=== PATIENT | male | born 1970 | race Two or more races ===

== ENCOUNTER 2020-02-05 09:48 | Emergency (ER) | payer BC, SELFPAY ==
--- NOTE | 2020-02-05 10:03 | ED.NAVMDI ---
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 Mode of arrival: ambulatory Limitations: no limitations History of Present Illness MD elicited complaint: nausea, vomiting and abdominal pain Onset (ago): day(s) (last night) Description of vomiting: food contents Associated nausea: Yes Associated abdominal pain: Yes Location of pain: diffuse Radiation: diffuse Pain consistency: constant Severity: moderate Quality: cramping Exacerbating factors: eating Relieving factors: none Context: possible food poisoning (started right after eating a big mac) Associated symptoms: loss of appetite and nausea/vomiting Related Data Previous Rx's Medication Instructions Recorded ondansetron 4 mg PO Q8H PRN #20 tab 02/05/20 Allergies Allergy/AdvReac Type Severity Reaction Status Date / Time No Known Allergies Allergy Unverified 11/13/19 18:50 [No Known Allergies*] Review of Systems Review of Systems: Constitutional : No Weight loss, No Fever, No Chills ENT/Mouth : No sore throat, No Rhinorrhea Eyes: No Swelling, No Redness Cardiovascular : No Chest Pain, No SOB, NoEdema Respiratory : No Cough, No Sputum, No Wheezing Gastrointestinal : Positive Nausea, Positive Vomiting, no Diarrhea, positive abdominal Pain, No Hematochezia, No Melena Genitourinary : No Dysuria, No Urinary Frequency, No Hematuria, No Urgency Musculoskeletal : No joint pain, No Myalgias, No Joint Swelling Skin : No Skin Lesions, No rash Neuro : No Weakness, No Numbness, No Dizziness, No Headache Psych : No Anxiety/Panic, No Depression Heme/Lymph: No Bruising, No Lymphadenopathy Endocrine : No Polyuria, No Polydipsia All other systems reviewed and are negative. Gastrointestinal: Gastrointestinal: Reports nausea PMFSH Past Medical History Attestation statement: The following information was validated with the patient. Medical History No known health problems Social History Social History (Updated 02/05/20 @ 10:25 by Lou Hirsch DO) Alcohol intake: never Smoking Status: Never smoker Advance Directives: No Advance Directives Information Provided: Yes Physical Exam Vital Signs: Vital Signs: Last Vital Signs Temp 99.2 F 02/05/20 10:17 Pulse 80 02/05/20 10:17 Resp 18 02/05/20 10:17 BP 145/93 H 02/05/20 10:17 Pulse Ox 97 02/05/20 10:17 Body Mass Index 26.6 Appearance: Alert. Oriented X3. No acute distress. Eyes: Pupils equal, round and reactive to light. ENT: Pharynx normal. Neck: Normal inspection. Neck supple. CVS: Normal heart rate and rhythm. Pulses normal. Respiratory: No respiratory distress. Breath sounds normal. Abdomen: Soft and mild diffuse tenderness no rebound or guarding. Skin: Skin warm and dry. Normal skin color. Normal skin turgor. Extremities: No lower extremity edema. No calf ttp Neuro: Oriented X 3. No motor deficit. No sensory deficit. Course Course Course Narrative: previously elevated LFTs no RUQ pain, feels much better wants to go home MDM - Nausea/Vomiting/Diarrhea MDM Narrative Medical decision making narrative: 50 yo male with no PMH c/o diffuse abdominal cramps and vomiting after eating a Big Mac last night at this time will need labs, IVF, supportive medications, no RLQ or RUQ pain suspect food toxicity Lab Data Result diagrams: 02/05/20 10:29 02/05/20 10:29 Labs: Lab Results 02/05/20 02/05/20 02/05/20 Range/Units 10:27 10:29 10:29 WBC 5.0 (4.8-10.8) X10*3/uL RBC 5.61 (4.60-5.80) X10*6/uL Hgb 17.4 (14.0-18.0) g/dl Hct 51.3 (42-52) % MCV 91.4 (80-98) fL MCH 31.0 (27.0-33.0) pg MCHC 33.9 (31.0-36.0) g/dl RDW 12.4 (11.0-16.0) % Plt Count 147 L (160-400) X10*3/uL MPV 9.6 (9.4-12.4) fL Immature Gran % (Auto) 0.2 (0.0-0.4) % Neut % (Auto) 70.4 (45-73) % Lymph % (Auto) 16.4 L (20-40) % [place] % (Auto) 12.8 H (2-11) % Eos % (Auto) 0.0 (0-4) % Baso % (Auto) 0.2 (0-2) % Lymph # (Auto) 0.8 L (1.2-4.9) X10*3/uL [place] # (Auto) 0.6 (0.1-1.2) X10*3/uL Eos # (Auto) 0.0 (0.0-0.4) X10*3/uL Baso # (Auto) 0.0 (0.0-0.2) X10*3/uL Abs Immat Gran (auto) 0.01 (0.00-0.03) X10*3/uL Absolute Neuts (auto) 3.5 (2.0-8.3) X10*3/uL Absolute Nucleated RBC 0.000 (0.0-0.012) X10*3/uL Nucleated RBC % (auto) 0.0 (0.0-0.2) /100WBC Hold Blue Top SEE NOTE Sodium (135-145) mmol/L Potassium (3.3-5.1) mmol/l Chloride (96-108) mmol/L Carbon Dioxide (22-29) mmol/L Anion Gap (12-20) BUN (9-16) mg/dL Creatinine (0.5-1.4) mg/dL Estim Creat Clear Calc Estimated GFR Random Glucose (60-115) mg/dL Calcium (8.4-10.2) mg/dL Magnesium (1.6-2.6) mg/dL Total Bilirubin (0.0-1.0) mg/dL Direct Bilirubin (0.0-0.5) mg/dL AST (5-37) U/L ALT (0-40) U/L Alkaline Phosphatase (39-117) U/L Total Protein (6.5-8.0) g/dL Albumin (3.5-5.0) g/dL Lipase (8-78) U/L Urine Color YELLOW Urine Appearance CLEAR Urine pH 7.0 (5.0-8.0) Ur Specific [place] 1.020 (1.005-1.025) Urine Protein NEG (NEG-TRACE) MG/DL Urine Glucose (UA) NEG (NEG) MG/DL Urine Ketones NEG (NEG) MG/DL Urine Blood NEG (NEG) Urine Nitrite NEG (NEG) Ur Leukocyte Esterase NEG (NEG) 02/05/20 Range/Units 10:29 WBC (4.8-10.8) X10*3/uL RBC (4.60-5.80) X10*6/uL Hgb (14.0-18.0) g/dl Hct (42-52) % MCV (80-98) fL MCH (27.0-33.0) pg MCHC (31.0-36.0) g/dl RDW (11.0-16.0) % Plt Count (160-400) X10*3/uL MPV (9.4-12.4) fL Immature Gran % (Auto) (0.0-0.4) % Neut % (Auto) (45-73) % Lymph % (Auto) (20-40) % [place] % (Auto) (2-11) % Eos % (Auto) (0-4) % Baso % (Auto) (0-2) % Lymph # (Auto) (1.2-4.9) X10*3/uL [place] # (Auto) (0.1-1.2) X10*3/uL Eos # (Auto) (0.0-0.4) X10*3/uL Baso # (Auto) (0.0-0.2) X10*3/uL Abs Immat Gran (auto) (0.00-0.03) X10*3/uL Absolute Neuts (auto) (2.0-8.3) X10*3/uL Absolute Nucleated RBC (0.0-0.012) X10*3/uL Nucleated RBC % (auto) (0.0-0.2) /100WBC Hold Blue Top Sodium 138 (135-145) mmol/L Potassium 4.2 (3.3-5.1) mmol/l Chloride 101 (96-108) mmol/L Carbon Dioxide 27 (22-29) mmol/L Anion Gap 14 (12-20) BUN 9 (9-16) mg/dL Creatinine 1.03 (0.5-1.4) mg/dL Estim Creat Clear Calc 89.3 Estimated GFR > 60 Random Glucose 99 (60-115) mg/dL Calcium 8.7 (8.4-10.2) mg/dL Magnesium 2.1 (1.6-2.6) mg/dL Total Bilirubin 0.4 (0.0-1.0) mg/dL Direct Bilirubin 0.3 (0.0-0.5) mg/dL AST 60 H (5-37) U/L ALT 70 H (0-40) U/L Alkaline Phosphatase 76 (39-117) U/L Total Protein 7.3 (6.5-8.0) g/dL Albumin 4.4 (3.5-5.0) g/dL Lipase 21 (8-78) U/L Urine Color Urine Appearance Urine pH (5.0-8.0) Ur Specific [place] (1.005-1.025) Urine Protein (NEG-TRACE) MG/DL Urine Glucose (UA) (NEG) MG/DL Urine Ketones (NEG) MG/DL Urine Blood (NEG) Urine Nitrite (NEG) Ur Leukocyte Esterase (NEG) Discharge Plan Discharge Clinical Impression: Abdominal pain Qualifiers: Abdominal location: generalized Qualified Code(s): R10.84 - Generalized abdominal pain Vomiting Qualifiers: Vomiting type: unspecified Vomiting Intractability: non-intractable Nausea presence: with nausea Qualified Code(s): R11.2 - Nausea with vomiting, unspecified Patient Disposition: Home, Self-Care Instructions: Acute Nausea and Vomiting (ED), Abdominal Pain (ED) Additional Instructions: return to ED for any worsening symptoms or concerns Prescriptions: New ondansetron 4 mg tablet,disintegrating 4 mg PO Q8H PRN (Reason: nausea and vomiting) Qty: 20 RF: 0 Stand Alone Forms: Work/School Release Print Language: [place]
[2020-02-05 10:17] VITALS: BP 145/93; PULSE 80; RESP 18; TEMP 37.3; O2SAT 97; BMI 26.6
[2020-02-05] MEDS: 0.9 % Sodium Chloride 1,000 ML 999 ML IVCONT (10:35)
[2020-02-05] MEDS: Ketorolac Tromethamine 30 MG/ML VIAL IVPUSH (10:36)
[2020-02-05] MEDS: Famotidine/PF 20 MG/2 ML VIAL IVPUSH (10:36)
[2020-02-05] MEDS: ondansetron HCL 4 MG/2 ML VIAL IVPUSH (10:36)
[2020-02-05 10:42] LABS: MANUAL DIFF FLAG NO
[2020-02-05 10:44] LABS: Basophils Percent Auto 0.2 % (0-2); Hematocrit 51.3 % (42-52); Hemoglobin 17.4 g/dl (14.0-18.0); Imm Gran Abs Auto 0.01 X10*3/uL (0.00-0.03); Imm Gran Pct Auto 0.2 % (0.0-0.4); Lymphocytes Absolute Auto 0.8 X10*3/uL (1.2-4.9); Lymphocytes Percent Auto 16.4 % (20-40); Mean Corpuscular HGB Conc 33.9 g/dl (31.0-36.0); Mean Corpuscular Volume 91.4 fL (80-98); Mean Platelet Volume 9.6 fL (9.4-12.4); Monocytes Absolute Auto 0.6 X10*3/uL (0.1-1.2); Monocytes Percent Auto 12.8 % (2-11); Neutrophils Absolute Auto 3.5 X10*3/uL (2.0-8.3); Neutrophils Percent Auto 70.4 % (45-73); Platelet Count 147 X10*3/uL (160-400); Red Blood Count 5.61 X10*6/uL (4.60-5.80); Red Cell Distribution Width 12.4 % (11.0-16.0)
[2020-02-05 10:45] LABS: Glucose Urine UA NEG (NEG); Leukocyte Esterase Urine NEG (NEG); Nitrite Urine NEG (NEG); Urine Blood NEG (NEG); Urine Ketones NEG (NEG); Urine Protein NEG (NEG-TRACE)
[2020-02-05 10:53] LABS: Appearance Urine CLEAR; Color Urine YELLOW
[2020-02-05 11:16] LABS: Alanine Aminotransferase 70 U/L (0-40); Albumin Level 4.4 g/dL (3.5-5.0); Alkaline Phosphatase 76 U/L (39-117); Anion Gap 14 (12-20); Aspartate Amino Transferase 60 U/L (5-37); Bilirubin Direct 0.3 mg/dL (0.0-0.5); Bilirubin Total 0.4 mg/dL (0.0-1.0); Blood Urea Nitrogen 9 mg/dL (9-16); Calcium 8.7 mg/dL (8.4-10.2); Carbon Dioxide 27 mmol/L (22-29); Chloride 101 mmol/L (96-108); Creatinine Clr Calc Pharmacy 89.3; Estimated Glomerular Filt Rate > 60; Glucose Random 99 mg/dL (60-115); Lipase 21 U/L (8-78); Magnesium 2.1 mg/dL (1.6-2.6); Potassium 4.2 mmol/l (3.3-5.1); Sodium 138 mmol/L (135-145); Total Protein 7.3 g/dL (6.5-8.0)
== END 2020-02-05 13:31 | disposition home or self-care (01) ==
PROVIDERS: Emergency Provider Emergency Medicine
DX: R10.84 Generalized abdominal pain (principal); R11.2 Nausea with vomiting, unspecified
CPT/HCPCS: 36415; 80048; 80076; 81003; 83690; 83735; 85025; 99283; J1885; J2405

== ENCOUNTER 2020-02-05 16:36 | Outpatient (REF) | payer BC, SELFPAY | END 2020-02-05 16:37 | disposition home or self-care (01) | LOC: HO.LAB 16:36 | PROVIDERS: PCP Family Medicine; Visit Provider Internal Medicine | DX: Z20.828 Contact with and (suspected) exposure to other viral communicable diseases (principal) | CPT/HCPCS: C9803; U0003 ==

== ENCOUNTER 2020-02-09 09:39 | Emergency (ER) | payer BC, SELFPAY ==
[2020-02-09 10:52] VITALS: BP 155/91; PULSE 85; RESP 18; TEMP 37.8; O2SAT 99; BMI 27.2
--- NOTE | 2020-02-09 10:57 | XR_ITS ---
EXAMINATION: XR CHEST CLINICAL INFORMATION: Question COVID. Pneumonia. COMPARISON: None TECHNIQUE: Frontal view of the chest was obtained. FINDINGS: Normal cardiac and mediastinal silhouette. The lungs are hyperexpanded. Slight elevation of the right hemidiaphragm. Curvilinear opacity in the medial aspect of the left upper lung, and small patchy opacity in the medial aspect of the right lower lung, could represent atelectasis or developing infiltrate. No dense consolidation otherwise. No effusion, edema or pneumothorax. XR/XR chest 1V IMPRESSION: Curvilinear left upper lobe opacity, small patchy opacity in the medial right lung base, could represent atelectasis or developing infiltrate. Suggest followup chest x-ray for reassessment.
[2020-02-09] MEDS: Ibuprofen 800 MG TABLET PO (11:21)
--- NOTE | 2020-02-09 11:23 | PC.NURSE ---
SEEN BY MLP. MEDICATED PER ORDERS
--- NOTE | 2020-02-09 11:32 | ED_ITS ---
HPI - URI/Sore Throat General Chief Complaint: Upper Respiratory Symptoms Stated Complaint: COVID+ Time Seen by Provider: 02/09/20 10:56 Source: patient Mode of arrival: ambulatory Limitations: no limitations History of Present Illness HPI Narrative: Patient presents to ED for COVID like symptoms. Patient states body aches, headache, night sweats, chills, fatigue, and coughing. Patient denies any chest pain or shortness of breath. Patient states his tested positive for COVID-19 virus also. Patient denies any abdominal pain or diarrhea. States nausea. Patient states he was tested positive for covid-19 5 days ago. Related Data Previous Rx's Medication Instructions Recorded ondansetron 4 mg PO Q8H PRN #20 tab 02/05/20 amoxicillin 1,000 mg PO TID #30 tab 02/09/20 azithromycin [Zithromax Z-Rufino] See Rx Instructions .ROUTE 02/09/20 .COMPLEX #6 tab naproxen 500 mg PO BID PRN #20 tab 02/09/20 Allergies Allergy/AdvReac Type Severity Reaction Status Date / Time No Known Allergies Allergy Unverified 11/13/19 18:50 [No Known Allergies*] Review of Systems Review of Systems: Yes all other systems are reviewed and are negative Constitutional: Constitutional: Reports as per HPI, Reports no additional constitutional complaints, Reports body ache(s), Reports chills, Reports fatigue, Reports fever(s), Reports headache(s) and Reports night sweats Eyes: Eyes: Reports as per HPI and Reports no additional eye complaints ENT: Reports system reviewed and no additional complaints, except as documented, Reports as per HPI and Reports headache(s) Cardiovascular: Cardiovascular: Reports as per HPI, Reports no additional cardiovascular complaints, Denies chest pain, Denies chest pain at rest, Denies chest pain with activity, Denies Epigastric Pain, Denies dyspnea, Denies dyspnea on exertion, Denies orthopnea and Denies paroxysmal nocturnal dyspnea Respiratory: Respiratory: Reports as per HPI, Reports no additional respiratory complaints, Reports cough, Denies excessive phlegm production, Denies pain on inspiration, Denies pain with cough, Denies dyspnea and Denies dyspnea on exertion Gastrointestinal: Gastrointestinal: Reports as per HPI, Reports no additional gastrointestinal complaints, Denies abdominal pain, Denies dyspepsia, Denies heartburn, Denies diarrhea, Denies nausea and Denies vomiting Genitourinary: Genitourinary: Reports no additional male genitourinary complaints and Reports as per HPI Musculoskeletal: Musculoskeletal: Reports no additional musculoskeletal complaints and Reports as per HPI Neurologic: Reports system reviewed and no additional complaints, except as documented, Reports as per HPI and Reports headache(s) Psychiatric: Psychiatric: Reports no additional psychiatric complaints and Reports as per HPI Endocrine: Endocrine: Reports fatigue [facility] Past Medical History Medical History No known health problems Social History Social History (Updated 02/05/20 @ 10:25 by Lou Hirsch DO) Alcohol intake: never Smoking Status: Never smoker Advance Directives: No Advance Directives Information Provided: No Physical Exam Vital Signs: Vital Signs: Last Vital Signs Temp 100.0 F 02/09/20 10:52 Pulse 85 02/09/20 10:52 Resp 18 02/09/20 10:52 BP 155/91 H 02/09/20 10:52 Pulse Ox 99 02/09/20 10:52 Body Mass Index 27.2 Const: General: cooperative, healthy appearing, comfortable, no acute distress, well developed, alert, awake, Physically active and acute distress Orientation/consciousness: patient oriented x3 HENMT: Head: Yes normal to inspection and Yes No palpable skull fracture present Eyes: General: appearance normal, both eyes and all related structures Neck: Neck: Yes normal visual inspection, Yes full ROM, Yes no lymphadenopathy, Yes no meningeal signs, Yes trachea midline, Yes supple and No tender Chest: Chest palpation & inspection: normal inspection of the chest, normal palpation of entire chest wall and no localized rib tenderness Resp: Effort & Inspection: normal respiratory effort and able to speak in complete sentences Auscultation: clear to auscultation bilaterally Cardio: Jugular venous distension: no JVD Heart sounds: S1 normal heart sound present and S2 normal heart sound present GI: Inspection: Yes normal to inspection and No abdominal wall ecchymosis Palpation (GI): Soft to palpation, not firm, nontender, no guarding and not rigid : General: No CVA tenderness and Yes no CVA tenderness Back/Spine/Pelvis: Back: no CVA tenderness, No CVA tenderness and No back tenderness Skin: General skin exam: no rashes or lesions noted Neuro: General: patient oriented x3, gait normal, no meningeal signs and CN's II-XI intact bilaterally Cranial nerves: Yes CN's II-XII intact bilaterally Extrem: General: Yes normal to inspection and Yes full ROM Psych: Appearance: grossly normal, well kempt and not disheveled Course Course Course Narrative: Patient is not in respiratory distress. Patient denies any chest pain or shortness of breath. Patient was recently seen here on the and had normal labs. No need to repeat labs. We will do chest x-ray to see if there is COVID pneumonia. Will give patient Zofran and Motrin. No need for repeat COVID test. Patient states who was recently tested positive for COVID-19 5 days ago. Reevaluation(s) Reevaluation #1: Patient vital signs are stable. Patient denies any shortness of breath or chest pain. Chest x-ray shows bilateral pneumonia. Patient is not hypoxic. Patient is not tachypneic. Patient speaking in full sentences. No no labs indicated. Patient is not toxic appearing Time: 11:56 MDM - URI/Sore Throat MDM Narrative Medical decision making narrative: COVID-19 Discharge Plan Discharge Clinical Impression: COVID-19, Pneumonia Patient Disposition: Home, Self-Care Instructions: Pneumonia (ED), COVID-19 (Coronavirus Disease 2019) (ED) Additional Instructions: Return to the ED for any chest pain, shortness of breath, weakness, or any other concerning symptoms. Recommend 14 days self-isolation. Prescriptions: New azithromycin [Zithromax Z-Rufino] 250 mg tablet See Rx Instructions .ROUTE .COMPLEX Qty: 6 RF: 0 amoxicillin 500 mg tablet 1,000 mg PO TID Qty: 30 RF: 0 naproxen 500 mg tablet 500 mg PO BID PRN (Reason: pain) Qty: 20 RF: 0 No Action ondansetron 4 mg tablet,disintegrating 4 mg PO Q8H PRN (Reason: nausea and vomiting) Qty: 20 RF: 0 Referrals: True Mullen MD [Primary Care Provider] - 2 days (Positive COVID- 19 virus. Chest x-ray shows pneumonia. Patient discharged with antibiotics) Stand Alone Forms: Work/School Release Print Language: Kinyarwanda
== END 2020-02-09 13:30 | disposition home or self-care (01) ==
PROVIDERS: Emergency Provider Emergency Medicine; PCP Internal Medicine
DX: U07.1 COVID-19 (principal); J12.89 Other viral pneumonia
CPT/HCPCS: 71045; 99282; 99283

== ENCOUNTER 2020-02-18 10:54 | Outpatient (REF) | payer BC, SELFPAY | END 2020-02-18 10:55 | disposition home or self-care (01) | LOC: HO.LAB 10:54 | PROVIDERS: Visit Provider Internal Medicine | DX: Z20.828 Contact with and (suspected) exposure to other viral communicable diseases (principal) | CPT/HCPCS: C9803; U0003 ==

== ENCOUNTER 2020-02-25 15:15 | Outpatient (REF) | payer BC, SELFPAY | END 2020-02-25 15:16 | disposition home or self-care (01) | LOC: HO.LAB 15:15 | PROVIDERS: PCP Family Medicine; Visit Provider Internal Medicine | DX: Z20.828 Contact with and (suspected) exposure to other viral communicable diseases (principal) | CPT/HCPCS: C9803; U0003 ==

== ENCOUNTER 2021-09-05 08:49 | Emergency (ER) | payer OTHER, SELFPAY ==
--- NOTE | ~2021-09-05 | CT_ITS ---
EXAMINATION: CT ABDOMEN AND PELVIS WITHOUT CONTRAST CLINICAL INFORMATION: Left lower quadrant pain COMPARISON: Previous CT of the abdomen and pelvis July 2019 TECHNIQUE: Multidetector volumetric imaging was performed from the superior aspect of the liver through the pubic symphysis. Sagittal and coronal reformatted images were obtained on the technologist's workstation. This CT examination was performed using dose optimization techniques as appropriate, variously including the following: *Automated exposure control *Adjustment of mA and/or kV according to patient size (this includes techniques or standardized protocols for targeted exams where dose is matched to indication/reason for exam; i.e. extremities or head) *Use of iterative reconstruction technique DLP: 634 mGy-cm FINDINGS: LUNG BASES: The visualized lung bases are unremarkable. LIVER, GALLBLADDER, AND BILIARY TREE: The liver is normal in size and shape. The liver is low in attenuation suggestive of fatty infiltration. No focal hepatic lesion or biliary ductal dilatation is present. The gallbladder is unremarkable with no evidence of radiopaque gallstones, gallbladder wall thickening, or obvious pericholecystic inflammatory changes. PANCREAS: Unremarkable. SPLEEN: Unremarkable. ADRENAL GLANDS: Unremarkable. KIDNEYS AND URETERS: The kidneys are normal in size, shape, and attenuation. No hydronephrosis, hydroureter, or calculi seen. No perinephric stranding. BLADDER: Unremarkable. GASTROINTESTINAL TRACT: There is diverticulosis of the colon. There is wall thickening of the distal left/proximal sigmoid colon and fat stranding of the surrounding fat just diverticulitis. No evidence of obstruction, perforation or abscess is. The small and large bowel are otherwise unremarkable. The appendix is unremarkable. ABDOMINAL WALL: No significant hernia is appreciated. LYMPH NODES: Normal. VASCULAR: Unremarkable. PELVIC VISCERA: Unremarkable. OSSEOUS STRUCTURES: Unremarkable. CT/CT abdomen pelvis wo con IMPRESSION: Diverticulitis of the distal left/proximal sigmoid colon. Fatty liver. Fleischner guidelines were followed.
[2021-09-05 10:11] VITALS: BP 156/95; PULSE 77; RESP 18; TEMP 36.6; O2SAT 95; BMI 27.1
[2021-09-05 10:40] LABS: MANUAL DIFF FLAG NO
[2021-09-05 10:44] LABS: Appearance Urine CLEAR; Basophils Absolute Auto 0.1 X10*3/uL (0.0-0.2); Basophils Percent Auto 0.4 % (0-2); Color Urine YELLOW; Eosinophils Absolute Auto 0.1 X10*3/uL (0.0-0.4); Eosinophils Percent Auto 1.1 % (0-4); Glucose Urine UA NEG (NEG); Hematocrit 49.4 % (42.0-52.0); Hemoglobin 17.2 g/dl (14.0-18.0); Imm Gran Abs Auto 0.06 X10*3/uL (0.00-0.03); Imm Gran Pct Auto 0.5 % (0.0-0.4); Leukocyte Esterase Urine NEG (NEG); Lymphocytes Absolute Auto 1.5 X10*3/uL (1.2-4.9); Lymphocytes Percent Auto 11.3 % (20-40); Mean Corpuscular HGB Conc 34.8 g/dl (31.0-36.0); Mean Corpuscular Hemoglobin 31.5 pg (27.0-33.0); Mean Corpuscular Volume 90.5 fL (80.0-98.0); Mean Platelet Volume 9.6 fL (9.4-12.4); Monocytes Absolute Auto 1.3 X10*3/uL (0.1-1.2); Monocytes Percent Auto 9.7 % (2-11); Neutrophils Absolute Auto 9.9 x10*3/uL (2.0-8.3); Nitrite Urine NEG (NEG); Platelet Count 179 X10*3/uL (160-400); Red Blood Count 5.46 X10*6/uL (4.60-5.80); Red Cell Distribution Width 12.3 % (11.0-16.0); Specific Gravity - Urine 1.015 (1.005-1.025); UACC Culture Trigger NO; Urine Blood TRACE (NEG); Urine Ketones NEG (NEG); Urine Protein NEG (NEG-TRACE); White Blood Count 12.9 X10*3/uL (4.8-10.8)
[2021-09-05 11:01] LABS: RBC Urine 0-2 /HPF (0); Squamous Epithelial Cell Urine TRACE /LPF; WBC Urine 0 /HPF (0-4)
[2021-09-05 11:03] LABS: Alanine Aminotransferase 77 U/L (0-40); Albumin Level 4.6 g/dL (3.5-5.0); Alkaline Phosphatase 91 U/L (39-117); Anion Gap 12 (12-20); Aspartate Amino Transferase 34 U/L (5-37); Bilirubin Direct 0.4 mg/dL (0.0-0.5); Bilirubin Total 1.3 mg/dL (0.0-1.0); Blood Urea Nitrogen 16 mg/dL (9-16); Calcium 9.4 mg/dL (8.4-10.2); Carbon Dioxide 25 mmol/L (22-29); Chloride 104 mmol/L (96-108); Creatinine Clr Calc Pharmacy 78.4; Estimated Glomerular Filt Rate > 60; Glucose Random 105 mg/dL (60-115); Lipase 16 U/L (8-78); Potassium 4.4 mmol/L (3.3-5.1); Sodium 137 mmol/L (135-145); Total Protein 7.5 g/dL (6.5-8.0)
--- NOTE | 2021-09-05 13:13 | ED_ITS ---
HPI - Abdominal Pain General Chief Complaint: Abdominal Pain Stated Complaint: Lower abd pain 1x month Time Seen by Provider: 09/05/21 11:45 Source: patient Mode of arrival: ambulatory Limitations: no limitations History of Present Illness HPI narrative: Patient presents emergency room complaining of intermittent abdominal pain in the left lower quadrant. Patient states the pain started approximately 1 month ago. Yesterday patient went to work but the pain became much worse than usual. Patient states that he is usually constipated, no diarrhea, yesterday he had 1 episode of vomiting, at this time not nauseous. Patient denies any URI or UTI symptoms, denies black stool. Related Data Previous Rx's Medication Instructions Recorded ondansetron 4 mg disintegrating 4 mg PO Q8H PRN nausea and 02/05/20 tablet vomiting #20 tabs amoxicillin 500 mg tablet 1,000 mg PO TID #30 tabs 02/09/20 azithromycin 250 mg tablet See Rx Instructions PO .COMPLEX #6 02/09/20 (Zithromax Z-Rufino) tabs naproxen 500 mg tablet 500 mg PO BID PRN pain #20 tabs 02/09/20 levofloxacin 500 mg tablet 500 mg PO DAILY #9 tabs 09/05/21 metronidazole 250 mg tablet 250 mg PO BID #20 tabs 09/05/21 tramadol 50 mg tablet 50 mg PO BID PRN pain #7 tabs 09/05/21 Allergies Allergy/AdvReac Type Severity Reaction Status Date / Time No Known Allergies Allergy Unverified 11/13/19 18:50 [No Known Allergies*] Review of Systems Review of Systems Constitutional : No Weight loss, No Fever, No Chills, No Night Sweats, No Fatigue, No Malaise ENT/Mouth : No Hearing loss, No Ear Pain, No Nasal Congestion, No Sinus Pain, No Hoarseness, No sore throat, No Rhinorrhea, No Swallowing Difficulty Eyes: No Eye Pain, No Swelling, No Redness, No Foreign Body, No Discharge, No Vision Changes Cardiovascular : No Chest Pain, No SOB, No Dyspnea on Exertion, No Orthopnea, No Edema, No Palpitations Respiratory : No Cough, No Sputum, No Wheezing, No Smoke Exposure, No Dyspnea Gastrointestinal : Complaining of 1 episode of vomiting last night, no diarrhea, chronic constipation, complaining of intermittent left lower quadrant pain Genitourinary : no irregular bleeding, No Dysuria, No Urinary Frequency, No Hematuria, No Urinary Incontinence, No Urgency, No Flank Pain, No Urinary Flow Changes, No Hesitancy Musculoskeletal : No joint pain, No Myalgias, No Joint Swelling Skin : No Skin Lesions, No rash Neuro : No Weakness, No Numbness, No Paresthesias, No Loss of Consciousness, No Dizziness, No Headache Psych : No Anxiety/Panic, No Depression, No SI/HI/AH/VH, No Social Issues, Heme/Lymph: No Bruising, No Bleeding,No Lymphadenopathy Endocrine : No Polyuria, No Polydipsia, No Temperature Intolerance [facility] Past Medical History Medical History No known health problems Social History Social History (Updated 02/05/20 @ 10:25 by Lou Hirsch DO) Alcohol intake: never Advance Directives: No Advance Directives Information Provided: No Physical Exam ED Vital Signs: Vital Signs - 24 hr 09/05/21 10:11 Temperature 98 F Pulse Rate 77 Respiratory Rate 18 Blood Pressure 156/95 H Pulse Oximetry 95 Oxygen Delivery Method Room Air BMI result Body Mass Index 27.1 Const Other: Appearance: Alert. Oriented X3. No acute distress. Eyes: Pupils equal, round and reactive to light. ENT: Pharynx normal. Neck: Normal inspection. Neck supple. No lymph nodes noted. No crepitus CVS: Normal heart rate and rhythm. Pulses normal. Normal S1 and S2 Respiratory: No respiratory distress. Breath sounds normal. No Wheezing. No rales Abdomen: Soft pain to deep palpation in the left lower quadrant, no rebound, mild guarding Skin: Skin warm and dry. Normal skin color. Normal skin turgor. Extremities: No lower extremity edema. No Lacerations. No Rash Neuro: Oriented X 3. No motor deficit. No sensory deficit. Moving all extremities. No slurred speech. CN 2 through 12 grossly intact Psych: calm, cooperative, normal affect Course Course Course Narrative: Patient's white blood cell count is 12.9, patient does not have any fever. CT scan of the abdomen pending. CT scan shows diverticulitis, no perforation. Patient was given p.o. levofloxacin and metronidazole and tramadol. MDM - Abdominal Pain Lab Data Result diagrams: 09/05/21 10:35 09/05/21 10:35 Labs: Lab Results 09/05/21 09/05/21 09/05/21 Range/Units 10:35 10:35 10:35 WBC 12.9 H (4.8-10.8) X10*3/uL RBC 5.46 (4.60-5.80) X10*6/uL Hgb 17.2 (14.0-18.0) g/dl Hct 49.4 (42.0-52.0) % MCV 90.5 (80.0-98.0) fL MCH 31.5 (27.0-33.0) pg MCHC 34.8 (31.0-36.0) g/dl RDW 12.3 (11.0-16.0) % Plt Count 179 (160-400) X10*3/uL MPV 9.6 (9.4-12.4) fL Immature Gran % (Auto) 0.5 H (0.0-0.4) % Neut % (Auto) 77.0 H (45-73) % Lymph % (Auto) 11.3 L (20-40) % [place] % (Auto) 9.7 (2-11) % Eos % (Auto) 1.1 (0-4) % Baso % (Auto) 0.4 (0-2) % Lymph # (Auto) 1.5 (1.2-4.9) X10*3/uL [place] # (Auto) 1.3 H (0.1-1.2) X10*3/uL Eos # (Auto) 0.1 (0.0-0.4) X10*3/uL Baso # (Auto) 0.1 (0.0-0.2) X10*3/uL Abs Immat Gran (auto) 0.06 H (0.00-0.03) X10*3/uL Absolute Neuts (auto) 9.9 H (2.0-8.3) x10*3/uL Absolute Nucleated RBC 0.000 (0.0-0.012) X10*3/uL Nucleated RBC % (auto) 0.0 (0.0-0.2) /100WBC Sodium 137 (135-145) mmol/L Potassium 4.4 (3.3-5.1) mmol/L Chloride 104 (96-108) mmol/L Carbon Dioxide 25 (22-29) mmol/L Anion Gap 12 (12-20) BUN 16 (9-16) mg/dL Creatinine 1.16 (0.5-1.4) mg/dL Estim Creat Clear Calc 78.4 Estimated GFR > 60 Random Glucose 105 (60-115) mg/dL Calcium 9.4 D (8.4-10.2) mg/dL Total Bilirubin 1.3 H (0.0-1.0) mg/dL Direct Bilirubin 0.4 (0.0-0.5) mg/dL AST 34 D (5-37) U/L ALT 77 H (0-40) U/L Alkaline Phosphatase 91 (39-117) U/L Total Protein 7.5 (6.5-8.0) g/dL Albumin 4.6 (3.5-5.0) g/dL Lipase 16 (8-78) U/L Urine Color YELLOW Urine Appearance CLEAR Urine pH 6.0 (5.0-8.0) Ur Specific [place] 1.015 (1.005-1.025) Urine Protein NEG (NEG-TRACE) MG/DL Urine Glucose (UA) NEG (NEG) MG/DL Urine Ketones NEG (NEG) MG/DL Urine Blood TRACE (NEG) Urine Nitrite NEG (NEG) Ur Leukocyte Esterase NEG (NEG) Urine RBC 0-2 (0) /HPF Urine WBC 0 (0-4) /HPF Ur Squamous Epith Cells TRACE /LPF Urine Bacteria NONE /LPF Discharge Plan Discharge Clinical Impression: Diverticulitis Patient Disposition: Home, Self-Care Instructions: Diverticulitis (ED) Additional Instructions: Please follow-up with your primary care physician tomorrow. If you have any worsening or new symptoms, please return to the emergency room or call 911 Prescriptions: New levofloxacin 500 mg tablet 500 mg PO DAILY Qty: 9 0RF metronidazole 250 mg tablet 250 mg PO BID Qty: 20 0RF tramadol 50 mg tablet 50 mg PO BID PRN (Reason: pain) Qty: 7 0RF No Action ondansetron 4 mg tablet,disintegrating 4 mg PO Q8H PRN (Reason: nausea and vomiting) Qty: 20 0RF azithromycin [Zithromax Z-Rufino] 250 mg tablet See Rx Instructions .ROUTE .COMPLEX Qty: 6 0RF Rx Instructions: take 500 mg today (day 1), then 250 mg for 4 days (days 2-5) amoxicillin 500 mg tablet 1,000 mg PO TID Qty: 30 0RF naproxen 500 mg tablet 500 mg PO BID PRN (Reason: pain) Qty: 20 0RF
[2021-09-05 16:47] VITALS: BP 170/95; PULSE 74; RESP 16; TEMP 36.9; O2SAT 98
[2021-09-05] MEDS: traMADoL HCL 50 MG TABLET PO (18:16)
[2021-09-05] MEDS: metroNIDAZOLE 500 MG TABLET PO (18:17)
[2021-09-05] MEDS: levoFLOXacin 750 MG TABLET PO (18:17)
== END 2021-09-05 18:21 | disposition home or self-care (01) ==
PROVIDERS: Emergency Provider Emergency Medicine; PCP Internal Medicine
DX: K57.32 Diverticulitis of large intestine without perforation or abscess without bleeding (principal); R10.32 Left lower quadrant pain; Z79.899 Other long term (current) drug therapy
CPT/HCPCS: 36415; 74176; 80048; 80076; 81001; 83690; 85025; 99283; 99284

== ENCOUNTER → 2022-06-09 11:04 | Outpatient (BNVA) | payer BC, SELFPAY | PROVIDERS: PCP Internal Medicine; Visit Provider Nurse Practitioner Family | DX: Z13.89 Encounter for screening for other disorder (principal) ==

== ENCOUNTER 2022-06-10 08:32 | Outpatient (REF) | payer OTHER, SELFPAY ==
[2022-06-10 09:43] LABS: Prostate Specific Antigen 4.14 ng/mL (<0.05-4.0)
[2022-06-17 06:14] LABS: Testosterone, Free 70.2 pg/mL (35.0-155.0); Testosterone, Total 456 ng/dL (250-1100)
== END 2022-06-10 08:33 | disposition home or self-care (01) ==
LOC: HO.LAB 08:32
PROVIDERS: Visit Provider Nurse Practitioner Family
DX: Z12.5 Encounter for screening for malignant neoplasm of prostate (principal); E29.1 Testicular hypofunction; N40.0 Benign prostatic hyperplasia without lower urinary tract symptoms
CPT/HCPCS: 36415; 84153; 84402; 84403

== ENCOUNTER → 2022-07-07 14:56 | Outpatient (BNVA) | payer BC, SELFPAY | PROVIDERS: PCP Internal Medicine; Visit Provider Nurse Practitioner Family ==

== ENCOUNTER 2022-07-31 09:50 | Outpatient (REF) | payer OTHER, SELFPAY ==
--- NOTE | ~2022-07-31 | US_ITS ---
EXAMINATION: US RETROPERITONEAL COMPLETE (RENAL) CLINICAL INFORMATION: Nocturia. COMPARISON: CT abdomen and pelvis 09/05/2021. TECHNIQUE: Real-time imaging of the kidneys and bladder. FINDINGS: RIGHT KIDNEY: 10.3 x 4.6 x 4.5 cm (SAG x AP x TRV). The kidney is normal in size, contour, and echogenicity. Renal cortical thickness is normal. No calculi or focal parenchymal lesions. No hydronephrosis. LEFT KIDNEY: 10.6 x 4.8 x 5.4 cm (SAG x AP x TRV). The kidney is normal in size, contour, and echogenicity. Renal cortical thickness is normal. No calculi or focal parenchymal lesions. No hydronephrosis. BLADDER: Well distended and normal. Bilateral ureteral jets are demonstrated. Prevoid bladder volume is 168 mL. Postvoid bladder volume is 8 mL. OTHER: Prostate dimensions are 4.4 x 3.5 x 3.7 cm (volume 29.4 mL). US/US retroperitoneal comp IMPRESSION: Unremarkable examination.
== END 2022-07-31 09:51 | disposition home or self-care (01) ==
LOC: HO.US 09:50
PROVIDERS: PCP Internal Medicine; Visit Provider Nurse Practitioner Family
DX: N40.0 Benign prostatic hyperplasia without lower urinary tract symptoms (principal); R35.1 Nocturia; R97.20 Elevated prostate specific antigen [PSA]
CPT/HCPCS: 76770

== ENCOUNTER 2022-08-12 07:21 | Outpatient (REF) | payer OTHER, SELFPAY ==
[2022-08-12 09:00] LABS: Thyroid Stimulating Hormone 3.37 uIU/mL (0.32-4.0)
[2022-08-12 09:15] LABS: PSA,Total (Free>4and<10) 3.68 ng/mL (0.00-4.00)
[2022-08-13 15:58] LABS: Follicle Stimulating Hormone 4.4 mIU/mL (1.6-8.0); Prolactin 4.6 ng/mL (2.0-18.0); Sex Hormone Binding Globulin 36 nmol/L (10-50)
[2022-08-17 18:23] LABS: Testosterone, Free 44.7 pg/mL (35.0-155.0); Testosterone, Total 260 ng/dL (250-1100)
== END 2022-08-12 07:22 | disposition home or self-care (01) ==
LOC: HO.LAB 07:21
PROVIDERS: Visit Provider Nurse Practitioner Family
DX: R68.82 Decreased libido (principal); N52.9 Male erectile dysfunction, unspecified; E29.1 Testicular hypofunction; R97.20 Elevated prostate specific antigen [PSA]; Z12.5 Encounter for screening for malignant neoplasm of prostate
CPT/HCPCS: 36415; 83001; 83002; 84146; 84153; 84270; 84402; 84403; 84443

== ENCOUNTER → 2022-08-17 15:30 | Outpatient (BNVA) | payer OTHER, SELFPAY | PROVIDERS: PCP Internal Medicine; Visit Provider Nurse Practitioner Family ==

== ENCOUNTER 2022-08-24 07:34 | Outpatient (REF) | payer OTHER, SELFPAY ==
[2022-08-24 07:45] VITALS: BP 168/96; PULSE 72; RESP 16; TEMP 35.9; O2SAT 97
[2022-08-24 07:47] VITALS: BMI 27.6
--- NOTE | 2022-08-24 08:19 | W.PM.OPN ---
Operative Note Operative Note Date of Service: 08/24/22 Narrative: Preoperative diagnosis: Elevated PSA Postoperative diagnosis: Elevated PSA Procedure: 1. transrectal ultrasound measurement of prostate 2. transrectal ultrasound-guided pudendal nerve block 3. transrectal ultrasound-guided prostate biopsy 12 core Surgeon: Dr. Severiano Montoya Anesthetic: Local Indications for procedure: Elevated PSA 4.2 Procedure: After informed consent was verified, the patient was brought into the procedure area and lay left-hand side down on the table. Patient identity confirmed. Perioperative antibiotics confirmed. Safety pause time out performed. YAMILEX performed to dilate rectal sphincter Iodine 10cc with Gel was placed per rectum Ultrasound probe was placed per rectum The prostate was measured in 3 dimensions Total volume equals 30 gm No cystic structures were noted No calcifications were noted at the surgical margin The prostate was otherwise homogeneous in nature An ultrasound-guided pudendal nerve block was performed using 10 cc of 1% lidocaine. 8 cc was placed at the base and 2 cc of the apex. A 12 core biopsy was performed with 6 cores each side. Two cores were taken at the apex, mid and base. Cores were spaced between lateral and medial. He tolerated the procedure well. Was able to ambulate to bathroom after 5 minutes. Printed instructions regarding antibiotic use and common side effects such as low-grade temperature, potential infection and bleeding were given Pathology: 12 core prostate biopsy.
[2022-08-24 08:46] VITALS: BP 127/73; PULSE 80; RESP 16; O2SAT 98
== END 2022-08-24 07:35 | disposition home or self-care (01) ==
LOC: HO.MS 07:34
PROVIDERS: PCP Internal Medicine; Visit Provider Urology
PROC: (CPT 55700; principal; 2022-08-24 08:00)
DX: C61 Malignant neoplasm of prostate (principal); R97.20 Elevated prostate specific antigen [PSA]
CPT/HCPCS: 55700; 76942; 88305; 88342; 88344

== ENCOUNTER 2022-09-05 11:27 | Outpatient (AMB) | payer OTHER, SELFPAY ==
--- NOTE | 2022-09-05 11:47 | MHC.OFFVIS ---
Intake Intake Visit Reasons: biopsy results Intake Note: Patient is present for Follow Up Biopsy Urology Med: None Antibiotic Allergy:None Blood Thinner: None Allergies No Known Allergies [No Known Allergies*] Allergy (Verified 09/05/22 11:48) HPI HPI Comments History of Present Illness Details Krish is a pleasant Portuguese-speaking male. He is a patient Dr. Cuevas. He seen for the following urologic conditions - prostate cancer Portuguese translation provided in office by qualified medical technologist blood bank Tolerated prostate biopsy - does have slight burning, prescribed antibiotics Plan for [facility] - to determine suitability for active surveillance Requires MRI to complete staging Prostate cancer - 08/18 low volume, grade group 2 Diagnosed for elevated PSA - 4.1 Volume at Diagnosis - 30gm pT1c [place] score: 7 (3+4) (right apex medial) Tumor quantitation: Number cores positive:1 Total number of cores: 12 % of tissue involved: 5 % Periprostatic fat inv.: Not identified Seminal vesicle inv.: Not identified Perineural inv.: Not identified Family history father positive [facility] Medical History No known health problems Social History Alcohol intake: never Review of Systems Const Denies chills and Denies fever(s) Card Reports no additional complaints and Denies syncope Resp Denies cough GI Denies abdominal pain and Denies heartburn Reports as per HPI and Denies change in libido Neuro Denies syncope Psych Denies change in libido Endo Denies change in libido Physical Exam Const General: cooperative, healthy appearing, comfortable and no acute distress Orientation/consciousness: patient oriented x3 HEENT Face and sinus: Yes normal facial exam Mouth: moist mucous membranes Neck Neck: Yes normal visual inspection, Yes full ROM and Yes trachea midline Chest Chest palpation & inspection: normal inspection of the chest Resp Effort & Inspection: normal respiratory effort, able to speak in complete sentences and no respiratory distress GI Inspection: Yes normal to inspection Back/Spine/Pelvis Cervical Spine: normal cervical lordosis Thoracic/Lumbar Spine: thoracic and lumbar spine normal to inspection Skin General skin exam: no rashes or lesions noted Neuro General: patient oriented x3, gait normal, tone normal and moves all extremities Extrem General: Yes normal to inspection and Yes capillary refill normal Assessment & Plan Assessment & Plan (1) Prostate cancer: Code(s): C61 - Malignant neoplasm of prostate Plan Complete staging Four week follow-up Start finasteride Orders: Orders MR pelvis wo/w con 4 Weeks C61 - Malignant neoplasm of prostate Medications: New finasteride 5 mg PO DAILY 90 tabs 1RF 90 days C61 - Malignant neoplasm of prostate Changed From levofloxacin take 1 tablet day before procedure, 1 tablet day of procedure and 1 tablet day after procedure 500 mg PO daily 3 days 3 tabs 0RF To levofloxacin 500 mg PO daily 5 tabs 0RF 5 days Patient Instructions: Imaging studies, laboratory and physical exam results were discussed and reviewed in detail. No major barriers to patient understanding were identified. An opportunity to ask questions regarding the treatment plan was provided. All questions were answered. The patient expressed understanding and agreement with the above treatment plan. The patient is aware they should contact our office by phone for worsening of their current condition or the appearance of new urologic symptoms. Compliance is encouraged with any medications and followup testing that is ordered. It is a privilege to participate in the urologic care of your patient. If you have any questions or concerns regarding treatment for the above conditions, or other urologic issues, please do not hesitate to contact me. The office telephone contact is [phone]. This note is constructed using voice recognition software. While every effort has been made to ensure accuracy broadcast operations manager errors may have been included. Yours sincerely, Dr Severiano Montoya MD, [facility] - Urology Providers of Expert, Compassionate Care for the Genitourinary System Coding Level of Care Code Est Pt Level 4 (95910) Diagnoses Prostate cancer C61
== END 2022-09-05 14:15 | disposition home or self-care (01) ==
PROVIDERS: PCP Internal Medicine; Visit Provider Urology
DX: C61 Malignant neoplasm of prostate (principal)
CPT/HCPCS: 99213

== ENCOUNTER → 2022-09-05 11:27 | Outpatient (BNVA) | payer OTHER, SELFPAY | PROVIDERS: PCP Internal Medicine; Visit Provider Urology ==

== ENCOUNTER 2022-10-27 14:13 | Outpatient (AMB) | payer OTHER, SELFPAY ==
--- NOTE | 2022-10-27 14:19 | A.OFFVIS_ITS ---
Intake Intake Visit Reasons: MRI- follow up(SHEILDS) Intake Note: Patient is present for Follow Up MRI Urology Med: Finasteride Antibiotic Allergy: None Blood Thinner: None [facility]acy: [facility] Allergies No Known Allergies [No Known Allergies*] Allergy (Verified 10/27/22 14:19) HPI HPI Comments History of Present Illness Details Krish is a pleasant Cambodian-speaking male. He is a patient Dr. Cuevas. He seen for the following urologic conditions - prostate cancer Cambodian translation provided in office by qualified medical physics researcher MRI suggests minimal disease Follow active surveillance protocol PSA 08/18 3.7 Prostate cancer - 08/18 low volume, grade group 2 Diagnosed for elevated PSA - 4.1 Volume at Diagnosis - 30gm pT1c [place] score: 7 (3+4) (right apex medial) Tumor quantitation: Number cores positive:1 Total number of cores:12 % of tissue involved:5 % Periprostatic fat inv.: Not identified Seminal vesicle inv.: Not identified Perineural inv.: Not identified Family history father positive Staging : 25 g prostate, no clear evidence of detected disease. [facility] Medical History No known health problems Social History Alcohol intake: never Review of Systems Const Denies chills and Denies fever(s) Card Reports no additional complaints and Denies syncope Resp Denies cough GI Denies abdominal pain and Denies heartburn Reports as per HPI and Denies change in libido Neuro Denies syncope Psych Denies change in libido Endo Denies change in libido Physical Exam Const General: cooperative, healthy appearing, comfortable and no acute distress Orientation/consciousness: patient oriented x3 HEENT Face and sinus: Yes normal facial exam Mouth: moist mucous membranes Neck Neck: Yes normal visual inspection, Yes full ROM and Yes trachea midline Chest Chest palpation & inspection: normal inspection of the chest Resp Effort & Inspection: normal respiratory effort, able to speak in complete sentences and no respiratory distress GI Inspection: Yes normal to inspection Back/Spine/Pelvis Cervical Spine: normal cervical lordosis Thoracic/Lumbar Spine: thoracic and lumbar spine normal to inspection Skin General skin exam: no rashes or lesions noted Neuro General: patient oriented x3, gait normal, tone normal and moves all extremities Extrem General: Yes normal to inspection and Yes capillary refill normal Assessment & Plan Assessment & Plan (1) Prostate cancer: Code(s): C61 - Malignant neoplasm of prostate (2) Erectile dysfunction: Code(s): N52.9 - Male erectile dysfunction, unspecified Plan Four month follow-up PSA Patient Instructions: Imaging studies, laboratory and physical exam results were discussed and reviewed in detail. No major barriers to patient understanding were identified. An opportunity to ask questions regarding the treatment plan was provided. All questions were answered. The patient expressed understanding and agreement with the above treatment plan. The patient is aware they should contact our office by phone for worsening of their current condition or the appearance of new urologic symptoms. Compliance is encouraged with any medications and followup testing that is ordered. It is a privilege to participate in the urologic care of your patient. If you have any questions or concerns regarding treatment for the above conditions, or other urologic issues, please do not hesitate to contact me. The office t elephone contact is [phone]. This note is constructed using voice recognition software. While every effort has been made to ensure accuracy commercial real estate sales manager errors may have been included. Yours sincerely, Dr Severiano Montoya MD, [facility] - Urology Providers of Expert, Compassionate Care for the Genitourinary System Coding Level of Care Code Est Pt Level 3 (93393) Diagnoses Prostate cancer C61 Erectile dysfunction N52.9
== END 2022-10-27 14:37 | disposition home or self-care (01) ==
PROVIDERS: PCP Internal Medicine; Visit Provider Urology
DX: C61 Malignant neoplasm of prostate (principal); N52.9 Male erectile dysfunction, unspecified
CPT/HCPCS: 99213

== ENCOUNTER → 2022-10-27 14:13 | Outpatient (BNVA) | payer OTHER, SELFPAY | PROVIDERS: PCP Internal Medicine; Visit Provider Urology ==

== ENCOUNTER 2023-02-05 14:05 | Outpatient (REF) | payer OTHER, SELFPAY ==
[2023-02-05 17:35] LABS: MANUAL DIFF FLAG NO
[2023-02-05 17:41] LABS: Basophils Absolute Auto 0.1 X10*3/uL (0.0-0.2); Basophils Percent Auto 0.6 % (0-2); Eosinophils Absolute Auto 0.1 X10*3/uL (0.0-0.4); Eosinophils Percent Auto 1.6 % (0-4); Hematocrit 49.3 % (42.0-52.0); Hemoglobin 16.8 g/dl (14.0-18.0); Imm Gran Abs Auto 0.03 X10*3/uL (0.00-0.03); Imm Gran Pct Auto 0.3 % (0.0-0.4); Lymphocytes Percent Auto 23.2 % (20-40); Mean Corpuscular HGB Conc 34.1 g/dl (31.0-36.0); Mean Corpuscular Hemoglobin 31.9 pg (27.0-33.0); Mean Corpuscular Volume 93.7 fL (80.0-98.0); Mean Platelet Volume 11.4 fL (9.4-12.4); Monocytes Absolute Auto 0.8 X10*3/uL (0.1-1.2); Monocytes Percent Auto 9.4 % (2-11); Neutrophils Absolute Auto 5.6 x10*3/uL (2.0-8.3); Neutrophils Percent Auto 64.9 % (45-73); Platelet Count 221 X10*3/uL (160-400); Red Blood Count 5.26 X10*6/uL (4.60-5.80); Red Cell Distribution Width 12.7 % (11.0-16.0); White Blood Count 8.6 X10*3/uL (4.8-10.8)
[2023-02-05 17:57] LABS: Alanine Aminotransferase 129 U/L (0-40); Albumin Level 4.4 g/dL (3.5-5.0); Alkaline Phosphatase 91 U/L (39-117); Anion Gap 12 (12-20); Aspartate Amino Transferase 62 U/L (5-37); Bilirubin Total 0.5 mg/dL (0.0-1.0); Blood Urea Nitrogen 18 mg/dL (9-16); Calcium 9.5 mg/dL (8.4-10.2); Carbon Dioxide 27 mmol/L (22-29); Chloride 107 mmol/L (96-108); Cholesterol 208 mg/dL (<200); Estimated Glomerular Filt Rate > 60; Glucose Random 73 mg/dL (60-115); HDL Cholesterol 37 mg/dL (>40); LDL Cholesterol Calculated 130 mg/dL (<100); Potassium 3.8 mmol/L (3.3-5.1); Sodium 142 mmol/L (135-145); Total Protein 7.6 g/dL (6.5-8.0); Triglycerides 207 mg/dL (<150)
[2023-02-05 18:11] LABS: TSH reflex Free T4 2.08 uIU/mL (0.32-4.0)
== END 2023-02-05 14:06 | disposition home or self-care (01) ==
LOC: HO.CHCLDS 14:05
PROVIDERS: Visit Provider Internal Medicine
DX: E03.8 Other specified hypothyroidism (principal); E78.2 Mixed hyperlipidemia; I10 Essential (primary) hypertension
CPT/HCPCS: 36415; 80053; 80061; 84443; 85025

== ENCOUNTER 2023-02-28 07:16 | Outpatient (REF) | payer OTHER, SELFPAY ==
[2023-02-28 08:22] LABS: PSA,Total (Free>4and<10) 2.85 ng/mL (0.00-4.00)
== END 2023-02-28 07:17 | disposition home or self-care (01) ==
LOC: HO.LAB 07:16
PROVIDERS: PCP Internal Medicine; Visit Provider Urology
DX: Z12.5 Encounter for screening for malignant neoplasm of prostate (principal); R97.20 Elevated prostate specific antigen [PSA]
CPT/HCPCS: 36415; 84153

== ENCOUNTER 2023-03-05 11:44 | Outpatient (AMB) | payer OTHER, SELFPAY ==
--- NOTE | 2023-03-05 11:45 | A.OFFVIS_ITS ---
Intake Intake Visit Reasons: 4M PSA(psa?) Intake Note: Patient is present for Follow Up on PSA Results, 2.85 ng/mL 02/28/2023: Urology Med: Finasteride Antibiotic Allergy: None Blood Thinner: None Pharmacy: [facility] Patient Symptoms: Burning urinating and testicle pain Sheet Mill Supervisor Required: Yes Sheet Mill Supervisor Language: Picture Framer Name: RON CHEN Accompanied by: Self / Same As Patient Allergies No Known Allergies [No Known Allergies*] Allergy (Verified 03/05/23 13:42) Medication List - Last Reconciled 03/05/23 by JUANI Ramos finasteride 5 mg PO DAILY 90 days HPI HPI Comments History of Present Illness Details Krish is a pleasant 53-year-old Danish-speaking male patient Dr. Cuevas. He is being follow-up on today via telehealth for his history of prostate cancer. In discussion with the patient today he reports noting dysuria, urinary frequency, and bilateral testicular pain over the last 2-4 weeks intermittently. He reports using ice to scrotum with good relief. He reports noting testicular discomfort with exertion. [place] and climbing stairs multiple times throughout the day and feels this exacerbates his symptoms. He otherwise denies incontinence, hematuria, foul-smelling urine, changes to urinary stream, flank pain, fever and or chills. Discussed obtaining urine for further assessment evaluation. Recent PSA results reviewed with the patient today. PSAs are as follows: 04/17--2.6, 08/18--3.7, 03/21--2.9 When asked he reports compliance with 5 mg of finasteride daily. He otherwise offers no issues or concerns. REVIEW OF CHART: Prostate cancer - 08/18 low volume, grade group 2 Diagnosed for elevated PSA - 4.1 Volume at Diagnosis - 30gm pT1c [place] score: 7 (3+4) (right apex medial) Tumor quantitation: Number cores positive:1 Total number of cores:12 % of tissue involved:5 % Periprostatic fat inv.: Not identified Seminal vesicle inv.: Not identified Perineural inv.: Not identified Family history father positive Staging : 25 g prostate, no clear evidence of detected disease. MRI suggests minimal disease Follow active surveillance protocol [facility] Medical History No known health problems Social History Alcohol intake: never Review of Systems Const All systems reviewed & are unremarkable except as noted in HPI and below Physical Exam Const General: cooperative Resp Effort & Inspection: able to speak in complete sentences Psych Attitude: cooperative Thought content: Normal thought content present Insight: Fair insight present (Psych) Judgement: Fair judgement present (Psych) Assessment & Plan Assessment & Plan (1) Prostate cancer: Code(s): C61 - Malignant neoplasm of prostate (2) Dysuria: Code(s): R30.0 - Dysuria (3) Nocturia: Code(s): R35.1 - Nocturia Plan Discussed obtaining urinalysis for further assessment evaluation as patient is reporting new onset dysuria Patient reporting intermittent bilateral testicular/scrotal discomfort; discuss ed follow-up in office for further assessment evaluation as well as worsening symptoms to seek medical treatment Discussed recent PSA results with the patient today; as noted above. Will await urine culture results for potential treatment Discussed, educated, and stressed the importance of drinking plenty of water daily. Patient otherwise denies flank pain, fever, and or chills. Follow-up in 1 month; if not sooner with any issues, concerns, and or questions. Orders: Orders UA CC w/rflx Micro + Cult Today R30.0 - Dysuria RIKA Ramos PSA,Total (Free>4and<10) 02/28/23 R97.20 - Elevated prostate specific antigen [PSA] Severiano Montoya MD Prostate Specific Antigen 4 Months C61 - Malignant neoplasm of prostate RIKA Ramos Patient Instructions: The patient had an opportunity to ask questions regarding the treatment plan. All questions were answered. Physical exam, labs, and imaging were discussed and reviewed in detail. As well as risks, benefits, and discussion of treatment choices. No major barriers to understanding were identified. The patient expressed understanding and agreement with the above treatment plan. The patient was made aware they should contact our office by phone for worsening of their current condition, the appearance of new symptoms, or with any questions or concerns. Compliance is encouraged with any medications and follow up testing that is ordered. It is a privilege to be allowed the opportunity to participate in? your urological care.? Again, if you have any questions or concerns If you have any questions or concerns please do not hesitate to contact me. The office is [phone]. This note is constructed using voice recognition software. While every effort has been made to ensure accuracy errors may have been included. Yours sincerely, RIKA Ramos Coding Level of Care Code Tele New Pt Level 3 (59487) Diagnoses Prostate cancer C61 Dysuria R30.0 Nocturia R35.1
== END 2023-03-05 12:19 | disposition home or self-care (01) ==
LOC: HO.HUSH 11:44
PROVIDERS: PCP Internal Medicine; Visit Provider Nurse Practitioner Family
DX: C61 Malignant neoplasm of prostate (principal); R30.0 Dysuria; R35.1 Nocturia
CPT/HCPCS: 99213

== ENCOUNTER → 2023-03-05 11:44 | Outpatient (BNVA) | payer OTHER, SELFPAY | PROVIDERS: PCP Internal Medicine; Visit Provider Nurse Practitioner Family ==

== ENCOUNTER 2023-03-06 11:06 | Outpatient (REF) | payer OTHER, SELFPAY ==
[2023-03-06 12:56] LABS: Appearance Urine Clear; Color Urine Yellow; Glucose Urine UA Negative (Negative); Leukocyte Esterase Urine Negative (Negative); Nitrite Urine Negative (Negative); Urine Blood Negative (Negative); Urine Ketones Negative (Negative); Urine Protein Negative (Neg-Trace)
== END 2023-03-06 11:07 | disposition home or self-care (01) ==
LOC: HO.LAB 11:06
PROVIDERS: PCP Internal Medicine; Visit Provider Nurse Practitioner Family
DX: R30.0 Dysuria (principal)
CPT/HCPCS: 81003

== ENCOUNTER 2023-05-18 09:41 | Outpatient (REF) | payer OTHER, SELFPAY ==
[2023-05-18 11:32] LABS: Prostate Specific Antigen 3.28 ng/mL (<0.05-4.0)
== END 2023-05-18 09:42 | disposition home or self-care (01) ==
LOC: HO.LAB 09:41
PROVIDERS: PCP Internal Medicine; Visit Provider Nurse Practitioner Family
DX: Z12.5 Encounter for screening for malignant neoplasm of prostate (principal); C61 Malignant neoplasm of prostate
CPT/HCPCS: 36415; 84153

== ENCOUNTER 2023-05-21 14:13 | Outpatient (AMB) | payer OTHER, SELFPAY ==
--- NOTE | 2023-05-21 14:18 | A.OFFVIS_ITS ---
Intake Intake Visit Reasons: 1 month follow/ PVR(set) Intake Note: Patient presents today for follow up elevated psa and nocturia PSA: 3.28 Urology Medications: Finasteride Antibiotic Allergy: None Blood Thinner: None PVR: 0ml's Software Development Intern Required: Yes Software Development Intern Language: Welsh Accompanied by: Self / Same As Patient Allergies No Known Allergies [No Known Allergies*] Allergy (Verified 05/21/23 14:44) HPI HPI Comments History of Present Illness Details Krish is a pleasant 53-year-old Welsh-speaking male patient Dr. Cuevas. He presents to the office today for follow-up of his prostate cancer. Of note, patient was seen approximately 1 month ago via telehealth at which time he was reporting dysuria. Urinalysis was obtained outpatient and no evidence of urinary tract infection. In discussion with the patient today he reports dysuria and urinary frequency have somewhat subsided. YAMILEX performed boggy prostate noted discuss treatment for presumed prostatitis given YAMILEX findings. In office urinalysis results reviewed with the patient today. Reviewed recent PSA results. Bump in PSA from 2.9-3.3 in 2 months. He reports compliance with 5 mg of finasteride daily. He otherwise denies incontinence, hematuria, foul-smelling urine, changes to urinary stream, flank pain, fever and or chills. Discussed potential causes for bump in PSA lab value. PSAs are as follows: 04/17--2.6, 08/18--3.7, 03/21--2.9, 05/19 3.3 REVIEW OF CHART: Prostate cancer - 08/18 low volume, grade group 2 Diagnosed for elevated PSA - 4.1 Volume at Diagnosis - 30gm pT1c [place] score: 7 (3+4) (right apex medial) Tumor quantitation: Number cores positive:1 Total number of cores:12 % of tissue involved:5 % Periprostatic fat inv.: Not identified Seminal vesicle inv.: Not identified Perineural inv.: Not identified Family history father positive Staging : 25 g prostate, no clear evidence of detected disease. MRI suggests minimal disease Follow active surveillance protocol [facility] Medical History No known health problems Social History Alcohol intake: never Review of Systems Const All systems reviewed & are unremarkable except as noted in HPI and below Physical Exam Const General: cooperative, healthy appearing, comfortable, no acute distress, well developed, alert and awake Orientation/consciousness: patient oriented x3 Limitations: no limitations HEENT Head: Yes normal to inspection, Yes normocephalic and Yes atraumatic Eyes General: appearance normal, both eyes and all related structures Neck Neck: Yes normal visual inspection Chest Chest palpation & inspection: normal inspection of the chest Resp Effort & Inspection: normal respiratory effort and able to speak in complete sentences Cardio Rate: regular rate GI Inspection: Yes normal to inspection Other: per HPI General: Yes no CVA tenderness Back/Spine/Pelvis Back: no CVA tenderness Skin General skin exam: no rashes or lesions noted Neuro General: patient oriented x3 Extrem General: Yes normal to inspection Psych Appearance: grossly normal and well kempt Mental Status: mental status grossly normal Speech and movement: Normal speech and movement present and Clear speech present Affect: normal affect Attitude: cooperative Thought process: Normal thought process present Thought content: Normal thought content present Insight: Fair insight present (Psych) Judgement: Fair judgement present (Psych) Office Procedures Post Void Residual Post Residual Void Post Void Residual (PVR): 0 [id number] Void Residual by ultrasound Results AMB Urinalysis, Automated UA Leukoctes 0 Soledad/uL Last Edit by Biomeasure Dorcas on 05/21/23 14:54 UA Nitrite Negative Last Edit by Serveron on 05/21/23 14:54 UA Urobilinogen 0.2 mg/dL Last Edit by Serveron on 05/21/23 14:54 UA Protein 0 mg/dL Last Edit by Serveron on 05/21/23 14:54 UA pH 5.5 Last Edit by Serveron on 05/21/23 14:54 UA Blood 0 Calixto/uL Last Edit by Serveron on 05/21/23 14:54 UA Specific [place] 1.015 Last Edit by Serveron on 05/21/23 14:54 UA Ketone Negative Last Edit by Serveron on 05/21/23 14:54 UA Bilirubin 0 mg/dL Last Edit by Serveron on 05/21/23 14:54 UA Glucose 0 mg/dL Last Edit by Shanita Toscano on 05/21/23 14:54 Assessment & Plan Assessment & Plan (1) Acute prostatitis: Code(s): N41.0 - Acute prostatitis Plan In office urinalysis results reviewed with the patient today; as noted above. PVR 0 mL. YAMILEX performed; boggy prostate noted Continue finasteride 5 mg daily as discussed and prescribed; refill provided Start Bactrim as discussed and prescribed. Recent PSA results reviewed with the patient today Discussed, educated, and stressed the importance of drinking plenty of water daily; pH 5.5 on urinalysis today Will obtain redraw of PSA 6 weeks status post completion of antibiotic therapy as discussed. Follow-up in 2 months with PSA to be completed prior; or sooner with any issues, concerns, and or questions. Orders: Orders AMB Urinalysis Automated Today Z13.9 - Encounter for screening, unspecified AMB Post Void Residual by ultrasound Today R35.1 - Nocturia Prostate Specific Antigen 6 Weeks N41.0 - Acute prostatitis Medications: New sulfamethoxazole-trimethoprim 800-160 mg (Bactrim DS) 1 tab PO BID 14 days 28 tabs 0RF N39.0 - Urinary tract infection, site not specified Refilled finasteride 5 mg PO DAILY 90 tabs 3RF 90 days C61 - Malignant neoplasm of prostate Patient Instructions: The patient had an opportunity to ask questions regarding the treatment plan. All questions were answered. Physical exam, labs, and imaging were discussed and reviewed in detail. As well as risks, benefits, and discussion of treatment choices. No major barriers to understanding were identified. The patient expressed understanding and agreement with the above treatment plan. The patient was made aware they should contact our office by phone for worsening of their current condition, the appearance of new symptoms, or with any quest ions or concerns. Compliance is encouraged with any medications and follow up testing that is ordered. It is a privilege to be allowed the opportunity to participate in? your urological care.? Again, if you have any questions or concerns If you have any questions or concerns please do not hesitate to contact me. The office is [phone]. This note is constructed using voice recognition software. While every effort has been made to ensure accuracy wheel fitter errors may have been included. Yours sincerely, RIKA Ramos Coding Level of Care Code Est Pt Level 4 (05491) Diagnoses Acute prostatitis N41.0 CPT Codes Post Residual Void - PVR CPT Code: 10388-Nard Void Residual by ultrasound ([id number])
== END 2023-05-21 15:09 | disposition home or self-care (01) ==
PROVIDERS: PCP Internal Medicine; Visit Provider Nurse Practitioner Family
DX: N41.0 Acute prostatitis (principal); Z13.9 Encounter for screening, unspecified
CPT/HCPCS: 99214

== ENCOUNTER → 2023-05-21 14:13 | Outpatient (BNVA) | payer OTHER, SELFPAY | PROVIDERS: PCP Internal Medicine; Visit Provider Nurse Practitioner Family | DX: N41.0 Acute prostatitis (principal) | CPT/HCPCS: 51798; 81003 ==

== ENCOUNTER 2023-08-04 07:35 | Outpatient (REF) | payer OTHER, SELFPAY ==
[2023-08-04 09:10] LABS: Alanine Aminotransferase 114 U/L (0-40); Albumin Level 4.3 g/dL (3.5-5.0); Alkaline Phosphatase 94 U/L (39-117); Anion Gap 13 (12-20); Aspartate Amino Transferase 52 U/L (5-37); Bilirubin Total 0.6 mg/dL (0.0-1.0); Blood Urea Nitrogen 18 mg/dL (9-16); Calcium 9.6 mg/dL (8.4-10.2); Carbon Dioxide 24 mmol/L (22-29); Chloride 107 mmol/L (96-108); Cholesterol 199 mg/dL (<200); Estimated Glomerular Filt Rate > 60; Glucose Random 98 mg/dL (60-115); HDL Cholesterol 36 mg/dL (>40); LDL Cholesterol Calculated 145 mg/dL (<100); Potassium 3.7 mmol/L (3.3-5.1); Sodium 140 mmol/L (135-145); Total Protein 7.3 g/dL (6.5-8.0); Triglycerides 92 mg/dL (<150)
[2023-08-04 09:26] LABS: Prostate Specific Antigen 4.92 ng/mL (<0.05-4.0)
== END 2023-08-04 07:36 | disposition home or self-care (01) ==
LOC: HO.LAB 07:35
PROVIDERS: Absent Provider Nurse Practitioner Family; PCP Internal Medicine; Visit Provider Internal Medicine
DX: N41.0 Acute prostatitis (principal); I10 Essential (primary) hypertension; Z12.5 Encounter for screening for malignant neoplasm of prostate
CPT/HCPCS: 36415; 80053; 80061; 84153

== ENCOUNTER 2023-08-06 12:51 | Outpatient (AMB) | payer OTHER, SELFPAY ==
--- NOTE | 2023-08-06 13:33 | A.OFFVIS_ITS ---
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 Cuevas was accompanied by his at today's office visit. He presents to the office today for follow-up of his prostate cancer. In discussion with the patient today reports to be doing and feeling well. Recent PSA results reviewed with the patient today as trended and noted below. When asked he reports compliance with 5 mg of finasteride daily. Discussed continuation of elevated PSA despite compliance with 5 mg of finasteride. When asked he currently denies any bothersome urinary issues or concerns. He denies urinary urgency, urinary frequency, incontinence, nocturia, hematuria, dysuria, foul smelling urine, changes to urinary stream, flank pain, fever, and or chills. During previous YAMILEX patient noted with boggy prostate and has since completed antibiotic therapy. Patient continues with a rise in his PSA. Discussed attempting to obtain polaris for further assessment evaluation as well as repeat prostate biopsy. Risks and benefits of these interventions were discussed at length. All questions were answered. PSAs: 04/17 2.6, 08/18 3.7, 03/21 2.9, 05/19 3.3, 08/19 4.9 REVIEW OF CHART: Prostate cancer - 08/18 low volume, grade group 2 Diagnosed for elevated PSA - 4.1 Volume at Diagnosis - 30gm pT1c Pretty score: 7 (3+4) (right apex medial) Tumor quantitation: Number cores positive:1 Total number of cores:12 % of tissue involved:5 % Periprostatic fat inv.: Not identified Seminal vesicle inv.: Not identified Perineural inv.: Not identified Family history father positive Staging : 25 g prostate, no clear evidence of detected disease. MRI suggests minimal disease PFS Medical History No known health problems Social History Alcohol intake: never Review of Systems Const All systems reviewed & are unremarkable except as noted in HPI and below Physical Exam Const General: cooperative, healthy appearing, comfortable, no acute distress, well developed, alert and awake Orientation/consciousness: patient oriented x3 Limitations: no limitations HEENT Head: Yes normal to inspection, Yes normocephalic and Yes atraumatic Eyes General: appearance normal, both eyes and all related structures Neck Neck: Yes normal visual inspection Chest Chest palpation & inspection: normal inspection of the chest Resp Effort & Inspection: normal respiratory effort and able to speak in complete sentences Cardio Rate: regular rate GI Inspection: Yes normal to inspection Other: per HPI General: Yes no CVA tenderness Back/Spine/Pelvis Back: no CVA tenderness Skin General skin exam: no rashes or lesions noted Neuro General: patient oriented x3 Extrem General: Yes normal to inspection Psych Appearance: grossly normal and well kempt Mental Status: mental status grossly normal Speech and movement: Normal speech and movement present and Clear speech present Affect: normal affect Attitude: cooperative Thought process: Normal thought process present Thought content: Normal thought content present Insight: Fair insight present (Psych) Judgement: Fair judgement present (Psych) Results AMB Urinalysis, Automated UA Leukoctes 0 Soledad/uL Last Edit by LookUP Dorcas on 08/06/23 13:43 UA Nitrite Negative Last Edit by Shanita Toscano on 08/06/23 13:43 UA Urobilinogen 0.2 mg/dL Last Edit by Playcezalexsander Toscano on 08/06/23 13:43 UA Protein 15 mg/dL Last Edit by JovaniDecisionViewalexsander Toscano on 08/06/23 13:43 UA pH 6.0 Last Edit by Playcezalexsander Toscano on 08/06/23 13:43 UA Blood 0 Calixto/uL Last Edit by LookUP Dorcas on 08/06/23 13:43 UA Specific [place] 1.020 Last Edit by Playcezalexsander Toscano on 08/06/23 13:43 UA Ketone Negative Last Edit by LookUP Dorcas on 08/06/23 13:43 UA Bilirubin 0 mg/dL Last Edit by Shanita Toscano on 08/06/23 13:43 UA Glucose 0 mg/dL Last Edit by Shanita Toscano on 08/06/23 13:43 Results Reviewed Results Reviewed: Laboratory Last Values Urine pH (Auto) 6.0 08/06/23 13:42 Specific [place] (Auto) 1.020 08/06/23 13:42 Urine Protein (Auto) 15 mg/dL 08/06/23 13:42 Glucose (UA)(Auto) 0 mg/dL 08/06/23 13:42 Urine Ketones (Auto) Negative 08/06/23 13:42 Urine Blood (Auto) 0 Calixto/uL 08/06/23 13:42 Urine Nitrite (Auto) Negative 08/06/23 13:42 Urine Bilirubin (Auto) 0 mg/dL 08/06/23 13:42 Urine Urobilinogen (Auto) 0.2 mg/dL 08/06/23 13:42 Leukocyte Esterase (Auto) 0 Soledad/uL 08/06/23 13:42 Assessment & Plan Assessment & Plan (1) Prostate cancer: Code(s): C61 - Malignant neoplasm of prostate Category: Medical (2) Elevated PSA: Code(s): R97.20 - Elevated prostate specific antigen [PSA] Category: Medical Plan: Plan Risks and benefits regarding trans rectal ultrasound with prostate biopsy were discussed.? Options of continued surveillance, no treatment and biopsy were offered. The risks include but are not limited to, urinary tract infection, sepsis, difficulty urinating, bleeding into the rectum or bladder that requires intervention and transfusion,and failure to diagnose prostate cancer. The patient understands the options and the risks involved. They wish to proceed. Printed information was provided to ensure he remains off anti coagulation for the appropriate length of time. He may require cardiology or PCP clearance.? An antibiotic will be administered prior to, and following the procedure Plan In office urinalysis results reviewed with the patient today; as noted above. Continue finasteride 5 mg daily as discussed and prescribed; refill provided Recent PSA results reviewed with the patient today as noted and trended above. Discussed at length Polaris testing as well as repeat prostate biopsy given increase/ rise in PSA despite compliance with finasteride 5 mg daily. Prescription provided for antibiotic therapy; discussed specific instructions of taking antibiotic therapy day before, day of, and day after prostate procedure. Will schedule for prostate biopsy as discussed. All questions were answered. Follow-up status post prostate biopsy per doctor's orders; or sooner with any issues, concerns, and or questions. Orders: Orders AMB Urinalysis Automated Today C61 - Malignant neoplasm of prostate, Z13.9 - Encounter for screening, unspecified Medications: New levofloxacin take 1 tablet day before procedure, 1 tablet day of procedure and 1 tablet day after procedure 500 mg PO daily 3 days 3 tabs 0RF Patient Instructions: The patient had an opportunity to ask questions regarding the treatment plan. All questions were answered. Physical exam, labs, and imaging were discussed and reviewed in detail. As well as risks, benefits, and discussion of treatment choices. No major barriers to understanding were identified. The patient expressed understanding and agreement with the above treatment plan. The patient was made aware they should contact our office by phone for worsening of their current condition, the appearance of new symptoms, or with any questions or concerns. Compliance is encouraged with any medications and follow up testing that is ordered. It is a privilege to be allowed the opportunity to participate in? your urological care.? Again, if you have any questions or concerns If you have any questions or concerns please do not hesitate to contact me. The office is [phone]. This note is constructed using voice recognition software. While every effort has been made to ensure accuracy manager loan errors may have been included. Yours sincerely, RIKA Ramos Coding Level of Care Code Est Pt Level 4 (76718) Complex EM visit Add On G2211 Diagnoses Prostate cancer C61 Elevated PSA R97.20
== END 2023-08-06 14:17 | disposition home or self-care (01) ==
PROVIDERS: PCP Internal Medicine; Visit Provider Nurse Practitioner Family
DX: Z13.9 Encounter for screening, unspecified (principal); C61 Malignant neoplasm of prostate; R97.20 Elevated prostate specific antigen [PSA]
CPT/HCPCS: 99214; G2211

== ENCOUNTER → 2023-08-06 12:51 | Outpatient (BNVA) | payer OTHER, SELFPAY | PROVIDERS: PCP Internal Medicine; Visit Provider Nurse Practitioner Family | DX: C61 Malignant neoplasm of prostate (principal); R97.20 Elevated prostate specific antigen [PSA]; Z79.899 Other long term (current) drug therapy | CPT/HCPCS: 81003 ==

== ENCOUNTER 2023-09-11 08:22 | Inpatient (IN) | payer OTHER, SELFPAY ==
[2023-09-11] VITALS (9 sets, daily range): BP systolic 131–164; BP diastolic 7–86; PULSE 55–59; RESP 15–20; TEMP 36.4–36.9; O2SAT 97–99; BMI 28.8
--- NOTE | ~2023-09-11 | MR_ITS ---
EXAMINATION: MR BRAIN WITHOUT CONTRAST CLINICAL INFORMATION: Slurred speech. COMPARISON: CT imaging from 09/11/2023. TECHNIQUE: Multiplanar, multisequence imaging of the brain was performed without contrast. FINDINGS: There is a 1 cm small acute infarct in the left ventromedial carrington. No associated hemorrhage evident on the gradient imaging sequence at this site. The ventricles are normal in size. No mass effect or midline shift is seen. Nonspecific mild scattered white matter signal changes may be due to chronic microangiopathy. No extra-axial fluid collections are seen. The cerebellum is normal. The craniovertebral junction and marrow signal are normal. The major intracranial flow voids at the level of the lower [place] of [place] are preserved. The dural venous sinus flow voids are maintained. The mastoid air cells are well aerated. There is mild mucosal thickening with small retention cysts in the maxillary sinuses. MR/MR head/brain wo con IMPRESSION: Focal acute infarct in the left ventromedial aspect of the carrington.
--- NOTE | ~2023-09-11 | XR_ITS ---
EXAMINATION: XR CHEST CLINICAL INFORMATION: Difficulty breathing COMPARISON: None available. TECHNIQUE: Frontal view of the chest was obtained. FINDINGS: Lungs clear. Heart and pulmonary vessels normal. No congestive change. XR/XR chest 1V IMPRESSION: No active disease.
--- NOTE | ~2023-09-11 | CT_ITS ---
EXAMINATION: CT angio head neck stroke CLINICAL INFORMATION: Stroke protocol. COMPARISON: CT head 09/11/2023. TECHNIQUE: Supervising Editor Trailer images were obtained. A CT angiogram of the head and neck was performed in the arterial phase after the intravenous administration of 70 mL Omnipaque 350. Pre and delayed postcontrast images of the head were also obtained. 3D images were processed on an independent workstation under concurrent supervision. Arterial stenoses are measured in accordance with NASCET criteria or similar method if applicable. This CT examination was performed using dose optimization techniques as appropriate, including one or more of the following: Automated exposure control, iterative reconstruction, and adjustment of technique factors (mA and/or kVp) according to patient size (this includes techniques or standardized protocols for targeted exams where dose is matched to indication/reason for exam). Fleischner Society criteria for the followup of incidental pulmonary nodules was implemented if appropriate. Total exam dose-length product 1464 mGy-cm FINDINGS: Head: Postcontrast images reveal no abnormal intracranial mass or enhancement. There is no intracranial mass effect or midline shift. Lateral and third ventricles are normal. No hydrocephalus. Durán-white matter differentiation is preserved and there is no evidence of acute territorial infarct. The calvarium and skull base are intact. Mastoid air cells and middle ear cavities are well aerated. Mild paranasal sinus disease primarily affecting the alveolar recesses of the maxillary sinuses. Globes and orbits are grossly symmetric. CT angiogram neck: The aortic arch apex is normal. Origins of the major aortic branches are widely patent., Carotid arteries and the carotid bifurcations are normal. No stenosis of the extracranial internal carotid arteries. The cervical segments of the vertebral arteries are patent. CT angiogram head: There is an inferiorly projecting contour abnormality along the undersurface of the left supraclinoid internal carotid artery best visualized on sagittal MIP image 77 of 183 series 8 measuring approximately 1.5 mm from base to apex that may either represent a small aneurysm or prominent vascular infundibulum at the origin of the left posterior communicating artery. Intracranial internal carotid arteries are otherwise normal. Intracranial internal carotid arteries are normal. There is mild focal narrowing of the proximal basilar artery best visualized on coronal MIP image 95 of 176 series 11. The vertebrobasilar system is otherwise unremarkable. Mild irregular narrowing of the M1 segments of both middle cerebral arteries and the P2 segments of both posterior cerebral arteries. Otherwise no intracranial large vessel occlusion. Other: Soft tissues of the neck including the thyroid gland are normal. Visualized lung apices are clear. No acute osseous finding. Specifically no worrisome lytic or blastic osseous lesion. CT/CT angio head neck stroke IMPRESSION: There is evidence of cerebrovascular disease with mild irregular narrowing of the M1 segments of both middle cerebral arteries and the P2 segments of both posterior cerebral arteries. There is also mild focal narrowing of the proximal basilar artery. Otherwise no intracranial large vessel occlusion. There is a 1.5 mm inferiorly projecting contour abnormality along the undersurface of the left supraclinoid internal carotid artery that may either represent a small aneurysm or prominent vascular infundibulum at the origin of the left posterior communicating artery. Otherwise unremarkable examination in that there is no stenosis of the cervical carotid or vertebral arteries. No evidence of acute territorial infarct or hemorrhage. No abnormal intracranial mass or enhancement.
--- NOTE | ~2023-09-11 | CT_ITS ---
EXAMINATION: CT HEAD WITHOUT CONTRAST CLINICAL INFORMATION: Stroke protocol. COMPARISON: No relevant prior imaging. TECHNIQUE: Bulk Plant Manager images were obtained. CT imaging of the head was performed without contrast. Data was reformatted into multiplanar images at the acquisition workstation. This CT examination was performed using dose optimization techniques as appropriate, including one or more of the following: Automated exposure control, iterative reconstruction, and adjustment of technique factors (mA and/or kVp) according to patient size (this includes techniques or standardized protocols for targeted exams where dose is matched to indication/reason for exam). Fleischner Society criteria for the followup of incidental pulmonary nodules was implemented if appropriate. DLP: 701 mGy-cm. FINDINGS: There is no acute intracranial hemorrhage or abnormal extra-axial collection. No intracranial mass effect or midline shift. Lateral and third ventricles are normal. No hydrocephalus. Durán-white matter differentiation is preserved and there is no evidence of acute territorial infarct. The calvarium and skull base are intact. Mastoid air cells and middle ear cavities are well aerated. Mild paranasal sinus disease primarily affecting the alveolar recesses of the maxillary sinuses. Globes and orbits are symmetric. CT/CT head for stroke IMPRESSION: Unremarkable examination. No evidence of acute territorial infarct or hemorrhage. This critical result was discussed with Rambo German at 8:52 AM on 09/11/2023 and it was ascertained that the content and urgency of the report was understood at the time of direct communication.
--- NOTE | 2023-09-11 08:34 | ECG_ITS ---
Test Reason : stroke Blood Pressure : / mmHG Vent. Rate : 055 BPM Atrial Rate : 055 BPM P-R Int : 134 ms QRS Dur : 080 ms QT Int : 432 ms P-R-T Axes : 031 -16 039 degrees QTc Int : 413 ms Sinus bradycardia Nonspecific T wave abnormality Abnormal ECG No previous ECGs available Referred By: Rambo German Electronically Signed By:SANTY CARDONA MD
--- NOTE | 2023-09-11 08:35 | ED.NEUROSD ---
HPI - Neuro Symptoms/Deficit General Chief Complaint: Neuro Symptoms/Deficit Stated Complaint: lost of speech, body aches, nausea Time Seen by Provider: 09/11/23 08:33 Source: patient Mode of arrival: ambulatory Limitations: physical limitation History of Present Illness HPI Narrative: 53 year old male PMH: Prostate cancer who presents to the emergency department with an abrupt change in mental status and trouble speaking this morning when he woke up. Patient did have some nausea last night his states that 2 weeks ago he had 2 minutes of symptoms that was similar to this with inability to speak and weakness. Patient symptoms have continued today he denies any fevers chills cough he does state he has nausea but has not vomited he did eat dinner last night Related Data Home Medications ?Medication ?Instructions ?Recorded ?Confirmed atorvastatin 20 mg tablet 20 mg PO QAM 05/21/23 08/06/23 losartan 50 mg tablet 50 mg PO QAM 05/21/23 08/06/23 Previous Rx's ?Medication ?Instructions ?Recorded finasteride 5 mg tablet 5 mg PO DAILY 90 days #90 tabs 05/21/23 levofloxacin 500 mg tablet 500 mg PO daily 3 days #3 tabs 08/06/23 Allergies Allergy/AdvReac Type Severity Reaction Status Date / Time No Known Allergies Allergy Verified 09/11/23 08:35 [No Known Allergies*] Review of Systems Review of Systems: Review of systems: General: Patient denies any fever chills recent illness or falls Musculoskeletal: Denies back pain or body aches or other injuries HEENT: denies headache, runny nose, ear pain Respiratory: denies shortness of breath, cough Cardiovascular: no chest pain or palpitations : denies dysuria, frequency Abdomen: no nausea vomiting denies abdominal pain Extremities: no swelling, no pain Skin: no diaphoresis Yes all other systems are reviewed and are negative PMFSH Past Medical History Medical History No known health problems Social History Social History Alcohol intake: never Smoked in Last 30 Days: No Use of substances other than those prescribed or required for medical reasons: No Advance Directives: No Do you have a plan to hurt others: No Plan Physical Exam Vital Signs: Vital Signs: Last Vital Signs Temp 97.5 F 09/11/23 08:33 Pulse 59 09/11/23 09:38 Resp 16 09/11/23 09:38 BP 143/79 H 09/11/23 09:38 Pulse Ox 99 09/11/23 09:38 O2 Del Method Room Air 09/11/23 09:38 BMI result Body Mass Index 28.8 Neurological exam: CN II- XII tested. Patient is alert and oriented to person place and time. Patient has no dysphagia or dysarthia, denies good vision in all four vision crowe no nystagmus on exam, good strength to upper and lower extremities with normal reflexes to brachioradialis, wrist, patella and achilles. Negative romberg, good finger to nose and heel to dubon. General: Well-appearing well-nourished in no signs of distress HEENT: Normocephalic atraumatic Neck: No signs of JVD, no masses no tenderness or lymphadenopathy Cardiovascular: Regular rate and rhythm Respiratory: Clear to auscultation bilaterally Abdomen: Soft nontender no masses Extremities: Normal pedal pulses no signs of edema Skin: Dry warm no rashes Back: No tenderness full ROM Course Course Course Narrative: CTA head and neck CT head and labs were all unremarkable. patient (miles has been at the bedside the entire time spouse has slight improvement in his speech. Patient has no new complaints I will admit to medicine Medications Administered Discontinued Medications Generic Name Dose Route Start Last Admin Trade Name Freq PRN Reason Stop Dose Admin Sodium Chloride 1,000 mls @ 999 mls/hr 09/11/23 08:45 09/11/23 09:05 Ns IV 09/11/23 09:45 999 mls/hr .Q1H1M RICHA Administration Iohexol 100 ml 09/11/23 08:53 09/11/23 08:54 Iohexol 350 Mg/Ml 100 Ml Infus..Btl IV 09/11/23 08:54 70 ml ONCE ONE Administration Ondansetron HCl 4 mg 09/11/23 09:27 09/11/23 09:48 Ondansetron Hcl 4 Mg/2 Ml Vial IVPUSH 09/11/23 09:28 4 mg ONCE ONE Administration Medical Decision Making Medical Decision Making [facility] Narrative: I will check labs give the patient for CAT scan immediately Differential Diagnosis Differential Diagnoses: The differential diagnosis associated with the presentation includes CVA TIA speech difficulty electrolyte abnormality hypoglycemia dehydration pneumonia UTI Admission/Observation Consideration of admission/observation: Escalation of care including admission/observation considered Patient will need admission for stroke Consult Healthcare Provider Management of the patient was discussed with: Hospitalist Lab Data [facility] Lab Attestation statement: I reviewed the patient's lab results. 09/11/23 08:45 09/11/23 08:45 Labs: Lab Results 09/11/23 Range/Units 08:45 WBC 7.8 (4.8-10.8) X10*3/uL RBC 5.21 (4.60-5.80) X10*6/uL Hgb 16.8 (14.0-18.0) g/dl Hct 47.8 (42.0-52.0) % MCV 91.7 (80.0-98.0) fL MCH 32.2 (27.0-33.0) pg MCHC 35.1 (31.0-36.0) g/dl RDW 12.4 (11.0-16.0) % Plt Count 180 (160-400) X10*3/uL MPV 9.9 (9.4-12.4) fL Immature Gran % (Auto) 0.3 (0.0-0.4) % Neut % (Auto) 71.5 (45-73) % Lymph % (Auto) 18.8 L (20-40) % [place] % (Auto) 7.3 (2-11) % Eos % (Auto) 1.5 (0-4) % Baso % (Auto) 0.6 (0-2) % Lymph # (Auto) 1.5 (1.2-4.9) X10*3/uL [place] # (Auto) 0.6 (0.1-1.2) X10*3/uL Eos # (Auto) 0.1 (0.0-0.4) X10*3/uL Baso # (Auto) 0.1 (0.0-0.2) X10*3/uL Abs Immat Gran (auto) 0.02 (0.00-0.03) X10*3/uL Absolute Neuts (auto) 5.6 (2.0-8.3) x10*3/uL Absolute Nucleated RBC 0.000 (0.0-0.012) X10*3/uL Nucleated RBC % (auto) 0.0 (0.0-0.2) /100WBC Hold Purple Top SEE NOTE PT 14.9 H (11.1-13.3) SEC Whole Blood PT 14.6 H (11.1-13.5) sec INR 1.2 H (0.9-1.1) Whole Blood INR 1.2 H (0.9-1.1) APTT 30.0 (26.0-36.8) SEC Sodium 139 (135-145) mmol/L Potassium 4.2 (3.3-5.1) mmol/L Chloride 108 (96-108) mmol/L Carbon Dioxide 20 L (22-29) mmol/L Anion Gap 15 (12-20) BUN 18 H (9-16) mg/dL Creatinine 0.98 (0.5-1.4) mg/dL Estim Creat Clear Calc 93.6 Estimated GFR > 60 POC Glucose 118 H (60-115) mg/dL Random Glucose 123 H (60-115) mg/dL Calcium 9.6 (8.4-10.2) mg/dL Troponin I High Sens 5.8 (<3.5-35.0) ng/L Triglycerides 157 H (<150) mg/dL Cholesterol 202 H (<200) mg/dL LDL Cholesterol, Calc 136 H (<100) mg/dL HDL Cholesterol 35 L (>40) mg/dL Independent Interpretation I performed an independent interpretation of an: EKG and Plain X-Ray Interpretation: Rate 55 sinus bradycardia normal intervals no signs ischemia unchanged from previous interpreted by me NIH Stroke Scale Internal: Initial- Upon Arrival Level of Consciousness: Alert Level of Consciousness Questions: Answers both questions correctly Level of Consciousness Commands: Performs both tasks correctly Best Gaze: Normal Visual: No visual loss Facial Palsy: Normal Motor Arm (Right): No drift Motor Arm (Left): No drift Motor Leg (Right): No drift Motor Leg (Left): No drift Limb Ataxia: Absent Sensory: Normal Best Language: No aphasia Dysarthia: Normal Extinction and Inattention: No abnormality Score: 0 Critical Care Time Critical Care Time Critical Care Time: Yes Total Critical Care Time: 40 Attestation: Acute speech deficit requiring multiple re-evaluations discussion with Radiology and and hospitalist for admission Discharge Plan Discharge Clinical Impression: Transient cerebral ischemia, Speech and language deficit as late effect of stroke Patient Disposition: Admitted As Inpatient Prescriptions: No Action losartan 50 mg tablet 50 mg PO QAM atorvastatin 20 mg tablet 20 mg PO QAM finasteride 5 mg tablet 5 mg PO DAILY 90 Days Qty: 90 3RF levofloxacin 500 mg tablet 500 mg PO daily 3 Days Qty: 3 0RF Rx Instructions: take 1 tablet day before procedure, 1 tablet day of procedure and 1 tablet day after procedure Print Language: Cameroonian
[2023-09-11 08:49] LABS: Glucose, Whole Blood 118 mg/dL (60-115); Prothrombin Time Whole Bld POC 14.6 sec (11.1-13.5); ~PT, ~INR - Anti Coag Clinic 1.2 (0.9-1.1)
[2023-09-11 08:53] LABS: MANUAL DIFF FLAG NO
[2023-09-11] MEDS: iohexoL 350 MG/ML 100 ML INFUS..BTL IV (08:54)
[2023-09-11 08:57] LABS: Basophils Absolute Auto 0.1 X10*3/uL (0.0-0.2); Basophils Percent Auto 0.6 % (0-2); Eosinophils Absolute Auto 0.1 X10*3/uL (0.0-0.4); Eosinophils Percent Auto 1.5 % (0-4); Hematocrit 47.8 % (42.0-52.0); Hemoglobin 16.8 g/dl (14.0-18.0); Imm Gran Abs Auto 0.02 X10*3/uL (0.00-0.03); Imm Gran Pct Auto 0.3 % (0.0-0.4); Lymphocytes Absolute Auto 1.5 X10*3/uL (1.2-4.9); Lymphocytes Percent Auto 18.8 % (20-40); Mean Corpuscular HGB Conc 35.1 g/dl (31.0-36.0); Mean Corpuscular Hemoglobin 32.2 pg (27.0-33.0); Mean Corpuscular Volume 91.7 fL (80.0-98.0); Mean Platelet Volume 9.9 fL (9.4-12.4); Monocytes Absolute Auto 0.6 X10*3/uL (0.1-1.2); Monocytes Percent Auto 7.3 % (2-11); Neutrophils Absolute Auto 5.6 x10*3/uL (2.0-8.3); Neutrophils Percent Auto 71.5 % (45-73); Platelet Count 180 X10*3/uL (160-400); Red Blood Count 5.21 X10*6/uL (4.60-5.80); Red Cell Distribution Width 12.4 % (11.0-16.0); White Blood Count 7.8 X10*3/uL (4.8-10.8)
[2023-09-11 09:03] LABS: INTERNATIONAL NORM RATIO 1.2 (0.9-1.1); Prothrombin Time 14.9 SEC (11.1-13.3)
[2023-09-11] MEDS: 0.9 % Sodium Chloride 1,000 ML 999 ML IV (09:05)
[2023-09-11 09:10] LABS: Stroke Lab Use COMPLETE
--- NOTE | 2023-09-11 09:14 | PC.NURSE ---
pt presents to the ER through triage c/o loss of speech, nausea and loss of coordination. pt with 2x standby assist to ambulate, reports this is not normal for him. pt does appear to have expressive aphagia. he is oriented, GCS 15. pt reports that on saturday 09/09 he experiences numbness in his R arm, he went to sleep last night at 11pm and woke 8-9 times throughout the night. pt reports when he woke at 6:30 this morning was the first time he noticed that something was a little off . pt reports he fully felt something was wrong when he was driving to work and decided to come here.
[2023-09-11 09:18] LABS: Anion Gap 15 (12-20); Blood Urea Nitrogen 18 mg/dL (9-16); Calcium 9.6 mg/dL (8.4-10.2); Carbon Dioxide 20 mmol/L (22-29); Chloride 108 mmol/L (96-108); Cholesterol 202 mg/dL (<200); Creatinine Clr Calc Pharmacy 93.6; Estimated Glomerular Filt Rate > 60; Glucose Random 123 mg/dL (60-115); HDL Cholesterol 35 mg/dL (>40); LDL Cholesterol Calculated 136 mg/dL (<100); Potassium 4.2 mmol/L (3.3-5.1); Sodium 139 mmol/L (135-145); Triglycerides 157 mg/dL (<150)
[2023-09-11 09:25] LABS: Troponin-I High Sensitivity 5.8 ng/L (<3.5-35.0)
[2023-09-11] MEDS: ondansetron HCL 4 MG/2 ML VIAL IVPUSH (09:48)
--- NOTE | 2023-09-11 09:49 | PC.NURSE ---
pt speech appears to have improved at this time, pt continues to have loss of coordination and dizziness as well as nausea. he received zofran per MAR. pt appears to have slight left sided facial droop, JERRI strength noted. when pt sits at bedside he does report and appear to have some swaying to his body movements, he reports feeling unsteady. Neuro RN Luz at bedside to evaluate and plans to speak with Dr. Silva.
--- NOTE | 2023-09-11 10:11 | PHA.MEDREC ---
Pharmacy Consult ? Medication Reconciliation Pharmacy has completed the medication reconciliation. Utilized human resources supervisor services, family member in room confirmed all meds.
--- NOTE | 2023-09-11 10:43 | PM.IMHP ---
History of Present Illness Date of Service: 09/11/23 Chief Complaint: Slurred speech 53-year-old man presented to the ER with complaints of slurred speech and overall body weakness. He reports he had similar symptoms on Sunday where he felt slurred speech and weakness but it resolved on its own. Today he said he woke up and felt unwell and had the slurred and heavy speech. He denied any weakness to his upper or lower extremities, no visual changes, headache. He denied any recent illness, sick contacts, recent travel. He reports that he is active and works 2 jobs. In the ER, head and neck CTA showed evidence of cerebrovascular disease with no intracranial large vessel occlusion, stenosis of the cervical carotid or vertebral arteries and no evidence of acute territorial infarct or hemorrhage. He has an elevated LDL of 136. Review of Systems Review of Systems: Denies any recent fever chills or decrease in appetite respiratory denies any shortness of breath coverage production cardiovascular is adjustment of any PND or edema gastrointestinal denies any dysphagia abdominal pain nausea vomiting or diarrhea genitourinary denies any dysuria frequency or hematuria musculoskeletal denies any joint pain or swelling neuropsych denies any weakness or seizures all other systems reviewed are negative [facility] Medical History History of BPH Hyperlipidemia Benign essential HTN Family History (Updated 09/11/23 @ 16:29 by Bonnie Eisenberg NP) Mother Breast cancer Pertinent family history: aunt and cousin had cancer of unknown type Social History Household Members: Spouse Housing: Apartment Do you presently have visiting nurse or other home services: No Alcohol intake: never Comment: at bedside with pt Patient Tobacco Use Status: Never used Tobacco Smoked in Last 30 Days: No Use of substances other than those prescribed or required for medical reasons: No Currently Displaying Signs/Symptoms of Drug Intoxication Withdrawal: No Have you been hit, kicked, punched, or otherwise hurt by someone within the past year? If so, by whom?: No Do you feel safe in your current relationship?: Yes Is there a partner from a previous relationship who is making you feel unsafe now?: No Are you made to feel afraid or neglected: No Advance Directives: No Do you have a plan to hurt others: No Plan Recently lost weight without trying: No Nutrition Risks: No Nutritional Risk service: No Meds Allergies Allergy/AdvReac Type Severity Reaction Status Date / Time No Known Allergies Allergy Verified 09/11/23 08:35 [No Known Allergies*] Home Medications ?Medication ?Instructions ?Recorded ?Confirmed ?Last Taken ?Type atorvastatin 20 mg tablet 20 mg PO DAILY 05/21/23 09/11/23 09/10/23 History losartan 50 mg tablet 50 mg PO DAILY 05/21/23 09/11/23 09/10/23 History Physical Exam Vital Signs and Narrative: Vital Signs: Last Vital Signs Temp 97.5 F 09/11/23 08:33 Pulse 55 09/11/23 10:18 Resp 15 09/11/23 10:18 BP 133/82 09/11/23 10:18 Pulse Ox 98 09/11/23 10:18 O2 Del Method Room Air 09/11/23 10:18 BMI result Body Mass Index 28.8 Appearing in no acute distress head is normocephalic atraumatic eyes pupils are PERRLA sclera is anicteric mouth throat mucous membranes are intact and moist neck is supple no lymphadenopathy, no JVD noted lung sounds are clear to auscultation heart regular rate rhythm, clear S1, S2 positive bowel sounds, abdomen is soft, nontender neuro patient is alert x3, no focal deficits Results Labs 09/12/23 06:20 09/12/23 06:20 Labs: Laboratory Results - last 24 hr 09/11/23 08:45 MCV 91.7 MCH 32.2 MCHC 35.1 RDW 12.4 Plt Count 180 MPV 9.9 Immature Gran % (Auto) 0.3 Neut % (Auto) 71.5 Lymph % (Auto) 18.8 L [place] % (Auto) 7.3 Eos % (Auto) 1.5 Baso % (Auto) 0.6 Lymph # (Auto) 1.5 [place] # (Auto) 0.6 Eos # (Auto) 0.1 Baso # (Auto) 0.1 Abs Immat Gran (auto) 0.02 Absolute Neuts (auto) 5.6 Absolute Nucleated RBC 0.000 Nucleated RBC % (auto) 0.0 Hold Purple Top SEE NOTE PT 14.9 H Whole Blood PT 14.6 H INR 1.2 H Whole Blood INR 1.2 H APTT 30.0 Anion Gap 15 Estim Creat Clear Calc 93.6 Estimated GFR > 60 POC Glucose 118 H Random Glucose 123 H Calcium 9.6 Troponin I High Sens 5.8 Triglycerides 157 H Cholesterol 202 H LDL Cholesterol, Calc 136 H HDL Cholesterol 35 L Imaging Radiologist's Impressions: Impressions Head CT 09/11/23 08:44 IMPRESSION: Unremarkable examination. No evidence of acute territorial infarct or hemorrhage. This critical result was discussed with Rambo German at 8:52 AM on 09/11/2023 and it was ascertained that the content and urgency of the report was understood at the time of direct communication. Head/Neck CTA 09/11/23 08:54 IMPRESSION: There is evidence of cerebrovascular disease with mild irregular narrowing of the M1 segments of both middle cerebral arteries and the P2 segments of both posterior cerebral arteries. There is also mild focal narrowing of the proximal basilar artery. Otherwise no intracranial large vessel occlusion. There is a 1.5 mm inferiorly projecting contour abnormality along the undersurface of the left supraclinoid internal carotid artery that may either represent a small aneurysm or prominent vascular infundibulum at the origin of the left posterior communicating artery. Otherwise unremarkable examination in that there is no stenosis of the cervical carotid or vertebral arteries. No evidence of acute territorial infarct or hemorrhage. No abnormal intracranial mass or enhancement. Chest X-Ray 09/11/23 09:20 IMPRESSION: No active disease. Assessment and Plan (1) Cerebral infarction: Qualifiers: Cerebral infarction mechanism: unspecified mechanism Qualified Code(s): I63.9 - Cerebral infarction, unspecified Status: Acute Plan 53 year old man admitted with slurred speech and change in mental status. he had similar symptoms 2 weeks ago when he had inability to speak and weakness Aphasia ? TIA vs stroke MRI echo neuro consultation> could be ischemic infarction with noted arthrosclerosis disease on CTA, treat with dual antiplatelet therapy including aspirin 81 mg and Plavix 75 mg monitor on telemetry PT/OT consult Speech therapy consult HLD statin HTN stable BP Losartan DVT prophylaxis with SCD boots full code obs Quality Stroke Does the patient have a stroke diagnosis?: No VTE Prior VTE?: No VTE Risk Level:: Medical - moderate - high VTE Device Contraindication: N/A - Device Ordered VTE Drug Contraindication: Treatment Not Indicated
[2023-09-11] MEDS: Aspirin 81 MG TAB.CHEW 324 MG PO (11:11)
--- NOTE | 2023-09-11 11:35 | PC.NURSE ---
completed MRI screening form with pt, pt unable to sign his name properly. he became tearful. retested neuros - pt continues to present with slight L sided facial droop, JERRI strength intact in all 4 extremities.
--- NOTE | 2023-09-11 11:38 | PC.NURSE ---
called pharmacy for Plavix not available in pys
--- NOTE | 2023-09-11 12:00 | P.CNNE_ITS ---
History of Present Illness Data of Consult Service Date: 09/11/23 Primary Care Provider: True Michel MD [facility] Reason for consult: Cerebral infarction 53 years old man with hypertension who was not feeling well last night but did not seek any immediate medical attention. This morning around 07:00 he developed difficulty speaking and came to emergency room. Time of onset of his symptoms were somewhat unclear and because of that he was not considered a candidate for TNK treatment. CTA of brain did not reveal any treatable vascular lesion. There was no headache nausea or vomiting or any focal arm or leg weakness. Review of Systems 2 Review of Systems: No chest pain shortness of breath or cold or flu-like illness PMFSH Past Medical History Medical History (Updated 09/11/23 @ 12:02 by Angel Silva MD) History of BPH Hyperlipidemia Benign essential HTN No known health problems Social History Social History Alcohol intake: never Patient Tobacco Use Status: Never used Tobacco Smoked in Last 30 Days: No Use of substances other than those prescribed or required for medical reasons: No Advance Directives: No Do you have a plan to hurt others: No Plan Nutrition Risks: No Nutritional Risk Meds Allergies Allergy/AdvReac Type Severity Reaction Status Date / Time No Known Allergies Allergy Verified 09/11/23 08:35 [No Known Allergies*] Active Medications: Current Medications Acetaminophen (Acetaminophen 325 Mg Tablet) 650 mg PO Q6H PRN PRN Reason: Pain, Mild (Pain Scale 1-3), fever or headache Calcium Carbonate (Calcium Carbonate 750 Mg Tab.Chew) 750 mg PO Q4H PRN PRN Reason: Heartburn Magnesium Hydroxide (Milk Of Magnesia 30 Ml Oral.Susp) 30 ml PO DAILY PRN PRN Reason: Constipation Melatonin (Melatonin 3 Mg Tablet) 6 mg PO BEDTIME PRN PRN Reason: Insomnia Sodium Chloride (0.9 % Sodium Chloride Flush 3 Ml Syringe) [facility] ?Medication ?Instructions ?Recorded ?Confirmed ?Last Taken ?Type atorvastatin 20 mg tablet 20 mg PO DAILY 05/21/23 09/11/23 09/10/23 History losartan 50 mg tablet 50 mg PO DAILY 05/21/23 09/11/23 09/10/23 History Physical Exam 2 Vital Signs: Vital Signs: Last Vital Signs Temp 97.5 F 09/11/23 08:33 Pulse 57 09/11/23 11:07 Resp 15 09/11/23 11:07 BP 140/7 H 09/11/23 11:07 Pulse Ox 99 09/11/23 11:07 O2 Del Method Room Air 09/11/23 11:07 BMI result Body Mass Index 28.8 Neuro: Other: Alert and awake with decreased spontaneity and fluency of speech. He had word- finding difficulties. He was able to name and repeat and comprehend. Face was symmetrical. Visual crowe are full. There was no pronator drift. Deep tendon reflexes were trace to absent with flexor plantars. Speech was normal. Results Labs 09/11/23 08:45 09/11/23 08:45 Labs: Short CBC 09/11/23 Range/Units 08:45 WBC 7.8 (4.8-10.8) X10*3/uL Hgb 16.8 (14.0-18.0) g/dl Hct 47.8 (42.0-52.0) % Plt Count 180 (160-400) X10*3/uL BMP 09/11/23 08:45 Sodium 139 Potassium 4.2 Chloride 108 Carbon Dioxide 20 L BUN 18 H Creatinine 0.[address] and CTA were reviewed. No significant abnormality of brain was noted. CTA revealed mild middle cerebral artery disease on the left side. Assessment and Plan (1) Cerebral infarction: Qualifiers: Cerebral infarction mechanism: unspecified mechanism Qualified Code(s): I63.9 - Cerebral infarction, unspecified Status: Acute 53 years old man with hypertension who was not feeling well last night with nonspecific symptoms and this morning developed difficulty speaking. On examination he has mild motor aphasia. Probably it is cause by an ischemic infarction. CTA revealed some at intracranial atherosclerotic disease that might be the reason. My recommendation at this time is to treat him with dual anti-platelet therapy including aspirin 81 mg daily in Plavix 75 mg daily and obtain an MRI of brain without contrast. Speech therapy is recommended. Procedures Date of Service Date of Service: 09/11/23
[2023-09-11] MEDS: Clopidogrel Bisulfate 300 MG TABLET PO (12:41)
[2023-09-11] MEDS: Clopidogrel Bisulfate 75 MG TABLET PO (18:29)
[2023-09-11] MEDS: 0.9 % Sodium Chloride Flush 3 ML SYRINGE IVFLUSH (18:31)
[2023-09-11] MEDS: Melatonin 3 MG TABLET 6 MG PO (21:35)
[2023-09-11] MEDS: Finasteride 5 MG TABLET PO (21:36)
[2023-09-12] VITALS (8 sets, daily range): BP systolic 102–137; BP diastolic 56–88; PULSE 52–61; RESP 18–20; TEMP 36.1–37; O2SAT 96–100
[2023-09-12] MEDS: 0.9 % Sodium Chloride Flush 3 ML SYRINGE IVFLUSH ×3 (03:30→16:39)
--- NOTE | 2023-09-12 06:42 | PC.NURSE ---
Assumed care of patient at 03:15. A&Ox4. Please see neuro and shift assessments, tasks for full details. Handoff report given to oncoming RN.
[2023-09-12 06:44] LABS: Hemoglobin 15.8 g/dl (14.0-18.0); Mean Corpuscular HGB Conc 34.3 g/dl (31.0-36.0); Mean Corpuscular Volume 93.3 fL (80.0-98.0); Mean Platelet Volume 9.8 fL (9.4-12.4); Platelet Count 168 X10*3/uL (160-400); Red Blood Count 4.93 X10*6/uL (4.60-5.80); Red Cell Distribution Width 12.6 % (11.0-16.0); White Blood Count 8.5 X10*3/uL (4.8-10.8)
--- NOTE | 2023-09-12 07:00 | CA_ITS ---
Transthoracic Echocardiogram Patient (Last, First, Middle): Krish Jones, Gender: Male Date of : 1970 Age: 53 Procedure Date: 09/12/2023 Procedure Type: Transthoracic Echocardiogram Location: [facility] – [place], [place] Height: 175.26 cm Weight: 88. kg BSA: 2.04 m2 Heart Rate: bpm BP: 137 / 88 mmHg Campaign Developer: DENISE Referring MD: Bonnie Eisenberg NP Assistant Kitchen Manager: Akil Hidalgo MD Symptoms: aphagia, ? stroke Study Quality: Fair ECG Rhythm: Sinus Conclusions: - 1. Normal LV ejection fraction 60 65% with mild LVH with impaired relaxation filling pattern 2. No obvious evidence of PFO, although should consider IGGY if clinically indicated 3. Normal cardiac valvular Dopplers 4. Normal RV systolic pressure Findings Procedure Information Contrast agent, definity, is being given per protocol without apparent complications. Left Ventricle Normal left ventricular size and systolic function. There is mildly increased left ventricular wall thickness. The visually estimated ejection fraction is between 60-65%. Spectral Doppler is indicative of an impaired relaxation filling pattern. Right Ventricle The right ventricle was not well visualized. Atria The left atrium is normal in size. no obvious PFO seen on this study. The right atrium was not well visualized. Aortic Valve The aortic valve structure and function is likely normal. There is no aortic valve stenosis. There is no aortic valve regurgitation. Mitral Valve Likely normal mitral valve structure and function. There is trace mitral valve regurgitation. There is no mitral valve stenosis. Pulmonic Valve The pulmonic valve was not well visualized. Tricuspid Valve Likely normal tricuspid valve structure and function. There is trace tricuspid valve regurgitation. The right ventricular systolic pressure is normal. There is no evidence of pulmonary hypertension. Great Vessels The aorta was not well visualized. The pulmonary artery was not well visualized. There is no dilatation of the ascending aorta measuring 3.10 cm. Venous The inferior vena cava is normal in size. Pericardium/Pleural The pericardium was not well visualized. Prior Study Comparison No prior study available for comparison. Recommendations, Care & Conclusions Consider a IGGY if clinically appropriate. Measurements 2D Linear Measurements IVSd: 1.27 0.6-0.9/0.6-1.0 cm LVIDd: 4.27 3.9-5.3/4.2-5.9 cm LVIDd Index: 2.09 2.4-3.2/2.2-3.1 cm/m2 LVIDs: 2.56 2.0-3.6 cm LVPWd: 1.24 0.7-1.1 cm Ao Root: 3.30 2.1-3.5 cm LA Diam: 3.60 2.7-3.8/3.0-4.0 cm LAIDs Index: 1.76 1.5-2.3 cm/m2 LV Mass: 243.16 67-162/88-224 g LV Mass Index: 119.20 43-95/49-115 g/m2 LVOT Diam: 2.10 3.0+(-)1.3 cm Mitral Valve MV Pk E: 0.80 MV PK A: 0.67 MV Decel Time: 240.00 E/A: 1.20 E'Lateral: 11.70 E'Medial: 6.31 E/E' Med: 12.70 E/E' Lat: 6.90 PHT: 70.00 MVA PHT: 3.14 Decel Prentiss: 3.35 Aortic Valve AoV Pk Олег: 1.46 AoV Mn Олег: 0.88 AoV VTI: 0.35 AoV Pk Grad: 9.00 Aov Mn Grad: 4.00 GAYE Cont.VTI: 2.36 LVOT LVOT Pk Олег: 1.05 LVOT Mn Олег: 0.62 LVOT VTI: 0.24 LVOT Pk Grad: 4.00 LVOT Mn Grad: 2.00 LVOT Diam: 2.10 LVOT Area: 3.46 Diastolic Function MV Pk E: 0.80 MV Pk A: 0.67 E/A: 1.20 E'Medial: 6.31 E/E' Med: 12.70 E' Laterial: 11.70 E/E' Lat: 6.90 Tricuspid Valve TR Pk Олег: 1.87 TR Pk Grad: 14.00 RA Press: 3.00 RVSP: 17.00 Great Vessels Aorta Ao Root-2D: 3.30 2.0-3.7 cm Ao Asc: 3.10 2.1-3.4 cm Pulmonary Valve PV Pk Олег: 1.19 Peak PV Grad: 6.00 Updated in Other Vendor System with Status of Final Akil Hidalgo MD electronically signed on 09/12/2023 12:25:31 PM with status of Final
[2023-09-12 07:08] LABS: Alanine Aminotransferase 116 U/L (0-40); Albumin Level 3.6 g/dL (3.5-5.0); Alkaline Phosphatase 72 U/L (39-117); Anion Gap 13 (12-20); Aspartate Amino Transferase 57 U/L (5-37); Bilirubin Total 0.6 mg/dL (0.0-1.0); Blood Urea Nitrogen 16 mg/dL (9-16); Carbon Dioxide 19 mmol/L (22-29); Chloride 109 mmol/L (96-108); Creatinine Clr Calc Pharmacy 83.4; Estimated Glomerular Filt Rate > 60; Glucose Random 97 mg/dL (60-115); Magnesium 2.5 mg/dL (1.6-2.6); Potassium 4.9 mmol/L (3.3-5.1); Sodium 136 mmol/L (135-145); Total Protein 6.7 g/dL (6.5-8.0)
[2023-09-12] MEDS: Finasteride 5 MG TABLET PO (08:50)
[2023-09-12] MEDS: Clopidogrel Bisulfate 75 MG TABLET PO (08:51)
[2023-09-12] MEDS: Aspirin 81 MG TAB.CHEW PO (08:51)
[2023-09-12] MEDS: Losartan Potassium 50 MG TABLET PO (08:51)
[2023-09-12] MEDS: Atorvastatin Calcium 40 MG TABLET PO (08:51)
--- NOTE | 2023-09-12 09:17 | MHC.CM.PN ---
Addendum entered by Trina Dougherty 09/12/23 15:23: This CM met with pt to discuss acute rehab options, pt is in agreement with going once he is medically cleared. Pts first choice is [facility]. [facility] can offer pt a bed at discharge. Addendum entered by Trina Dougherty 09/12/23 12:56: Correction IMM given 09/11. Original Note: GUILLERMO 09/11. This CM met with pt with the assistance of a radioisotope technician. Pt is independent, self-care at his baseline, he lives at home with his . New HCP completed with pt, now on file. DCP TBD, but may need acute rehab. PCP: Dr. True Michel
[2023-09-12 12:29] LABS: Estimated Average Glucose 100 mg/dL; Hemoglobin A1c % 5.1 % (<6.0)
--- NOTE | 2023-09-12 15:00 | P.PNIM_ITS ---
Subjective Subjective Date of Service: 09/13/23 Interval History: Being followed for acute CVA. History obtained via camelid fiber sorter Being followed by PCP Dr. Biswas and Urology Dr. Montoya Complaining of persistent aphasia and right-sided weakness, denies headache, no dizziness, denies history of alcohol use, history of hyperlipidemia on Lipitor and history of elevated PSA on finasteride. Review of Systems All other system are reviewed and are negative Physical Exam 2 Vital Signs: Vital Signs: Last Vital Signs Temp 98.1 F 09/12/23 12:00 Pulse 52 09/12/23 12:00 Resp 18 09/12/23 12:00 BP 102/56 L 09/12/23 12:00 Pulse Ox 98 09/12/23 12:00 O2 Del Method Room Air 09/12/23 12:00 BMI result Body Mass Index 28.8 Const: Other: General awake alert x3, in no acute distress. Neck no JVD. CVS regular rate rhythm, Respiratory lungs clear to auscultation, no respiratory distress, no wheeze, no rhonchi. Gastrointestinal abdomen soft, nontender, bowel sounds audible. Extremities no edema. Neuro loss of right nasolabial fold, dysarthria/ difficulty expressing, decreased right upper and lower extremity strength 3-4/5 , decreased hand mirror fabrication supervisor Skin no rash Psych appropriate affect Objective Data Active Medications Acetaminophen (Acetaminophen 325 Mg Tablet) 650 mg PO Q6H PRN PRN Reason: Pain, Mild (Pain Scale 1-3), fever or headache Aspirin (Aspirin 81 Mg Tab.Chew) 81 mg PO DAILY [facility] Last Admin: 09/12/23 08:51 Dose: 81 mg Documented By: SACHIN Atorvastatin Calcium (Atorvastatin Calcium 40 Mg Tablet) 40 mg PO DAILY [facility] Last Admin: 09/12/23 08:51 Dose: 40 mg Documented By: SACHIN Calcium Carbonate (Calcium Carbonate 750 Mg Tab.Chew) 750 mg PO Q4H PRN PRN Reason: Heartburn Clopidogrel Bisulfate (Clopidogrel Bisulfate 75 Mg Tablet) 75 mg PO DAILY [facility] Last Admin: 09/12/23 08:51 Dose: 75 mg Documented By: SACHIN Finasteride (Finasteride 5 Mg Tablet) 5 mg PO DAILY [facility] Last Admin: 09/12/23 08:50 Dose: 5 mg Documented By: SACHIN Losartan Potassium (Losartan Potassium 50 Mg Tablet) 50 mg PO DAILY RICHA; Protocol Last Admin: 09/12/23 08:51 Dose: 50 mg Documented By: SACHIN Magnesium Hydroxide (Milk Of Magnesia 30 Ml Oral.Susp) 30 ml PO DAILY PRN PRN Reason: Constipation Melatonin (Melatonin 3 Mg Tablet) 6 mg PO BEDTIME PRN PRN Reason: Insomnia Last Admin: 09/11/23 21:35 Dose: 6 mg Documented By: RODOLFO Sodium Chloride (0.9 % Sodium Chloride Flush 3 Ml Syringe) 3 ml IVFLUSH QSHIFT RICHA Last Admin: 09/12/23 08:51 Dose: 3 ml Documented By: SACHIN Labs 09/12/23 06:20 09/12/23 06:20 Labs: Laboratory Results - last 24 hr 09/12/23 06:20 MCV 93.3 MCH 32.0 MCHC 34.3 RDW 12.6 Plt Count 168 MPV 9.8 Absolute Nucleated RBC 0.000 Nucleated RBC % (auto) 0.0 Anion Gap 13 Estim Creat Clear Calc 83.4 Estimated GFR > 60 Random Glucose 97 Estimat Average Glucose 100 Hemoglobin A1c % 5.1 Calcium 9.0 D Magnesium 2.5 Total Bilirubin 0.6 AST 57 H ALT 116 H Alkaline Phosphatase 72 Total Protein 6.7 Albumin 3.6 Assessment and Plan (1) Cerebral infarction: Status: Acute (2) 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 he had similar symptoms 2 weeks ago when he had inability to speak and weakness Acute CVA Persistent aphasia and right-sided weakness. Head CT showed no evidence of acute infarction Head and neck CTA showed mild irregular narrowing of the M1 segments of both middle cerebral arteries and the P2 segments of both posterior cerebral arteries. There is also mild focal narrowing of the proximal basilar artery. Otherwise no intracranial large vessel occlusion. MRI brain showed focal acute infarction in the left ventral medial aspect of the [place] Echo shows EF 60-65%, mild LVH with impaired relaxation filling pattern, no obvious evidence of PFO Continue aspirin and Plavix 75 mg as per neurology PT OT recommend acute rehab Follow speech therapy recommendation Seen by Neurology case discussed with Dr. Silva regarding MRI findings he recommend to continue dual antiplatelet therapy aspirin 81 mg and Plavix 75 mg Chronic elevated LFTs No history of alcohol use/negative hepatitis-C and HIV in the past, abdomen and pelvis CT in 2021 showed low attenuation suggestive of fatty infiltration, no focal hepatic lesion was noted Recommend to monitor LFTs elia. HLD LDL 136, increase dose of Lipitor from 20-40 mg daily HTN Soft BP hold Losartan Elevated PSA continue outpatient follow-up with Urology/cont. finasteride. DVT prophylaxis with Lovenox subQ full code Disposition acute rehab Patient will need continued hospitalization for follow-up on speech therapy and safe disposition to acute rehab. Quality Stroke Does the patient have a stroke diagnosis?: No VTE Prior VTE?: No VTE Risk Level:: Medical - moderate - high VTE Device Contraindication: N/A - Device Ordered VTE Drug Contraindication: Treatment Not Indicated
--- NOTE | 2023-09-12 17:06 | MHC.SP.ADU ---
Referring provider: Bonnie Eisenberg Reason for Referral: aphasia Type of Treatment: 85273 Evaluation Speech Sound Production WITH Language Date of Plan of Treatment: 09/12/23 Onset of Symptoms/Illness: 09/09/23 Date Treatment Started: 09/12/23 Medical Diagnosis: s/p CVA Primary Speech Language Diagnosis: R47.1 Dysarthria Secondary Speech Language Diagnosis: R47.01 Aphasia History Pt is 53 year old male who presented to ED on 09/10 for loss of speech, body aches, and nausea. Per chart review, pt had similar symptoms of inability to speak and weakness for 2 minutes which was either on Friday 09/08 or 2 weeks ago; unclear per EMR notes. Pt's head CT was negative for infarct. Brain MRI found acute infarct. CXR unremarkable. Per neurology consultation notes, pt presenting with difficulty word finding and normal speech. Neuro also noted no can name and comprehend. BRAIN MRI IMPRESSION: Focal acute infarct in the left ventromedial aspect of the carrington. Medical History: Other: History of BPH Hyperlipidemia Benign essential HTN Respiratory Needs: Room Air Patient Orientation: Alert & Oriented x 4 Social History: Assistive Devices in use: Comment: unk Past Speech Language Therapy: none reported Other Therapies Seen in Current Calendar Year: Other: unk Swallowing History: Dysphagia Specific: Comments: No concern for dysphagia reported by MD, swallow not evaluated on this date. Would recommend bedside swallow evaluation by PUBLIC RELATIONS ASSISTANT d/t acute CVA Pre-eval Risk for Aspiration: Neurological Condition Pre-evaluation Dietary Consistencies: Regular Pre-eval Liquid Intake: Thin Pre-eval Medication Intake: Whole with Liquid Reported Speech, Language, Cognition difficulties: Speaking Voice Assessment Speech Production: Dysarthric Slow Slurred Clinical Impression: Impaired Observations: Pt presented w/ slow and imprecise articulation during conversational speech, repetition tasks, and AMRs and SMRs. Percision of articulation increased w/ longer utterances. Informal Voice Assessment: Voice Loudness: Mildly Soft/Quiet Voice Nasal Resonance: Normal Voice Oral Resonance: Normal Voice Phonatory-based Quality: Hoarse Voice Pitch: Normal Voice Other Observations: Clinical Impression: Impaired Clinicial Observations: Pt presents w/ hoarse and mildly quiet/weak vocal quality. Both pt and family report this is not consistent w/ baseline vocal quality. Tests of Speech & Lang Adults: BNT Clinical Impression: Observations: Pt was administered BNT short version seeking for words in maori. He scored 11/15. Pt reports that he wouldn't have known the words he did not produce accurately even prior to the current hospitalization. Therefore, further monitoring/screening of word finding is recommended. In conversation, pt did not present w/ word finding difficulties during the time of the PUBLIC RELATIONS ASSISTANT visit. Pt and family reporting word finding difficulties. Tests of Cognition: Clinical Impression: Did Not Test Impressions and Recommendations Summary: Recommend PUBLIC RELATIONS ASSISTANT continue to follow for dysarthria and ?aphasia. Recommend further evaluation of aphasia/word finding difficulty. Recommend tx for motor speech/dysarthria. Pt may benefit to partake in clinical swallow evaluation d/t acute CVA. Recommendation for Speech Therapy: Inpatient Speech Therapy Patient Education: Completed: Yes Patient/Caregiver Education: Described Results of Evaluation Patient expressed understanding of evaluation Patient agrees with goals and treatment plan Family/Caregivers expressed understanding of results Family/Caregivers expressed agreement with goals and treatment plan Comments/Barriers to Learning: [place] Laborer Clinican/Clinical Fellow: No Supervisory Statement: No Speech Language Pathologist: Paula Mendoza M.A., [facility]-PUBLIC RELATIONS ASSISTANT
[2023-09-12] MEDS: Acetaminophen 325 MG TABLET 650 MG PO (21:23)
[2023-09-12] MEDS: Melatonin 3 MG TABLET 6 MG PO (21:23)
[2023-09-13 04:00] VITALS: BP 124/65; PULSE 56; RESP 19; TEMP 37.2; O2SAT 97
[2023-09-13 08:00] VITALS: BP 127/68; PULSE 55; RESP 18; TEMP 36.2; O2SAT 98
[2023-09-13] MEDS: Finasteride 5 MG TABLET PO (09:21)
[2023-09-13] MEDS: Clopidogrel Bisulfate 75 MG TABLET PO (09:21)
[2023-09-13] MEDS: Atorvastatin Calcium 40 MG TABLET PO (09:21)
[2023-09-13] MEDS: Aspirin 81 MG TAB.CHEW PO (09:21)
[2023-09-13] MEDS: 0.9 % Sodium Chloride Flush 3 ML SYRINGE IVFLUSH ×2 (09:21→18:24)
[2023-09-13 09:40] VITALS: BP 127/68; PULSE 55; O2SAT 98
[2023-09-13 11:37] VITALS: BP 119/63; PULSE 56; RESP 18; TEMP 36.5; O2SAT 98
--- NOTE | 2023-09-13 12:09 | MHC.CM.PN ---
PER HOSPITALIST PT TO BE MEDICALLY CLEARED FOR DC TO ACUTE REHAB, [facility] SENT UPDATES AND WILL GO FOR AUTH, CM WILL CONT TO FOLLOW.
--- NOTE | 2023-09-13 13:40 | MHC.SL.SOA ---
Referring Provider: Bonnie Eisenberg Reason for Referral: aphasia Date of Plan of Treatment:09/12/23 Onset of Symptoms/Illness:09/09/23 Date Treatment Started:09/12/23 Medical Diagnosis:s/p CVA Primary Speech Language Diagnosis:R47.1 Dysarthria Secondary Speech Language Diagnosis:R47.01 Aphasia Number of Authorized Visits Remaining: Authorization End Date: Reason for Visit:21215 Individual Treatment Other: Subjective:Patient was seen for further evaluation s/p CVA with R sided weakness, dysarthria, aphasia. Patient was awake and alert, lying in bed, with present in room. Patient presented with mild R facial droop, and hesitant, dysarthric speech, but was pleasant and very cooperative with all activities today. 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 MD indicated at rounds this a.m. that patient will likely be discharged to acute rehab/[facility] likely within the next 24 hours. Objective: Patient was administered the Quick Assessment of Aphasia Moldovan form, to further assess needs. All communication today was in Moldovan, with Moldovan speaking therapist. Assessment:On an oral motor screening, patient produced mildly reduced labial range of motion, with strenght WFL, and lingual ROM and strength WFL. ON sip of water, patient produced timely oral phase, timely swallow with laryngeal elevation WFL, no clinical signs of aspiraiton. On assessment of personal narrative, and production of novel, spontaneous sentences in response to pictures, patient produced complete, syntactic and semantically accurate language, with some mild hesitancies noted, particularly at initiation of a sentence or comment. Imprecise, slow speech production, with increased difficulty when producing mulitisyllabic words noted throughout this assessment. On following one and two step directions, patient demonstrated 100% accuracy On answering concrete y/n ? 100% accuracy On complex/ideational y/n 75% accuracy On receptive picture identification 100% accuracy ON repetition of words and phrases with increasing level of difficulty: Patient evidenced marked, increased difficulty with multisyllabic words, both with sequencing sounds and articulation of all sounds in words. On reading aloud words, phrases, complex sentences: No difficulty evident re:decoding, again presented with difficulty on multisyllabic words. Interviewing patient, he noted that he feels he has struggle with word finding when conversing, struggles at times to find words. Summary conclusion: Patient presents with moderate dysarthria, difficulty with sequencing sounds when producing multisyllabic words, hesitancies when initiating speech/word finding issues in converational speech (mild expressive aphasia), with receptive langauge mostly WFL on screening. Recommend patient receive direct speech therapy at next level of care(Acute Rehab) with ongoing assessment and intervention. Patient may need continued Speech Therapy at conclusion of acute rehab (outpatient v. VNA). Notes: Plan: Goal # : Status of Goal: Goal # : Status of Goal: Goal # : Status of Goal: Goal # : Status of Goal: Seen by: Graduate/Clinical Fellow: No Supervisory Statement: f_Reg Query Last Value , MHC.AU.SIGNATUR Speech Language Pathologist: Suzanne Hoffmann M.A., CCC-SPACE STUDIES FACULTY MEMBER
--- NOTE | 2023-09-13 14:56 | HO.PM.IMPN ---
Subjective Subjective Date of Service: 09/13/23 Interval History: Being followed for acute CVA. Complaining of persistent dysarthria/difficulty with words and persistent right upper and lower extremity weakness, no new neurological symptoms, no confusion, tolerating diet, no headache, no dizziness. Review of Systems All other systems are reviewed and are negative. Physical Exam Vital Signs: Vital Signs: Last Vital Signs Temp 97.7 F 09/13/23 11:37 Pulse 56 09/13/23 11:37 Resp 18 09/13/23 11:37 BP 119/63 09/13/23 11:37 Pulse Ox 98 09/13/23 11:37 O2 Del Method Room Air 09/13/23 11:37 BMI result Body Mass Index 28.8 Const: Other: General awake alert x3, in no acute distress. Neck no JVD. CVS regular rate rhythm, Respiratory lungs clear to auscultation, no respiratory distress, no wheeze, no rhonchi. Gastrointestinal abdomen soft, nontender, bowel sounds audible. Extremities no edema. 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 Skin no rash Psych appropriate affect Objective Data Active Medications Acetaminophen (Acetaminophen 325 Mg Tablet) 650 mg PO Q6H PRN PRN Reason: Pain, Mild (Pain Scale 1-3), fever or headache Last Admin: 09/12/23 21:23 Dose: 650 mg Documented By: STORM Aspirin (Aspirin 81 Mg Tab.Chew) 81 mg PO DAILY [facility] Last Admin: 09/13/23 09:21 Dose: 81 mg Documented By: SACHIN Atorvastatin Calcium (Atorvastatin Calcium 40 Mg Tablet) 40 mg PO DAILY [facility] Last Admin: 09/13/23 09:21 Dose: 40 mg Documented By: SACHIN Calcium Carbonate (Calcium Carbonate 750 Mg Tab.Chew) 750 mg PO Q4H PRN PRN Reason: Heartburn Clopidogrel Bisulfate (Clopidogrel Bisulfate 75 Mg Tablet) 75 mg PO DAILY [facility] Last Admin: 09/13/23 09:21 Dose: 75 mg Documented By: SACHIN Finasteride (Finasteride 5 Mg Tablet) 5 mg PO DAILY [facility] Last Admin: 09/13/23 09:21 Dose: 5 mg Documented By: SACHIN Magnesium Hydroxide (Milk Of Magnesia 30 Ml Oral.Susp) 30 ml PO DAILY PRN PRN Reason: Constipation Melatonin (Melatonin 3 Mg Tablet) 6 mg PO BEDTIME PRN PRN Reason: Insomnia Last Admin: 09/12/23 21:23 Dose: 6 mg Documented By: STORM Sodium Chloride (0.9 % Sodium Chloride Flush 3 Ml Syringe) 3 ml IVFLUSH QSHIFT RICHA Last Admin: 09/13/23 09:21 Dose: 3 ml Documented By: SACHIN Labs 09/12/23 06:20 09/12/23 06:20 Assessment and Plan (1) Cerebral infarction: Status: Acute (2) 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 he had similar symptoms 2 weeks ago when he had inability to speak and weakness Acute CVA Persistent aphasia and right-sided weakness unchanged Risk for stroke hypertension, hyperlipidemia, no history of smoking. Head CT showed no evidence of acute infarction Head and neck CTA showed mild irregular narrowing of the M1 segments of both middle cerebral arteries and the P2 segments of both posterior cerebral arteries. There is also mild focal narrowing of the proximal basilar artery. Otherwise no intracranial large vessel occlusion. MRI brain showed focal acute infarction in the left ventral medial aspect of the carrington Echo shows EF 60-65%, mild LVH with impaired relaxation filling pattern, no obvious evidence of PFO Continue aspirin and Plavix 75 mg as per neurology PT OT recommend acute rehab speech therapy recommend continued speech therapy at acute rehab Chronic elevated LFTs No history of alcohol use/negative hepatitis-C and HIV in the past, abdomen and pelvis CT in 2021 showed low attenuation suggestive of fatty infiltration, no focal hepatic lesion was noted Recommend to monitor LFTs closley while on statins. HLD LDL 136, increase dose of Lipitor from 20-40 mg daily HTN Continued to have Soft BP hold Losartan Elevated PSA continue outpatient follow-up with Urology/cont. finasteride. DVT prophylaxis with Lovenox subQ full code Disposition acute rehab, case packer arranging for safe disposition Patient will need continued hospitalization for follow-up on speech therapy and safe disposition to acute rehab. Quality Stroke Does the patient have a stroke diagnosis?: No VTE Prior VTE?: No VTE Risk Level:: Medical - moderate - high VTE Device Contraindication: N/A - Device Ordered VTE Drug Contraindication: Treatment Not Indicated
[2023-09-13 16:00] VITALS: BP 151/69; PULSE 54; RESP 18; TEMP 36.7; O2SAT 95
[2023-09-13 19:58] VITALS: BP 125/69; PULSE 62; RESP 16; TEMP 36.5; O2SAT 99
[2023-09-14] VITALS (7 sets, daily range): BP systolic 129–147; BP diastolic 66–83; PULSE 56–65; RESP 16–20; TEMP 36.3–36.8; O2SAT 94–98
[2023-09-14] MEDS: Clopidogrel Bisulfate 75 MG TABLET PO (08:49)
[2023-09-14] MEDS: Finasteride 5 MG TABLET PO (08:49)
[2023-09-14] MEDS: 0.9 % Sodium Chloride Flush 3 ML SYRINGE IVFLUSH ×3 (08:49→23:53)
[2023-09-14] MEDS: Atorvastatin Calcium 40 MG TABLET PO (08:49)
[2023-09-14] MEDS: Aspirin 81 MG TAB.CHEW PO (08:49)
--- NOTE | 2023-09-14 09:52 | MHC.SL.SOA ---
Referring Provider: Bonnei Eisenberg Reason for Referral: aphasia Date of Plan of Treatment:09/12/23 Onset of Symptoms/Illness:09/09/23 Date Treatment Started:09/12/23 Medical Diagnosis:s/p CVA Primary Speech Language Diagnosis:R47.1 Dysarthria Secondary Speech Language Diagnosis:R47.01 Aphasia Number of Authorized Visits Remaining: Authorization End Date: Reason for Visit:64965 Individual Treatment Subjective:Patient was seen for further evaluation s/p CVA with R sided weakness, dysarthria, aphasia. Patient was awake and alert, lying in bed, with present in room. Patient presented with mild R facial droop, and hesitant, dysarthric speech, but was pleasant and very cooperative with all activities today. 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 D/C plan at this time is to acute rehab/[facility]. Objective: Patient's word finding and articulation of multisyllabic words were assessed during today's visit. Assessment:During a confrontational naming task, patient was presented with simple line images one at a time and was instructed to name each image, which depicted concrete nouns, actions, and categories, with a single word. Patient correctly named 29 of the 30 images. No instances of paraphasias noted during this visit, though at times patient groped for words and retrieved words after a brief delay at the sentence level. During conversation, again note that patient produced complete, syntactic and semantically accurate language, with some mild hesitancies noted, particularly at initiation of a sentence or comment. Patient appropriately responded to questions and followed commands. Imprecise, slow speech production, with increased difficulty when producing multisyllabic words noted throughout this assessment. Patient was asked to repeat multisyllabic words in Icelandic (3-5 syllables) and patient exhibited some difficulty with this task. He was observed to omit sounds and syllables, and exhibited difficulty sequencing syllables, especially in longer words. Improved articulatory precision when patient spoke with a slower rate. Notes: Summary conclusion: Patient presents with moderate dysarthria, difficulty with sequencing sounds when producing multisyllabic words, hesitancies when initiating speech/word finding issues in conversational speech (mild expressive aphasia), with receptive language mostly WFL on screening. Recommend patient receive direct speech therapy at next level of care(Acute Rehab) with ongoing assessment and intervention. Patient may need continued Speech Therapy at conclusion of acute rehab (outpatient v. VNA). This was again discussed with patient and his at today's visit. Seen by: Graduate/Clinical Fellow: No Supervisory Statement: f_Reg Query Last Value , [facility] Speech Language Pathologist: Tsering Montero M.A., CCC-DUMPER
--- NOTE | 2023-09-14 11:32 | MHC.CM.PN ---
Per rounds, pt is ready to DC to Acute rehab, he has been accepted at [facility], and they are waiting to hear from his ins. for auth. contact at [place]: Tanna [phone].
--- NOTE | 2023-09-14 15:25 | P.DS_ITS ---
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 He reports he had similar symptoms on Sunday where he felt slurred speech and weakness but it resolved on its own. Today he said he woke up and felt unwell and had the slurred and heavy speech. He denied any weakness to his upper or lower extremities, no visual changes, headache. He denied any recent illness, sick contacts, recent travel. He reports that he is active and works 2 jobs. In the ER, head and neck CTA showed evidence of cerebrovascular disease with no intracranial large vessel occlusion, stenosis of the cervical carotid or vertebral arteries and no evidence of acute territorial infarct or hemorrhage. He has an elevated LDL of 136. Hospital course: 53 year old man admitted with slurred speech and change in mental status, workup in the ED showed normal head CT, Head and neck CTA showed mild irregular narrowing of the M1 segments of both middle cerebral arteries and the P2 segments of both posterior cerebral arteries ,and mild focal narrowing of the proximal basilar artery, Otherwise no intracranial large vessel occlusion was noted patient admitted to [facility] for acute CVA , MRI brain showed focal acute infarction in the left ventral medial aspect of the carrington, Echo shows EF 60-65%, mild LVH with impaired relaxation filling pattern, no obvious evidence of PFO, patient seen by Dr. Silva from Neurology he rec ommended aspirin and Plavix 75 mg , seen by Physical therapy and Occupational therapy they recommended acute rehab, speech therapy recommend to continue speech therapy at acute rehab, patient noted to have LDL of 136 therefore placed on Lipitor of 40 mg daily patient has chronically elevated LFTs, with no history of alcohol use, negative hepatitis-C and HIV in the past, abdominal and pelvic CT in the past showed low attenuations of liver suggestive of fatty infiltration, recommend to continue Lipitor and follow LFTs closely as outpatient, in regard to hypertension recommend to continue losartan 25 mg daily. Elevated PSA continue outpatient follow-up with Urology/cont. finasteride. Physical Exam Vital Signs: Vital Signs: Last Vital Signs Temp 98.0 F 09/14/23 11:02 Pulse 58 09/14/23 11:19 Resp 18 09/14/23 11:02 BP 141/69 H 09/14/23 11:19 Pulse Ox 96 09/14/23 11:02 O2 Del Method Room Air 09/14/23 11:02 BMI result Body Mass Index 28.8 Const: Other: General awake alert x3, in no acute distress. Neck no JVD. CVS regular rate rhythm, Respiratory lungs clear to auscultation, no respiratory distress, no wheeze, no rhonchi. Gastrointestinal abdomen soft, nontender, bowel sounds audible. Extremities no edema. 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 Skin no rash Psych appropriate affect Discharge Plan Discharge Patient Disposition: Xfer Inpatient Rehab Fac Referrals: [facility] [Outside] - 1 Day (ACUTE REHAB) True Mullen MD [Primary Care Provider] - 1 Week Discharge Medications: New aspirin 81 mg Tablet,Chewable 81 mg PO DAILY Qty: 30 0RF clopidogrel 75 mg Tablet 75 mg PO DAILY Qty: 30 0RF atorvastatin 40 mg Tablet 40 mg PO DAILY Qty: 30 0RF losartan 25 mg tablet 25 mg PO DAILY Qty: 30 0RF Continued finasteride 5 mg tablet 5 mg PO DAILY 90 Days Qty: 90 3RF Discontinued losartan 50 mg tablet 50 mg PO DAILY atorvastatin 20 mg tablet 20 mg PO DAILY Diet: Low fat, low cholesterol Activity on Discharge: As tolerated Stand Alone Forms: Patient Portal Discharge page Print Language: Croatian Care Plan Goals: Acute CVA Take aspirin and Plavix Continue Lipitor 40 mg daily follow low cholesterol diet Continue PT/OT/ speech therapy Health Concerns: Hyperlipidemia/hypertension monitor BP Plan of Treatment: Outpatient follow-up with primary care physician call for appointment Assessment: As above
--- NOTE | 2023-09-14 15:33 | P.PNIM_ITS ---
Subjective Subjective Date of Service: 09/14/23 Interval History: Being followed for acute CVA. Denies new neurological symptoms, no headache, no dizziness, no lightheadedness, no change in speech or right upper extremity weakness since admission. Tolerating diet no nausea, no vomiting, no abdominal pain or diarrhea. Review of Systems All other systems are reviewed and are negative. Physical Exam 2 Vital Signs: Vital Signs: Last Vital Signs Temp 98.0 F 09/14/23 11:02 Pulse 58 09/14/23 11:19 Resp 18 09/14/23 11:02 BP 141/69 H 09/14/23 11:19 Pulse Ox 96 09/14/23 11:02 O2 Del Method Room Air 09/14/23 11:02 BMI result Body Mass Index 28.8 Const: Other: General awake alert x3, in no acute distress. Neck no JVD. CVS regular rate rhythm, Respiratory lungs clear to auscultation, no respiratory distress, no wheeze, no rhonchi. Gastrointestinal abdomen soft, nontender, bowel sounds audible. Extremities no edema. 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 Skin no rash Psych appropriate affect Objective Data Active Medications Acetaminophen (Acetaminophen 325 Mg Tablet) 650 mg PO Q6H PRN PRN Reason: Pain, Mild (Pain Scale 1-3), fever or headache Last Admin: 09/12/23 21:23 Dose: 650 mg Documented By: STORM Aspirin (Aspirin 81 Mg Tab.Chew) 81 mg PO DAILY [facility] Last Admin: 09/14/23 08:49 Dose: 81 mg Documented By: SACHIN Atorvastatin Calcium (Atorvastatin Calcium 40 Mg Tablet) 40 mg PO DAILY [facility] Last Admin: 09/14/23 08:49 Dose: 40 mg Documented By: SACHIN Calcium Carbonate (Calcium Carbonate 750 Mg Tab.Chew) 750 mg PO Q4H PRN PRN Reason: Heartburn Clopidogrel Bisulfate (Clopidogrel Bisulfate 75 Mg Tablet) 75 mg PO DAILY [facility] Last Admin: 09/14/23 08:49 Dose: 75 mg Documented By: SACHIN Finasteride (Finasteride 5 Mg Tablet) 5 mg PO DAILY [facility] Last Admin: 09/14/23 08:49 Dose: 5 mg Documented By: SACHIN Magnesium Hydroxide (Milk Of Magnesia 30 Ml Oral.Susp) 30 ml PO DAILY PRN PRN Reason: Constipation Melatonin (Melatonin 3 Mg Tablet) 6 mg PO BEDTIME PRN PRN Reason: Insomnia Last Admin: 09/12/23 21:23 Dose: 6 mg Documented By: STORM Sodium Chloride (0.9 % Sodium Chloride Flush 3 Ml Syringe) 3 ml IVFLUSH QSHIFT [facility] Last Admin: 09/14/23 08:49 Dose: 3 ml Documented By: SACHIN Labs 09/12/23 06:20 09/12/23 06:20 Assessment and Plan (1) Cerebral infarction: Status: Acute (2) 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 he had similar symptoms 2 weeks ago when he had inability to speak and weakness Acute CVA Persistent aphasia and right-sided weakness unchanged Risk for stroke hypertension, hyperlipidemia, no history of smoking, hemoglobin A1c 5.1. Head CT showed no evidence of acute infarction Head and neck CTA showed mild irregular narrowing of the M1 segments of both middle cerebral arteries and the P2 segments of both posterior cerebral arteries. There is also mild focal narrowing of the proximal basilar artery. Otherwise no intracranial large vessel occlusion. MRI brain showed focal acute infarction in the left ventral medial aspect of the car[place] Echo shows EF 60-65%, mild LVH with impaired relaxation filling pattern, no obvious evidence of PFO Continue aspirin and Plavix 75 mg as per neurology, recommend to continue high- intensity statins and close blood pressure follow-up PT OT recommend acute rehab speech therapy recommend continued speech therapy at acute rehab Chronic elevated LFTs No history of alcohol use/negative hepatitis-C and HIV in the past, abdomen and pelvis CT in 2021 showed low attenuation suggestive of fatty infiltration, no focal hepatic lesion was noted Recommend to monitor LFTs closley while on statins. HLD LDL 136, increase dose of Lipitor from 20-40 mg daily HTN Continued to have Soft BP hold Losartan Elevated PSA continue outpatient follow-up with Urology/cont. finasteride. DVT prophylaxis with Lovenox subQ full code Disposition acute rehab, case resource manager arranging for safe disposition Patient will need continued hospitalization for follow-up on speech therapy and safe disposition to acute rehab. Quality Stroke Does the patient have a stroke diagnosis?: No VTE Prior VTE?: No VTE Risk Level:: Medical - moderate - high VTE Device Contraindication: N/A - Device Ordered VTE Drug Contraindication: Treatment Not Indicated
[2023-09-14] MEDS: Acetaminophen 325 MG TABLET 650 MG PO (17:59)
[2023-09-14] MEDS: Melatonin 3 MG TABLET 6 MG PO (22:07)
[2023-09-15] VITALS (7 sets, daily range): BP systolic 122–139; BP diastolic 67–81; PULSE 53–94; RESP 20; TEMP 36.2–36.9; O2SAT 94–97
[2023-09-15] MEDS: Finasteride 5 MG TABLET PO (09:33)
[2023-09-15] MEDS: Clopidogrel Bisulfate 75 MG TABLET PO (09:33)
[2023-09-15] MEDS: Losartan Potassium 25 MG TABLET PO (09:33)
[2023-09-15] MEDS: Atorvastatin Calcium 40 MG TABLET PO (09:33)
[2023-09-15] MEDS: Acetaminophen 325 MG TABLET 650 MG PO ×2 (09:33→21:06)
[2023-09-15] MEDS: Aspirin 81 MG TAB.CHEW PO (09:34)
[2023-09-15] MEDS: 0.9 % Sodium Chloride Flush 3 ML SYRINGE IVFLUSH ×3 (09:34→21:09)
--- NOTE | 2023-09-15 11:26 | HO.PM.IMPN ---
Subjective Subjective Date of Service: 09/15/23 Interval History: Being followed for acute CVA. Offers no acute complaints, speech is better, continue to have persistent right upper and lower extremity weakness. Tolerating diet, no new neurological deficit, no acute issues overnight. Review of Systems All other systems are reviewed and are negative Physical Exam Vital Signs: Vital Signs: Last Vital Signs Temp 98.0 F 09/15/23 07:57 Pulse 53 09/15/23 07:57 Resp 20 09/15/23 07:57 BP 138/76 09/15/23 09:33 Pulse Ox 97 09/15/23 07:57 O2 Del Method Room Air 09/15/23 07:57 BMI result Body Mass Index 28.8 Const: Other: General awake alert x3, in no acute distress. Neck no JVD. CVS regular rate rhythm, Respiratory lungs clear to auscultation, no respiratory distress, no wheeze, no rhonchi. Gastrointestinal abdomen soft, non tender, bowel sounds audible. Extremities no edema. 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 Skin no rash Psych appropriate affect Objective Data Active Medications Acetaminophen (Acetaminophen 325 Mg Tablet) 650 mg PO Q6H PRN PRN Reason: Pain, Mild (Pain Scale 1-3), fever or headache Last Admin: 09/15/23 09:33 Dose: 650 mg Documented By: MAN Aspirin (Aspirin 81 Mg Tab.Chew) 81 mg PO DAILY [facility] Last Admin: 09/15/23 09:34 Dose: 81 mg Documented By: MAN Atorvastatin Calcium (Atorvastatin Calcium 40 Mg Tablet) 40 mg PO DAILY [facility] Last Admin: 09/15/23 09:33 Dose: 40 mg Documented By: MAN Calcium Carbonate (Calcium Carbonate 750 Mg Tab.Chew) 750 mg PO Q4H PRN PRN Reason: Heartburn Clopidogrel Bisulfate (Clopidogrel Bisulfate 75 Mg Tablet) 75 mg PO DAILY [facility] Last Admin: 09/15/23 09:33 Dose: 75 mg Documented By: MAN Finasteride (Finasteride 5 Mg Tablet) 5 mg PO DAILY [facility] Last Admin: 09/15/23 09:33 Dose: 5 mg Documented By: MAN Losartan Potassium (Losartan Potassium 25 Mg Tablet) 25 mg PO DAILY [facility]; Protocol Last Admin: 09/15/23 09:33 Dose: 25 mg Documented By: MAN Magnesium Hydroxide (Milk Of Magnesia 30 Ml Oral.Susp) 30 ml PO DAILY PRN PRN Reason: Constipation Melatonin (Melatonin 3 Mg Tablet) 6 mg PO BEDTIME PRN PRN Reason: Insomnia Last Admin: 09/14/23 22:07 Dose: 6 mg Documented By: MARK Sodium Chloride (0.9 % Sodium Chloride Flush 3 Ml Syringe) 3 ml IVFLUSH QSHIFT [facility] Last Admin: 09/15/23 09:34 Dose: 3 ml Documented By: MAN Labs 09/12/23 06:20 09/12/23 06:20 Assessment and Plan (1) Cerebral infarction: Status: Acute (2) 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 he had similar symptoms 2 weeks ago when he had inability to speak and weakness Acute CVA speech less dysarthric, right-sided weakness unchanged Risk for stroke hypertension, hyperlipidemia, no history of smoking, hemoglobin A1c 5.1. Head CT showed no evidence of acute infarction Head and neck CTA showed mild irregular narrowing of the M1 segments of both middle cerebral arteries and the P2 segments of both posterior cerebral arteries. There is also mild focal narrowing of the proximal basilar artery. Otherwise no intracranial large vessel occlusion. MRI brain showed focal acute infarction in the left ventral medial aspect of the [place] Echo shows EF 60-65%, mild LVH with impaired relaxation filling pattern, no obvious evidence of PFO Continue aspirin and Plavix 75 mg as per neurology, recommend to continue high-intensity statins and close blood pressure follow-up PT OT recommend acute rehab speech therapy recommend continued speech therapy at acute rehab Chronic elevated LFTs No history of alcohol use/negative hepatitis-C and HIV in the past, abdomen and pelvis CT in 2021 showed low attenuation suggestive of fatty infiltration, no focal hepatic lesion was noted Recommend to monitor LFTs elia while on statins. HLD LDL 136, increase dose of Lipitor from 20-40 mg daily HTN Losartan Elevated PSA continue outpatient follow-up with Urology/cont. finasteride. 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 Quality Stroke Does the patient have a stroke diagnosis?: No VTE Prior VTE?: No VTE Risk Level:: Medical - moderate - high VTE Device Contraindication: N/A - Device Ordered VTE Drug Contraindication: Treatment Not Indicated
[2023-09-15] MEDS: Melatonin 3 MG TABLET 6 MG PO (21:07)
[2023-09-16] VITALS (7 sets, daily range): BP systolic 115–132; BP diastolic 70–79; PULSE 57–65; RESP 16–20; TEMP 36.2–36.5; O2SAT 95–97
[2023-09-16] MEDS: Finasteride 5 MG TABLET PO (08:11)
[2023-09-16] MEDS: Atorvastatin Calcium 40 MG TABLET PO (08:11)
[2023-09-16] MEDS: Losartan Potassium 25 MG TABLET PO (08:11)
[2023-09-16] MEDS: 0.9 % Sodium Chloride Flush 3 ML SYRINGE IVFLUSH ×2 (08:11→20:53)
[2023-09-16] MEDS: Clopidogrel Bisulfate 75 MG TABLET PO (08:11)
[2023-09-16] MEDS: Aspirin 81 MG TAB.CHEW PO (08:11)
--- NOTE | 2023-09-16 10:18 | HO.PM.IMPN ---
Subjective Subjective Date of Service: 09/16/23 Interval History: Being followed for acute CVA persistent right upper and lower extremity weakness, speech more clear, no new neurological deficit, tolerating diet, no lightheadedness, no dizziness ,no headache, no fever, no chills. Review of Systems All other system are reviewed and are negative. Physical Exam Vital Signs: Vital Signs: Last Vital Signs Temp 97.1 F 09/16/23 07:48 Pulse 65 09/16/23 07:48 Resp 20 09/16/23 07:48 BP 127/79 09/16/23 07:48 Pulse Ox 96 09/16/23 07:48 O2 Del Method Room Air 09/16/23 07:48 BMI result Body Mass Index 28.8 Const: Other: General awake alert x3, in no acute distress. Neck no JVD. CVS regular rate rhythm, Respiratory lungs clear to auscultation, no respiratory distress, no wheeze, no rhonchi. Gastrointestinal abdomen soft, non tender, bowel sounds audible. Extremities no edema. 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 Skin no rash Psych appropriate affect Objective Data Active Medications Acetaminophen (Acetaminophen 325 Mg Tablet) 650 mg PO Q6H PRN PRN Reason: Pain, Mild (Pain Scale 1-3), fever or headache Last Admin: 09/15/23 21:06 Dose: 650 mg Documented By: MARK Aspirin (Aspirin 81 Mg Tab.Chew) 81 mg PO DAILY [facility] Last Admin: 09/16/23 08:11 Dose: 81 mg Documented By: JOSLYN Atorvastatin Calcium (Atorvastatin Calcium 40 Mg Tablet) 40 mg PO DAILY [facility] Last Admin: 09/16/23 08:11 Dose: 40 mg Documented By: JOSLYN Calcium Carbonate (Calcium Carbonate 750 Mg Tab.Chew) 750 mg PO Q4H PRN PRN Reason: Heartburn Clopidogrel Bisulfate (Clopidogrel Bisulfate 75 Mg Tablet) 75 mg PO DAILY [facility] Last Admin: 09/16/23 08:11 Dose: 75 mg Documented By: JOSLYN Finasteride (Finasteride 5 Mg Tablet) 5 mg PO DAILY [facility] Last Admin: 09/16/23 08:11 Dose: 5 mg Documented By: JOSLYN Losartan Potassium (Losartan Potassium 25 Mg Tablet) 25 mg PO DAILY [facility]; Protocol Last Admin: 09/16/23 08:11 Dose: 25 mg Documented By: JOSLYN Magnesium Hydroxide (Milk Of Magnesia 30 Ml Oral.Susp) 30 ml PO DAILY PRN PRN Reason: Constipation Melatonin (Melatonin 3 Mg Tablet) 6 mg PO BEDTIME PRN PRN Reason: Insomnia Last Admin: 09/15/23 21:07 Dose: 6 mg Documented By: TARAKHIL Sodium Chloride (0.9 % Sodium Chloride Flush 3 Ml Syringe) 3 ml IVFLUSH QSHIFT [facility] Last Admin: 09/16/23 08:11 Dose: 3 ml Documented By: JOSLYN Labs 09/12/23 06:20 09/12/23 06:20 Assessment and Plan (1) Cerebral infarction: Status: Acute (2) 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 he had similar symptoms 2 weeks ago when he had inability to speak and weakness Acute CVA speech less dysarthric, right-sided weakness unchanged since arrival Risk for stroke hypertension, hyperlipidemia, no history of smoking, hemoglobin A1c 5.1. Head CT showed no evidence of acute infarction Head and neck CTA showed mild irregular narrowing of the M1 segments of both middle cerebral arteries and the P2 segments of both posterior cerebral arteries. There is also mild focal narrowing of the proximal basilar artery. Otherwise no intracranial large vessel occlusion. MRI brain showed focal acute infarction in the left ventral medial aspect of the [place] Echo shows EF 60-65%, mild LVH with impaired relaxation filling pattern, no obvious evidence of PFO Continue aspirin and Plavix 75 mg as per neurology, recommend to continue high-intensity statins and close blood pressure follow-up PT OT recommend acute rehab speech therapy recommend continued speech therapy at acute rehab Chronic elevated LFTs No history of alcohol use/negative hepatitis-C and HIV in the past, abdomen and pelvis CT in 2021 showed low attenuation suggestive of fatty infiltration, no focal hepatic lesion was noted Recommend to monitor LFTs elia while on statins. HLD LDL 136, increase dose of Lipitor from 20-40 mg daily HTN Losartan Elevated PSA continue outpatient follow-up with Urology/cont. finasteride. DVT prophylaxis with Lovenox subQ full code Disposition acute rehab, manager case management arranging for safe disposition waiting for insurance authorization Patient will need continued hospitalization for follow-up on speech therapy and safe disposition to acute rehab. Quality Stroke Does the patient have a stroke diagnosis?: No VTE Prior VTE?: No VTE Risk Level:: Medical - moderate - high VTE Device Contraindication: N/A - Device Ordered VTE Drug Contraindication: Treatment Not Indicated
[2023-09-16] MEDS: Melatonin 3 MG TABLET 6 MG PO (20:51)
[2023-09-17 04:00] VITALS: BP 138/75; PULSE 65; RESP 18; TEMP 37.2; O2SAT 96
[2023-09-17 08:00] VITALS: BP 139/79; PULSE 56; RESP 18; TEMP 37.1; O2SAT 95
[2023-09-17] MEDS: Clopidogrel Bisulfate 75 MG TABLET PO (09:01)
[2023-09-17] MEDS: Atorvastatin Calcium 40 MG TABLET PO (09:01)
[2023-09-17] MEDS: Losartan Potassium 25 MG TABLET PO (09:01)
[2023-09-17] MEDS: 0.9 % Sodium Chloride Flush 3 ML SYRINGE IVFLUSH (09:02)
[2023-09-17] MEDS: Aspirin 81 MG TAB.CHEW PO (09:03)
[2023-09-17] MEDS: Finasteride 5 MG TABLET PO (09:03)
--- NOTE | 2023-09-17 10:24 | PM.DS ---
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 He reports he had similar symptoms on Sunday where he felt slurred speech and weakness but it resolved on its own. Today he said he woke up and felt unwell and had the slurred and heavy speech. He denied any weakness to his upper or lower extremities, no visual changes, headache. He denied any recent illness, sick contacts, recent travel. He reports that he is active and works 2 jobs. In the ER, head and neck CTA showed evidence of cerebrovascular disease with no intracranial large vessel occlusion, stenosis of the cervical carotid or vertebral arteries and no evidence of acute territorial infarct or hemorrhage. He has an elevated LDL of 136. Hospital course: 53 year old man admitted with slurred speech and change in mental status, workup in the ED showed normal head CT, Head and neck CTA showed mild irregular narrowing of the M1 segments of both middle cerebral arteries and the P2 segments of both posterior cerebral arteries ,and mild focal narrowing of the proximal basilar artery, Otherwise no intracranial large vessel occlusion was noted patient admitted to [facility] for acute CVA , MRI brain showed focal acute infarction in the left ventral medial aspect of the [place], Echo shows EF 60-65%, mild LVH with impaired relaxation filling pattern, no obvious evidence of PFO, patient seen by Dr. Silva from Neurology, he recommended aspirin and Plavix 75 mg , seen by Physical therapy and Occupational therapy they recommended acute rehab, speech therapy recommend to continue speech therapy at acute rehab, patient noted to have LDL of 136 therefore placed on Lipitor of 40 mg daily patient has chronically elevated LFTs, with no history of alcohol use, negative hepatitis-C and HIV in the past, abdominal and pelvic CT in the past showed low attenuations of liver suggestive of fatty infiltration, recommend to continue Lipitor and follow LFTs closely as outpatient, in regard to hypertension recommend to continue losartan 25 mg daily. Elevated PSA continue outpatient follow-up with Urology/cont. finasteride. Time Attestation Discharge Coordination Time (in mins): 40 Quality: Safe Use of Opioids Does Pt have an Active Cancer Diagnosis on the Problem List?: No Quality: Stroke Does the patient have a stroke diagnosis?: No Physical Exam Vital Signs: Vital Signs: Last Vital Signs Temp 98.7 F 09/17/23 08:00 Pulse 56 09/17/23 08:00 Resp 18 09/17/23 08:00 BP 139/79 09/17/23 08:00 Pulse Ox 95 09/17/23 08:00 O2 Del Method Room Air 09/17/23 08:00 BMI result Body Mass Index 28.8 Const: Other: General awake alert x3, in no acute distress. Neck no JVD. CVS regular rate rhythm, Respiratory lungs clear to auscultation, no respiratory distress, no wheeze, no rhonchi. Gastrointestinal abdomen soft, non tender, bowel sounds audible. Extremities no edema. 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 Skin no rash Psych appropriate affect Discharge Plan Discharge Anticipated Discharge Date/Time: 09/17/23 10:22 Patient Disposition: Xfer Inpatient Rehab Fac Discharge Diagnosis: acute CVA Referrals: [facility] [Outside] - 1 Day (ACUTE REHAB) True Mullen MD [Primary Care Provider] - 1 Week Discharge Medications: New atorvastatin 40 mg Tablet 40 mg PO DAILY Qty: 30 0RF clopidogrel 75 mg Tablet 75 mg PO DAILY Qty: 30 0RF aspirin 81 mg Tablet,Chewable 81 mg PO DAILY Qty: 30 0RF losartan 25 mg tablet 25 mg PO DAILY Qty: 30 0RF Continued finasteride 5 mg tablet 5 mg PO DAILY 90 Days Qty: 90 3RF Discontinued losartan 50 mg tablet 50 mg PO DAILY atorvastatin 20 mg tablet 20 mg PO DAILY Discharge Orders: Discharge Order (Routine); Ordered 09/17/23 Ordered By: Ken Valero Diet: Low fat, low cholesterol Activity on Discharge: As tolerated Stand Alone Forms: Patient Portal Discharge page, Work/School Release Print Language: Ecuadorean Care Plan Goals: Acute CVA Take aspirin and Plavix Continue Lipitor 40 mg daily follow low cholesterol diet Continue PT/OT/ speech therapy Follow LFTs in 4-6 weeks Health Concerns: Hyperlipidemia/hypertension monitor BP Plan of Treatment: Outpatient follow-up with primary care physician call for appointment Assessment: As above
--- NOTE | 2023-09-17 10:48 | MHC.CM.PN ---
Second IMM 09/17/23. pt has been medically cleared for DC, he will go today to [facility] via [facility].
[2023-09-17 12:00] VITALS: BP 143/80; PULSE 60; RESP 18; TEMP 36.7; O2SAT 96
== END 2023-09-17 13:00 | DRG 45 ==
LOC: HO.ED 09:55 → HO.EDOVER 10:45 → HO.IMC 16:42
PROVIDERS: Admitting Provider Nurse Practitioner Acute Care; Emergency Provider Student in an Organized Health Care Education/Training Program; PCP Internal Medicine; Visit Provider Hospitalist
DX: I63.9 Cerebral infarction, unspecified (principal); G81.91 Hemiplegia, unspecified affecting right dominant side; R47.01 Aphasia; I10 Essential (primary) hypertension; E78.5 Hyperlipidemia, unspecified; R29.700 NIHSS score 0; R47.81 Slurred speech; Z79.899 Other long term (current) drug therapy
CPT/HCPCS: 36415; 70450; 70496; 70498; 70551; 71045; 80048; 80053; 80061; 82947; 83036; 83735; 84484; 85025; 85027; 85610; 85730; 92507; 92523; 93005; 93306; 97110; 97112; 97116; 97162; 97166; 97535; 99285; J2405; Q9957; Q9967

== ENCOUNTER → 2023-09-11 08:34 | Outpatient (BNV) | payer OTHER, SELFPAY | PROVIDERS: Admitting Provider Nurse Practitioner Acute Care; Emergency Provider Student in an Organized Health Care Education/Training Program; PCP Internal Medicine; Visit Provider Internal Medicine Cardiovascular Disease | DX: R94.31 Abnormal electrocardiogram [ECG] [EKG] (principal) | CPT/HCPCS: 93010 ==

== ENCOUNTER → 2023-09-11 10:41 | Outpatient (BNV) | payer OTHER, SELFPAY | PROVIDERS: Admitting Provider Nurse Practitioner Acute Care; Emergency Provider Student in an Organized Health Care Education/Training Program; PCP Internal Medicine; Visit Provider Psychiatry & Neurology Neurology | DX: I69.320 Aphasia following cerebral infarction (principal) | CPT/HCPCS: 99222 ==

== ENCOUNTER 2023-09-11 13:55 | Outpatient (BNV) | payer OTHER, SELFPAY | END 2023-09-12 07:00 | PROVIDERS: Admitting Provider Nurse Practitioner Acute Care; Emergency Provider Student in an Organized Health Care Education/Training Program; PCP Internal Medicine; Visit Provider Internal Medicine Cardiovascular Disease | DX: I63.9 Cerebral infarction, unspecified (principal) | CPT/HCPCS: 93306 ==

== ENCOUNTER → 2023-09-11 13:55 | Outpatient (BNV) | payer OTHER, SELFPAY | PROVIDERS: Admitting Provider Nurse Practitioner Acute Care; Emergency Provider Student in an Organized Health Care Education/Training Program; PCP Internal Medicine; Visit Provider Nurse Practitioner Acute Care | DX: I69.351 Hemiplegia and hemiparesis following cerebral infarction affecting right dominant side (principal); I69.320 Aphasia following cerebral infarction | CPT/HCPCS: 99223; 99232; 99233; 99239 ==

== ENCOUNTER 2023-10-17 11:24 | Outpatient (REF) | payer OTHER, SELFPAY ==
[2023-10-17 14:35] LABS: Alanine Aminotransferase 52 U/L (0-40); Albumin Level 4.2 g/dL (3.5-5.0); Alkaline Phosphatase 91 U/L (39-117); Anion Gap 13 (12-20); Aspartate Amino Transferase 30 U/L (5-37); Bilirubin Total 0.7 mg/dL (0.0-1.0); Blood Urea Nitrogen 13 mg/dL (9-16); Calcium 9.6 mg/dL (8.4-10.2); Carbon Dioxide 25 mmol/L (22-29); Chloride 105 mmol/L (96-108); Cholesterol 132 mg/dL (<200); Estimated Glomerular Filt Rate > 60; Glucose Random 86 mg/dL (60-115); HDL Cholesterol 35 mg/dL (>40); LDL Cholesterol Calculated 79 mg/dL (<100); Sodium 139 mmol/L (135-145); Total Protein 7.4 g/dL (6.5-8.0); Triglycerides 91 mg/dL (<150)
== END 2023-10-17 11:25 | disposition home or self-care (01) ==
LOC: HO.CHCLDS 11:24
PROVIDERS: Visit Provider Registered Nurse
DX: I63.9 Cerebral infarction, unspecified (principal)
CPT/HCPCS: 36415; 80053; 80061

== ENCOUNTER 2023-10-25 13:27 | Outpatient (AMB) | payer OTHER, SELFPAY ==
--- NOTE | 2023-10-25 13:30 | MHC.OFFVIS ---
Intake Visit Reasons: [facility]/Discuss Prostate Biopsy Intake Note: Patient is present for Telephone [facility] ER Follow up Discuss Prostate biopsy Urology Med: Finasteride Antibiotic Allergy:None Blood Thinner: Clopidogrel, Aspirin Rn Medical Surgical Required: Yes Rn Medical Surgical Language: Greenlandic Allergies No Known Allergies [No Known Allergies*] Allergy (Verified 09/11/23 08:35) Medication List - Last Reconciled 10/25/23 by Severiano Montoya MD aspirin 81 mg PO DAILY atorvastatin 40 mg PO DAILY clopidogrel 75 mg PO DAILY docusate sodium 100 mg PO BID escitalopram oxalate 5 mg PO DAILY finasteride 5 mg PO DAILY 90 days losartan 25 mg PO DAILY losartan 50 mg PO DAILY melatonin 3 mg PO BEDTIME HPI Comments Details: Krish is a pleasant Greenlandic-speaking male. He is a patient Dr. Cuevas. He seen for the following urologic conditions - prostate cancer Telemedicine Evaluation 15 min Consultation batterii Angela Video attempted Greenlandic translation provided in office by qualified medical billing service PSA 08/18 3.7, 08/19 4.9 Recent stroke Has speech deficit Continue check prostate every 4 months Stay on finasteride Prostate cancer - 08/18 low volume, grade group 2 Diagnosed for elevated PSA - 4.1 Volume at Diagnosis - 30gm pT1c Pretty score: 7 (3+4) (right apex medial) Tumor quantitation: Number cores positive:1 Total number of cores:12 % of tissue involved:5 % Periprostatic fat inv.: Not identified Seminal vesicle inv.: Not identified Perineural inv.: Not identified Family history father positive Staging : MRI - 25 g prostate, no clear evidence of detected disease. Prolaris - 09/18 - genetics confirm active surveillance primary therapy PFSH Medical History (Updated 09/25/23 @ 00:01 by Jose Crockett) History of BPH Hyperlipidemia Benign essential HTN Family History (Updated 09/11/23 @ 16:29 by Bonnie Eisenberg NP) Mother Breast cancer Social History Household Members: Spouse Housing: Apartment Do you presently have visiting nurse or other home services: No Alcohol intake: never Comment: at bedside Patient Tobacco Use Status: Never used Tobacco service: No Review of Systems Const All systems reviewed & are unremarkable except as noted in HPI and below Reports no additional complaints Resp Reports no additional complaints GI Reports no additional complaints Reports as per HPI Musc Reports no additional complaints Physical Exam Telemedicine evaluation Appropriate responses Regular breathing rate and rhythm HEENT Head: Yes normal to inspection Ears: hearing grossly normal bilaterally Eyes General: appearance normal, both eyes and all related structures Neck Neck: Yes normal visual inspection Chest Chest palpation & inspection: normal inspection of the chest Resp Effort & Inspection: normal respiratory effort and able to speak in complete sentences Telehealth Telehealth Telehealth Platform: batterii Location of provider rendering services: practice address Location of patient: address on file Patient Identification confirmed using: Name, : Yes Telehealth method: video Patient verbally consented to treatment: Yes Patient verbally consented to billing insurance company: Yes Patient informed of any privacy concerns related to visit: Yes Minutes spent on Phone/Video with Pt.: 15 Assessment & Plan Assessment & Plan (1) Prostate cancer: Code(s): C61 - Malignant neoplasm of prostate Category: Medical Plan Four month follow-up he is Orders: Orders PSA,Total (Free>4and<10) 4 Months C61 - Malignant neoplasm of prostate Patient Instructions: Imaging studies, laboratory and physical exam results were discussed and reviewed in detail. No major barriers to patient understanding were identified. An opportunity to ask questions regarding the treatment plan was provided. All questions were answered. The patient expressed understanding and agreement with the above treatment plan. The patient is aware they should contact our office by phone for worsening of their current condition or the appearance of new urologic symptoms. Compliance is encouraged with any medications and followup testing that is ordered. It is a privilege to participate in the urologic care of your patient. If you have any questions or concerns regarding treatment for the above conditions, or other urologic issues, please do not hesitate to contact me. The office telephone contact is [phone]. This note is constructed using voice recognition software. While every effort has been made to ensure accuracy big data admin errors may have been included. Yours sincerely, Dr Severiano Montoya MD, [facility] - Urology Providers of Expert, Compassionate Care for the Genitourinary System Coding Level of Care Code Tele Est Pt Level 3 (18657) Diagnoses Prostate cancer C61
== END 2023-10-25 15:00 | disposition home or self-care (01) ==
LOC: HO.HUSH 13:27
PROVIDERS: PCP Internal Medicine; Visit Provider Urology
DX: C61 Malignant neoplasm of prostate (principal)
CPT/HCPCS: 99213

== ENCOUNTER → 2023-10-25 13:27 | Outpatient (BNVA) | payer OTHER, SELFPAY | PROVIDERS: PCP Internal Medicine; Visit Provider Urology ==

== ENCOUNTER 2024-01-22 11:48 | Outpatient (REF) | payer OTHER, SELFPAY ==
[2024-01-22 15:07] LABS: Alanine Aminotransferase 71 U/L (0-40); Albumin Level 4.4 g/dL (3.5-5.0); Alkaline Phosphatase 83 U/L (39-117); Anion Gap 13 (12-20); Aspartate Amino Transferase 45 U/L (5-37); Bilirubin Total 0.8 mg/dL (0.0-1.0); Blood Urea Nitrogen 24 mg/dL (9-16); Calcium 9.8 mg/dL (8.4-10.2); Carbon Dioxide 29 mmol/L (22-29); Chloride 99 mmol/L (96-108); Cholesterol 215 mg/dL (<200); Estimated Glomerular Filt Rate 50; Glucose Random 97 mg/dL (60-115); HDL Cholesterol 32 mg/dL (>40); LDL Cholesterol Calculated 143 mg/dL (<100); Potassium 3.6 mmol/L (3.3-5.1); Sodium 137 mmol/L (135-145); Total Protein 7.9 g/dL (6.5-8.0); Triglycerides 204 mg/dL (<150)
== END 2024-01-22 11:49 | disposition home or self-care (01) ==
LOC: HO.CHCLDS 11:48
PROVIDERS: Visit Provider Internal Medicine
DX: I10 Essential (primary) hypertension (principal)
CPT/HCPCS: 36415; 80053; 80061

== ENCOUNTER 2024-02-15 13:52 | Outpatient (AMB) | payer OTHER, SELFPAY ==
--- NOTE | 2024-02-15 13:52 | MHC.OFFVIS ---
Intake Visit Reasons: 4m/PSA Intake Note: Patient is present for 4M/PSA Urology Medication:FINASTERIDE Antibiotic Allergy:NONE Blood Thinner:ASPIRIN Director Funeral Required: No Allergies No Known Allergies [No Known Allergies*] Allergy (Verified 02/15/24 13:53) HPI Comments Details: Krish is a pleasant Andorran-speaking male. He is a patient Dr. Cuevas. He seen for the following urologic conditions - prostate cancer Telemedicine Evaluation 15 min Consultation [employer] Angela Video attempted Andorran translation provided in office by qualified medical education coordinator Lab work not completed Remain on finasteride 4 month follow-up PSA office PSA 08/18 3.7, 08/19 4.9 Prostate cancer - 08/18 low volume, grade group 2 Diagnosed for elevated PSA - 4.1 Volume at Diagnosis - 30gm pT1c [place] score: 7 (3+4) (right apex medial) Tumor quantitation: Number cores positive:1 Total number of cores:12 % of tissue involved:5 % Periprostatic fat inv.: Not identified Seminal vesicle inv.: Not identified Perineural inv.: Not identified Family history father positive Staging : MRI - 25 g prostate, no clear evidence of detected disease. Prolaris - 09/18 - genetics confirm active surveillance primary therapy - cell cycle score - CCS 3.6 PFSH Medical History (Updated 09/25/23 @ 00:01 by Jose Crockett) History of BPH Hyperlipidemia Benign essential HTN Family History (Updated 09/11/23 @ 16:29 by Bonnie Eisenberg NP) Mother Breast cancer Social History Household Members: Spouse Housing: Apartment Do you presently have visiting nurse or other home services: No Alcohol intake: never Comment: at bedside Patient Tobacco Use Status: Never used Tobacco service: No Review of Systems Const All systems reviewed & are unremarkable except as noted in HPI and below Reports no additional complaints Resp Reports no additional complaints GI Reports no additional complaints Reports as per HPI Musc Reports no additional complaints Physical Exam Telemedicine evaluation Appropriate responses Regular breathing rate and rhythm HEENT Head: Yes normal to inspection Ears: hearing grossly normal bilaterally Eyes General: appearance normal, both eyes and all related structures Neck Neck: Yes normal visual inspection Chest Chest palpation & inspection: normal inspection of the chest Resp Effort & Inspection: normal respiratory effort and able to speak in complete sentences Telehealth Telehealth Telehealth Platform: [employer] Location of provider rendering services: practice address Location of patient: address on file Patient Identification confirmed using: Name, : Yes Telehealth method: video Patient verbally consented to treatment: Yes Patient verbally consented to billing insurance company: Yes Patient informed of any privacy concerns related to visit: Yes Minutes spent on Phone/Video with Pt.: 15 Assessment & Plan Assessment & Plan (1) Prostate cancer: Code(s): C61 - Malignant neoplasm of prostate Category: Medical Plan Ongoing surveillance Patient Instructions: Imaging studies, laboratory and physical exam results were discussed and reviewed in detail. No major barriers to patient understanding were identified. An opportunity to ask questions regarding the treatment plan was provided. All questions were answered. The patient expressed understanding and agreement with the above treatment plan. The patient is aware they should contact our office by phone for worsening of their current condition or the appearance of new urologic symptoms. Compliance is encouraged with any medications and followup testing that is ordered. It is a privilege to participate in the urologic care of your patient. If you have any questions or concerns regarding treatment for the above conditions, or other urologic issues, please do not hesitate to contact me. The office telephone contact is [phone]. This note is constructed using voice recognition software. While every effort has been made to ensure accuracy manager program management errors may have been included. Yours sincerely, Dr Severiano Montoya MD, [facility] - Urology Providers of Expert, Compassionate Care for the Genitourinary System Coding Level of Care Code Tele Est Pt Level 3 (24748) Diagnoses Prostate cancer C61
== END 2024-02-15 16:00 | disposition home or self-care (01) ==
LOC: HO.HUSH 13:52
PROVIDERS: PCP Internal Medicine; Visit Provider Urology
DX: C61 Malignant neoplasm of prostate (principal)
CPT/HCPCS: 99213

== ENCOUNTER → 2024-02-15 13:52 | Outpatient (BNVA) | payer OTHER, SELFPAY | PROVIDERS: PCP Internal Medicine; Visit Provider Urology ==

== ENCOUNTER 2024-03-27 13:51 | Outpatient (REF) | payer OTHER, SELFPAY ==
--- OUTSIDE RECORDS SUMMARY | 2024-03-27 17:43 | XMS_ITS | Encounter Summary ---
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 I have maggieelisabet sims 12/14/[address] you li ve. Do you have problems with any of the following? None of the above 12/14/2023 Food Insecurity Answer Date Recorded Within the past 12 months, y ou worried that your food would run out before you got money to buy more: Never True 12/14/2023 Within the past 12 months,th e food you bought just didn't last and you didn't have enough money to get more: Never True Transportation Answer Date Recorded In the past 12 months, has l ack of transportation kept you from medical appts, meetings, work or from getting things needed for daily living? No 12/14/2023 Utilities Answer Date Recorded In the past 12 months, has t he electric, gas, oil or water company threatened to shut off services in your home? No 12/14/2023 Depression Answer Date Recorded Patient Health Questionnaire-2 Score 0 05/02/2023 Internet Access Answer Date Recorded Internet Access Q1 Yes 12/14/2023 Internet Access Q2 Not on file 12/14/2023 Sex and Gender Information Value Date Recorded Sex Assigned at Male 12/26/2021 10:27 AM EDT Legal Sex Male 10:27 AM EDT Gender Identity Male 12/26/2021 10:27 AM EDT Sexual Orientation Straight 12/26/2021 10 :27 AM EDT documented as of this encounter Progress Notes * Farideh Torres, OD - 03/10/2024 1:45 PM EST MH glasses were dispensed, 1 of 2. documented in this encounter Plan of Treatment Upcoming Encounters Date Type Department Care Team (Late st Contact Info) Description 03/31/2024 9:00 AM EST Office Visit [facility] OPTOMETRY [address] [place] [address] Farideh Torres, OD [address] [place] [address] 04/16/2024 10:15 AM EST Telemedicine [facility] [address] [place], [place] [phone] True Mullen MD [address] [place] [address] 09/22/2024 9:00 AM EDT Office Visit [facility] OPTOMETRY [address] [place] [address] Farideh Torres, OD [address] [place] [address] documented as of this encounter Visit Diagnoses Diagnosis Hyperopia of both eyes with astigmatism and presbyopia- Primary documented in this encounter Care Teams Adoption Coordinator Relationship Specialty Start Date End Date True Mullen MD [address] [place] [address] PCP - General Internal Medicine 07/27/19 documented as of this encounter
--- OUTSIDE RECORDS SUMMARY | 2024-03-27 17:43 | XMS_ITS | Encounter Summary ---
Author Organization [employer] Address [address] [facility] [address] [place] [address] Care Team Providers Care Licsw Name Role Phone True Mullen MD Primary Care Prov ider Reason for Visit * Reason Onset Date Comments Results 02/27/2023 Encounter Details Date Type Department Care Team ([facility] Contact Info) Description 02/27/2023 Telephone [facility] MEDICINE [address] [place] [address] True Mullen MD [address] [place], [place] [phone] Results Social History Tobacco Use Types Packs/Day Years Used Date Smoking Tobacco: Never Smokeless Tobacco: Never Alcohol Use Standard Drinks/Week Comments Not Currently 0 (1 standard drink = 0.6 oz pur e alcohol) Housing Stability Answer Date Recorded What is your housing situation today? I have maggie sims 12/14/[address] you [...] AM EDT documented as of this encounter Miscellaneous Notes * Telephone Encounter - Elizabeth Dodd RN - 03/01/2023 11:19 AM EST Returned call to pt regarding message below. Pt informed of stable lab results except for elevated cholesterol. Advised on diet and lifestyle modifications and reminded of appt with PCP on 03/13/23. Pt agrees with plan. * Telephone Encounter - Skye Bishop - 02/27/2023 2:39 PM EST TC from pt requesting call back regarding Results. Type of results: blood/lab Date when done: 2 weeks ago Facility: [facility] Please contact at [phone] English documented in this encounter Plan of Treatment Upcoming Encounters Date Type Department Care Team (Late st Contact Info) Description 03/31/2024 9:00 AM EST Office Visit [facility] OPTOMETRY [address] [place] [address] Farideh Torres, OD [address] [place] [address] 04/16/2024 10:15 AM EST Telemedicine [facility] PEDS [address] [place] [address] True Mullen MD [address] [place] [address] 09/22/2024 9:00 AM EDT Office Visit [facility] OPTOMETRY [address] [place] [address] Farideh Torres, OD [address] [place] [address] documented as of this encounter Visit Diagnoses Not on filedocumented in this encounter Care Teams Licsw Relationship Specialty Start Date End Date True Mullen MD [address] [place] [id number] PCP - General Internal Medicine 07/27/19 documented as of this encounter
--- OUTSIDE RECORDS SUMMARY | 2024-03-27 17:43 | XMS_ITS | Encounter Summary ---
Author Organization [employer] Address [address] [facility] [address] [place] [address] Care Team Providers Care Endoscope Technician Name Role Phone True Mullen MD Primary Care Prov ider Encounter Details Date Type Department Care Team (Latest Contact Info) Description 03/24/2024 Travel Social History Tobacco Use Types Packs/Day Years [...] AM EDT documented as of this encounter Plan of Treatment Upcoming Encounters Date Type Department Care Team (Late st Contact Info) Description 03/31/2024 9:00 AM EST Office Visit [facility] OPTOMETRY [address] [place] [address] Brian, Megan, OD [address] [place] [address] 04/16/2024 10:15 AM EST Telemedicine [facility] PEDS [address] [place] [address] True Mullen MD [address] [place] [address] 09/22/2024 9:00 AM EDT Office Visit [facility] OPTOMETRY [address] [place] [address] Farideh Torres, OD [address] [place] [address] documented as of this encounter Visit Diagnoses Not on filedocumented in this encounter Care Teams Endoscope Technician Relationship Specialty Start Date End Date True Mullen MD [address] [place] [address] PCP - General Internal Medicine 07/27/19 documented as of this encounter
--- OUTSIDE RECORDS SUMMARY | 2024-03-27 17:43 | XMS_ITS | Clinical Summary ---
Author Organization [employer] Address [address] [facility] 7[address] [place] [address] Care Team Providers Care De Icer Element Winder Name Role Phone True Mullen MD Primary Care Prov ider Allergies No known active allergies Medications docusate sodium (Colace) 100 MG capsule Take 1 capsule by mouth 2 times daily. 4 Active finasteride (Proscar) 5 MG tabletIndications :Benign prostatic hyperplasia, unspecified whether lower urinary tract symptoms present TOME [place] TABLETA TODOS LOS BHATTI. Do not crush, chew, or split. 90 tablet 4 Active meloxicam (Mobic) 15 MG tablet TAKE 1 TABLET BY MOUTH EVERY DAY 30 tablet 4 Active losartan (Cozaar) 100 MG tabletIndications :Primary hypertension Take 1 tablet (100 mg) by mouth Once per day. 90 tablet 3 4 01/21/20 Active hydroCHLOROthiazi de (HYDRODiuril) 25 MG tablet Take 1 tablet (25 mg) by mouth Once per day. 90 tablet 3 4 01/21/20 Active aspirin 81 MG chewable tabletIndications :Cerebrovascular accident (CVA), unspecified mechanism (CMS/HCC) Chew 1 tablet (81 mg) Once per day. 90 tablet 3 4 01/21/20 Active atorvastatin (Lipitor) 40 MG tabletIndications :Cerebrovascular accident (CVA), unspecified mechanism (CMS/HCC) Take 1 tablet (40 mg) by mouth Once per day. 90 tablet 3 4 01/21/20 Active Active Problems Problem Noted Date Diagnosed Date Right arm pain 11/29/2023 Assessment & Plan (12/21/2023 12:39 PM EDT): Will send rx for meloxicam, will provide toradol today, will refer to PMR Assessment & Plan (11/29/2023 2:42 PM EDT): After stroke he has remained with right arm pain, will refer to pt, will also prescribe baclofen for muscle pain/spasm Cerebrovascular accident (CVA) 10/15/2023 Overview (10/21/2023): Evaluated 09/11/23 at [facility], determined to have suffered a focal acute infarct in the left ventromedial aspect of the car[place]. CTA of head and neck demonstrated mild irregular narrowing of the M1 segment of both middle cerebral arteries, in the P2 segment of both posterior cerebral arteries, and mild focal narrowing of the proximal basilar artery. No intracranial large vessel occulusion or high grade stenosis was noted. Weakness in RUE, RLE, and speech deficits secondary to acute CVA Completed 2 weeks of rehab at [facility], continues with OT, physical therapy, and speech therapy Cont aspirin 81mg daily and plavix 75mg daily Referred to [facility] Neuro - 10/15/23 Assessment & Plan (01/21/2024 1:02 PM EST): Patient completed and was discharged from PT, will prepare a letter for work return Assessment & Plan (12/21/2023 12:38 PM EDT): Will refer to neuro for a second opinion as patient requested, wants to go to [facility] Assessment & Plan (10/21/2023 4:33 PM EDT): -Cont medications and OP specialists as above Primary hypertension 02/05/2023 Assessment & Plan (03/25/2024 10:20 AM EST): Slightly elevated, encouraged to keep a bp log, keep low sodium diet, will follow up in 3 weeks for follow up bp Assessment & Plan (01/21/2024 1:03 PM EST): Controlled, keep bp log, target <130/80, continue losartan and hydrochlorothiazide, follow up in 3 months Assessment & Plan (12/21/2023 12:37 PM EDT): Not at target, will add hydrochlorothiazide, continue losartan 100mg, keep low sodium diet, keep bp log, follow up in 1 month Assessment & Plan (11/29/2023 2:41 PM EDT): Repeated was 131/85, continue low sodium diet, keep bp log, follow up in 3 months Assessment & Plan (10/21/2023 4:34 PM EDT): -BP elevated per home and office readings -Increase losartan to 50mg daily -Check BMP in 2 weeks -RN BP check in 2 weeks Assessment & Plan (10/12/2023 3:59 PM EDT): Controlled on losartan 100mg, no changes will be made, continue low sodium diet and exercise as tolerated. Follow up in 4 months Assessment & Plan (06/12/2023 2:10 PM EDT): Not at target, will increase losartan to 100mg, continue low sodium diet and exercise as tolerated, follow up in 1month Assessment & Plan (05/02/2023 12:17 PM EST): Not at target, will increase losartan to 50mg, follow up in 1 month Assessment & Plan (03/13/2023 1:35 PM EST): Patient refers taking losartan daily, could not provide me today or last week bp results, refers they are less than 140/90, told to always keep a bp log, will follow up in 2 months, labs reviewed with patient Assessment & Plan (02/05/2023 2:05 PM EST): Uncontrolled, will start on losartan, reinforced low sodium diet and exercise as tolerated, new labs will be ordered, told to keep a bp log and will follow up in 1 month Pain in right testicle 02/05/2023 Assessment & Plan (02/05/2023 2:07 PM EST): Patient refer pain resolved as well as small lump he palpated previously Prostate cancer 11/13/2022 Assessment & Plan (11/13/2022 10:23 PM EDT): Followed by urology on finasteride, will follow up reccomendations Nocturia 07/14/2022 Assessment & Plan (07/14/2022 11:18 AM EDT): Patient was started on terazosin on last urology appointment, but patient took it once, refers feeling dizzy, weak, will switch to alfuzosin, follow up urology reccomendation Screening for colon cancer 07/14/2022 Assessment & Plan (07/14/2022 11:20 AM EDT): Done in 2019, 2 polyp were resected 2 and 6mm respectively, no pathology report on chart, told in 5 years to be repeated Subclinical hypothyroidism 03/24/2022 Assessment & Plan (02/05/2023 2:05 PM EST): Will place new tsh order for follow up Assessment & Plan (11/13/2022 10:23 PM EDT): Will order new labs to be done in 3-4 months for follow up Assessment & Plan (03/24/2022 11:19 AM EST): Will order new labs to evaluate if hypothyroidism was developed Mixed hyperlipidemia 03/24/2022 Assessment & Plan (01/21/2024 1:03 PM EST): On atorvastatin, new labs will be ordered for guidance of therapy, target LDL <70 Assessment & Plan (05/02/2023 12:19 PM EST): Refers taking it daily will repeat blood work in 1 month Assessment & Plan (03/13/2023 1:33 PM EST): ascvd risk score 9.1%, will start on atorvastatin, risk vs benefits reviewed, will follow up in 2 months Assessment & Plan (02/05/2023 2:05 PM EST): New labs will be ordered for guidance Assessment & Plan (03/24/2022 11:20 AM EST): Patient refers exercising, following a healthier diet and losing weight, will order follow up labs Varicocele 03/24/2022 Assessment & Plan (03/24/2022 11:19 AM EST): Patient with bilateral testicular pain, refer pain is almost daily, u/s done previously showed bilateral varicoceles, will refer to urology Encounters Date Type Department Care Team Description 03/25/2024 9:30 AM EST Telemedicine [facility] [address] [place] [address] True Mullen MD Mixed hyperlipidemia (Primary Dx); Subclinical hypothyroidism; Primary hypertension 03/24/2024 3:30 PM EST Office Visit [facility] [address] [place] [address] Brian, Farideh, OD Cerebrovascular accident of left pontine structure (CMS/HCC) (Primary Dx) 03/24/2024 Travel 03/20/2024 Outside Procedure [facility] [address] [place] [address] Brian, Farideh, OD Presbyopia (Primary Dx) 03/10/2024 1:45 PM EST Office Visit [facility] [address] [place] [address] Brian, Farideh, OD Hyperopia of both eyes with astigmatism and presbyopia (Primary Dx) 02/01/2024 9:30 AM EST Office Visit [facility] [address] [place] [address] Brian, Farideh, OD Cerebrovascular accident of left pontine structure (CMS/HCC) (Primary Dx) 02/01/2024 Travel 01/26/2024 Refill [facility] [address] [place], [place] [phone] Lora Weber FNP Cerebrovascular accident (CVA), unspecified mechanism (CMS/HCC) 01/21/2024 11:00 AM EST Telemedicine [facility] [address] [place] [address] True Mullen MD Mixed hyperlipidemia (Primary Dx); Primary hypertension; Cerebrovascular accident (CVA), unspecified mechanism (CMS/HCC) 01/21/2024 Refill [facility] [address] [place] [address] True Mullen MD 01/21/2024 Travel 01/17/2024 Refill [facility] [address] [place] [address] True Mullen MD 01/07/2024 Refill [facility] [address] [place] [address] True Mullen MD from Last 3 Months Immunizations Name Administration Dates Next Due Hep B, adult 01/15/2015,08/17/2014,07/16/2014 Influenza Injectable Quadriv alant Preservative Free IIV4 MDCK 04/08/2020 Influenza injectable quadriv alent IIV4 with preservative 04/01/2019,01/15/2015 Influenza injectable quadriv alent preservative free 02/05/2023,12/12/2021,03/16/2016 Influenza, seasonal, injecta ble, preservative free 01/04/2014 Pneumococcal Conjugate PCV 20 10/15/2023 TD (adult), 2 Lf tetanus tox oid, preservative free, adsorbed 04/28/2018 Td (adult), 5 Lf tetanus tox oid, preservative free, adsorbed 07/10/2016 Zoster, Recombinant 08/04/2020,04/08/2020 Family History Medical History Relation Name Comments Diabetes Father Hypertension Father Colon cancer Maternal Grandmother Coronary artery disease Maternal Grandmother Breast cancer Mother Colon cancer Mother's Brother Relation Name Status Comments Father Maternal Grandmother Mother Mother's Brother Social History Tobacco Use Types Packs/Day Years Used Date Smoking Tobacco: Never Passive Smoke Exposure: Never Smokeless Tobacco: Never Tobacco Cessation:Counseling Given: Not Answered Alcohol Use Standard Drinks/Week Comments Not Currently [...] Orientation Straight 12/26/2021 10 :27 AM EDT Last Filed Vital Signs Vital Sign Reading Time Taken Comments Blood Pressure 148/96 03/25/2024 9:38 AM EST Pulse 68 12/21/2023 9:56 AM EDT Temperature 37.1 ??C (98.7 ??F) 12/21/2023 9:56 AM ED T Respiratory Rate 16 12/21/2023 9:56 AM EDT Oxygen Saturation 98% 11/02/2023 10:07 AM EDT Inhaled Oxygen Concentration - - Weight 89.6 kg (197 lb 9.6 oz) 12/21/2023 9:56 A M EDT Height 180.3 cm (5' 11 ) 12/21/2023 9:56 AM EDT Body Mass Index 27.56 12/21/2023 9:56 AM EDT Plan of Treatment Upcoming Encounters Date Type Department Care Team (Late Contact Info) Description 03/31/2024 9:00 AM EST Office Visit [facility] [address] [place] [address] Farideh Torres, OD [address] [place] [address] 04/16/2024 10:15 AM EST Telemedicine [facility] [address] [place], [place] [phone] True Mullen MD [address] [place], [place] [phone] 09/22/2024 9:00 AM EDT Office Visit [facility] [address] [place] [address] Farideh Torres, OD [address] [place] [address] Health Maintenance Due Date Last Done Comments CT Colonography 1968 FIT DNA/Cologuard 1968 FIT 1968 FOBT 1968 Sigmoidoscopy 1968 Alcohol/Substance Use Screening 1980 DTaP/Tdap/Td Vaccines (1 - Tdap) 04/29/2018 04/28/2018, 07/10/2016 COVID-19 Vaccine ( season) 2023 12/12/2021, 01/29/2021, 07/20/2020, Additional history exists Influenza Vaccine (#1) 2023 , 12/12/2021, 04/08/2020, Additional history exists Depression Screening 05/01/2024 05/02/2023, 05/02/19 24 Colonoscopy 10/02/2024 10/03/2019 Colorectal Cancer Screening 10/02/2024 SDOH Screening 12/13/2024 12/14/2023 Tobacco Screening 02/07/2025 02/08/2024 Lipid Panel 01/21/2029 01/22/2024, 0802/2023, 09/11/2023, Additional history exists RSV Patients and Patients Aged 60 years or older (1 - 1-dose 75+ series) 01/10/2043 Hepatitis B Vaccines Completed 01/15/2015, 08/17/2014, 07/16/2014 Zoster Vaccines Completed 08/04/2020, 04/08/2020 HIV Screening Completed 03/27/2022, 04/01/2019 Hepatitis C Screening Completed 03/27/2022, 020 Pneumococcal Vaccine: 50+ Years Completed 10/15/2023 HIB Vaccines Aged Out No longer eligi ble based on patient's age to complete this topic HPV Vaccines Aged Out No longer eligi ble based on patient's age to complete this topic Hepatitis A Vaccines Aged Out No long er eligible based on patient's age to complete this topic IPV Vaccines Aged Out No longer eligi ble based on patient's age to complete this topic Meningococcal Vaccine Aged Out No sreedhar angel luis eligible based on patient's age to complete this topic RSV under 20 months Aged Out No longe r eligible based on patient's age to complete this topic Rotavirus Vaccines Aged Out No longer eligible based on patient's age to complete this topic Procedures Procedure Name Priority Date/Time Associated Diagnosis Comments AUTOMATED VISUAL FIELD, EXTENDED - OU - BOTH EYES Routine 02/01/2024 9:30 AM EST Cerebrovascular accident of left pontine structure (CMS/HCC) LIPID PANEL, STANDARD Routine 01/22/2024 11:49 AM EST Primary hypertension COMPREHENSIVE METABOLIC PANEL Routine 01/22/2024 11:49 AM EST Primary hypertension HEPATITIS C AB W/REFL TO HCV RNA, QN, PCR Routine 03/27/2022 10:04 AM EST Mixed hyperlipidemia HIV 1 RNA, QN PCR W/RFL MELISA (RTI,PI,INTEGRASE) Routine 03/27/2022 10:04 AM EST Mixed hyperlipidemia HM COLONOSCOPY Routine 10/03/2019 6:44 AM EDT from Last 3 Months or Most Recently Relevant to Health Maintenance Results * Automated Visual Field, Extended - OU - Both Eyes (02/01/2024 9:30 AM EST) Narrative Farideh Torres, OD - 02/07/2024 2:47 PM EST VISUAL FIELD INTERPRETATION Visual Field Interpretation Test Details: Octopus 32 P Pulsar/200/TOP Reliability Indices: False positive errors OD: 0/7 OS: 0/7 False negative errors OD: 0/7 OS: 0/7 Statistical Indices:MS [src]: OD: 18.6 OS: 19.7 MD [< 2.0 src]: OD: 2.5 OS: 1.4 sLV [< 2.5 src]: OD: 2.6 OS: 1.6 Impression: Reason for testing: Recent CVA with vision changes Test Reliability: Good reliability. No false negatives/positives in both eyes Impression: Right eye (OD): peripheral field loss superonasal extending slightly inferonasal Left eye (OS): no field defects Progression: No other tests for comparison Management Plan: Testing is not consistent with traditional stroke findings (findings are not in both eyes). Return in 1-2 months for a repeat field to see if defects are repeatable. Farideh Torres OD OPHTH VISUAL FIELD Final Resu lt * (ABNORMAL) Lipid Panel, Standard (01/22/2024 11:49 AM EST) Triglycerides 204(H) <150 mg/dL [facility] Comment:Desirable Triglyceri de: less than 150 mg/dLBorderline High Triglyceride 150-199 mg/dLHigh Triglyceride: 200-499 mg/dLVery High Triglyceride: greater than or equal to 5OO mg/dL Cholesterol 215(H) <200 mg/dL [facility] Comment:Desirable Cholestero l: less than 200 mg/dLBorderline High Cholesterol: 200-239 mg/dLHigh Cholesterol: greater than 239 mg/dL LDL Cholesterol Calculated 143(H) <100 mg/dL [facility] Comment:Desirable LDL: less than 100 mg/dLNear Optimal/Above Optimal LDL: 110- 129 mg/dLBorderline High LDL: 130-159 mg/dLHigh LDL: 160-189 mg/dLVery High LDL: greater than or equal to 190 mg/dL HDL Cholesterol 32(L) >40 mg/dL [facility] Comment:Desirable HDL: great er than 40 mg/dL Note: This HDL assay may give artificially low results in patients with liver disease. Blood Venous blood specimen / Unknown 01/22/2024 11:49 AM EST 01/22/2024 2:29 PM EST us True Michel MD LAB BLOOD ORDERABL ES Final Result [facility] [address] [place] [phone] * (ABNORMAL) Comprehensive Metabolic Panel (01/22/2024 11:49 AM EST) Sodium 137 135 - 145 mmol/L [facility] Potassium 3.6 3.3 - 5.1 mmol/L [facility] Chloride 99 96 - 108 mmol/L [facility] Carbon Dioxide 29 22 - 29 mmol/L [facility] Anion Gap 13 12 - 20 [facility] Urea Nitrogen (BUN) 24(H) 9 - 16 mg/dL [facility] Creatinine, Serum 1.47(H) 0.5 - 1.4 mg/dL [facility] Estimated Glomerular Filt Rate 50 [facility] Comment:Chronic Kidney Disea se: Estimated GFR < 60 mL/min/[id number] Kidney Disease: Estimated GFR < 15 mL/min/1.73m2 Glucose 97 60 - 115 mg/dL [facility] Calcium 9.8 8.4 - 10.2 mg/dL [facility] Bilirubin, Total 0.8 0.0 - 1.0 mg/dL [facility] Aspartate Amino Transferase 45(H) 5 - 37 U/L [facility] Alanine Aminotransferase 71(H) 0 - 40 U/L [facility] Total Protein 7.9 6.5 - 8.0 g/dL [facility] Albumin Level 4.4 3.5 - 5.0 g/dL [facility] Alkaline Phosphatase 83 39 - 117 U/L [facility] Blood Venous blood specimen / Unknown 01/22/2024 11:49 AM EST 01/22/2024 2:29 PM EST True Michel MD LAB BLOOD ORDERABL ES Final Result Performing Organization Address City/[facility]/ZIP Co de Phone Number [facility] [address] [place] [phone] * HIV-1 RNA, Quantitative, Real-Time PCR with Reflex to Genotype (RTI, PI, Integrase) (03/27/2022 10:04 AM EST) Pathologist [facility] HIV 1 RNA, QN PCR NOT DETECTED copies/mL [facility], HIV 1 RNA, QN PCR NOT DETECTED Log copies/mL [facility], Comment: REFERENCE RANGE: NOT DETECTED copies/mL ?NOT DETECTED ??Log copies/mL This test was performed using Real-Time Polymerase Chain Reaction. Reportable range is 20 to 10,000,000 copies/mL (1.30-7.00 Log copies/mL). 03/27/2022 10:0 4 AM EST 03/27/2022 10:05 AM EST Narrative [facility] - 03/30/2022 12:57 AM EST FASTING:YES FASTING: YES True Michel MD LAB BLOOD ORDERABL ES Final Result Performing Organization Address City/[facility] Co de Phone Number [facility] [address] [place] [address] [facility], [address] [place] [address] * Hepatitis C Antibody with Reflex to HCV, RNA, Quantitative, Real-Time PCR (03/27/2022 10:04 AM EST) Pathologist [facility] Hepatitis C Antibody NON-REACT ARIANA NON-REACT ARIANA [facility] [place] [employer] Index 0.05 <1.00 [facility] [place] [employer] Comment: HCV antibody was non-reactive. There is no laboratory evidence of HCV infection. In most cases, no further action is required. However, if recent HCV exposure is suspected, a test for HCV RNA (test code 04964) is suggested. For additional information please refer to http://education.Aethon/faq/DZZ26d0 (This link is being provided for informational/ educational purposes only.) Blood Venous blood specimen / Unknown 03/27/2022 10:04 AM EST 03/27/2022 10:05 AM EST Narrative [facility] - 03/30/2022 12:57 AM EST FASTING:YES FASTING: YES True Michel MD LAB BLOOD ORDERABL ES Final Result [facility] [address] [facility], [place] [address] [facility] [employer] [facility] [address] [facility], ([address]) [place] [address] * Hm Colonoscopy (10/03/2019 6:44 AM EDT) Historical Provider HEALTH MAINTENANCE Final Result from Last 3 Months or Most Recently Relevant to Health Maintenance Insurance [employer] Care Teams De Icer Element Winder Relationship Specialty Start Date End Date True Mullen MD [address] [place] [phone] PCP - General Internal Medicine 07/27/19
--- OUTSIDE RECORDS SUMMARY | 2024-03-27 17:43 | XMS_ITS | Encounter Summary ---
Author Organization [employer] Address [address] [facility] [address] [place] [address] Care Team Providers Care Assistant To The Director Name Role Phone True Mullen MD Primary Care Prov ider Encounter Details Date Type Department Care Team (Latest Contact Info) Description 03/25/2024 9:30 AM EST Telemedicine [facility] [address] [place], [place] [phone] True Mullen MD [address] [place], [place] [phone] Mixed hyperlipidemia (Primary Dx); Subclinical hypothyroidism; Primary hypertension Social History Tobacco Use Types Packs/Day Years [...] AM EDT documented as of this encounter Last Filed Vital Signs Vital Sign Reading Time Taken Comments Blood Pressure 148/96 03/25/2024 9:38 AM EST Pulse - - Temperature - - Respiratory Rate - - Oxygen Saturation - - Inhaled Oxygen Concentration - - Weight - - Height - - Body Mass Index - - documented in this encounter Progress Notes * True Michel MD - 03/25/2024 9:30 AM EST Subjective Patient ID: Krish Schaefer is a 54 y.o. male who presents for No chief complaint on file.. Hypertension This is a chronic problem. Pertinent negatives include no chest pain, headaches, malaise/fatigue, palpitations or shortness of breath. Review of Systems Constitutional: Negative for malaise/fatigue. Respiratory: Negative for shortness of breath. Cardiovascular: Negative for chest pain and palpitations. Neurological: Negative for headaches. Objective Physical Exam Neurological: General: No focal deficit present. Mental Status: He is oriented to person, place, and time. Psychiatric: Mood and Affect: Mood normal. Behavior: Behavior normal. Assessment/Plan Problem List Items Addressed This Visit Subclinical hypothyroidism Relevant Orders TSH W/Reflex to FT4 Mixed hyperlipidemia - Primary Relevant Orders Comprehensive Metabolic Panel Lipid Panel, Standard Primary hypertension Slightly elevated, encouraged to keep a bp log, keep low sodium diet, will follow up in 3 weeks forfollow up bp documented in this encounter Miscellaneous Notes * Assessment & Plan Note - Ture Michel MD - 03/25/2024 10:20 AM ESTAssociated Problem(s): Primary hypertension Slightly elevated, encouraged to keep a bp log, keep low sodium diet, will follow up in 3 weeks forfollow up bp documented in this encounter Plan of Treatment Upcoming Encounters Date Type Department Care Team (Late st Contact Info) Description 03/31/2024 9:00 AM EST Office Visit [facility] [address] [place] [address] Farideh Torres, OD [address] [place] [address] 04/16/2024 10:15 AM EST Telemedicine [facility] [address] [place], [place] [phone] True Mullen MD [address], [place] [phone] 09/22/2024 9:00 AM EDT Office Visit [facility] [address] [place] [address] Farideh Torres, OD [address] [place] [address] Scheduled Orders Name Type Priority Associated Diagnoses Orde r Schedule Comprehensive Metabolic Panel Lab Routine Mixed hyperlipidemia Expected: 03/25/2024 (Approximate), Expires: 03/25/2025 Lipid Panel, Standard Lab Routine Mixed hyperlipidemia Expected: 03/25/2024 (Approximate), Expires: 03/25/2025 TSH W/Reflex to FT4 Lab Routine Subclinical hypothyroidism Expected: 03/25/2024 (Approximate), Expires: 03/25/2025 documented as of this encounter Visit Diagnoses Diagnosis Mixed hyperlipidemia- Primary Subclinical hypothyroidism Other specified acquired hypothyroidism Primary hypertension Unspecified essential hypertension documented in this encounter Care Teams Assistant To The Director Relationship Specialty Start Date End Date True Mullen MD [address], [place] [phone] PCP - General Internal Medicine 07/27/19 documented as of this encounter
--- OUTSIDE RECORDS SUMMARY | 2024-03-27 17:43 | XMS_ITS | Encounter Summary ---
Author Organization [employer] Address [address] [facility] [address] [place] [address] Care Team Providers Care Stamp Classifier Name Role Phone True Mullen MD Primary Care Prov ider Encounter Details Date Type Department Care Team (Late Contact Info) Description 04/07/2022 Orders Only [facility] MEDICINE [address] [place] [address] True Mullen MD [address] [place] [address] Social History Tobacco Use Types Packs/Day Years Used Date Smoking Tobacco: Never Smokeless Tobacco: Never Alcohol Use Standard Drinks/Week Comments Not Currently 0 (1 standard drink = 0.6 oz pur e alcohol) Sex and Gender Information Value Date Recorded Sex Assigned at Male 12/26/2021 10:27 AM EDT Legal Sex Male 10:27 AM EDT Gender Identity Male 12/26/2021 10:27 AM EDT Sexual Orientation Straight 12/26/2021 10 :27 AM EDT documented as of this encounter Plan of Treatment Upcoming Encounters Date Type Department Care Team (Late Contact Info) Description 03/31/2024 9:00 AM EST Office Visit [facility] OPTOMETRY [address] [place] [address] Farideh Torres, OD [address] [place] [address] 04/16/2024 10:15 AM EST Telemedicine [facility] MED [facility] PEDS [address] [place] [address] True Mullen MD [address] [place] [address] 09/22/2024 9:00 AM EDT Office Visit [facility] OPTOMETRY [address] [place] [address] Farideh Torres, OD [address] [place] [address] Pending Results Name Type Priority Associated Diagnoses Date /Time PSA, Total With Reflex to PSA, Free Lab Routine 08/12/2022 7:38 AM EDT FSH Lab Routine 08/12/2022 7:3 8 AM EDT LH Lab Routine 08/12/2022 7:3 8 AM EDT Prolactin Lab Routine 08/12/2022 7:3 8 AM EDT Sex Hormone Binding Globulin (SHBG) Lab Routine 08/12/2022 7:38 AM EDT documented as of this encounter Procedures Procedure Name Priority Date/Time Associated Diagnosis Comments URINALYSIS WITH REFLEX MICROSCOPIC Routine 03/06/2023 11:20 AM EST PSA, TOTAL WITH REFLEX TO PSA, FREE Routine 02/28/2023 7:25 AM EST IMMUNO #1 Routine 08/24/2022 8:18 AM EDT IMMUNO #1 Routine 08/24/2022 8:18 AM EDT PSA, TOTAL WITH REFLEX TO PSA, FREE Routine 08/12/2022 7:38 AM EDT SEX HORMONE BINDING GLOBULIN Routine 08/12/2022 7:38 AM EDT PROLACTIN Routine 08/12/2022 7:38 AM EDT TSH Routine 08/12/2022 7:38 AM EDT LH Routine 08/12/2022 7:38 AM EDT FSH Routine 08/12/2022 7:38 AM EDT TESTOSTERONE, FREE (DIALYSIS) AND TOTAL,MS Routine 06/10/2022 8:38 AM EDT PSA, TOTAL Routine 06/10/2022 8:38 AM EDT documented in this encounter Results * Urinalysis w/reflex microscopic (03/06/2023 11:20 AM EST) Color Urine Yellow [facility] Appearance Urine Clear [facility] PH 6.0 5.0 - 9.0 [facility] Glucose Urine UA Negative Negative mg/dL [facility] Urine Blood Negative Negative [facility] Specific [place] - Urine 1.020 1.005 - 1.025 [facility] Urine Protein Negative Neg-Trace mg/dL [facility] Urine Ketones Negative Negative mg/dL [facility] Nitrite Urine Negative Negative [facility] Leukocyte Esterase Urine Negative Negative [facility] 03/06/2023 11:2 0 AM EST 03/06/2023 12:45 PM EST Narrative [facility] - 03/06/2023 12:56 PM EST Urine, Clean Catch us Generic External Data Provider LAB URINE ORDERAB LES Final Result [facility] [address] [place] [phone] * PSA, Total With Reflex to PSA, Free (02/28/2023 7:25 AM EST) PSA,Total (Free>4and<10) 2.85 0.00 - 4.00 ng/mL [facility] Comment:A Free PSA was not p erformed: The percentage of Free PSA can be used to enhance the differentiation of prostate cancer from benign prostatic disease in subjects whose PSA levels are between 4.0 and 10.0 ng/mL. For subjects whose PSA levels are below 4.0 or above 10.0 ng/mL, the risk of prostate cancer is determined on the basis of the PSA alone. Therefore the % Free PSA is recommended only for those subjects whose PSA levels are between 4.0 and 10.0 ng/mL.PSA methodology: [employer] i ChemiluminescentMicroparticle Immunoassay (CMIA) 02/28/2023 7:25 AM EST 02/28/2023 7:27 AM EST us Generic External Data Provider LAB BLOOD ORDERAB LES Final Result [facility] [address] [place] [phone] * Immuno #1 (08/24/2022 8:18 AM EDT) 08/24/2022 8:18 AM EDT 08/24/2022 9:40 AM EDT Narrative [facility] - 09/13/2023 5:26 PM EDT ----- ------- Name: Krish Jones ? Age/Sex: 52/M ? : 1970 Unit#: [id number] ?? Attend Dr: Severiano Montoya MD ?Re08/24/22 ?Status: DEP REF ? Location: HO.MS ? Disch: ? ----- ------- SPEC : [id number] ? RECD: 08/24/22-06 ? STATUS: ??SOUT ? REQ NUM: [id number] ? MOHIT: 08/24/22-0818 ? SUBM DR: Severiano Montoya MD ? ENTERED: ??08/24/22-1005 ?SP TYPE: Surgical ? OTHR DR: True Mullen MD ORDERED: ??IHC, Multiplex IHC, CD34, PIN4, Prostate biopsy/12 ? COMMENTS: Block L sent to [employer] on 08/13/23. ?Addendum Addendum ??2 ?Entered: 09/13/23-1721 (L): Prolaris test result summary: Prolaris molecular score:? 3.6.? Test recommendation for possible treatment path:? Based on the Prolaris molecular score and clinical variables, this patient may be a candidate for active surveillance. Personalized risk results: 10 year risk of disease specific mortality (DSM) with conservative management:? 2.6%.? 10 year risk of prostate cancer metastasis with single-modal treatment:? 1.3% 10 year risk prostate cancer metastasis with RT plus ADT:? 0.7%.? See report in its entirety in the EMR - report/pathology section as a scanned report (camera icon).? Test performed at [facility] [address] [place] [address]? [phone]? fax [phone]? Addendum Signed (signature on file) Alisson Juan 09/13/23 1726 ? ----- ------- Addendum ??1 ?Entered: 09/04/22 (L): ??Lymphovascular invasion in not identified on the CD34 stained slide. ?? Control stains appropriately. Addendum Signed (signature on file) Alisson [place] 09/04/[address] ? ----- ------- ? CONTINUED ON NEXT PAGE ----- ------- Name: Krish Jones ? Age/Sex: 52/M ? : 1970 Unit#: [id number] ?? Attend Dr: Severiano Montoya MD ?Re08/24/22 ?Status: DEP REF ? Location: HO.MS ? Disch: ? ----- ------- SPEC : [id number] ? RECD: 08/24/22 ? STATUS: ??SOUT ? REQ NUM: [id number] ? MOHIT: 08/24/22-817 ? SUBM DR: Severiano Montoya MD ? ENTERED: ??08/24/22-1005 ?SP TYPE: Surgical ? OTHR DR: True Mullen MD ORDERED: ??IHC, Multiplex IHC, CD34, PIN4, Prostate biopsy/12 ? COMMENTS: Block L sent to [employer] on 08/13/23. ? Diagnosis ?? Prostate, needle core biopsies: ? A. ??Left base lateral: ??Benign prostatic tissue. ? B. ??Left base medial: ??Benign prostatic tissue. ? C. ??Left mid lateral: ??Benign prostatic tissue. ? D. ??Left mid medial: ??Benign prostatic tissue. ? E. ??Left apex lateral: ??Benign prostatic tissue. ? F. ??Left apex medial: ??Benign prostatic tissue. ? G. ??Right base lateral: ??Benign prostatic tissue. ? H. ??Right base medial: ??Benign prostatic tissue. ? I. ??Right mid lateral: ??Benign prostatic tissue. ? J. ??Right mid medial: ??Benign prostatic tissue. ? K. ??Right apex lateral: ??Benign prostatic tissue. ? L. ??Right apex medial: ??Prostatic adenocarcinoma, Keatchie score 7 (3+4), grade group 2, ?? 5% pattern 4, 6 mm (discontinuous), 38 % of core. ? Data synopsis - Prostate needle biopsy ? 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 Histologic grade: ? Keatchie score: ?7 (3+4) (right apex medial) ? % of pattern 4: ?? 5 ? % of pattern 5: ?? 0 ? Grade group: ?? 2 ?? Tumor quantitation: ? Number cores positive: ?? 1 ? Total number of cores: ?? 12 ? % of tissue involved: ?? 5 % ?? Periprostatic fat inv.: ?? Not identified. ? CONTINUED ON NEXT PAGE ----- ------- Name: Vince SchaeferKrish ? Age/Sex: 52/M ? : 1970 Unit#: [id number] ?? Attend Dr: Severiano Montoya MD ?Re08/24/22 ?Status: DEP REF ? Location: HO.MS ? Disch: ? ----- ------- SPEC : [id number] ? RECD: 08/24/22-939 ? STATUS: ??SOUT ? REQ NUM: [id number] ? MOHIT: 08/24/22-817 ? SUBM DR: Severiano Montoya MD ? ENTERED: ??08/24/22-1005 ?SP TYPE: Surgical ? OTHR DR: True Mullen MD ORDERED: ??IHC, Multiplex IHC, CD34, PIN4, Prostate biopsy/12 ? COMMENTS: Fernando Sanon sent to [employer] on 08/13/23. ? Diagnosis ?(Continued) ?? Seminal vesicle inv.: ?? Not identified. ?? Perineural inv.: ?? Not identified. ?? Lymphovascular invasion: ?? Cannot be excluded; stain pending; addendum to follow. ?Clinical History Elevated PSA ?Microscopic Description Sections show a single core which is discontinuously involved by prostatic adenocarcinoma. The tumor predominantly shows infiltration of well-formed glands (pattern 3) a minority of poorly-formed and fused glands (pattern 4).? The malignant cells have mildly pleomorphic nuclei and relatively distinct nucleoli. There is no evidence of perineural invasion, or extraprostatic extension.? A single focus raises the possibility of lymphovascular invasion. A multiplex immunostain shows a lack of basal cells on HMWkeratin and p63 immunohistochemical stains, and positive P504S staining, supporting the diagnosis of adenocarcinoma.? Controls stain appropriately.? Material Received ?? A: Left base lateral ?? B: Left base medial ?? C: Left mid lateral ?? D: Left mid medial ?? E: Left apex lateral ?? F: Left apex medial ?? G: Right base lateral ?? H: Right base medial ?? I: Right mid lateral ?? J: Right mid medial ?? K: Right apex lateral ?? L: Right apex medial ? Gross Description Received in twelve parts. Part A: ??Received in formalin labeled Left base lateral is a 1.4 cm. in length and less than 0.1 cm. in diameter, glistening, semitranslucent, soft, thin and delicate, damon, cylindrical thread of tissue which is submitted in toto in a single cassette labeled A. ? CONTINUED ON NEXT PAGE ----- ------- Name: Vince SchaeferKrish ? Age/Sex: 52/M ? : 1970 Unit#: [id number] ?? Attend Dr: Severiano Montoya MD ?Re08/24/22 ?Status: DEP REF ? Location: HO.MS ? Disch: ? ----- ------- SPEC : [id number] ? RECD: 08/24/22-939 ? STATUS: ??SOUT ? REQ NUM: [id number] ? MOHIT: 08/24/22-817 ? SUBM DR: Severiano Montoya MD ? ENTERED: ??08/24/22-1005 ?SP TYPE: Surgical ? OTHR DR: True Mullen MD ORDERED: ??IHC, Multiplex IHC, CD34, PIN4, Prostate biopsy/12 ? COMMENTS: Block L sent to [employer] on 08/13/23. ? Gross Description ?(Continued) Part B: ??Received in formalin labeled Left base medial is a 0.8 cm. in length and 0.1 cm. in diameter, glistening, semitranslucent, soft, thin and delicate, damon, cylindrical thread of tissue which is submitted in toto in a single cassette labeled B. Part C: ??Received in formalin labeled Left mid lateral is a 1.0 cm. in length and 0.1 cm. in diameter, glistening, semitranslucent, soft, thin and delicate, damon, cylindrical thread of tissue which is submitted in toto in a single cassette labeled C. Part D: ??Received in formalin labeled Left mid medial is a 1.0 cm. in length and 0.1 cm. in diameter, glistening, semitranslucent, soft, thin and delicate, damon, cylindrical thread of tissue, which is submitted in toto in a single cassette labeled D. Part E: ??Received in formalin labeled Left apex lateral is a 0.9 cm. in length and 0.1 cm. in diameter, semitranslucent, soft, thin and delicate, damon, cylindrical thread of tissue which is submitted in toto in a single cassette labeled E. Part F: ??Received in formalin labeled Left apex medial is a 1.0 cm. in length and 0.1 cm. in diameter, glistening, semitranslucent, soft, thin and delicate, damon, cylindrical thread of tissue, which is submitted in toto in a single cassette labeled F. Part G: ??Received in formalin labeled Right base lateral is a 0.6 cm. in length and 0.1 cm. in diameter, glistening, semitranslucent, soft, thin and delicate, damon, cylindrical thread of tissue, which is submitted in toto in a single cassette labeled G. Part H: ??Received in formalin labeled Right base medial is a 1.2 cm. in length and 0.1 cm. in diameter, glistening, semitranslucent, soft, thin and delicate, damon cylindrical thread of tissue which is submitted in toto in a single cassette labeled H. Part I: ??Received in formalin labeled Right mid lateral is a 0.7 cm. in length and 0.1 cm. in diameter, glistening, semitranslucent, soft, thin and delicate, damon, cylindrical thread of tissue which is submitted in toto in a single cassette labeled I. Part J: ??Received in formalin labeled Right mid medial is a 1.1 cm. in length and 0.1 cm. in diameter, glistening, semitranslucent, soft, thin and delicate, damon, cylindrical thread of tissue, which is submitted in toto in a single cassette labeled J. Part K: ??Received in formalin labeled Right apex lateral is a 0.9 cm. in length and 0.1 cm. in diameter, glistening, semitranslucent, soft, thin and delicate, damon, cylindrical thread of tissue which is submitted in toto in a single cassette labeled K. Part L: ??Received in formalin labeled Right apex medial is a 1.6 cm. in length and 0.1 cm. in diameter, glistening, semitranslucent, soft, thin and delicate, damon, cylindrical thread ? CONTINUED ON NEXT PAGE ----- ------- Name: Krish Jones ? Age/Sex: 52/M ? : 1970 Unit#: [id number] ?? Attend Dr: Severiano Montoya MD ?Re08/24/22 ?Status: DEP REF ? Location: HO.MS ? Disch: ? ----- ------- SPEC : [id number] ? RECD: 08/24/22 ? STATUS: ??SOUT ? REQ NUM: [id number] ? MOHIT: 08/24/22-18 ? SUBM DR: Severiano Montoya MD ? ENTERED: ??08/24/22-1004 ?SP TYPE: Surgical ? OTHR DR: True Mullen MD ORDERED: ??IHC, Multiplex IHC, CD34, PIN4, Prostate biopsy/12 ? COMMENTS: Block L sent to [employer] on 08/13/23. ? Gross Description ?(Continued) of tissue, which is submitted in toto in a single cassette labeled LBrynn LUNDYS This case was reviewed intradepartmentally. ??Results given to Dr. Montoya by secure text by Dr. Martinez on 08/31/2022 at 3:02 pm. Special studies ordered and performed: Multiplex immunostain (PIN4) with HMW keratin, p63 and P504S on L1. CD34 on L1. Copies To: ?? Severiano Montoya MD ?? [facility] ?? [address] ?? [place] [address] ?? [phone] ?? True Mullen MD ?? [facility] ?? [address] ?? [place] [address] ?? [phone] ----- ------- Signed (signature on file) Alisson Martinez 08/31/22 1551 ? ----- ------- ? END OF REPORT ? us Generic External Data Provider LAB [facility]Y [facility] Final Result [facility] [address] [place] [phone] * Immuno #1 (08/24/2022 8:18 AM EDT) 08/24/2022 8:18 AM EDT 08/24/2022 9:40 AM EDT Narrative [facility] - 09/04/2022 9:17 AM EDT ----- ------- Name: Krish Jones ? Age/Sex: 52/M ? : 1970 Unit#: [id number] ?? Attend Dr: Severiano Montoya MD ?Re08/24/22 ?Status: DEP REF ? Location: HO.MS ? Disch: ? ----- ------- SPEC : [id number] ? RECD: 08/24/22 ? STATUS: ??SOUT ? REQ NUM: [id number] ? MOHIT: 08/24/22 ? SUBM DR: Severiano Montoya MD ? ENTERED: ??08/24/22-1004 ?SP TYPE: Surgical ? OTHR DR: True Mullen MD ORDERED: ??IHC, Multiplex IHC, CD34, PIN4, Prostate biopsy/12 ?Addendum Addendum ??1 ?Entered: 09/04/22 (L): ??Lymphovascular invasion in not identified on the CD34 stained slide. ?? Control stains appropriately. Addendum Signed (signature on file) Alisson Martinez 09/04/22 0917 ? ----- ------- ? Diagnosis ?? Prostate, needle core biopsies: ? A. ??Left base lateral: ??Benign prostatic tissue. ? B. ??Left base medial: ??Benign prostatic tissue. ? C. ??Left mid lateral: ??Benign prostatic tissue. ? D. ??Left mid medial: ??Benign prostatic tissue. ? E. ??Left apex lateral: ??Benign prostatic tissue. ? F. ??Left apex medial: ??Benign prostatic tissue. ? G. ??Right base lateral: ??Benign prostatic tissue. ? H. ??Right base medial: ??Benign prostatic tissue. ? I. ??Right mid lateral: ??Benign prostatic tissue. ? J. ??Right mid medial: ??Benign prostatic tissue. ? K. ??Right apex lateral: ??Benign prostatic tissue. ? L. ??Right apex medial: ??Prostatic adenocarcinoma, Pretty score 7 (3+4), grade group 2, ?? 5% pattern 4, 6 mm (discontinuous), 38 % of core. ? Data synopsis - Prostate needle biopsy ? CONTINUED ON NEXT PAGE ----- ------- Name: rKish Jones ? Age/Sex: 52/M ? : 1970 Unit#: [id number] ?? Attend Dr: Severiano Montoya MD ?Re08/24/22 ?Status: DEP REF ? Location: HO.MS ? Disch: ? ----- ------- SPEC : [id number] ? RECD: 08/24/22 ? STATUS: ??SOUT ? REQ NUM: [id number] ? MOHIT: 08/24/22-817 ? SUBM DR: Severiano Montoya MD ? ENTERED: ??08/24/22-1004 ?SP TYPE: Surgical ? OTHR DR: True Mullen MD ORDERED: ??IHC, Multiplex IHC, CD34, PIN4, Prostate biopsy/12 ? Diagnosis ?(Continued) ? 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 Histologic grade: ? Keatchie score: ?7 (3+4) (right apex medial) ? % of pattern 4: ?? 5 ? % of pattern 5: ?? 0 ? Grade group: ?? 2 ?? Tumor quantitation: ? Number cores positive: ?? 1 ? Total number of cores: ?? 12 ? % of tissue involved: ?? 5 % ?? Periprostatic fat inv.: ?? Not identified. ?? Seminal vesicle inv.: ?? Not identified. ?? Perineural inv.: ?? Not identified. ?? Lymphovascular invasion: ?? Cannot be excluded; stain pending; addendum to follow. ?Clinical History Elevated PSA ?Microscopic Description Sections show a single core which is discontinuously involved by prostatic adenocarcinoma. The tumor predominantly shows infiltration of well-formed glands (pattern 3) a minority of poorly-formed and fused glands (pattern 4).? The malignant cells have mildly pleomorphic nuclei and relatively distinct nucleoli. There is no evidence of perineural invasion, or extraprostatic extension.? A single focus raises the possibility of lymphovascular invasion. A multiplex immunostain shows a lack of basal cells on HMWkeratin and p63 immunohistochemical stains, and positive P504S staining, supporting the diagnosis of adenocarcinoma.? Controls stain appropriately.? Material Received ?? A: Left base lateral ?? B: Left base medial ?? C: Left mid lateral ?? D: Left mid medial ?? E: Left apex lateral ?? F: Left apex medial ?? G: Right base lateral ?? H: Right base medial ?? I: Right mid lateral ?? J: Right mid medial ? CONTINUED ON NEXT PAGE ----- ------- Name: Vince SchaeferKrish ? Age/Sex: 52/M ? : 1970 Unit#: [id number] ?? Attend Dr: Severiano Montoya MD ?Re08/24/22 ?Status: DEP REF ? Location: HO.MS ? Disch: ? ----- ------- SPEC : [id number] ? RECD: 08/24/22 ? STATUS: ??SOUT ? REQ NUM: [id number] ? MOHIT: 08/24/22-817 ? SUBM DR: Severiano Montoya MD ? ENTERED: ??08/24/22-1005 ?SP TYPE: Surgical ? OTHR DR: True Mullen MD ORDERED: ??IHC, Multiplex IHC, CD34, PIN4, Prostate biopsy/12 ? Material Received ?(Continued) ?? K: Right apex lateral ?? L: Right apex medial ? Gross Description Received in twelve parts. Part A: ??Received in formalin labeled Left base lateral is a 1.4 cm. in length and less than 0.1 cm. in diameter, glistening, semitranslucent, soft, thin and delicate, damon, cylindrical thread of tissue which is submitted in toto in a single cassette labeled A. Part B: ??Received in formalin labeled Left base medial is a 0.8 cm. in length and 0.1 cm. in diameter, glistening, semitranslucent, soft, thin and delicate, damon, cylindrical thread of tissue which is submitted in toto in a single cassette labeled B. Part C: ??Received in formalin labeled Left mid lateral is a 1.0 cm. in length and 0.1 cm. in diameter, glistening, semitranslucent, soft, thin and delicate, damon, cylindrical thread of tissue which is submitted in toto in a single cassette labeled C. Part D: ??Received in formalin labeled Left mid medial is a 1.0 cm. in length and 0.1 cm. in diameter, glistening, semitranslucent, soft, thin and delicate, damon, cylindrical thread of tissue, which is submitted in toto in a single cassette labeled D. Part E: ??Received in formalin labeled Left apex lateral is a 0.9 cm. in length and 0.1 cm. in diameter, semitranslucent, soft, thin and delicate, damon, cylindrical thread of tissue which is submitted in toto in a single cassette labeled E. Part F: ??Received in formalin labeled Left apex medial is a 1.0 cm. in length and 0.1 cm. in diameter, glistening, semitranslucent, soft, thin and delicate, damon, cylindrical thread of tissue, which is submitted in toto in a single cassette labeled F. Part G: ??Received in formalin labeled Right base lateral is a 0.6 cm. in length and 0.1 cm. in diameter, glistening, semitranslucent, soft, thin and delicate, damon, cylindrical thread of tissue, which is submitted in toto in a single cassette labeled G. Part H: ??Received in formalin labeled Right base medial is a 1.2 cm. in length and 0.1 cm. in diameter, glistening, semitranslucent, soft, thin and delicate, damon cylindrical thread of tissue which is submitted in toto in a single cassette labeled H. Part I: ??Received in formalin labeled Right mid lateral is a 0.7 cm. in length and 0.1 cm. in diameter, glistening, semitranslucent, soft, thin and delicate, damon, cylindrical thread of tissue which is submitted in toto in a single cassette labeled I. ? CONTINUED ON NEXT PAGE ----- ------- Name: Krish Jones ? Age/Sex: 52/M ? : 1970 Unit#: [id number] ?? Attend Dr: Severiano Montoya MD ?Re08/24/22 ?Status: DEP REF ? Location: HO.MS ? Disch: ? ----- ------- SPEC : [id number] ? RECD: 08/24/22 ? STATUS: ??SOUT ? REQ NUM: [id number] ? MOHIT: 08/24/22 ? SUBM DR: Severiano Montoya MD ? ENTERED: ??08/24/22 ?SP TYPE: Surgical ? OTHR DR: True Mullen MD ORDERED: ??IHC, Multiplex IHC, CD34, PIN4, Prostate biopsy/12 ? Gross Description ?(Continued) Part J: ??Received in formalin labeled Right mid medial is a 1.1 cm. in length and 0.1 cm. in diameter, glistening, semitranslucent, soft, thin and delicate, damon, cylindrical thread of tissue, which is submitted in toto in a single cassette labeled J. Part K: ??Received in formalin labeled Right apex lateral is a 0.9 cm. in length and 0.1 cm. in diameter, glistening, semitranslucent, soft, thin and delicate, damon, cylindrical thread of tissue which is submitted in toto in a single cassette labeled K. Part L: ??Received in formalin labeled Right apex medial is a 1.6 cm. in length and 0.1 cm. in diameter, glistening, semitranslucent, soft, thin and delicate, damon, cylindrical thread of tissue, which is submitted in toto in a single cassette labeled L. CEDS This case was reviewed intradepartmentally. ??Results given to Dr. Montoya by secure text by Dr. Martinez on 08/31/2022 at 3:02 pm. Special studies ordered and performed: Multiplex immunostain (PIN4) with HMW keratin, p63 and P504S on L1. CD34 on L1. Copies To: ?? Severiano Montoya MD ?? [address] ?? [place] [address] ?? [phone] ?? True Mullen MD ?? [address] ?? [place] [address] ?? [phone] ----- ------- Signed (signature on file) Alisson Juan 08/31/22 1551 ? ----- ------- ? END OF REPORT ? us [facility] External Provider LAB CYT OLOGY ORDERABLES Final Result [facility] [address], [place] [phone] * TSH (08/12/2022 7:38 AM EDT) Thyroid Stimulating Hormone 3.37 0.32 - 4.0 uIU/mL [facility] Comment:Note: A sustained TS H level above 2.5 uIU/mL may warrant further investigation. TSH 3rd Generation ([facility]) 08/12/2022 7:38 AM EDT 08/12/2022 7:38 AM EDT [facility] External Provider LAB BLO OD ORDERABLES Final Result [facility] [address] [place] [address] [phone] * Testosterone, Free (Dialysis) And Total, MS (06/10/2022 8:38 AM EDT) Testosterone, Total 456 250 - 1100 ng/dL [facility] Comment:For additional infor ortega, please refer tohttp://education.[employer].edu/faq/[email or web address](This link is being provided for informational/educational purposes only.)This test was developed and its analytical performancecharacteristics have been determined by [employer] [place]. It hasnot been cleared or approved by the U.S. Food and DrugAdministration. This assay has been validated pursuantto the CLIA regulations and is used for clinicalpurposes. Testosterone, Free 70.2 35.0 - 155.0 pg/mL [facility] Comment:This test was develo ped and its analytical performancecharacteristics have been determined by [employer] [place], [place]. It hasnot been cleared or approved by the U.S. Food and DrugAdministration. This assay has been validated pursuantto the CLIA regulations and is used for clinicalpurposes.THIS TEST WAS PERFORMED AT:[email or web address] [id number] [place] [id number] BETH MD,PHD 06/10/2022 8:38 AM EDT 06/10/2022 8:38 AM EDT [facility] External Provider LAB BLO OD ORDERABLES Final Result [facility] [address] [place] [address] [phone] * (ABNORMAL) PSA,Total (06/10/2022 8:38 AM EDT) Prostate Specific Antigen 4.14(H) <0.05 - 4.0 ng/mL [facility] Comment:PSA methodology: Laurie Gomes i ChemiluminescentMicroparticle Immunoassay (CMIA) 06/10/2022 8:38 AM EDT 06/10/2022 8:38 AM EDT us [facility] External Provider LAB BLO OD ORDERABLES Final Result [facility] [address] [place] [address] [phone] documented in this encounter Visit Diagnoses Not on filedocumented in this encounter Care Teams Stamp Classifier Relationship Specialty Start Date End Date True Mullen MD [address] [place] [phone] PCP - General Internal Medicine 07/27/19 documented as of this encounter
--- OUTSIDE RECORDS SUMMARY | 2024-03-27 17:43 | XMS_ITS | Clinical Summary ---
Author Organization [address] [facility] Address [address] [place] [address] Phone Care Team Providers Care Physician Compensation Analyst Name Role Phone Unavailable Primary Care Provider Unavailabl e Social History Tobacco Use Types Packs/Day Years Used Date Smoking Tobacco: Never Assessed Sex and Gender Information Value Date Recorded Sex Assigned at Not on file Gender Identity Not on file Sexual Orientation Not on file Plan of Treatment Health Maintenance Due Date Last Done Comments DTaP,Tdap,and Td Vaccines (1 - Tdap) 01/10/1987 Hepatitis B Vaccines (1 of 3 - 19+ 3-dose series) 01/10/1987 Zoster Vaccines (1 of 2) 01/10/2018 COVID-19 Vaccine (2023-2 5 season) 2023 Influenza Vaccine (#1) 2023 Cholesterol Screening (Lipid Panel) 12/06/2023 Colorectal Cancer Screening: Colonoscopy 12/06/2023 Depression Screening 12/06/2023 HIV Screening 12/06/2023 Hepatitis C Screening 12/06/2023 Social Influencers of Health Screening 12/06/2023 HIB Vaccines Aged Out No longer eligi [...] on patient's age to complete this topic MMR Vaccines Aged Out No longer eligi ble based on patient's age to complete this topic Meningococcal ACWY Vaccine Aged Out N o longer eligible based on patient's age to complete this topic Pneumococcal Vaccine: Pediat rics (0 to 5 Years) and At-Risk Patients (6 to 64 Years) Aged Out No longer eligible b ased on patient's age to complete this topic RSV Immunization Patients Un jose 20 months Aged Out No longer eligible b ased on patient's age to complete this topic Varicella Vaccines Aged Out No longer eligible based on patient's age to complete this topic Advance Directives Documents on File Type Date Recorded Patient Special Investigation Unit Investigator Expl 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
--- OUTSIDE RECORDS SUMMARY | 2024-03-27 17:43 | XMS_ITS | Encounter Summary ---
Author Organization [employer] Address [address] [facility] 7t [place] [address] Care Team Providers Care Dye Range Operator Name Role Phone True Mullen MD Primary Care Prov ider Reason for Visit * Reason Comments Med Refill Encounter Details Date Type Department Care Team ([facility] Contact Info) Description 01/21/2024 Refill [facility] CH[facility] MED & PEDS [address] [place], [place] [phone] True Mullen MD [address] [place] [address] Social History Tobacco Use Types Packs/Day Years [...] 03/31/2024 9:00 AM EST Office Visit [facility] OPTOMETRY [address] [place] [phone] Farideh Torres, OD [address] [place] [address] 04/16/2024 10:15 AM EST Telemedicine [facility] CHC MED & PEDS [address] [place] [address] True Mullen MD [address] [place] [address] 09/22/2024 9:00 AM EDT Office Visit [facility] OPTOMETRY [address] [place] [address] Farideh Torres, OD [address] [place] [address] documented as of this encounter Visit Diagnoses Not on filedocumented in this encounter Care Teams Dye Range Operator Relationship Specialty Start Date End Date True Mullen MD [address] [place] [address] PCP - General Internal Medicine 07/27/19 documented as of this encounter
--- OUTSIDE RECORDS SUMMARY | 2024-03-27 17:43 | XMS_ITS | Encounter Summary ---
Author Organization [employer] Address 75 [facility] 7t [place] [address] Care Team Providers Care Miner Placer Name Role Phone True Mullen MD Primary Care Prov ider Encounter Details Date Type Department Care Team (Late Contact Info) Description 11/02/2023 Orders Only [facility] CH[facility] MED & PEDS [address] [place], [place] [phone] True Mullen MD [address] [place] [address] Social History Tobacco Use Types Packs/Day Years Used Date Smoking Tobacco: Never Passive Smoke Exposure: Never Smokeless Tobacco: Never Alcohol Use Standard Drinks/Week Comments Not Currently 0 (1 standard drink = 0.6 oz pur e alcohol) Depression Answer Date Recorded Patient Health Questionnaire-2 Score 0 05/02/2023 Sex and Gender Information Value Date Recorded Sex Assigned at Male 12/26/2021 10:27 AM EDT Legal Sex Male 10:27 AM EDT Gender Identity Male 12/26/2021 10:27 AM EDT Sexual Orientation Straight 12/26/2021 10 :27 AM EDT documented as of this encounter Plan of Treatment Upcoming Encounters Date Type Department Care Team (Late st Contact Info) Description 03/31/2024 9:00 AM EST Office Visit [facility] OPTOMETRY [address] [place], [place] [phone] Farideh Torres, OD [address] [place] [address] 04/16/2024 10:15 AM EST Telemedicine [facility] CH[facility] MED & PEDS [address] [place] [address] True Mullen MD [address] [place] [address] 09/22/2024 9:00 AM EDT Office Visit [facility] OPTOMETRY [address] [place] [address] BrianFarideh nugent, OD [address] [place] [address] documented as of this encounter Visit Diagnoses Not on filedocumented in this encounter Care Teams Miner Placer Relationship Specialty Start Date End Date True Mullen MD [address] [place] [address] PCP - General Internal Medicine 07/27/19 documented as of this encounter
--- OUTSIDE RECORDS SUMMARY | 2024-03-27 17:43 | XMS_ITS | Encounter Summary ---
Author Organization [employer] Address [address] [facility] [address] 7t [place] [address] Care Team Providers Care Sampler Pickup Name Role Phone True Mullen MD Primary Care Prov ider Encounter Details Date Type Department Care Team (Latest Contact Info) Description 03/20/2024 Outside Procedure [facility] OPTOMETRY [address] [place] [address] Brian, Farideh, OD [address] [place] [address] Presbyopia (Primary Dx) Social History Tobacco Use Types [...] of this encounter Progress Notes * Farideh Torres OD - 03/20/2024 12:10 PM EST MH glasses were dispensed, 2 of 2. documented in this encounter Plan of Treatment Upcoming Encounters Date Type Department Care Team (Late st Contact Info) Description 03/31/2024 9:00 AM EST Office Visit [facility] OPTOMETRY [address] [place] [address] Farideh Torres, OD [address] [place] [address] 04/16/2024 10:15 AM EST Telemedicine [facility] CHC MED & PEDS [address] [place] [address] True Mullen MD 505 [place] [address] 09/22/2024 9:00 AM EDT Office Visit [facility] OPTOMETRY [address] [place] [address] Farideh Torres, OD [address] [place] [address] documented as of this encounter Visit Diagnoses Diagnosis Presbyopia- Primary documented in this encounter Care Teams Sampler Pickup Relationship Specialty Start Date End Date True Mullen MD 505 [place] [address] PCP - General Internal Medicine 07/27/19 documented as of this encounter
--- OUTSIDE RECORDS SUMMARY | 2024-03-27 17:43 | XMS_ITS | Encounter Summary ---
Author Organization [employer] Address [address] [facility] [address] 7t [place] [address] Care Team Providers Care Plc Controls Engineer Name Role Phone True Mullen MD Primary Care Prov ider Reason for Visit * Reason Comments Med Refill Encounter Details Date Type Department Care Team ([facility] Contact Info) Description 01/26/2024 Refill [facility] CHC MED & PEDS [address] [place], [place] [phone] Lora Weber FNP 505 [place] [address] Cerebrovascular accident (CVA), unspecified mechanism (CMS/HCC) Social History Tobacco Use Types Packs/Day Years [...] Description 03/31/2024 9:00 AM EST Office Visit [facility] OPTOMETRY [address] [place] [address] Farideh Torres, OD [address] [place] [address] 04/16/2024 10:15 AM EST Telemedicine [facility] CHC MED & PEDS [address] [place] [address] True Mullen MD [address] [place] [address] 09/22/2024 9:00 AM EDT Office Visit [facility] OPTOMETRY [address] [place] [address] BrianRobinn, OD [address] [place] [address] documented as of this encounter Visit Diagnoses Diagnosis Cerebrovascular accident (CVA), unspecified mechanism (CMS/HCC) documented in this encounter Care Teams Plc Controls Engineer Relationship Specialty Start Date End Date True Mullen MD [address] [place] [address] PCP - General Internal Medicine 07/27/19 documented as of this encounter
--- OUTSIDE RECORDS SUMMARY | 2024-03-27 17:43 | XMS_ITS | Encounter Summary ---
Author Organization [employer] Address 75 [facility] 7t [place] [address] Care Team Providers Care Supreme Court Judge Name Role Phone True Mullen MD Primary Care Prov ider Encounter Details Date Type Department Care Team (Latest Contact Info) Description 02/27/2019 Abstract [facility] CONVERSIONS Dental, Provider, DDS Social History Tobacco Use Types Packs/Day Years [...] Upcoming Encounters Date Type Department Care Team ( st Contact Info) Description 03/31/2024 9:00 AM EST Office Visit [facility] OPTOMETRY [address] [place] [address] Farideh Torres, OD [address] [place] [address] 04/16/2024 10:15 AM EST Telemedicine [facility] CHC MED & PEDS [address] [place] [address] True Mullen MD [address] [place] [address] 09/22/2024 9:00 AM EDT Office Visit [facility] OPTOMETRY [address] [place] [address] Farideh Torres, OD [address] [place] [address] documented as of this encounter Visit Diagnoses Not on filedocumented in this encounter Care Teams Supreme Court Judge Relationship Specialty Start Date End Date True Mullen MD [address] [place] [address] PCP - General Internal Medicine 07/27/19 documented as of this encounter
--- OUTSIDE RECORDS SUMMARY | 2024-03-27 17:43 | XMS_ITS | Encounter Summary ---
Author Organization [employer] Address [address] [facility] [address] 7t [place] [address] Care Team Providers Care Geometry Tutor Name Role Phone True Mullen MD Primary Care Prov ider Encounter Details Date Type Department Care Team (Latest Contact Info) Description 03/24/2024 3:30 PM EST Office Visit [facility] OPTOMETRY [address] [place], [place] [phone] Brian, Farideh, OD [address] [place] [address] Cerebrovascular accident of left pontine structure (CMS/HCC) (Primary Dx) Social History Tobacco Use Types [...] 9:00 AM EST Office Visit [facility] OPTOMETRY [address] [place] [address] Farideh Torres, OD [address] [place] [address] 04/16/2024 10:15 AM EST Telemedicine [facility] CHC MED & PEDS 505 [place] [address] True Mullen MD 505 [place], [place] [phone] 09/22/2024 9:00 AM EDT Office Visit [facility] OPTOMETRY [address] [place] [address] BrianRobin nugentn, OD 230 [place] [address] Pending Results Name Type Priority Associated Diagnoses Date /Time Automated Visual Field, Extended - OU - Both Eyes Ophthalmology Routine Cerebrovascular accident of left pontine structure (CMS/HCC) 03/24/2024 4:28 PM EST documented as of this encounter Visit Diagnoses Diagnosis Cerebrovascular accident of left pontine structure (CMS/HCC)- Primary documented in this encounter Care Teams Geometry Tutor Relationship Specialty Start Date End Date True Mullen MD 505 [place] [address] PCP - General Internal Medicine 07/27/19 documented as of this encounter
--- OUTSIDE RECORDS SUMMARY | 2024-03-27 17:43 | XMS_ITS | Encounter Summary ---
Author Organization [employer] Address 75 [facility] 7t [place] [address] Care Team Providers Care Gate Cutter Name Role Phone True Mullen MD Primary Care Prov ider Encounter Details Date Type Department Care Team (Late Contact Info) Description 03/23/2022 Telephone [facility] MED & PEDS [address] [place] [address] True Mullen MD [address] [place] [address] Social History Tobacco Use Types Packs/Day Years [...] Description 03/31/2024 9:00 AM EST Office Visit [facility] OPTOMETRY [address] [place] [address] Farideh Torres, OD [address] [place] [address] 04/16/2024 10:15 AM EST Telemedicine [facility] MED & PEDS [address] [place] [address] True Mullen MD 505 [place] [address] 09/22/2024 9:00 AM EDT Office Visit [facility] OPTOMETRY [address] [place] [address] Farideh Torres, OD [address] [place] [address] documented as of this encounter Visit Diagnoses Not on filedocumented in this encounter Care Teams Gate Cutter Relationship Specialty Start Date End Date True Mullen MD [address] [place] [address] PCP - General Internal Medicine 07/27/19 documented as of this encounter
--- OUTSIDE RECORDS SUMMARY | 2024-03-27 17:43 | XMS_ITS | Encounter Summary ---
Author Organization [employer] Address 75 [facility] 7[address] [place] [address] Care Team Providers Care Cotton Program Technician Name Role Phone True Mullen MD Primary Care Prov ider Encounter Details Date Type Department Care Team (Late Contact Info) Description 06/12/2023 Orders Only [facility] MEDICINE [address] [place] [address] ProviderRubin MD Social History Tobacco Use Types Packs/Day Years [...] Description 03/31/2024 9:00 AM EST Office Visit [facility] OPTOMETRY [address] [place] [address] BrianFarideh nugent, OD [address] [place] [address] 04/16/2024 10:15 AM EST Telemedicine [facility] CHC MED & PEDS 505 [place] [address] True Mullen MD 505 [place] [address] 09/22/2024 9:00 AM EDT Office Visit [facility] OPTOMETRY [address] [place] [address] Brian, Farideh, OD [address] [place] [address] documented as of this encounter Procedures Procedure Name Priority Date/Time Associated Diagnosis Comments HM COLONOSCOPY Routine 10/03/2019 6:44 AM EDT documented in this encounter Results * Hm Colonoscopy (10/03/2019 6:44 AM EDT) us Historical Provider HEALTH MAINTENANCE Final Result documented in this encounter Visit Diagnoses Not on filedocumented in this encounter Care Teams Cotton Program Technician Relationship Specialty Start Date End Date True Mullen MD [address] [place] [address] PCP - General Internal Medicine 07/27/19 documented as of this encounter
--- OUTSIDE RECORDS SUMMARY | 2024-03-27 17:43 | XMS_ITS | Encounter Summary ---
Author Organization [employer] Address 75 [facility] 7t [place] [address] Care Team Providers Care Respiratory Director Name Role Phone True Mullen MD Primary Care Prov ider Reason for Visit * Reason Onset Date Comments Hospital Follow-up 09/20/2023 Encounter Details Date Type Department Care Team ([facility] st Contact Info) Description 09/20/2023 Telephone [facility] MEDICINE [address] [place] [address] True Mullen MD [address] [place] [address] Hospital Follow-up Social History Tobacco Use Types Packs/Day Years [...] encounter Miscellaneous Notes * Telephone Encounter - Amadou Watts - 09/20/2023 8:55 AM EDT Salty Tucker at [facility] calling to schedule a F appt insurance underwriter sales [facility] and was told has been transferred numerous times and has not received a call back patient will be discharged on 09/30 please call Garrett at [phone] documented in this encounter Plan of Treatment Upcoming Encounters Date Type Department Care Team (Late st Contact Info) Description 03/31/2024 9:00 AM EST Office Visit [facility] OPTOMETRY [address] [place] [address] Farideh Torres, OD 230 [place] [address] 04/16/2024 10:15 AM EST Telemedicine [facility] CHC MED & PEDS [address] [place] [address] True Mullen MD 505 [place], [place] [phone] 09/22/2024 9:00 AM EDT Office Visit [facility] OPTOMETRY [address] [place] [address] Farideh Torres, OD [address] [place] [address] documented as of this encounter Visit Diagnoses Not on filedocumented in this encounter Care Teams Respiratory Director Relationship Specialty Start Date End Date True Mullen MD [address] [place] [address] PCP - General Internal Medicine 07/27/19 documented as of this encounter
[2024-03-27 18:55] LABS: Alanine Aminotransferase 102 U/L (0-40); Albumin Level 4.4 g/dL (3.5-5.0); Alkaline Phosphatase 81 U/L (39-117); Anion Gap 14 (12-20); Aspartate Amino Transferase 62 U/L (5-37); Blood Urea Nitrogen 15 mg/dL (9-16); Calcium 9.6 mg/dL (8.4-10.2); Carbon Dioxide 22 mmol/L (22-29); Chloride 106 mmol/L (96-108); Cholesterol 190 mg/dL (<200); Estimated Glomerular Filt Rate > 60; Glucose Random 82 mg/dL (60-115); HDL Cholesterol 34 mg/dL (>40); LDL Cholesterol Calculated 131 mg/dL (<100); Potassium 3.9 mmol/L (3.3-5.1); Sodium 138 mmol/L (135-145); TSH reflex Free T4 1.52 uIU/mL (0.32-4.0); Total Protein 8.2 g/dL (6.5-8.0); Triglycerides 125 mg/dL (<150)
== END 2024-03-27 13:52 | disposition home or self-care (01) ==
LOC: HO.CHCLDS 13:51
PROVIDERS: Visit Provider Internal Medicine
DX: E78.2 Mixed hyperlipidemia (principal); E03.8 Other specified hypothyroidism
CPT/HCPCS: 36415; 80053; 80061; 84443

== ENCOUNTER 2024-04-10 14:26 | Outpatient (REF) | payer OTHER, SELFPAY ==
--- OUTSIDE RECORDS SUMMARY | 2024-04-10 14:30 | XMS_ITS | Encounter Summary ---
Author Organization [employer] Address 75 [facility] 7t [place] [address] Care Team Providers Care Reinforcing Steel Worker Wire Mesh Name Role Phone True Mullen MD Primary Care Prov ider Reason for Visit * Reason Onset Date Comments Hospital Follow-up 09/20/2023 Encounter Details Date Type Department Care Team ([facility] st Contact Info) Description 09/20/2023 Telephone [facility] MEDICINE [address] [place] [address] True Mullen MD [address] [place] [address] Hospital Follow-up Social History Tobacco Use Types [...] Watts - 09/20/2023 8:55 AM EDT Salty uTcker at [facility] calling to schedule a F appt grant writer [facility] and was told has been transferred numerous times and has not received a call back patient will be discharged on 09/30 please call Garrett at [phone] documented in this encounter Plan of Treatment Upcoming Encounters Date Type Department Care Team (Late st Contact Info) Description 04/16/2024 10:15 AM EST Telemedicine [facility] CHC MED & PEDS 505 [place] [address] True Mullen MD [address] [place] [address] 09/22/2024 9:00 AM EDT Office Visit [facility] OPTOMETRY [address] [place] [address] Farideh Torres, OD [address] [place] [address] documented as of this encounter Visit Diagnoses Not on filedocumented in this encounter Care Teams Reinforcing Steel Worker Wire Mesh Relationship Specialty Start Date End Date True Mullen MD [address] [place] [address] PCP - General Internal Medicine 07/27/19 documented as of this encounter
--- OUTSIDE RECORDS SUMMARY | 2024-04-10 14:30 | XMS_ITS | Encounter Summary ---
Author Organization [employer] Address [address] [facility] 7t [place] [address] Care Team Providers Care Relationship Consultant Name Role Phone True Mullen MD Primary Care Prov ider Encounter Details Date Type Department Care Team (Latest Contact Info) Description 03/25/2024 9:30 AM EST Telemedicine [facility] CHC MED & PEDS [address] [place], [place] [phone] True Mullen MD [address] [place], [place] [phone] Mixed hyperlipidemia (Primary Dx); Subclinical hypothyroidism; Primary [...] Notes * Assessment & Plan Note - True Michel MD - 03/25/2024 10:20 AM ESTAssociated Problem(s): Primary hypertension Slightly elevated, encouraged to keep a bp log, keep low sodium diet, will follow up in 3 weeks forfollow up bp documented in this encounter Plan of Treatment Upcoming Encounters Date Type Department Care Team (Late st Contact Info) Description 04/16/2024 10:15 AM EST Telemedicine [facility] CHC MED & PEDS [address] [place], [place] [phone] True Mullen MD [address] [place], [place] [phone] 09/22/2024 9:00 AM EDT Office Visit [facility] OPTOMETRY [address] [place] [address] BrianFarideh nugent, OD [address] [place] [address] documented as of this encounter Procedures Procedure Name Priority Date/Time Associated Diagnosis Comments TSH W/REFLEX TO FT4 Routine 03/27/2024 1 :52 PM EST Subclinical hypothyroidism LIPID PANEL, STANDARD Routine 03/27/2024 1:52 PM EST Mixed hyperlipidemia COMPREHENSIVE METABOLIC PANEL Routine 03/27/2024 1:52 PM EST Mixed hyperlipidemia documented in this encounter Results * TSH W/Reflex to FT4 (03/27/2024 1:52 PM EST) TSH reflex Free T4 1.52 0.32 - 4.0 uIU/mL [facility] Blood Venous blood specimen / Unknown 03/27/2024 1:52 PM EST 03/27/2024 5:34 PM EST us True Michel MD LAB BLOOD ORDERABL ES Final Result [facility] [address] [place] [address] [phone] * (ABNORMAL) Lipid Panel, Standard (03/27/2024 1:52 PM EST) Triglycerides 125 <150 mg/dL [facility] Comment:Desirable Triglyceri de: less than 150 mg/dLBorderline High Triglyceride 150-199 mg/dLHigh Triglyceride: 200-499 mg/dLVery High Triglyceride: greater than or equal to 5OO mg/dL Cholesterol 190 <200 mg/dL [facility] Comment:Desirable Cholestero l: less than 200 mg/dLBorderline High Cholesterol: 200-239 mg/dLHigh Cholesterol: greater than 239 mg/dL LDL Cholesterol Calculated 131(H) <100 mg/dL [facility] Comment:Desirable LDL: less than 100 mg/dLNear Optimal/Above Optimal LDL: 110- 129 mg/dLBorderline High LDL: 130-159 mg/dLHigh LDL: 160-189 mg/dLVery High LDL: greater than or equal to 190 mg/dL HDL Cholesterol 34(L) >40 mg/dL [facility] Comment:Desirable HDL: great er than 40 mg/dL Note: This HDL assay may give artificially low results in patients with liver disease. Blood Venous blood specimen / Unknown 03/27/2024 1:52 PM EST 03/27/2024 5:34 PM EST us True Michel MD LAB BLOOD ORDERABL ES Final Result [facility] [address] [place] [address] [phone] * (ABNORMAL) Comprehensive Metabolic Panel (03/27/2024 1:52 PM EST) Sodium 138 135 - 145 mmol/L [facility] Potassium 3.9 3.3 - 5.1 mmol/L [facility] Chloride 106 96 - 108 mmol/L [facility] Carbon Dioxide 22 22 - 29 mmol/L [facility] Anion Gap 14 12 - 20 [facility] Urea Nitrogen (BUN) 15 9 - 16 mg/dL [facility] Creatinine, Serum 1.09 0.5 - 1.4 mg/dL [facility] Estimated Glomerular Filt Rate >60 [facility] Comment:Chronic Kidney Disea se: Estimated GFR < 60 mL/min/[id number] Kidney Disease: Estimated GFR < 15 mL/min/1.73m2 Glucose 82 60 - 115 mg/dL [facility] Calcium 9.6 8.4 - 10.2 mg/dL [facility] Bilirubin, Total 1.0 0.0 - 1.0 mg/dL [facility] Aspartate Amino Transferase 62(H) 5 - 37 U/L [facility] Alanine Aminotransferase 102(H) 0 - 40 U/L [facility] Total Protein 8.2(H) 6.5 - 8.0 g/dL [facility] Albumin Level 4.4 3.5 - 5.0 g/dL [facility] Alkaline Phosphatase 81 39 - 117 U/L [facility] Blood Venous blood specimen / Unknown 03/27/2024 1:52 PM EST 03/27/2024 5:34 PM EST us True Michel MD LAB BLOOD ORDERABL ES Final Result [facility] [address] [place] [address] [phone] documented in this encounter Visit Diagnoses Diagnosis Mixed hyperlipidemia- Primary Subclinical hypothyroidism Other specified acquired hypothyroidism Primary hypertension Unspecified essential hypertension documented in this encounter Care Teams Relationship Consultant Relationship Specialty Start Date End Date True Mullen MD [address] [place] [phone] PCP - General Internal Medicine 07/27/19 documented as of this encounter
--- OUTSIDE RECORDS SUMMARY | 2024-04-10 14:30 | XMS_ITS | Encounter Summary ---
Author Organization [employer] Address [address] [facility] [address] [place] [address] Care Team Providers Care Structural Analysis Engineer Name Role Phone True Mullen MD Primary Care Prov ider Encounter Details Date Type Department Care Team (Late Contact Info) Description 06/12/2023 Orders Only [facility] MEDICINE [address] [place] [address] ProviderRubin MD Social History Tobacco Use Types [...] Department Care Team (Late Contact Info) Description 04/16/2024 10:15 AM EST Telemedicine [facility] CHC MED & PEDS [address] [place] [address] True Mullen MD [address] [place] [address] 09/22/2024 9:00 AM EDT Office Visit [facility] OPTOMETRY [address] [place] [address] Farideh Torres, OD [address] [place] [address] documented as of this encounter Procedures Procedure Name Priority Date/Time Associated Diagnosis Comments COLONOSCOPY Routine 10/03/2019 6:44 AM EDT documented in this encounter Results * Colonoscopy (10/03/2019 6:44 AM EDT) Historical Provider HEALTH MAINTENANCE Final Result documented in this encounter Visit Diagnoses Not on filedocumented in this encounter Care Teams Structural Analysis Engineer Relationship Specialty Start Date End Date CuevasTrue Gonzalez MD [address] [place] [phone] PCP - General Internal Medicine 07/27/19 documented as of this encounter
--- OUTSIDE RECORDS SUMMARY | 2024-04-10 14:30 | XMS_ITS | Encounter Summary ---
Author Organization [employer] Address [address] [facility] [address] 7[address] [place] [address] Care Team Providers Care Prepared Foods Production Team Member Name Role Phone True Mullen MD Primary Care Prov ider Encounter Details Date Type Department Care Team (Latest Contact Info) Description 03/24/2024 3:30 PM EST Office Visit [facility] OPTOMETRY [address] [place], [place] [phone] Brian, Farideh, OD [address] [place] [address] Cerebrovascular accident of left pontine structure (CMS/HCC) [...] Info) Description 04/16/2024 10:15 AM EST Telemedicine [facility] CHC MED & PEDS [address] [place] [address] True Mullen MD [address] [place] [address] 09/22/2024 9:00 AM EDT Office Visit [facility] OPTOMETRY [address] [place] [address] Brian, Farideh, OD [address] [place] [address] Pending Results Name Type Priority Associated Diagnoses Date /Time Automated Visual Field, Extended - OU - Both Eyes Ophthalmology Routine Cerebrovascular accident of left pontine structure (CMS/HCC) 03/24/2024 4:28 PM EST documented as of this encounter Visit Diagnoses Diagnosis Cerebrovascular accident of left pontine structure (CMS/HCC)- Primary documented in this encounter Care Teams [employer] Production Team Member Relationship Specialty Start Date End Date True Mullen MD [address] [place] [address] PCP - General Internal Medicine 07/27/19 documented as of this encounter
--- OUTSIDE RECORDS SUMMARY | 2024-04-10 14:30 | XMS_ITS | Encounter Summary ---
Author Organization [employer] Address [address] [place] [address] Care Team Providers Care Solid Tire Finisher Name Role Phone True Mullen MD Primary [...] Info) Description 04/16/2024 10:15 AM EST Telemedicine [facility] CHC MED & PEDS [address] [place] [address] True Mullen MD [address] [place] [address] 09/22/2024 9:00 AM EDT Office Visit [facility] OPTOMETRY [address] [place] [address] Farideh Torres, OD [address] [place] [address] documented as of this encounter Visit Diagnoses Not on filedocumented in this encounter Care Teams Solid Tire Finisher Relationship Specialty Start Date End Date True Mullen MD [address] [place] [address] PCP - General Internal Medicine 07/27/19 documented as of this encounter
--- OUTSIDE RECORDS SUMMARY | 2024-04-10 14:30 | XMS_ITS | Encounter Summary ---
Author Organization [employer] Address [address] [facility] [address] 7[address] [place] [address] Care Team Providers Care Eye Specialist Name Role Phone True Mullen MD Primary Care Prov ider Encounter Details Date Type Department Care Team ([facility] st Contact Info) Description 04/04/2024 Orders Only [facility] MEDICINE [address] [place] [address] True Mullen MD [address] [place], [place] [phone] Mixed hyperlipidemia (Primary Dx); Cerebrovascular accident (CVA), unspecified mechanism (CMS/HCC) Social [...] t he electric, gas, oil or water [employer] threatened to shut off services in your [...] Info) Description 04/16/2024 10:15 AM EST Telemedicine [facility] CHC MED & PEDS [address] [place] [address] True Mullen MD [address] [place] [address] 09/22/2024 9:00 AM EDT Office Visit [facility] OPTOMETRY [address] [place] [address] Brian, Farideh, OD [address] [place] [address] Scheduled Orders Name Type Priority Associated Diagnoses Orde r Schedule Comprehensive Metabolic Panel Lab Routine Mixed hyperlipidemia Expected: 04/04/2024 (Approximate), Expires: 04/04/2025 Lipid Panel, Standard Lab Routine Mixed hyperlipidemia Expected: 04/04/2024 (Approximate), Expires: 04/04/2025 documented as of this encounter Visit Diagnoses Diagnosis Mixed hyperlipidemia- Primary Cerebrovascular accident (CVA), unspecified mechanism (CMS/HCC) documented in this encounter Care Teams Eye Specialist Relationship Specialty Start Date End Date True Mullen MD [address] [place] [address] PCP - General Internal Medicine 07/27/19 documented as of this encounter
--- OUTSIDE RECORDS SUMMARY | 2024-04-10 14:30 | XMS_ITS | Encounter Summary ---
Author Organization [employer] Address [address] [facility] 7[address] [place] [address] Care Team Providers Care Cotton Gin Yard Supervisor Name Role Phone True Mullen MD Primary Care Prov ider Encounter Details Date Type Department Care Team (Latest Contact Info) Description 03/20/2024 Outside Procedure [facility] OPTOMETRY [address] [place] [address] Brian, Farideh, OD [address] [place] [address] Presbyopia (Primary Dx) Social History Tobacco Use [...] Info) Description 04/16/2024 10:15 AM EST Telemedicine [facility] CHC MED & PEDS [address] [place] [address] True Mullen MD [address] [place] [address] 09/22/2024 9:00 AM EDT Office Visit [facility] OPTOMETRY [address] [place] [address] Farideh Torres, OD [address] [place] [address] documented as of this encounter Visit Diagnoses Diagnosis Presbyopia- Primary documented in this encounter Care Teams Cotton Gin Yard Supervisor Relationship Specialty Start Date End Date True Mullen MD [address] [place] [address] PCP - General Internal Medicine 07/27/19 documented as of this encounter
--- OUTSIDE RECORDS SUMMARY | 2024-04-10 14:30 | XMS_ITS | Encounter Summary ---
Author Organization [employer] Address [address] [facility] [address] [place] [address] Care Team Providers Care Billing Clinician Name Role Phone True Mullen MD Primary Care Prov ider Encounter Details Date Type Department Care Team ([facility] st Contact Info) Description 04/04/2024 Telephone [facility] MEDICINE [address] [place] [address] True Mullen MD [address] [place], [place] [phone] Social History Tobacco Use Types Packs/Day Years [...] encounter Miscellaneous Notes * Telephone Encounter - True Michel MD - 04/04/2024 9:54 AM EST Spoke with patient regarding results, will increase atorvastatin to 80mg, told to get blood work in4-6 weeks documented in this encounter Plan of Treatment Upcoming Encounters Date Type Department Care Team (Late st Contact Info) Description 04/16/2024 10:15 AM EST Telemedicine [facility] CHC MED & PEDS [address] [place] [address] True Mullen MD [address] [place] [address] 09/22/2024 9:00 AM EDT Office Visit [facility] OPTOMETRY [address] [place] [address] Brian, Farideh, OD [address] [place] [address] documented as of this encounter Visit Diagnoses Not on filedocumented in this encounter Care Teams Billing Clinician Relationship Specialty Start Date End Date True Mullen MD [address] [place] [address] PCP - General Internal Medicine 07/27/19 documented as of this encounter
--- OUTSIDE RECORDS SUMMARY | 2024-04-10 14:31 | XMS_ITS | Encounter Summary ---
Author Organization [employer] Address [address] [place] [address] Care Team Providers Care Yeast Supervisor Name Role Phone True Mullen MD Primary Care Prov ider Reason for Visit * Reason Comments Med Refill Encounter Details Date Type Department Care Team ([facility] Contact Info) Description 01/26/2024 Refill [facility] CHC MED & PEDS [address] [place], [place] [phone] Lora Weber FNP [address] [place] [address] Cerebrovascular accident (CVA), unspecified mechanism (CMS/HCC) Social [...] Info) Description 04/16/2024 10:15 AM EST Telemedicine [facility] CHC MED & PEDS [address] [place] [address] True Mullen MD [address] [place] [address] 09/22/2024 9:00 AM EDT Office Visit [facility] OPTOMETRY [address] [place] [address] Brian, Farideh, OD [address] [place] [address] documented as of this encounter Visit Diagnoses Diagnosis Cerebrovascular accident (CVA), unspecified mechanism (CMS/HCC) documented in this encounter Care Teams Yeast Supervisor Relationship Specialty Start Date End Date True Mullen MD [address] [place] [address] PCP - General Internal Medicine 07/27/19 documented as of this encounter
--- OUTSIDE RECORDS SUMMARY | 2024-04-10 14:31 | XMS_ITS | Encounter Summary ---
Author Organization [employer] Address [address] [facility] [address] [place] [address] Care Team Providers Care Beer Cooler Name Role Phone True Mullen MD Primary Care Prov ider Encounter Details Date Type Department Care Team (Late Contact Info) Description 11/02/2023 Orders Only [facility] CHC MED & PEDS [address] [place], [place] [phone] True Mullen MD [address] [place], [place] [phone] Social History Tobacco Use Types Packs/Day Years [...] Info) Description 04/16/2024 10:15 AM EST Telemedicine [facility] CHC MED & PEDS [address] [place], [place] [phone] True Mullen MD [address] [place], [place] [phone] 09/22/2024 9:00 AM EDT Office Visit [facility] OPTOMETRY [address] [place] [address] Brian, Farideh, OD [address] [place] [address] documented as of this encounter Visit Diagnoses Not on filedocumented in this encounter Care Teams Beer Cooler Relationship Specialty Start Date End Date True Mullen MD [address] [place] [address] PCP - General Internal Medicine 07/27/19 documented as of this encounter
--- OUTSIDE RECORDS SUMMARY | 2024-04-10 14:31 | XMS_ITS | Clinical Summary ---
Author Organization [employer] Address [address] [facility] [address] [place] [address] Care Team Providers Care Field Examiner Name Role Phone True Mullen MD Primary Care Prov ider Allergies No known active allergies Medications docusate sodium (Colace) 100 MG capsule Take 1 capsule by mouth 2 times daily. 10/01/19 24 Active finasteride (Proscar) 5 MG tabletIndication s:Benign prostatic hyperplasia, unspecified whether lower urinary tract symptoms present TOME [place] TABLETA TODOS [place]. Do not crush, chew, or split. 90 tablet 10/15/19 24 Active meloxicam (Mobic) 15 MG tablet TAKE 1 TABLET BY MOUTH EVERY DAY 30 tablet 01/17/20 24 Active losartan (Cozaar) 100 MG tabletIndication s:Primary hypertension Take 1 tablet (100 mg) by mouth Once per day. 90 tablet 3 01/21/20 24 025 Active hydroCHLOROthiaz ana rosa (HYDRODiuril) 25 MG tablet Take 1 tablet (25 mg) by mouth Once per day. 90 tablet 3 01/21/20 24 025 Active aspirin 81 MG chewable tabletIndication s:Cerebrovascula r accident (CVA), unspecified mechanism (CMS/HCC) Chew 1 tablet (81 mg) Once per day. 90 tablet 3 01/21/20 24 025 Active atorvastatin (Lipitor) 80 MG tabletIndication s:Cerebrovascula r accident (CVA), unspecified mechanism (CMS/HCC) Take 1 tablet (80 mg) by mouth Once per day. 90 tablet 3 04/04/19 25 026 Active atorvastatin (Lipitor) 40 MG tabletIndication s:Cerebrovascula r accident (CVA), unspecified mechanism (CMS/HCC) Take 1 tablet (40 mg) by mouth Once per day. 90 tablet 3 01/21/20 24 025 Discontinued Active Problems Problem Noted Date Diagnosed Date [...] (CVA) 10/15/2023 Overview (10/21/2023): Evaluated 09/11/23 at [facility] ED, determined to have suffered a focal [...] CVA Completed 2 weeks of rehab at [facility], continues with OT, physical therapy, and speech therapy Cont aspirin 81mg daily and plavix 75mg daily Referred to [facility] Neuro - 10/15/23 Assessment & Plan (01/21/2024 1:02 PM EST): Patient completed and was discharged from PT, will prepare a letter for work return Assessment & Plan (12/21/2023 12:38 PM EDT): Will refer to neuro for a second opinion as patient requested, wants to go to [facility] Assessment & Plan (10/21/2023 4:33 PM EDT): [...] Encounters Date Type Department Care Team Description 04/04/2024 Telephone [facility] MEDICINE [address] [place] [address] True Mullen MD 04/04/2024 Orders Only [facility] [address] [place] [address] True Mullen MD Mixed hyperlipidemia (Primary Dx); Cerebrovascular accident (CVA), unspecified mechanism (CMS/HCC) 03/31/2024 Telephone [facility] OPTOM[facility]RY [address] [place] [address] Farideh Torres OD 03/25/2024 9:30 AM EST Telemedicine [facility]EDS [address] [place] [address] True Mullen MD Mixed hyperlipidemia (Primary Dx); Subclinical hypothyroidism; Primary hypertension 03/24/2024 3:30 PM EST Office Visit [facility] [address] [place] [address] Farideh Torres, OD Cerebrovascular accident of left pontine structure (CMS/HCC) (Primary Dx) 03/24/2024 Travel 03/20/2024 Outside Procedure [facility] [address] [place] [address] Farideh Torres, OD Presbyopia (Primary Dx) 03/10/2024 1:45 PM EST Office Visit [facility] [address] [place] [address] Farideh Torres, OD Hyperopia of both eyes with astigmatism and presbyopia (Primary Dx) 02/01/2024 9:30 AM EST Office Visit [facility] [address] [place] [address] Farideh Torres, OD Cerebrovascular accident of left pontine structure (CMS/HCC) (Primary Dx) 02/01/2024 Travel 01/26/2024 Refill [facility] MED & PEDS [address] [place] [address] Lora Weber FNP Cerebrovascular accident (CVA), unspecified mechanism (CMS/HCC) 01/21/2024 11:00 AM EST Telemedicine [facility] MED [facility] PEDS [address] [place] [address] True Mullen MD Mixed hyperlipidemia (Primary Dx); Primary hypertension; Cerebrovascular accident (CVA), unspecified mechanism (CMS/HCC) 01/21/2024 Refill [facility] MED [facility] PEDS [address] [place] [address] True Mullen MD 01/21/2024 Travel 01/17/2024 Refill [facility] MED [facility] PEDS [address] [place] [address] True Mullen MD from Last 3 Months [...] Info) Description 04/16/2024 10:15 AM EST Telemedicine [facility] [address] [place] [address] CuevasTrue Gonzalez MD [address] [place] [address] 09/22/2024 9:00 AM EDT Office Visit [facility] OPTOM[facility] [address] [place] [address] Brian, Farideh, OD [address] [place] [address] Health Maintenance Due Date Last Done Comments [...] 12/14/2023 Tobacco Screening 02/07/2025 02/08/2024 Lipid Panel 03/27/2029 03/27/2024, 12/28, 10/17/2023, Additional history exists RSV Patients and Patients [...] Routine 03/27/2024 1:52 PM EST Mixed hyperlipidemia AUTOMATED VISUAL FIELD, EXTENDED - OU - [...] Recently Relevant to Health Maintenance Results * TSH W/Reflex to FT4 (03/27/2024 1:52 PM EST) TSH reflex Free T4 1.52 0.32 - 4.0 uIU/mL [facility] Blood Venous blood specimen / Unknown 03/27/2024 1:52 PM EST 03/27/2024 5:34 PM EST us True Michel MD LAB BLOOD ORDERABL ES Final Result [facility] [address] [place] [phone] * (ABNORMAL) Lipid Panel, Standard (03/27/2024 1:52 PM EST) Only the most recent of2 resultswithin the time period is included. Triglycerides 125 <150 mg/dL [facility] Comment:Desirable Triglyceri de: less than 150 mg/dLBorderline High Triglyceride 150-199 mg/dLHigh Triglyceride: 200-499 mg/dLVery High Triglyceride: greater than or equal to 5OO mg/dL Cholesterol 190 <200 mg/dL [facility] Comment:Desirable Cholestero l: less than 200 mg/dLBorderline High Cholesterol: 200-239 mg/dLHigh Cholesterol: greater than 239 mg/dL LDL Cholesterol Calculated 131(H) <100 mg/dL [facility] Comment:Desirable LDL: less than 100 mg/dLNear Optimal/Above Optimal LDL: 110- 129 mg/dLBorderline High LDL: 130-159 mg/dLHigh LDL: 160-189 mg/dLVery High LDL: greater than or equal to 190 mg/dL HDL Cholesterol 34(L) >40 mg/dL [facility] Comment:Desirable HDL: great er than 40 mg/dL Note: This HDL assay may give artificially low results in patients with liver disease. Blood Venous blood specimen / Unknown 03/27/2024 1:52 PM EST 03/27/2024 5:34 PM EST us True Michel MD LAB BLOOD ORDERABL ES Final Result [facility] [address] [place] [phone] * (ABNORMAL) Comprehensive Metabolic Panel (03/27/2024 1:52 PM EST) Only the most recent of2 resultswithin the time period is included. Sodium 138 135 - 145 mmol/L [facility] Potassium 3.9 3.3 - 5.1 mmol/L [facility] Chloride 106 96 - 108 mmol/L [facility] Carbon Dioxide 22 22 - 29 mmol/L [facility] Anion Gap 14 12 - 20 [facility] Urea Nitrogen (BUN) 15 9 - 16 mg/dL [facility] Creatinine, Serum 1.09 0.5 - 1.4 mg/dL [facility] Estimated Glomerular Filt Rate >60 [facility] Comment:Chronic Kidney Disea se: Estimated GFR < 60 mL/min/[id number] Kidney Disease: Estimated GFR < 15 mL/min/1.73m2 Glucose 82 60 - 115 mg/dL [facility] Calcium 9.6 8.4 - 10.2 mg/dL [facility] Bilirubin, Total 1.0 0.0 - 1.0 mg/dL [facility] Aspartate Amino Transferase 62(H) 5 - 37 U/L [facility] Alanine Aminotransferase 102(H) 0 - 40 U/L [facility] Total Protein 8.2(H) 6.5 - 8.0 g/dL [facility] Albumin Level 4.4 3.5 - 5.0 g/dL [facility] Alkaline Phosphatase 81 39 - 117 U/L [facility] Blood Venous blood specimen / Unknown 03/27/2024 1:52 PM EST 03/27/2024 5:34 PM EST us True Michel MD LAB BLOOD ORDERABL ES Final Result [facility] [address] [place] [address] [phone] * Automated Visual Field, Extended - OU [...] field to see if defects are repeatable. us Farideh Torres OD OPHTH VISUAL FIELD Final Resu lt * HIV-1 RNA, Quantitative, Real-Time PCR with Reflex to Genotype (RTI, PI, Integrase) (03/27/2022 10:04 AM EST) HIV 1 RNA, QN PCR NOT DETECTED copies/mL [facility], HIV 1 RNA, QN PCR NOT DETECTED Log copies/mL [facility], Comment: REFERENCE RANGE: NOT DETECTED copies/mL ?NOT DETECTED ??Log copies/mL This test was performed using Real-Time Polymerase Chain Reaction. Reportable range is 20 to 10,000,000 copies/mL (1.30-7.00 Log copies/mL). 03/27/2022 10:0 4 AM EST 03/27/2022 10:05 AM EST Narrative [facility] - 03/30/2022 12:57 AM EST FASTING:YES FASTING: YES True Michel MD LAB BLOOD ORDERABL ES Final Result [facility] [address], [place] [address] [facility], [address] [place] [address] * Hepatitis C Antibody with Reflex to HCV, RNA, Quantitative, Real-Time PCR (03/27/2022 10:04 AM EST) Hepatitis C Antibody NON-REACT ARIANA NON-REACT ARIANA [facility] [place] [facility] Index 0.05 <1.00 [facility] Comment: HCV antibody was non-reactive. There is no laboratory evidence of HCV infection. In most cases, no further action is required. However, if recent HCV exposure is suspected, a test for HCV RNA (test code 44092) is suggested. For additional information please refer to http://education.[employer]/faq/RIX57v8 (This link is being provided for informational/ educational purposes only.) Blood Venous blood specimen / Unknown 03/27/2022 10:04 AM EST 03/27/2022 10:05 AM EST Narrative [facility] - 03/30/2022 12:57 AM EST FASTING:YES FASTING: YES us True Michel MD LAB BLOOD ORDERABL ES Final Result [facility] [address] [facility], 3rd [address] [place] [address] [facility] [address] , ([address]) [place] [address] * Hm Colonoscopy (10/03/2019 6:44 AM EDT) Historical Provider HEALTH MAINTENANCE Final Result from Last 3 Months or Most Recently Relevant to Health Maintenance Insurance [employer] Care Teams Field Examiner Relationship Specialty Start Date End Date True Mullen MD [address] [place] [phone] PCP - General Internal Medicine 07/27/19
--- OUTSIDE RECORDS SUMMARY | 2024-04-10 14:31 | XMS_ITS | Clinical Summary ---
Author Organization [address] [facility] Address [address] [place] [address] Phone Care Team Providers Care Developmental Training Counselor Name Role Phone Unavailable Primary Care Provider Unavailabl e Social History Tobacco Use Types Packs/Day Years Used Date Smoking Tobacco: Never Assessed Sex and Gender Information Value Date Recorded Sex Assigned at Not on file Legal Sex Male 3:43 PM EDT Gender Identity Not on file Sexual Orientation Not on file Plan of Treatment Health Maintenance Due Date Last Done Comments DTaP,Tdap,and Td Vaccines (1 - Tdap) 01/10/1987 Hepatitis B Vaccines (1 of 3 - 19+ 3-dose series) 01/10/1987 Pneumococcal Vaccine: 50+ Ye ars (1 of 1 - PCV) 01/10/2018 Zoster Vaccines (1 of 2) 01/10/2018 COVID-19 [...] patient's age to complete this topic Meningococcal B Vacine Aged Out No lo nger eligible based on patient's age to complete [...] Documents on File Type Date Recorded Patient Storm Sash Maker Expl 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
--- OUTSIDE RECORDS SUMMARY | 2024-04-10 14:31 | XMS_ITS | Encounter Summary ---
Author Organization [employer] Address [address] [facility] [address] [place] [address] Care Team Providers Care Supervisor Backfilling Name Role Phone True Mullen MD Primary Care Prov ider Encounter Details Date Type Department Care Team (Late st Contact Info) Description 04/07/2022 Orders Only [facility] MEDICINE [address] [place] [address] True Mullen MD [address] [place], [place] [phone] Social History Tobacco Use Types Packs/Day Years [...] Info) Description 04/16/2024 10:15 AM EST Telemedicine [facility] MED [facility] PEDS [address] [place], [place] [phone] True Mullen MD [address] [place] [address] 09/22/2024 9:00 AM EDT Office Visit [facility] OPTOMETRY [address] [place] [address] Farideh Torres, OD [address] [place] [address] Pending Results Name Type Priority Associated Diagnoses [...] (03/06/2023 11:20 AM EST) Color Urine Yellow [facility] Appearance Urine Clear [facility] PH 6.0 5.0 - 9.0 [facility] Glucose Urine UA Negative Negative mg/dL [facility] Urine Blood Negative Negative [facility] Specific [place] - Urine 1.020 1.005 - 1.025 [facility] Urine Protein Negative Neg-Trace mg/dL [facility] Urine Ketones Negative Negative mg/dL [facility] Nitrite Urine Negative Negative [facility] Leukocyte Esterase Urine Negative Negative [facility] 03/06/2023 11:2 0 AM EST 03/06/2023 12:45 PM EST Narrative [facility] - 03/06/2023 12:56 PM EST Urine, Clean Catch us Generic External Data Provider LAB URINE ORDERAB LES Final Result Performing Organization Address [facility] Co de Phone Number [facility] [address] [place] [phone] * PSA, Total With Reflex to PSA, Free (02/28/2023 7:25 AM EST) PSA,Total (Free>4and<10) 2.85 0.00 - 4.00 ng/mL [facility] Comment:A Free PSA was not p [...] are between 4.0 and 10.0 ng/mL.PSA methodology: [employer] i ChemiluminescentMicroparticle Immunoassay (CMIA) 02/28/2023 7:25 AM EST 02/28/2023 7:27 AM EST us Generic External Data Provider LAB BLOOD ORDERAB LES Final Result Performing Organization Address City/[facility]/ZIP Co de Phone Number [facility] [address] [place] [phone] * Immuno #1 (08/24/2022 8:18 AM EDT) 08/24/2022 8:18 AM EDT 08/24/2022 9:40 AM EDT Narrative [facility] - 09/13/2023 5:26 PM EDT ----- ------- Name: Krish Jones ? Age/Sex: 52/M ? : 1970 Unit#: [id number] ?? Attend Dr: Severiano Montoya MD ?Re08/24/22 ?Status: DEP REF ? Location: HO.MS ? Disch: ? ----- ------- SPEC : [id number] ? RECD: 08/24/22-939 ? STATUS: ??SOUT ? REQ NUM: [id number] ? MOHIT: 08/24/22-0818 ? SUBM DR: Severiano Montoya MD ? ENTERED: ??08/24/22-1005 ?SP TYPE: Surgical ? OTHR DR: True Mullen MD ORDERED: ??IHC, Multiplex IHC, CD34, PIN4, Prostate biopsy/12 ? COMMENTS: Fernando Sanon sent to [facility] on 08/13/23. ?Addendum Addendum ??2 ?Entered: 09/13/23 (L): Prolaris test result summary: Prolaris molecular [...] scanned report (camera icon).? Test performed at [facility] [address] [place] [address]? [phone]? fax [phone]? Addendum Signed (signature on file) Alisson Hallwood 09/13/231725 ? ----- ------- Addendum ??1 ?Entered: 09/04/22-915 (L): ??Lymphovascular invasion in not identified on the CD34 stained slide. ?? Control stains appropriately. Addendum Signed (signature on file) Alisson Juan 09/04/22916 ? ----- ------- ? CONTINUED ON NEXT PAGE ----- ------- Name: Krish Jones ? Age/Sex: 52/M ? : 1970 Unit#: [id number] ?? Attend Dr: Severiano Montoya MD ?Re08/24/22 ?Status: DEP REF ? Location: HO.MS ? Disch: ? ----- ------- SPEC : [id number] ? RECD: 08/24/22 ? STATUS: ??SOUT ? REQ NUM: [id number] ? MOHIT: 08/24/22 ? SUBM DR: Severiano Montoya MD ? ENTERED: ??08/24/22-1004 ?SP TYPE: Surgical ? OTHR DR: True Mullen MD ORDERED: ??IHC, Multiplex IHC, CD34, PIN4, Prostate biopsy/12 ? COMMENTS: Block L sent to [facility] on 08/13/23. ? Diagnosis ?? Prostate, needle [...] Adenocarcinoma, acinar type ?? Histologic grade: ? Pretty score: ?7 (3+4) (right apex medial) ? [...] ? Age/Sex: 52/M ? : 1970 Unit#: [id number] ?? Attend Dr: Severiano Montoya MD ?Re08/24/22 ?Status: DEP REF ? Location: HO.MS ? Disch: ? ----- ------- SPEC : [id number] ? RECD: 08/24/22 ? STATUS: ??SOUT ? REQ NUM: [id number] ? MOHIT: 08/24/22 ? SUBM DR: Severiano Montoya MD ? ENTERED: ??08/24/22-1004 ?SP TYPE: Surgical ? OTHR DR: True Mullen MD ORDERED: ??IHC, Multiplex IHC, CD34, PIN4, Prostate biopsy/12 ? COMMENTS: Block L sent to [facility] on 08/13/23. ? Diagnosis ?(Continued) ?? Seminal [...] ? Age/Sex: 52/M ? : 1970 Unit#: [id number] ?? Attend Dr: Severiano Montoya MD ?Re08/24/22 ?Status: DEP REF ? Location: HO.MS ? Disch: ? ----- ------- SPEC : [id number] ? RECD: 08/24/22 ? STATUS: ??SOUT ? REQ NUM: [id number] ? MOHIT: 08/24/22 ? SUBM DR: Severiano Montoya MD ? ENTERED: ??08/24/22-1004 ?SP TYPE: Surgical ? OTHR DR: True Mullen MD ORDERED: ??IHC, Multiplex IHC, CD34, PIN4, Prostate biopsy/12 ? COMMENTS: Block L sent to [facility] on 08/13/23. ? Gross Description ?(Continued) Part [...] ? Age/Sex: 52/M ? : 1970 Unit#: [id number] ?? Attend Dr: Severiano Montoya MD ?Re08/24/22 ?Status: DEP REF ? Location: HO.MS ? Disch: ? ----- ------- SPEC : [id number] ? RECD: 08/24/22-939 ? STATUS: ??SOUT ? REQ NUM: [id number] ? MOHIT: 08/24/22-18 ? SUBM DR: Severiano Montoya MD ? ENTERED: ??08/24/22-1005 ?SP TYPE: Surgical ? OTHR DR: True Mullen MD ORDERED: ??IHC, Multiplex IHC, CD34, PIN4, Prostate biopsy/12 ? COMMENTS: Block L sent to [facility] on 08/13/23. ? Gross Description ?(Continued) of [...] Copies To: ?? Severiano Montoya MD ?? [facility] ?? [address] ?? [place] [address] ?? [phone] ?? True Mullen MD ?? [facility] ?? [facility] [address] ?? [place] [address] ?? [phone] ----- ------- Signed (signature on file) Alisson Juan 08/31/22 1551 ? ----- ------- ? END OF REPORT ? us Generic External Data Provider LAB CYTOLOGY AAKASHE FELIZ Final Result Performing Organization Address City/State/[facility] Co de Phone Number [facility] [address] [place] [phone] * Immuno #1 (08/24/2022 8:18 AM EDT) 08/24/2022 8:18 AM EDT 08/24/2022 9:40 AM EDT Narrative [facility] - 09/04/2022 9:17 AM EDT ----- ------- Name: Krish Jones ? Age/Sex: 52/M ? : 1970 Unit#: [id number] ?? Attend Dr: Severiano Montoya MD ?Re08/24/22 ?Status: DEP REF ? Location: HO.MS ? Disch: ? ----- ------- SPEC : [id number] ? RECD: 08/24/22 ? STATUS: ??SOUT ? REQ NUM: [id number] ? MOHIT: 08/24/22 ? SUBM DR: Severiano Montoya MD ? ENTERED: ??08/24/22 ?SP TYPE: Surgical ? OTHR DR: True Mullen MD ORDERED: ??IHC, Multiplex IHC, CD34, PIN4, Prostate biopsy/12 ?Addendum Addendum ??1 ?Entered: 09/04/22 (L): ??Lymphovascular invasion in not identified on the CD34 stained slide. ?? Control stains appropriately. Addendum Signed (signature on file) Alisson Martinez 09/04/22916 ? ----- ------- ? Diagnosis ?? Prostate, [...] ? Age/Sex: 52/M ? : 1970 Unit#: [id number] ?? Attend Dr: Severiano Montoya MD ?Re08/24/22 ?Status: DEP REF ? Location: HO.MS ? Disch: ? ----- ------- SPEC : [id number] ? RECD: 08/24/22-939 ? STATUS: ??SOUT ? REQ NUM: [id number] ? MOHIT: 08/24/22-817 ? SUBM DR: Severiano Montoya MD ? ENTERED: ??08/24/22-1004 ?SP TYPE: Surgical ? OTHR DR: True Mullen MD ORDERED: ??IHC, Multiplex IHC, CD34, PIN4, Prostate biopsy/12 ? Diagnosis ?(Continued) ? 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 Histologic grade: ? [place] score: ?7 (3+4) (right apex medial) ? [...] ? Age/Sex: 52/M ? : 1970 Unit#: [id number] ?? Attend Dr: Severiano Montoya MD ?Re08/24/22 ?Status: DEP REF ? Location: HO.MS ? Disch: ? ----- ------- SPEC : [id number] ? RECD: 08/24/22-939 ? STATUS: ??SOUT ? REQ NUM: [id number] ? MOHIT: 08/24/22-817 ? SUBM DR: Severiano Montoya MD ? ENTERED: ??08/24/22-5 ?SP TYPE: Surgical ? OTHR DR: True [...] ? Age/Sex: 52/M ? : 1970 Unit#: [id number] ?? Attend Dr: Severiano Montoya MD ?Re08/24/22 ?Status: DEP REF ? Location: HO.MS ? Disch: ? ----- ------- SPEC : [id number] ? RECD: 08/24/22 ? STATUS: ??SOUT ? REQ NUM: [id number] ? MOHIT: 08/24/22-0818 ? SUBM DR: Severiano [...] Copies To: ?? Severiano Montoya MD ?? [address] [place] [address] [address] ?? [place] [address] ?? [phone] ?? True Mullen MD ?? [address] ?? [place] [address] ?? [phone] ----- ------- Signed (signature on file) Alisson Hallwood 08/31/22 1551 ? ----- ------- ? END OF REPORT ? [facility] External Provider LAB CYT OLOGY ORDERABLES Final Result Performing Organization Address [facility] de Phone Number [facility] [address] [place] [address] [phone] * TSH (08/12/2022 7:38 AM EDT) Thyroid Stimulating Hormone 3.37 0.32 - 4.0 uIU/mL [facility] Comment:Note: A sustained TS H level above 2.5 uIU/mL may warrant further investigation. TSH 3rd Generation ([facility]) 08/12/2022 7:38 AM EDT 08/12/2022 7:38 AM EDT [facility] External Provider LAB BLO OD ORDERABLES Final Result [facility] [address] [place] [phone] * Testosterone, Free (Dialysis) And Total, MS (06/10/2022 8:38 AM EDT) Testosterone, Total 456 250 - 1100 ng/dL [facility] Comment:For additional infor ortega, please refer tohttp://education.[employer]Match/faq/BjkxwScbmgrfjpiaqVWWKEPVKO406(This link is being provided for informational/educational purposes only.)This test was developed and its analytical performancecharacteristics have been determined by [employer] [place], [place]. It hasnot been cleared or approved by the U.S. Food and DrugAdministration. This assay has been validated pursuantto the CLIA regulations and is used for clinicalpurposes. Testosterone, Free 70.2 35.0 - 155.0 pg/mL [facility] Comment:This test was develo ped and its analytical performancecharacteristics have been determined by [facility] [place]. It hasnot been cleared or approved by the U.S. Food and DrugAdministration. This assay has been validated pursuantto the CLIA regulations and is used for clinicalpurposes.THIS TEST WAS PERFORMED AT:[id number] [place] [address]ERLRDSYTRAMAINE BETH MD,PHD 06/10/2022 8:38 AM EDT 06/10/2022 8:38 AM EDT us [facility] External Provider LAB BLO OD ORDERABLES Final Result [facility] [address] [place] [phone] * (ABNORMAL) PSA,Total (06/10/2022 8:38 AM EDT) Prostate Specific Antigen 4.14(H) <0.05 - 4.0 ng/mL [facility] Comment:PSA methodology: Laurie Gomes i ChemiluminescentMicroparticle Immunoassay (CMIA) 06/10/2022 8:38 AM EDT 06/10/2022 8:38 AM EDT us [facility] External Provider LAB BLO OD ORDERABLES Final Result Performing Organization Address City/State/[facility] Co de Phone Number [facility] [address] [place] [address] [phone] documented in this encounter Visit Diagnoses Not on filedocumented in this encounter Care Teams Supervisor Backfilling Relationship Specialty Start Date End Date True Mullen MD [address] [place] [phone] PCP - General Internal Medicine 07/27/19 documented as of this encounter
--- OUTSIDE RECORDS SUMMARY | 2024-04-10 14:31 | XMS_ITS | Encounter Summary ---
Author Organization [employer] Address [address] [facility] 7t [place] [address] Care Team Providers Care Diabetes Educator Name Role Phone True Mullen MD Primary Care Prov ider Encounter Details Date Type Department Care Team (Latest Contact Info) Description 02/27/2019 Abstract [facility] CONVERSIONS Dental, Provider, DDS Social History Tobacco [...] Care Team ( st Contact Info) Description 04/16/2024 10:15 AM EST Telemedicine [facility] CHC MED & PEDS [address] [place] [address] True Mullen MD 505 [place] [address] 09/22/2024 9:00 AM EDT Office Visit [facility] OPTOMETRY [address] [place] [address] Farideh Torres, OD [address] [place] [address] documented as of this encounter Visit Diagnoses Not on filedocumented in this encounter Care Teams Diabetes Educator Relationship Specialty Start Date End Date True Mullen MD [address] [place] [address] PCP - General Internal Medicine 07/27/19 documented as of this encounter
--- OUTSIDE RECORDS SUMMARY | 2024-04-10 14:31 | XMS_ITS | Encounter Summary ---
Author Organization [employer] Address [address] [facility] 7t [place] [address] Care Team Providers Care Iron Miner Name Role Phone True Mullen MD Primary Care Prov ider Reason for Visit * Reason Comments Med Refill Encounter Details Date Type Department Care Team ([facility] Contact Info) Description 01/21/2024 Refill [facility] CHC MED & PEDS [address] [place], [place] [phone] True Mullen MD 505 [place] [address] Social History Tobacco Use Types Packs/Day Years [...] Info) Description 04/16/2024 10:15 AM EST Telemedicine [facility] CHC MED & PEDS [address] [place] [address] True Mullen MD [address] [place] [address] 09/22/2024 9:00 AM EDT Office Visit [facility] OPTOMETRY [address] [place] [address] Brian, Farideh, OD [address] [place] [address] documented as of this encounter Visit Diagnoses Not on filedocumented in this encounter Care Teams Iron Miner Relationship Specialty Start Date End Date True Mullen MD [address] [place] [address] PCP - General Internal Medicine 07/27/19 documented as of this encounter
--- OUTSIDE RECORDS SUMMARY | 2024-04-10 14:31 | XMS_ITS | Encounter Summary ---
Author Organization [employer] Address [address] [facility] [address] [place] [address] Care Team Providers Care Rug Underlay Machine Operator Name Role Phone True Mullen MD Primary Care Prov ider Encounter Details Date Type Department Care Team (Late Contact Info) Description 03/23/2022 Telephone [facility] MED & PEDS 505 [place] [address] True Mullen MD 505 [place] [address] Social History Tobacco Use Types Packs/Day Years [...] Info) Description 04/16/2024 10:15 AM EST Telemedicine [facility] MED & PEDS 505 [place] [address] True Mullen MD 505 [place] [address] 09/22/2024 9:00 AM EDT Office Visit [facility] OPTOMETRY [address] [place] [address] Brian, Farideh, OD [address] [place] [address] documented as of this encounter Visit Diagnoses Not on filedocumented in this encounter Care Teams Rug Underlay Machine Operator Relationship Specialty Start Date End Date True Mullen MD [address] [place] [address] PCP - General Internal Medicine 07/27/19 documented as of this encounter
--- OUTSIDE RECORDS SUMMARY | 2024-04-10 14:31 | XMS_ITS | Encounter Summary ---
Author Organization [employer] Address [address] [facility] [facility] [address] 7[address] [place] [address] Care Team Providers Care Drafter Geological Name Role Phone True Mullen MD Primary Care Prov ider Encounter Details Date Type Department Care Team ([facility] st Contact Info) Description 03/31/2024 Telephone [facility] OPTOMETRY [address] [place] [address] Brian, Megan, OD [address] [place] [address] Social History Tobacco Use Types Packs/Day Years [...] Info) Description 04/16/2024 10:15 AM EST Telemedicine [facility] CHC MED & PEDS 505 [place] [address] True Mullen MD 505 [place] [address] 09/22/2024 9:00 AM EDT Office Visit [facility] OPTOMETRY [address] [place] [address] Farideh Torres, OD [address] [place] [address] documented as of this encounter Visit Diagnoses Not on filedocumented in this encounter Care Teams Drafter Geological Relationship Specialty Start Date End Date True Mullen MD 505 [place] [address] PCP - General Internal Medicine 07/27/19 documented as of this encounter
--- OUTSIDE RECORDS SUMMARY | 2024-04-10 14:31 | XMS_ITS | Encounter Summary ---
Author Organization [employer] Address [address] [facility] 7t [place] [address] Care Team Providers Care Nurse Ortho Name Role Phone True Mullen MD Primary Care Prov ider Reason for Visit * Reason Onset Date Comments Results 02/27/2023 Encounter Details Date Type Department Care Team ([facility] Contact Info) Description 02/27/2023 Telephone [facility] MEDICINE [address] [place] [address] True Mullen MD [address] [place], [place] [phone] Results Social History Tobacco Use Types Packs/Day [...] Date when done: 2 weeks ago Facility: [facility] Please contact at [phone] Azerbaijani documented in this encounter Plan of Treatment Upcoming Encounters Date Type Department Care Team ([facility] st Contact Info) Description 04/16/2024 10:15 AM EST Telemedicine [facility] CHC MED & PEDS 505 [place] [address] True Mullen MD [address] [place] [address] 09/22/2024 9:00 AM EDT Office Visit [facility] OPTOMETRY [address] [place] [address] Farideh Torres, OD [address] [place] [address] documented as of this encounter Visit Diagnoses Not on filedocumented in this encounter Care Teams Nurse Ortho Relationship Specialty Start Date End Date True Mullen MD [address] [place] [address] PCP - General Internal Medicine 07/27/19 documented as of this encounter
[2024-04-10 15:50] LABS: Alanine Aminotransferase 94 U/L (0-40); Albumin Level 4.4 g/dL (3.5-5.0); Alkaline Phosphatase 75 U/L (39-117); Anion Gap 10 (12-20); Aspartate Amino Transferase 48 U/L (5-37); Bilirubin Total 0.5 mg/dL (0.0-1.0); Blood Urea Nitrogen 14 mg/dL (9-16); Calcium 9.4 mg/dL (8.4-10.2); Carbon Dioxide 26 mmol/L (22-29); Chloride 107 mmol/L (96-108); Cholesterol 181 mg/dL (<200); Estimated Glomerular Filt Rate > 60; Glucose Random 90 mg/dL (60-115); HDL Cholesterol 30 mg/dL (>40); LDL Cholesterol Calculated 124 mg/dL (<100); Potassium 4.3 mmol/L (3.3-5.1); Sodium 139 mmol/L (135-145); Total Protein 7.8 g/dL (6.5-8.0); Triglycerides 139 mg/dL (<150)
[2024-04-10 16:10] LABS: Prostate Specific Antigen 3.97 ng/mL (<0.05-4.0)
== END 2024-04-10 14:27 | disposition home or self-care (01) ==
LOC: HO.LAB 14:26
PROVIDERS: Absent Provider Urology; PCP Internal Medicine; Visit Provider Internal Medicine
DX: E78.2 Mixed hyperlipidemia (principal); C61 Malignant neoplasm of prostate; Z12.5 Encounter for screening for malignant neoplasm of prostate
CPT/HCPCS: 36415; 80053; 80061; 84153

== ENCOUNTER 2024-06-12 11:01 | Outpatient (AMB) | payer OTHER, SELFPAY ==
--- NOTE | 2024-06-12 11:08 | MHC.OFFVIS ---
Intake Visit Reasons: 4m/PSA Intake Note: Patient is present for 4M,/PSA Urology Medication:FINASTERIDE Antibiotic Allergy:NONE Blood Thinner:ASPIRIN Civil Engineering Teacher Required: No Allergies No Known Allergies [No Known Allergies*] Allergy (Verified 06/12/24 11:11) HPI Comments Details: Krish is a pleasant Yemeni-speaking male. He is a patient Dr. Cuevas. He seen for the following urologic conditions - prostate cancer Yemeni translation provided in office by qualified medical billing supervisor PSA fallen to 3.9 on finasteride Continue finasteride Four month follow-up PSA tele PSA 08/18 3.7, 08/19 4.9, 04/22 3.9 Prostate cancer - 08/18 low volume, grade group 2 Diagnosed for elevated PSA - 4.1 Volume at Diagnosis - 30gm pT1c Pretty score: 7 (3+4) (right apex medial) Tumor quantitation: Number cores positive:1 Total number of cores:12 % of tissue involved:5 % Periprostatic fat inv.: Not identified Seminal vesicle inv.: Not identified Perineural inv.: Not identified Family history father positive Staging : MRI - 25 g prostate, no clear evidence of detected disease. Prolaris - 09/18 - genetics confirm active surveillance primary therapy - cell cycle score - CCS 3.6 PFSH Medical History (Updated 09/25/23 @ 00:01 by Jose Crockett) History of BPH Hyperlipidemia Benign essential HTN Family History (Updated 09/11/23 @ 16:29 by Bonnie Eisenberg NP) Mother Breast cancer Social History Household Members: Spouse Housing: Apartment Do you presently have visiting nurse or other home services: No Alcohol intake: never Comment: at bedside Patient Tobacco Use Status: Never used Tobacco service: No Review of Systems Const Denies chills and Denies fever(s) Card Reports no additional complaints and Denies syncope Resp Denies cough GI Denies abdominal pain and Denies heartburn Reports as per HPI and Denies change in libido Neuro Denies syncope Psych Denies change in libido Endo Denies change in libido Physical Exam Const General: cooperative, healthy appearing, comfortable and no acute distress Orientation/consciousness: patient oriented x3 HEENT Face and sinus: Yes normal facial exam Mouth: moist mucous membranes Neck Neck: Yes normal visual inspection, Yes full ROM and Yes trachea midline Chest Chest palpation & inspection: normal inspection of the chest Resp Effort & Inspection: normal respiratory effort, able to speak in complete sentences and no respiratory distress GI Inspection: Yes normal to inspection Back/Spine/Pelvis Cervical Spine: normal cervical lordosis Thoracic/Lumbar Spine: thoracic and lumbar spine normal to inspection Skin General skin exam: no rashes or lesions noted Neuro General: patient oriented x3, gait normal, tone normal and moves all extremities Extrem General: Yes normal to inspection and Yes capillary refill normal Assessment & Plan Assessment & Plan (1) BPH (benign prostatic hyperplasia): Code(s): N40.0 - Benign prostatic hyperplasia without lower urinary tract symptoms Category: Medical (2) Erectile dysfunction: Code(s): N52.9 - Male erectile dysfunction, unspecified Category: Medical (3) Prostate cancer: Code(s): C61 - Malignant neoplasm of prostate Category: Medical Plan Four month follow-up PSA Orders: Orders AMB Urinalysis Automated Today Z13.9 - Encounter for screening, unspecified Prostate Specific Antigen 4 Months C61 - Malignant neoplasm of prostate Patient Instructions: This note is constructed using voice recognition software. While every effort has been made to ensure accuracy telephone worker errors may have been included. Imaging studies, laboratory and physical exam results were discussed and reviewed in detail. No major barriers to patient understanding were identified. An opportunity to ask questions regarding the treatment plan was provided. All questions were answered. The patient expressed understanding and agreement with the above treatment plan. The patient is aware they should contact our office by phone for worsening of their current condition or the appearance of new urologic symptoms. Compliance is encouraged with any medications and followup testing that is ordered. It is a privilege to participate in the urologic care of your patient. If you have any questions or concerns regarding treatment for the above conditions, or other urologic issues, please do not hesitate to contact me. The office telephone contact is [phone]. Sincerely, Dr Severiano Montoya MD, [facility] - Urology Compassionate Specialist Care for the Genitourinary System Coding Level of Care Code Est Pt Level 3 (64577) Complex EM visit Add On G2211 Diagnoses BPH (benign prostatic hyperplasia) N40.0 Erectile dysfunction N52.9 Prostate cancer C61
--- OUTSIDE RECORDS SUMMARY | 2024-06-12 13:31 | XMS_ITS | Encounter Summary ---
Author Organization [employer] Address [address] [facility] 7t [place] [address] Care Team Providers Care Lump Roller Name Role Phone True Mullen MD Primary Care Prov ider Encounter Details Date Type Department Care Team (Late Contact Info) Description 11/02/2023 Orders Only [facility] MED & PEDS [address] [place], [place] [phone] True Mullen MD 505 [place], [place] [phone] Social History Tobacco Use Types Packs/Day Years [...] Care Team (Late st Contact Info) Description 07/11/2024 8:45 AM EDT Telemedicine [facility] MED & PEDS [address] [place], [place] [phone] True Mullen MD 505 [place], [place] [phone] 09/22/2024 9:00 AM EDT Office Visit [facility] OPTOMETRY [address] [place] [address] Brian Farideh, OD [address] [place] [address] documented as of this encounter Visit Diagnoses Not on filedocumented in this encounter Care Teams Lump Roller Relationship Specialty Start Date End Date True Mullen MD [address] [place] [address] PCP - General Internal Medicine 07/27/19 documented as of this encounter
--- OUTSIDE RECORDS SUMMARY | 2024-06-12 13:31 | XMS_ITS | Clinical Summary ---
Author Organization [facility] Address [address] [place] [address] Phone Care Team Providers Care Manager Marketing Sales Name Role Phone Unavailable Primary Care Provider [...] 01/10/2018 COVID-19 Vaccine (2023-2 5 season) 2023 Cholesterol Screening (Lipid Panel) 12/06/2023 Colorectal Cancer Screening: Colonoscopy 12/06/2023 Depression Screening 12/06/2023 HIV Screening 12/06/2023 Hepatitis C Screening 12/06/2023 Social Influencers of Health Screening 12/06/2023 Influenza Vaccine (Season Ended) 2024 HIB Vaccines Aged Out No longer eligi [...] age to complete this topic Meningococcal B Vaccine Aged Out No l onger eligible based on patient's age to complete [...] Documents on File Type Date Recorded Patient Service Now Developer Expl 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
--- OUTSIDE RECORDS SUMMARY | 2024-06-12 13:31 | XMS_ITS | Encounter Summary ---
Author Organization [employer] Address [address] [facility] [address] [place] [address] Care Team Providers Care Flooring Professional Name Role Phone True Mullen MD Primary Care Prov ider Encounter Details Date Type Department Care Team (Late Contact Info) Description 03/23/2022 Telephone [facility] MED & PEDS 505 [place] [address] True Mullen MD 505 [place] [address] Social History Tobacco Use Types Packs/Day Years [...] Department Care Team (Late Contact Info) Description 07/11/2024 8:45 AM EDT Telemedicine [facility] MED & PEDS [address] [place] [address] True Mullen MD 505 [place] [address] 09/22/2024 9:00 AM EDT Office Visit [facility] OPTOMETRY [address] [place] [address] Farideh Torres, OD [address] [place] [address] documented as of this encounter Visit Diagnoses Not on filedocumented in this encounter Care Teams Flooring Professional Relationship Specialty Start Date End Date True Mullen MD [address] [place] [address] PCP - General Internal Medicine 07/27/19 documented as of this encounter
--- OUTSIDE RECORDS SUMMARY | 2024-06-12 13:31 | XMS_ITS | Encounter Summary ---
Author Organization [employer] Address [address] [facility] [address] [place] [address] Care Team Providers Care Language Tutor Name Role Phone True Mullen MD Primary Care Prov ider Encounter Details Date Type Department Care Team (Late Contact Info) Description 06/12/2023 Orders Only [facility] MEDICINE [address] [place] [address] ProviderRubin MD Social History Tobacco Use Types [...] Info) Description 07/11/2024 8:45 AM EDT Telemedicine [facility] CHC MED & PEDS 505 [place] [address] True Mullen MD 505 [place] [address] 09/22/2024 9:00 AM EDT Office Visit [facility] OPTOMETRY [address] [place] [address] Farideh Torres, OD [address] [place] [address] documented as of this encounter Procedures Procedure Name Priority Date/Time Associated Diagnosis Comments COLONOSCOPY Routine 10/03/2019 6:44 AM EDT documented in this encounter Results * Colonoscopy (10/03/2019 6:44 AM EDT) Historical Provider HEALTH MAINTENANCE Final Result documented in this encounter Visit Diagnoses Not on filedocumented in this encounter Care Teams Language Tutor Relationship Specialty Start Date End Date CuevasTrue Gonzalez MD [address] [place] [address] PCP - General Internal Medicine 07/27/19 documented as of this encounter
--- OUTSIDE RECORDS SUMMARY | 2024-06-12 13:31 | XMS_ITS | Encounter Summary ---
Author Organization [employer] Address [address] [facility] [address]t [place] [address] Care Team Providers Care Groundwater Consultant Name Role Phone True Mullen MD Primary Care Prov ider Encounter Details Date Type Department Care Team (Latest Contact Info) Description 02/27/2019 Abstract [facility] CONVERSIONS Dental, Provider, DDS Social History Tobacco [...] Care Team ( st Contact Info) Description 07/11/2024 8:45 AM EDT Telemedicine [facility] CHC MED & PEDS 505 [place] [address] True Mullen MD [address] [place] [address] 09/22/2024 9:00 AM EDT Office Visit [facility] OPTOMETRY [address] [place] [address] Farideh Torres, OD [address] [place] [address] documented as of this encounter Visit Diagnoses Not on filedocumented in this encounter Care Teams Groundwater Consultant Relationship Specialty Start Date End Date True Mullen MD [address] [place] [address] PCP - General Internal Medicine 07/27/19 documented as of this encounter
--- OUTSIDE RECORDS SUMMARY | 2024-06-12 13:31 | XMS_ITS | Encounter Summary ---
Author Organization [employer] Address [address] [facility] 7t [place] [address] Care Team Providers Care Resident Care Director Name Role Phone True Mullen MD Primary Care Prov ider Reason for Visit * Reason Onset Date Comments Hospital Follow-up 09/20/2023 Encounter Details Date Type Department Care Team ([facility] st Contact Info) Description 09/20/2023 Telephone [facility] MEDICINE [address] [place] [address] True Mullen MD [address] [place] [address] Hospital Follow-up Social History Tobacco Use Types [...] 09/20/2023 8:55 AM EDT Salty Tucker at [facility] calling to schedule a F appt handbook writer [facility] and was told has been transferred numerous times and has not received a call back patient will be discharged on 09/30 please call Garrett at [phone] documented in this encounter Plan of Treatment Upcoming Encounters Date Type Department Care Team (Late st Contact Info) Description 07/11/2024 8:45 AM EDT Telemedicine [facility] CHC MED & PEDS [address] [place], [place] [phone] True Mullen MD 505 [place], [place] [phone] 09/22/2024 9:00 AM EDT Office Visit [facility] OPTOMETRY [address] [place] [address] Farideh Torres, OD [address] [place] [address] documented as of this encounter Visit Diagnoses Not on filedocumented in this encounter Care Teams Resident Care Director Relationship Specialty Start Date End Date True Mullen MD [address] [place] [address] PCP - General Internal Medicine 07/27/19 documented as of this encounter
--- OUTSIDE RECORDS SUMMARY | 2024-06-12 13:32 | XMS_ITS | Encounter Summary ---
Author Organization [employer] Address [address] [facility] [address] 7t [place] [address] Care Team Providers Care Adventure Challenge Instructor Name Role Phone True Mullen MD Primary Care Prov ider Reason for Visit * Reason Comments Med Refill Encounter Details Date Type Department Care Team ([facility] Contact Info) Description 01/26/2024 Refill [facility] CHC MED & PEDS [address] [place], [place] [phone] Lora Weber FNP 505 [place] [address] Cerebrovascular accident (CVA), unspecified mechanism (CMS/HCC) Social [...] Info) Description 07/11/2024 8:45 AM EDT Telemedicine [facility] CHC MED & PEDS [address] [place] [address] True Mullen MD 505 [place] [address] 09/22/2024 9:00 AM EDT Office Visit [facility] OPTOMETRY [address] [place] [address] Brian, Farideh, OD [address] [place] [address] documented as of this encounter Visit Diagnoses Diagnosis Cerebrovascular accident (CVA), unspecified mechanism (CMS/HCC) documented in this encounter Care Teams Adventure Challenge Instructor Relationship Specialty Start Date End Date True Mullen MD [address] [place] [address] PCP - General Internal Medicine 07/27/19 documented as of this encounter
--- OUTSIDE RECORDS SUMMARY | 2024-06-12 13:32 | XMS_ITS | Encounter Summary ---
Author Organization [employer] Address [address] [facility] [address]t [place] [address] Care Team Providers Care Culinary Instructor Name Role Phone True Mullen MD Primary Care Prov ider Reason for Visit * Reason Comments Med Refill Encounter Details Date Type Department Care Team ([facility] Contact Info) Description 01/21/2024 Refill [facility] CHC MED & PEDS [address] [place], [place] [phone] True Mullen MD [address] [place] [address] Social History Tobacco Use Types Packs/Day Years [...] Info) Description 07/11/2024 8:45 AM EDT Telemedicine [facility] CHC MED & PEDS [address] [place] [address] True Mullen MD [address] [place] [address] 09/22/2024 9:00 AM EDT Office Visit [facility] OPTOMETRY [address] [place] [address] Brian, Farideh, OD [address] [place] [address] documented as of this encounter Visit Diagnoses Not on filedocumented in this encounter Care Teams Culinary Instructor Relationship Specialty Start Date End Date True Mullen MD [address] [place] [address] PCP - General Internal Medicine 07/27/19 documented as of this encounter
--- OUTSIDE RECORDS SUMMARY | 2024-06-12 13:32 | XMS_ITS | Clinical Summary ---
Author Organization [employer] Address [address] [facility] [address] [place] [address] Care Team Providers Care Sales Coach Name Role Phone True Mullen MD Primary Care Prov ider Allergies No known active allergies Medications docusate sodium (Colace) 100 MG capsule Take 1 capsule by mouth 2 times daily. 10/01/19 24 Active meloxicam (Mobic) 15 MG tablet [...] 90 tablet 3 04/04/19 25 026 Active Blood Pressure kit 1 kit Once per day. 1 kit 04/16/19 25 Active finasteride (Proscar) 5 MG tabletIndication s:Benign prostatic hyperplasia, unspecified whether lower urinary tract symptoms present TAKE 1 TABLET BY MOUTH EVERY DAY. DO NOT CRUSH, CHEW OR SPLIT. 90 tablet 05/27/19 25 Active finasteride (Proscar) 5 MG tabletIndication s:Benign prostatic hyperplasia, unspecified whether lower urinary tract symptoms present TOME [place] TABLETA TODOS [place]. Do not crush, chew, or split. 90 tablet 10/15/19 025 Discontinued Active Problems Problem Noted Date [...] (CVA) 10/15/2023 Overview (10/21/2023): [place]11[place] [facility] [place], determined to have [...] CVA Completed 2 weeks of rehab at [facility], continues with OT, physical therapy, and speech therapy Cont aspirin 81mg daily and plavix 75mg daily [place] [facility] [place] - 10/15/23 Assessment & Plan (01/21/2024 1:02 PM EST): Patient completed and was discharged from PT, will prepare a letter for work return Assessment & Plan (12/21/2023 12:38 PM EDT): Will refer to neuro for a second opinion as patient requested, wants to go to [facility] Assessment & Plan (10/21/2023 4:33 PM EDT): -Cont medications and OP specialists as above Primary hypertension 02/05/2023 Assessment & Plan (04/16/2024 11:10 AM EST): Controllled, keep low sodium diet and exercise as tolerated, keep bp log, follow up in 3 months Assessment & Plan (03/25/2024 10:20 AM EST): [...] developed Mixed hyperlipidemia 03/24/2022 Assessment & Plan (04/16/2024 11:13 AM EST): Patient on atorvastatin 80mg, LDL still elevated, will refer to cardiology for evaluation for pcsk9 inhibitor Assessment & Plan (01/21/2024 1:03 PM EST): [...] Encounters Date Type Department Care Team Description 05/22/[address] [facility] [address] [place] [address] Lora Weber, TAPPING MACHINE OPERATOR [employer] Benign prostatic hyperplasia, unspecified whether lower urinary tract symptoms present 04/16/2024 10:15 AM EST Telemedicine [facility] [address] [place] [address] True Mullen MD Primary hypertension (Primary Dx); Mixed hyperlipidemia 04/16/2024 Travel 04/10/2024 Orders Only GENERIC EXTERNAL DATA DEPARTMENT Provider, Generic External Data 04/04/2024 Telephone [facility] [address] [place] [address] True Mullen MD 04/04/2024 Orders Only [facility] [address] [place], [place] [phone] True Mullen MD Mixed hyperlipidemia (Primary Dx); Cerebrovascular accident (CVA), unspecified mechanism ([facility]/HCC) 03/31/2024 Telephone [facility] OPTOMETRY [address] [place] [address] Farideh Torres, OD 03/25/2024 9:30 AM EST Telemedicine [facility] [address] [place] [address] True Mullen MD Mixed hyperlipidemia (Primary Dx); Subclinical hypothyroidism; Primary hypertension 03/24/2024 3:30 PM EST Office Visit [facility] OPT[facility] [address] [place] [address] Farideh Torres, OD 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) 03/24/2024 Travel 03/20/2024 Outside Procedure [facility] OPT[facility] [address] [place] [address] Farideh Torres, OD Presbyopia (Primary Dx) from Last 3 Months Immunizations Name Administration [...] Sign Reading Time Taken Comments Blood Pressure 139/79 04/16/2024 10:25 AM EST Pulse 68 12/21/2023 9:56 AM [...] Info) Description 07/11/2024 8:45 AM EDT Telemedicine [facility] [address] [place] [address] True Mullen MD [address] [place] [address] 09/22/2024 9:00 AM EDT Office Visit [facility] [address] [place] [address] Brian, Farideh, OD [address] [place] [address] Health Maintenance Due Date Last Done Comments CT Colonography 1968 FIT DNA/Cologuard 1968 FIT 1968 FOBT 1968 Sigmoidoscopy 1968 DTaP/Tdap/Td Vaccines (1 - Tdap) 04/29/2018 04/28/2018, 07/10/2016 COVID-19 Vaccine (5 - season) 2023 12/12/2021, 01/29/2021, 07/20/2020, Additional history exists Influenza Vaccine (#1) 2023 , 12/12/2021, 04/08/2020, Additional history exists Depression Screening 05/01/2024 05/02/2023, 05/02/19 24 Colonoscopy 10/02/2024 10/03/2019 Colorectal Cancer Screening 10/02/2024 SDOH Screening 12/13/2024 12/14/2023 Alcohol/Substance Use Screening 04/16/2025 04/16/2024 Tobacco Screening 04/16/2025 04/16/2024 Lipid Panel 04/10/2029 04/10/2024, 02/28, 01/22/2024, Additional history exists RSV Patients and Patients [...] Procedure Name Priority Date/Time Associated Diagnosis Comments PSA, TOTAL Routine 04/10/2024 2:42 PM EST LIPID PANEL, STANDARD Routine 04/10/2024 2:42 PM EST Mixed hyperlipidemia COMPREHENSIVE METABOLIC PANEL Routine 04/10/2024 2:42 PM EST Mixed hyperlipidemia TSH W/REFLEX TO FT4 Routine 03/27/2024 1 :52 PM EST Subclinical hypothyroidism LIPID PANEL, STANDARD Routine 03/27/2024 1:52 PM EST Mixed hyperlipidemia COMPREHENSIVE METABOLIC PANEL Routine 03/27/2024 1:52 PM EST Mixed hyperlipidemia AUTOMATED VISUAL FIELD, EXTENDED - OU - BOTH EYES Routine 03/24/2024 3:30 PM EST 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 HEPATITIS C AB W/REFL TO HCV RNA, QN, PCR Routine 03/27/2022 10:04 AM EST Mixed hyperlipidemia HIV 1 RNA, QN PCR W/RFL MELISA (RTI,PI,INTEGRASE) Routine 03/27/2022 10:04 AM EST Mixed hyperlipidemia HM COLONOSCOPY Routine 10/03/2019 6:44 AM EDT from Last 3 Months or Most Recently Relevant to Health Maintenance Results * PSA,Total (04/10/2024 2:42 PM EST) Prostate Specific Antigen 3.97 <0.05 - 4.0 ng/mL [facility] Comment:PSA methodology: Laurie Gomes i ChemiluminescentMicroparticle Immunoassay (CMIA) 04/10/2024 2:42 PM EST 04/10/2024 2:42 PM EST us Generic External Data Provider LAB BLOOD ORDERAB LES Final Result Performing Organization Address City/State/[facility] Co de Phone Number [facility] [address] [place] [phone] * (ABNORMAL) Lipid Panel, Standard (04/10/2024 2:42 PM EST) Only the most recent of2 resultswithin the time period is included. Triglycerides 139 <150 mg/dL [facility] Comment:Desirable Triglyceri de: less than 150 mg/dLBorderline High Triglyceride 150-199 mg/dLHigh Triglyceride: 200-499 mg/dLVery High Triglyceride: greater than or equal to 5OO mg/dL Cholesterol 181 <200 mg/dL [facility] Comment:Desirable Cholestero l: less than 200 mg/dLBorderline High Cholesterol: 200-239 mg/dLHigh Cholesterol: greater than 239 mg/dL LDL Cholesterol Calculated 124(H) <100 mg/dL [facility] Comment:Desirable LDL: less than 100 mg/dLNear Optimal/Above Optimal LDL: 110- 129 mg/dLBorderline High LDL: 130-159 mg/dLHigh LDL: 160-189 mg/dLVery High LDL: greater than or equal to 190 mg/dL HDL Cholesterol 30(L) >40 mg/dL [facility] Comment:Desirable HDL: great er than 40 mg/dL Note: This HDL assay may give artificially low results in patients with liver disease. Blood Venous blood specimen / Unknown 04/10/2024 2:42 PM EST 04/10/2024 2:42 PM EST us True Michel MD LAB BLOOD ORDERABL ES Final Result [facility] [address] [place] [phone] * (ABNORMAL) Comprehensive Metabolic Panel (04/10/2024 2:42 PM EST) Only the most recent of2 resultswithin the time period is included. Sodium 139 135 - 145 mmol/L [facility] Potassium 4.3 3.3 - 5.1 mmol/L [facility] Chloride 107 96 - 108 mmol/L [facility] Carbon Dioxide 26 22 - 29 mmol/L [facility] Anion Gap 10(L) 12 - 20 [facility] Urea Nitrogen (BUN) 14 9 - 16 mg/dL [facility] Creatinine, Serum 1.14 0.5 - 1.4 mg/dL [facility] Estimated Glomerular Filt Rate >60 [facility] Comment:Chronic Kidney Disea se: Estimated GFR < 60 mL/min/1.44e1[place] Kidney Disease: Estimated GFR < 15 mL/min/1.73m2 Glucose 90 60 - 115 mg/dL [facility] Calcium 9.4 8.4 - 10.2 mg/dL [facility] Bilirubin, Total 0.5 0.0 - 1.0 mg/dL [facility] Aspartate Amino Transferase 48(H) 5 - 37 U/L [facility] Alanine Aminotransferase 94(H) 0 - 40 U/L [facility] Total Protein 7.8 6.5 - 8.0 g/dL [facility] Albumin Level 4.4 3.5 - 5.0 g/dL [facility] Alkaline Phosphatase 75 39 - 117 U/L [facility] Blood Venous blood specimen / Unknown 04/10/2024 2:42 PM EST 04/10/2024 2:42 PM EST True Michel MD LAB BLOOD ORDERABL ES Final Result Performing Organization Address [facility] Co de Phone Number [facility] [address] [place] [phone] * TSH W/Reflex to FT4 (03/27/2024 1:52 PM EST) TSH reflex Free T4 1.52 0.32 - 4.0 uIU/mL [facility] Blood Venous blood specimen / Unknown 03/27/2024 1:52 PM EST 03/27/2024 5:34 PM EST True Michel MD LAB BLOOD ORDERABL ES Final Result Performing Organization Address [facility] Co de Phone Number [facility] [address] [place] [phone] * Automated Visual Field, Extended - OU - Both Eyes (03/24/2024 3:30 PM EST) Narrative Farideh Torres, OD - 04/16/2024 10:15 AM EST VISUAL FIELD INTERPRETATION Visual Field Interpretation Test Details: Octopus 32 P Pulsar/200/TOP Reliability Indices: False positive errors OD: 0/7 OS: 0/7 False negative errors OD: 2/7 OS: 0/7 Statistical Indices: MS [src]: OD: 16.5 OS: 18.1 MD [< 2.0 src]: OD: 4.6 OS: 3.0 sLV [< 2.5 src]: OD: 3.6 OS: 2.5 Impression: Reason for testing: CVA in 08/2023 with visual field defect in right eye on visual field testing in 01/2024. Test Reliability: Borderline in right eye due to false negatives. Reliable in left eye. Impression: Right eye (OD): Dense superonasal defect Left eye (OS): Shallow superior defect slightly more temporal than nasal Progression: Right eye (OD): defect consistent with previous test (02/01/24) Left eye (OS): new superior defect noted today that was not present at previous test (02/01/24) Management Plan: Pt educated on findings. 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 New superior defect in the left eye. Findings could be from the stroke, however they are not homonymous. The patient was educated we will continue monitoring his visual field regularly. Will monitor in 6 months, sooner if vision changes are noticed. us Farideh Torres OD OPHTH VISUAL FIELD Final Resu lt * HIV-1 RNA, Quantitative, Real-Time PCR with Reflex to Genotype (RTI, PI, Integrase) (03/27/2022 10:04 AM EST) Pathologist [facility] HIV 1 RNA, QN PCR NOT DETECTED copies/mL [facility] [employer] [facility], HIV 1 RNA, QN PCR NOT DETECTED Log copies/mL [facility], Comment: REFERENCE RANGE: NOT DETECTED copies/mL ?NOT DETECTED ??Log copies/mL This test was performed using Real-Time Polymerase Chain Reaction. Reportable range is 20 to 10,000,000 copies/mL (1.30-7.00 Log copies/mL). 03/27/2022 10:0 4 AM EST 03/27/2022 10:05 AM EST Narrative [facility] - 03/30/2022 12:57 AM EST FASTING:YES FASTING: YES True Michel MD LAB BLOOD ORDERABL ES Final Result [facility] [address], [place] [address] [employer] [facility], [address] [place] [address] * Hepatitis C Antibody with Reflex to HCV, RNA, Quantitative, Real-Time PCR (03/27/2022 10:04 AM EST) Hepatitis C Antibody NON-REACT ARIANA NON-REACT ARIANA [facility] Index 0.05 <1.00 [facility] Comment: HCV antibody was non-reactive. There is no laboratory evidence of HCV infection. In most cases, no further action is required. However, if recent HCV exposure is suspected, a test for HCV RNA (test code 15286) is suggested. For additional information please refer to http://education.Rapid [employer]/faq/VQT24v0 (This link is being provided for informational/ educational purposes only.) Blood Venous blood specimen / Unknown 03/27/2022 10:04 AM EST 03/27/2022 10:05 AM EST Narrative [facility] - 03/30/2022 12:57 AM EST FASTING:YES FASTING: YES True Michel MD LAB BLOOD ORDERABL ES Final Result [facility] [address] [facility] [place] [address] [employer] [address] [facility], ([address]) [place] [address] * Hm Colonoscopy (10/03/2019 6:44 AM EDT) Historical Provider HEALTH MAINTENANCE Final Result from Last 3 Months or Most Recently Relevant to Health Maintenance Insurance [employer] [facility] [address] [id number] Care Teams Sales Coach Relationship Specialty Start Date End Date True Mullen MD [address] [place] [phone] PCP - General Internal Medicine 07/27/19
--- OUTSIDE RECORDS SUMMARY | 2024-06-12 13:32 | XMS_ITS | Encounter Summary ---
Author Organization [employer] Address [address] [facility] [place] [address] [place] [address] Care Team Providers Care Harness And Bag Inspector Name Role Phone True Mullen MD Primary Care Prov ider Encounter Details Date Type Department Care Team (Late st Contact Info) Description 04/07/2022 Orders Only [facility] MEDICINE [address] [place] [address] True Mullen MD [address] [place], [place] [phone] Social History Tobacco Use Types Packs/Day Years [...] Info) Description 07/11/2024 8:45 AM EDT Telemedicine [facility] CH[facility] MED & PEDS [address] [place], [place] [phone] True Mullen MD [address] [place], [place] [phone] 09/22/2024 9:00 AM EDT Office Visit [facility] OPTOMETRY [address] [place] [address] Farideh Torres, OD [address] [place] [address] Pending Results Name Type Priority Associated Diagnoses [...] (03/06/2023 11:20 AM EST) Color Urine Yellow [facility] Appearance Urine Clear [facility] PH 6.0 5.0 - 9.0 [facility] Glucose Urine UA Negative Negative mg/dL [facility] Urine Blood Negative Negative [facility] Specific [place] - Urine 1.020 1.005 - 1.025 [facility] Urine Protein Negative Neg-Trace mg/dL [facility] Urine Ketones Negative Negative mg/dL [facility] Nitrite Urine Negative Negative [facility] Leukocyte Esterase Urine Negative Negative [facility] 03/06/2023 11:2 0 AM EST 03/06/2023 12:45 PM EST Narrative [facility] - 03/06/2023 12:56 PM EST Urine, Clean Catch us Generic External Data Provider LAB URINE ORDERAB LES Final Result Performing Organization Address [facility] Co de Phone Number [facility] [address] [place] [phone] * PSA, Total With Reflex to PSA, Free (02/28/2023 7:25 AM EST) PSA,Total (Free>4and<10) 2.85 0.00 - 4.00 ng/mL [facility] Comment:A Free PSA was not [...] ORDERAB LES Final Result Performing Organization Address City/[facility]/ZIP Co de Phone Number [facility] [address] [place] [phone] * Immuno #1 (08/24/2022 8:18 AM EDT) 08/24/2022 8:18 AM EDT 08/24/2022 9:40 AM EDT Narrative [facility] - 09/13/2023 5:26 PM EDT ----- ------- Name: Krish Jones ? Age/Sex: 52/M ? : 1970 Unit#: [id number] ?? Attend Dr: Severiano Monotya MD ?Re08/24/22 ?Status: DEP REF ? Location: HO.MS ? Disch: ? ----- ------- SPEC : [id number] ? RECD: 08/24/22 ? STATUS: ??SOUT ? REQ NUM: [id number] ? MOHIT: 08/24/22-18 ? SUBM DR: Severiano Montoya MD ? ENTERED: ??08/24/22-1005 ?SP TYPE: Surgical ? OTHR DR: True Mullen MD ORDERED: ??IHC, Multiplex IHC, CD34, PIN4, Prostate biopsy/12 ? COMMENTS: Fernando Talita sent to [employer] on 08/13/23. ?Addendum Addendum ??2 ?Entered: 09/13/23-1724 (L): Prolaris test result summary: Prolaris molecular [...] scanned report (camera icon).? Test performed at [facility] [address] [place] [address]? [phone]? fax [phone]? Addendum Signed (signature on file) Alisson Juan 09/13/23 348 ? ----- ------- Addendum ??1 ?Entered: 09/04/22-915 (L): ??Lymphovascular invasion in not identified on the CD34 stained slide. ?? Control stains appropriately. Addendum Signed (signature on file) Alisson Juan 09/04/22916 ? ----- ------- ? CONTINUED ON NEXT PAGE ----- ------- Name: Krish Jones ? Age/Sex: 52/M ? : 1970 Unit#: [id number] ?? Attend Dr: Severiano Montoya MD ?Re08/24/22 ?Status: DEP REF ? Location: HO.MS ? Disch: ? ----- ------- SPEC : [id number] ? RECD: 08/24/22 ? STATUS: ??SOUT ? REQ NUM: [id number] ? MOHIT: 08/24/22 ? SUBM DR: Severiano Montoya MD ? ENTERED: ??08/24/22 ?SP TYPE: Surgical ? OTHR DR: True Mullen MD ORDERED: ??IHC, Multiplex IHC, CD34, PIN4, Prostate biopsy/12 ? COMMENTS: Block L sent to [employer] on 08/13/23. ? Diagnosis ?? Prostate, needle [...] ? Age/Sex: 52/M ? : 1970 Unit#: [id number] ?? Attend Dr: Severiano Montoya MD ?Re08/24/22 ?Status: DEP REF ? Location: HO.MS ? Disch: ? ----- ------- SPEC : [id number] ? RECD: 08/24/22 ? STATUS: ??SOUT ? REQ NUM: [id number] ? MOHIT: 08/24/22 ? SUBM DR: Severiano Montoya MD ? ENTERED: ??08/24/22-1004 ?SP TYPE: Surgical ? OTHR DR: True Mullen MD ORDERED: ??IHC, Multiplex IHC, CD34, PIN4, Prostate biopsy/12 ? COMMENTS: Block L sent to [employer] on 08/13/23. ? Diagnosis ?(Continued) ?? Seminal [...] ? Age/Sex: 52/M ? : 1970 Unit#: [id number] ?? Attend Dr: Severiano Montoya MD ?Re08/24/22 ?Status: DEP REF ? Location: HO.MS ? Disch: ? ----- ------- SPEC : [id number] ? RECD: 08/24/22 ? STATUS: ??SOUT ? REQ NUM: [id number] ? MOHIT: 08/24/22 ? SUBM DR: Severiano Montoya MD ? ENTERED: ??08/24/22-1004 ?SP TYPE: Surgical ? OTHR DR: True Mullen MD ORDERED: ??IHC, Multiplex IHC, CD34, PIN4, Prostate biopsy/12 ? COMMENTS: Block L sent to [employer] on 08/13/23. ? Gross Description ?(Continued) Part [...] ? Age/Sex: 52/M ? : 1970 Unit#: [id number] ?? Attend Dr: Severiano Montoya MD ?Re08/24/22 ?Status: DEP REF ? Location: HO.MS ? Disch: ? ----- ------- SPEC : [id number] ? RECD: 08/24/22 ? STATUS: ??SOUT ? REQ NUM: [id number] ? MOHIT: 08/24/22-817 ? SUBM DR: Severiano Montoya MD ? ENTERED: ??08/24/22-1005 ?SP TYPE: Surgical ? OTHR DR: True Mullen MD ORDERED: ??IHC, Multiplex IHC, CD34, PIN4, Prostate biopsy/12 ? COMMENTS: Block L sent to [employer] on 08/13/23. ? Gross Description ?(Continued) of [...] Copies To: ?? Severiano Montoya MD ?? [facility] ?? [address] ?? [place] [address] ?? [phone] ?? True Mullen MD ?? [facility] ?? [address] [place] [address] Street ?? [place] [address] ?? [phone] ----- ------- Signed (signature on file) Alisson Juan 08/31/22 1551 ? ----- ------- ? END OF REPORT ? us Generic External Data Provider LAB CYTOLOGY AAKASHE FELIZ Final Result Performing Organization Address City/State/[facility] Co de Phone Number [facility] [address] [place] [phone] * Immuno #1 (08/24/2022 8:18 AM EDT) 08/24/2022 8:18 AM EDT 08/24/2022 9:40 AM EDT Narrative [facility] - 09/04/2022 9:17 AM EDT ----- ------- Name: Krish Jones ? Age/Sex: 52/M ? : 1970 Unit#: [id number] ?? Attend Dr: Severiano Montoya MD ?Re08/24/22 ?Status: DEP REF ? Location: HO.MS ? Disch: ? ----- ------- SPEC : [id number] ? RECD: 08/24/22 ? STATUS: ??SOUT ? REQ NUM: [id number] ? MOHIT: 08/24/22 ? SUBM DR: Severiano [...] ? Age/Sex: 52/M ? : 1970 Unit#: [id number] ?? Attend Dr: Severiano Montoya MD ?Re08/24/22 ?Status: DEP REF ? Location: HO.MS ? Disch: ? ----- ------- SPEC : [id number] ? RECD: 08/24/22-939 ? STATUS: ??SOUT ? REQ NUM: [id number] ? MOHIT: 08/24/22-817 ? SUBM DR: Severiano Montoya MD ? ENTERED: ??08/24/22-1004 ?SP TYPE: Surgical ? OTHR DR: True Mullen MD ORDERED: ??IHC, Multiplex IHC, CD34, PIN4, Prostate biopsy/12 ? Diagnosis ?(Continued) ? 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 Histologic grade: ? [place] score: ?7 (3+4) (right apex medial) ? [...] ? Age/Sex: 52/M ? : 1970 Unit#: [id number] ?? Attend Dr: Severiano Montoya MD ?Re08/24/22 ?Status: DEP REF ? Location: HO.MS ? Disch: ? ----- ------- SPEC : [id number] ? RECD: 08/24/22-939 ? STATUS: ??SOUT ? REQ NUM: [id number] ? MOHIT: 08/24/22-817 ? SUBM DR: Severiano [...] ? Age/Sex: 52/M ? : 1970 Unit#: [id number] ?? Attend Dr: Severiano Montoya MD ?Re08/24/22 ?Status: DEP REF ? Location: HO.MS ? Disch: ? ----- ------- SPEC : [id number] ? RECD: 08/24/22 ? STATUS: ??SOUT ? REQ NUM: [id number] ? MOHIT: 08/24/22-0818 ? SUBM DR: Severiano [...] Copies To: ?? Severiano Montoya MD ?? [address] [place] [address] [address] ?? [place] [address] ?? [phone] ?? True Mullen MD ?? [address] ?? [place] [address] ?? [phone] ----- ------- Signed (signature on file) Alisson [place] 08/31/22 1551 ? ----- ------- ? END OF REPORT ? [facility] External Provider LAB CYT OLOGY ORDERABLES Final Result Performing Organization Address [facility] Co de Phone Number [facility] [address] [place] [phone] * TSH (08/12/2022 7:38 AM EDT) Thyroid Stimulating Hormone 3.37 0.32 - 4.0 uIU/mL [facility] Comment:Note: A sustained TS H level above 2.5 uIU/mL may warrant further investigation. TSH 3rd Generation ([facility]) 08/12/2022 7:38 AM EDT 08/12/2022 7:38 AM EDT [facility] External Provider LAB BLO OD ORDERABLES Final Result Performing Organization Address City/[facility]/ZIP Co de Phone Number [facility] [address] [place] [address] [phone] * Testosterone, Free (Dialysis) And Total, MS (06/10/2022 8:38 AM EDT) Testosterone, Total 456 250 - 1100 ng/dL [facility] Comment:For additional infor ortega, please refer tohttp://education.[employer]/faq/OxiqtIbizwwbjhgotWRWEOCVGM942(This link is being provided for informational/educational purposes only.)This test was developed and its analytical performancecharacteristics have been determined by [employer] [facility], [place]. It hasnot been cleared or approved by the U.S. Food and DrugAdministration. This assay has been validated pursuantto the CLIA regulations and is used for clinicalpurposes. Testosterone, Free 70.2 35.0 - 155.0 pg/mL [facility] Comment:This test was develo ped and its analytical performancecharacteristics have been determined by [employer] [place]. It hasnot been cleared or approved by the U.S. Food and DrugAdministration. This assay has been validated pursuantto the CLIA regulations and is used for clinicalpurposes.THIS TEST WAS PERFORMED AT:[employer] [place] [address]LVJWKIKTRAMAINE BETH MD,PHD 06/10/2022 8:38 AM EDT 06/10/2022 8:38 AM EDT us [facility] External Provider LAB BLO OD ORDERABLES Final Result [facility] [address] [place] [phone] * (ABNORMAL) PSA,Total (06/10/2022 8:38 AM EDT) Prostate Specific Antigen 4.14(H) <0.05 - 4.0 ng/mL [facility] Comment:PSA methodology: Abb sedrick Gomes i ChemiluminescentMicroparticle Immunoassay (CMIA) 06/10/2022 8:38 AM EDT 06/10/2022 8:38 AM EDT us [facility] External Provider LAB BLO OD ORDERABLES Final Result Performing Organization Address City/State/[facility] Co de Phone Number [facility] [address] [place] [phone] documented in this encounter Visit Diagnoses Not on filedocumented in this encounter Care Teams Harness And Bag Inspector Relationship Specialty Start Date End Date True Mullen MD [address] [place] [phone] PCP - General Internal Medicine 07/27/19 documented as of this encounter
== END 2024-06-12 11:45 | disposition home or self-care (01) ==
LOC: HO.HUSH 11:02
PROVIDERS: PCP Internal Medicine; Visit Provider Urology
DX: N40.0 Benign prostatic hyperplasia without lower urinary tract symptoms (principal); N52.9 Male erectile dysfunction, unspecified; C61 Malignant neoplasm of prostate; Z13.9 Encounter for screening, unspecified
CPT/HCPCS: 99213

== ENCOUNTER → 2024-06-12 11:01 | Outpatient (BNVA) | payer OTHER, SELFPAY | PROVIDERS: PCP Internal Medicine; Visit Provider Urology | DX: C61 Malignant neoplasm of prostate (principal); N40.0 Benign prostatic hyperplasia without lower urinary tract symptoms; N52.9 Male erectile dysfunction, unspecified | CPT/HCPCS: 81003 ==

== ENCOUNTER 2024-09-13 06:01 | Inpatient (IN) | payer OTHER, SELFPAY ==
[2024-09-13] VITALS (11 sets, daily range): BP systolic 120–210; BP diastolic 70–107; PULSE 69–86; RESP 16–22; TEMP 36.1–36.8; O2SAT 94–98; BMI 27.2; BMI 28.0
--- NOTE | 2024-09-13 | ECG_ITS ---
Test Reason : EPIGASTRIC PAIN Blood Pressure : */* mmHG Vent. Rate : 75 BPM Atrial Rate : 75 BPM P-R Int : 144 ms QRS Dur : 86 ms QT Int : 384 ms P-R-T Axes : 40 -27 16 degrees QTcB Int : 428 ms Normal sinus rhythm Normal ECG When compared with ECG of 11-Sep-2023 09:01, Nonspecific T wave abnormality no longer evident in Lateral leads Referred By: Generic ED Physician Electronically Signed By: SRIDHAR DICKERSON
--- NOTE | ~2024-09-13 | CT_ITS ---
CLINICAL HISTORY: abd pain, nausea, vomiting CT abdomen and pelvis with contrast Comparison: None provided Findings: CT abdomen: No focal areas of consolidation within the lung bases. Likely mild atelectasis. No lytic or blastic bony lesions. Low-attenuation throughout the liver is indicative of fatty infiltration. Scattered areas of low attenuation within the superior liver all measure less than 6 mm in size. These are too small to characterize but are likely cysts or hemangiomas. Hepatic veins and portal vein are patent. Spleen, pancreas, gallbladder, adrenal glands, and kidneys are unremarkable for acute findings. Small hiatal hernia. Small bowel loops are of normal caliber. No free fluid or free air. CT pelvis: The appendix is abnormal. The appendix arises from the posterior aspect of the cecum and extends posteriorly and inferiorly to reside just anterior to the right psoas muscle. Numerous linear hyperdensities are seen within the lumen of the appendix indicative of numerous appendicoliths. There is fluid distention of the appendix measuring up to 15 mm. Also wall thickening of the appendix with periappendiceal inflammatory stranding. No free air or focal fluid collections identified. No colonic wall thickening is otherwise seen. IMPRESSION: Acute appendicitis as above. Surgical consultation suggested. This document has been electronically signed by: Tulio Mary MD on 09/13/2024 09:52:50
[2024-09-13 06:29] LABS: Hematocrit 49.3 % (42.0-52.0); Hemoglobin 17.3 g/dl (14.0-18.0); Imm Gran Abs Auto 0.11 X10*3/uL (0.00-0.03); Imm Gran Pct Auto 0.8 % (0.0-0.4); Lymphocytes Absolute Auto 1.0 X10*3/uL (1.2-4.9); MANUAL DIFF FLAG NO; Mean Corpuscular HGB Conc 35.1 g/dl (31.0-36.0); Mean Corpuscular Hemoglobin 31.2 pg (27.0-33.0); Mean Corpuscular Volume 88.8 fL (80.0-98.0); NRBC Abs Auto 0.000 X10*3/uL (0.0-0.012); NRBC Pct Auto 0.0 /100WBC (0.0-0.2); Platelet Count 183 X10*3/uL (160-400); Red Blood Count 5.55 X10*6/uL (4.60-5.80); White Blood Count 14.6 X10*3/uL (4.8-10.8)
--- OUTSIDE RECORDS SUMMARY | 2024-09-13 06:39 | XMS_ITS | Clinical Summary ---
Author Organization [address] [facility] Address [address] [place] [address] Phone Care Team Providers Care Shade Maker Name Role Phone Unavailable Primary Care Provider [...] Vaccines (1 of 2) 01/10/2018 COVID-19 Vaccine ( - 2023-2 5 season) 2023 Cholesterol Screening (Lipid Panel) 12/06/2023 Colorectal Cancer Screening: Colonoscopy 12/06/2023 Depression Screening 12/06/2023 HIV Screening 12/06/2023 Hepatitis C Screening 12/06/2023 Social Influencers of Health Screening 12/06/2023 Influenza Vaccine (#1) 2024 HIB Vaccines Aged Out No longer [...] Documents on File Type Date Recorded 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
[2024-09-13 06:46] LABS: Alanine Aminotransferase 63 U/L (0-40); Albumin Level 4.8 g/dL (3.5-5.0); Alkaline Phosphatase 92 U/L (39-117); Anion Gap 13 (12-20); Aspartate Amino Transferase 40 U/L (5-37); Blood Urea Nitrogen 17 mg/dL (9-16); Calcium 9.1 mg/dL (8.4-10.2); Carbon Dioxide 22 mmol/L (22-29); Chloride 106 mmol/L (96-108); Creatinine Clr Calc Pharmacy 86.9; Estimated Glomerular Filt Rate > 60; Lipase 16 U/L (8-78); Potassium 3.8 mmol/L (3.3-5.1); Sodium 137 mmol/L (135-145); Total Protein 8.1 g/dL (6.5-8.0)
--- NOTE | 2024-09-13 08:09 | ED_ITS ---
HPI - General Adult General Chief complaint: Nausea/Vomiting/Diarrhea Stated complaint: abd pain, vomiting Time Seen by Provider: 09/13/24 08:08 Source: patient, family (patient's ) and conference services coordinator (all interactions with this patient were facilitated with an [facility] electronic scanner operator) Mode of arrival: ambulatory Limitations: language barrier (all interactions with this patient were facilitated with an [facility] electronic scanner operator) History of Present Illness ED Provider: Janis Clark PA-C HPI narrative: Patient is a 54 year old assigned male at with a history of HTN on Losartan 100mg, BH, and recent TIA vs. CVA not on any anti-coagulants presenting to the emergency department today with abdominal pain, nausea, and vomiting. Patient states that he began having middle abdominal pain last night and has vomited at least 15 times since it started. Patient states that he had a normal bowel movement yesterday. Patient denies any dizziness, lightheadedness, fever, chills, blurry vision, double vision, loss of vision, chest pain, difficulty breathing, shortness of breath, back pain, night sweats, pain with urination, increased urinary frequency, increased urinary urgency, blood in his urine or stool, syncope or a near syncopal episode, recent trauma or falls, bowel incontinence, bladder incontinence, or any other complaints at this time. Relieving factors: none Exacerbating factors: none Associated symptoms: nausea/vomiting Treatments prior to arrival: none Related Data Home Medications ?Medication ?Instructions ?Recorded ?Confirmed docusate sodium 100 mg capsule 100 mg PO BID 10/25/23 10/25/23 escitalopram oxalate 5 mg tablet 5 mg PO DAILY 4 10/25/23 losartan 50 mg tablet 50 mg PO DAILY 10/25/2309/27 melatonin 3 mg tablet 3 mg PO BEDTIME 10/25/23 Previous Rx's ?Medication ?Instructions ?Recorded finasteride 5 mg tablet 5 mg PO DAILY 90 days #90 ta bs 05/21/23 aspirin 81 mg chewable tablet 81 mg PO DAILY #30 tabs 09/14/23 atorvastatin 40 mg tablet 40 mg PO DAILY #30 tabs 08/26 11/19 clopidogrel 75 mg tablet 75 mg PO DAILY #30 tabs 08/26 11/19 losartan 25 mg tablet 25 mg PO DAILY #30 tabs 08/26 11/19 Allergies Allergy/AdvReac Type Severity Reaction Status Date / Time No Known Allergies (No Known Allergy Verified 09/13/24 06:18 Allergies*) Review of Systems 2 Constitutional: Constitutional: Reports no additional constitutional complaints, Denies chills, Denies fever(s) and Denies night sweats Eyes: Eyes: Reports no additional eye complaints, Denies blurry vision, Denies change in vision, Denies diplopia, Denies eye discharge, Denies loss of vision and Denies eye pain ENT: Denies dizziness Cardiovascular: Cardiovascular: Reports no additional cardiovascular complaints, Denies chest pain, Denies lightheadedness, Denies Loss of Consciousness and Denies dyspnea Respiratory: Respiratory: Reports no additional respiratory complaints and Denies dyspnea Gastrointestinal: Gastrointestinal: Reports no additional gastrointestinal complaints, Reports abdominal pain, Denies melena, Denies hematochezia, Denies change in bowel habits, Denies change in stool character, Reports nausea and Reports vomiting Genitourinary: Genitourinary: Reports no additional male genitourinary complaints, Denies hematuria, Denies oliguria, Denies difficulty urinating, Denies dysuria, Denies urinary frequency, Denies urinary hesitancy, Denies urinary incontinence and Denies urinary urgency Musculoskeletal: Musculoskeletal: Reports no additional musculoskeletal complaints, Denies numbness and Denies tingling Neurologic: Denies dizziness, Denies loss of vision, Denies numbness and Denies tingling Psychiatric: Psychiatric: Reports no additional psychiatric complaints Endocrine: Endocrine: Reports no additional endocrine complaints Hematologic/Lymphatic: Hematologic/Lymphatic: Reports no additional hematologic/lymphatic complaints Allergic/Immunologic: Allergic/Immunologic: Reports no additional allergic/immunologic complaints [facility] Past Medical History Attestation statement: The following information was validated with the patient. Source: old records reviewed and nursing notes reviewed Medical History History of BPH Hyperlipidemia Benign essential HTN Family History Family History Mother Breast cancer Social History Social History Household Members: Spouse Housing: Apartment Do you presently have visiting nurse or other home services: No Alcohol intake: never Comment: at bedside Patient Tobacco Use Status: Never used Tobacco Smoked in Last 30 Days: No Use of substances other than those prescribed or required for medical reasons: No Advance Directives: Yes Advance Directives on File: Yes Advance Directives Date on File: 09/12/23 Do you have a plan to hurt others: No Plan service: No Physical Exam ED Vital Signs: Vital Signs - 24 hr 09/13/24 06:14 09/13/24 08:46 09/13/24 09:34 Temperature 98.3 F 97.6 F Pulse Rate 80 81 Respiratory Rate 20 16 Blood Pressure 196/107 H 210/106 H 186/106 H Pulse Oximetry 98 97 Oxygen Delivery Method Room Air Room Air BMI result Body Mass Index 27.2 Const General: cooperative, no acute distress, alert and awake Nutritional Appearance: well nourished Orientation/consciousness: patient oriented x3 HENMT Head: Yes normal to inspection and Yes atraumatic Ears: hearing grossly normal bilaterally and external ears normal General nose exam: Normal external nose present, no nasal discharge noted and no epistaxis Face and sinus: Yes normal facial exam, No abrasion and No laceration Mouth: Normal oral and palatal mucosa present, no drooling and no muffled voice Eyes General: appearance normal, both eyes and all related structures Periorbital: periorbital findings normal Eyelids: Yes eyelids normal Conjunctivae: conjunctivae normal Pupils: Equal, round and reactive pupils present EOM: EOMs intact bilaterally Neck Neck: Yes normal visual inspection, Yes full ROM and Yes no lymphadenopathy Resp Effort & Inspection: normal respiratory effort and able to speak in complete sentences GI Palpation (GI): Soft to palpation, not firm, Tenderness to palpation present (GI), no guarding and not rigid Neuro General: patient oriented x3, moves all extremities and CN's II-XI intact bilaterally Cranial nerves: Yes Equal, round and reactive pupils present Cognition (Neuro): normal cognition Extrem General: Yes normal to inspection, Yes full ROM and Yes capillary refill normal Psych Appearance: grossly normal Mental Status: mental status grossly normal Affect: normal affect Attitude: cooperative Thought process: Normal thought process present Thought content: Normal thought content present Insight: Good insight present (Psych) Medications Administered Discontinued Medications Generic Name Dose Route Start Last Admin Trade Name Freq PRN Reason Stop Dose Admin Sodium Chloride 1,000 mls @ 999 mls/hr 09/13/24 06:45 09/13/24 07:45 Ns IV 09/13/24 07:45 Infused .Q1H1M RICHA Infusion Sodium Chloride 1,000 mls @ 999 mls/hr 09/13/24 08:15 09/13/24 08:46 Ns IV 09/13/24 09:15 999 mls/hr .Q1H1M RICHA Administration Sodium Chloride 1,000 mls @ 999 mls/hr 09/13/24 08:30 09/13/24 09:35 Ns IV 09/13/24 09:30 999 mls/hr .Q1H1M RICHA Administration Iohexol 100 ml 09/13/24 09:24 09/13/24 09:24 Iohexol 350 Mg/Ml 100 Ml Infus..Btl IV 09/13/24 09:25 85 ml ONCE ONE Administration Losartan Potassium 100 mg 09/13/24 08:27 09/13/24 08:46 Losartan Potassium 50 Mg Tablet PO 09/13/24 08:28 100 mg ONCE ONE Administration Protocol Metoclopramide HCl 10 mg 09/13/24 08:27 09/13/24 08:46 Metoclopramide Hcl 10 Mg/2 Ml Vial IVPUSH 09/13/24 08:28 10 mg ONCE ONE Administration Morphine Sulfate 4 mg 09/13/24 08:10 09/13/24 08:46 Morphine Sulfate 4 Mg/Ml Cartridge IVPUSH 09/13/24 08:11 4 mg ONCE ONE Administration Protocol Ondansetron HCl 4 mg 09/13/24 06:34 09/13/24 06:39 Ondansetron Hcl 4 Mg/2 Ml Vial IVPUSH 09/13/24 06:35 4 mg ONCE ONE Administration Medical Decision Making Medical Decision Making [facility] Narrative: Patient is a 54 year old assigned male at with a history of HTN on Losartan 100mg, BH, and recent TIA vs. CVA not on any anti-coagulants presenting to the emergency department today with abdominal pain, nausea, and vomiting. Patient's physical exam showed a diffusely tender abdomen. Patient's blood work showed a WBC count of 14.6. Patient's EKG was unremarkable. Patient's CT abd/pelvis showed an acute appendicitis. Patient's last oral intake was 09/12/2024 at 2200. I spoke with the general surgeon precision inspector, Dr. Reynolds who recommended taking the patient to the operating room. I explained my physical exam findings as well as all test results to the patient and the patient's . I answered all questions asked by the patient and the patient's . Patient received IV fluids, zofran, and morphine which, upon re-evaluation, he stated it helped his pain some. Patient was hypertensive and had not taken his 100mg Losartan this morning - was given his dose here in the department. Patient and the patient's verbalized agreement and understanding with this treatment plan and surgical intervention. Differential Diagnosis Differential Diagnoses: The differential diagnosis associated with the presentation includes Abdominal pain HTN Acute appendicitis Admission/Observation Consideration of admission/observation: Escalation of care including admission/observation considered Patient is going to the operating room with Dr. Reynolds for intervention of his appendcitis. Consult Healthcare Provider Management of the patient was discussed with: Program Strategist (spoke with the general surgeon as noted in the MDM Rationale portion of this note. ) Lab Data [facility] Lab Attestation statement: I reviewed the patient's lab results. My interpretation of these results are in the MDM Rationale portion of this note. 09/13/24 06:24 09/13/24 06:24 Labs: Lab Results 09/13/24 Range/Units 06:24 WBC 14.6 H (4.8-10.8) X10*3/uL RBC 5.55 (4.60-5.80) X10*6/uL Hgb 17.3 (14.0-18.0) g/dl Hct 49.3 (42.0-52.0) % MCV 88.8 (80.0-98.0) fL MCH 31.2 (27.0-33.0) pg MCHC 35.1 (31.0-36.0) g/dl RDW 12.3 (11.0-16.0) % Plt Count 183 (160-400) X10*3/uL MPV 9.1 L (9.4-12.4) fL Immature Gran % (Auto) 0.8 H (0.0-0.4) % Neut % (Auto) 85.8 H (45-73) % Lymph % (Auto) 7.1 L (20-40) % Dillon % (Auto) 5.7 (2-11) % Eos % (Auto) 0.1 (0-4) % Baso % (Auto) 0.5 (0-2) % Lymph # (Auto) 1.0 L (1.2-4.9) X10*3/uL Dillon # (Auto) 0.8 (0.1-1.2) X10*3/uL Eos # (Auto) 0.0 (0.0-0.4) X10*3/uL Baso # (Auto) 0.1 (0.0-0.2) X10*3/uL Abs Immat Gran (auto) 0.11 H (0.00-0.03) X10*3/uL Absolute Neuts (auto) 12.6 H (2.0-8.3) x10*3/uL Absolute Nucleated RBC 0.000 (0.0-0.012) X10*3/uL Nucleated RBC % (auto) 0.0 (0.0-0.2) /100WBC Sodium 137 (135-145) mmol/L Potassium 3.8 (3.3-5.1) mmol/L Chloride 106 (96-108) mmol/L Carbon Dioxide 22 (22-29) mmol/L Anion Gap 13 (12-20) BUN 17 H (9-16) mg/dL Creatinine 1.01 (0.5-1.4) mg/dL Estim Creat Clear Calc 86.9 Estimated GFR > 60 Random Glucose 141 H (60-115) mg/dL Calcium 9.1 (8.4-10.2) mg/dL Total Bilirubin 0.7 (0.0-1.0) mg/dL Direct Bilirubin 0.2 (0.0-0.5) mg/dL AST 40 H (5-37) U/L ALT 63 H (0-40) U/L Alkaline Phosphatase 92 (39-117) U/L Total Protein 8.1 H (6.5-8.0) g/dL Albumin 4.8 (3.5-5.0) g/dL Lipase 16 (8-78) U/L Independent Interpretation I performed an independent interpretation of an: EKG and CT Scan Interpretation: My interpretation is in agreement with the radiologist's impression of this imaging study. L CLINICAL HISTORY: abd pain, nausea, vomiting CT abdomen and pelvis with contrast Comparison: None provided Findings: CT abdomen: No focal areas of consolidation within the lung bases. Likely mild atelectasis. No lytic or blastic bony lesions. Low-attenuation throughout the liver is indicative of fatty infiltration. Scattered areas of low attenuation within the superior liver all measure less than 6 mm in size. These are too small to characterize but are likely cysts or hemangiomas. Hepatic veins and portal vein are patent. Spleen, pancreas, gallbladder, adrenal glands, and kidneys are unremarkable for acute findings. Small hiatal hernia. Small bowel loops are of normal caliber. No free fluid or free air. CT pelvis: The appendix is abnormal. The appendix arises from the posterior aspect of the cecum and extends posteriorly and inferiorly to reside just anterior to the right psoas muscle. Numerous linear hyperdensities are seen within the lumen of the appendix indicative of numerous appendicoliths. There is fluid distention of the appendix measuring up to 15 mm. Also wall thickening of the appendix with periappendiceal inflammatory stranding. No free air or focal fluid collections identified. No colonic wall thickening is otherwise seen. IMPRESSION: Acute appendicitis as above. Surgical consultation suggested. This document has been electronically signed by: Tulio Mary MD on 09/13/2024 09:52:50 Dictated By: Tulio Mary MD Signed By: Electronically signed by Tulio Mary MD 09/13/24 0954 I independently interpreted this EKG and am in agreement with the below findings: Vent. Rate: 75 BPM Atrial Rate: 75 BPM P-R Int: 144 ms QRS Dur: 86 ms QT Int: 384 ms P-R-T Axes: 40 -27 16 degrees QTcB Int: 428 ms Normal sinus rhythm Normal ECG When compared with ECG of 11-Sep-2023 09:01, Nonspecific T wave abnormality no longer evident in Lateral leads DD/ [id number] Radiology Impression Discussion of test interpretation with radiology: I have reviewed the radiologist's reading. Independent Historian Clinical information obtained from an independent historian. History obtained from or confirmed by: Spouse (patient's provided additional history and confirmed the history provided by the patient) External Record Review External record reviewed: Inpatient record Chronic Conditions Patient?s care impacted by: Hypertension Critical Care Time Critical Care Time Critical Care Time: Yes Total Critical Care Time: 47 Attestation: I spent 47 minutes of Critical Care Time with this patient. This does not include time spent on separately reported billable procedures. Discharge Plan Discharge Clinical Impression: Acute appendicitis, Hypertension Patient Disposition: Xfer Other Transfer Details: To the Operating Room with Dr. Reynolds Prescriptions: No Action atorvastatin 40 mg Tablet 40 mg PO DAILY Qty: 30 0RF clopidogrel 75 mg Tablet 75 mg PO DAILY Qty: 30 0RF aspirin 81 mg Tablet,Chewable 81 mg PO DAILY Qty: 30 0RF losartan 25 mg tablet 25 mg PO DAILY Qty: 30 0RF finasteride 5 mg tablet 5 mg PO DAILY 90 Days Qty: 90 3RF losartan 50 mg tablet 50 mg PO DAILY escitalopram oxalate 5 mg tablet 5 mg PO DAILY docusate sodium 100 mg capsule 100 mg PO BID melatonin 3 mg tablet 3 mg PO BEDTIME Print Language: Hungarian
[2024-09-13] MEDS: iohexoL 350 MG/ML 100 ML INFUS..BTL IV (09:24)
--- NOTE | 2024-09-13 09:47 | PC.NURSE ---
awaiting CT scan results at this time, patient appears more comfortable at this time, fluids remain infusing. call jones within reach
--- NOTE | 2024-09-13 10:20 | PM.HPGS ---
History of Present Illness History of Present Illness Date of Service: 09/13/24 Chief complaint: abd pain, vomiting Narrative: Krish Schaefer is a 54 year old male presenting with a history of TIA vs CVA, HTN with complaints of abdominal pain, nausea and vomiting x 15 times. The pain began yesterday evening and was located mainly in the periumbilical region but now is felt mostly in the right lower quadrant. He presented to the ED and was noted to have diffuse abdominal pain. WBC elevated to 14. CT abdomen and pelvis significant for an enlarged appendix with multiple fecaliths. He denies any previous abdominal surgeries. He is admitted to the surgical service for management of acute appendicitis. Review of Systems Review of Systems: Yes all other systems are reviewed and are negative Constitutional: Constitutional: Denies chills, Denies fever(s), Denies headache(s), Reports poor appetite and Denies weakness ENT: Denies headache(s) Cardiovascular: Cardiovascular: Denies chest pain, Denies irregular heart rhythm, Denies palpitations and Denies dyspnea Respiratory: Respiratory: Denies cough, Denies excessive phlegm production and Denies dyspnea Gastrointestinal: Gastrointestinal: Reports abdominal pain, Denies bloating, Denies change in bowel habits, Denies constipation, Denies heartburn, Denies diarrhea, Denies nausea and Reports vomiting Genitourinary: Genitourinary: Denies difficulty urinating and Denies urinary frequency Musculoskeletal: Musculoskeletal: Denies back pain, Denies muscle weakness and Denies numbness Integumentary/Breasts: Skin/Breast: Denies changing lesions and Denies unusual bruising Neurologic: Denies headache(s), Denies numbness, Denies paresthesias and Denies weakness Psychiatric: Psychiatric: Denies anxiety and Denies depression Endocrine: Endocrine: Denies palpitations Hematologic/Lymphatic: Hematologic/Lymphatic: Denies lymphadenopathy PMFSH Past Medical History Medical History History of BPH Hyperlipidemia Benign essential HTN Family History Family History Mother Breast cancer Social History Social History Household Members: Spouse Housing: Apartment Do you presently have visiting nurse or other home services: No Alcohol intake: never Comment: at bedside Patient Tobacco Use Status: Never used Tobacco Smoked in Last 30 Days: No Use of substances other than those prescribed or required for medical reasons: No Advance Directives: Yes Advance Directives on File: Yes Advance Directives Date on File: 09/12/23 Do you have a plan to hurt others: No Plan service: No Meds Allergies Allergy/AdvReac Type Severity Reaction Status Date / Time No Known Allergies (No Known Allergy Verified 09/13/24 06:18 Allergies*) Home Medications ?Medication ?Instructions ?Recorded ?Confirmed ?Last Taken ?Type docusate sodium 100 mg capsule 100 mg PO BID 10/25/23 10/25/23 Unknown History escitalopram oxalate 5 mg tablet 5 mg PO DAILY 10/25/23 10/25/23 Unknown History losartan 50 mg tablet 50 mg PO DAILY 10/25/23 10/25/23 Unknown History melatonin 3 mg tablet 3 mg PO BEDTIME 10/25/23 10/25/23 Unknown History Physical Exam Vital Signs: Vital Signs: Last Vital Signs Temp 97.6 F 09/13/24 09:34 Pulse 81 09/13/24 09:34 Resp 16 09/13/24 09:34 BP 186/106 H 09/13/24 09:34 Pulse Ox 97 09/13/24 09:34 O2 Del Method Room Air 09/13/24 09:34 BMI result Body Mass Index 27.2 Const: General: cooperative and no acute distress Nutritional Appearance: well nourished Orientation/consciousness: patient oriented x3 Limitations: no limitations HEENT: Head: Yes normocephalic and Yes atraumatic Ears: hearing grossly normal bilaterally Resp: Effort & Inspection: normal respiratory effort, no audible wheezes, no cough and no respiratory distress Cardio: Jugular venous distension: no JVD GI: Inspection: Yes normal to inspection Palpation (GI): Soft to palpation, Tenderness to palpation present (GI) in the RLQ and at McBurney's point, no guarding and not rigid Percussion: Yes normal to percussion Auscultation: normal bowel sounds Rectal Exam - Male: Yes deferred Skin: Other: Warm, dry, no rash Neuro: General: patient oriented x3 Extrem: General: Yes no clubbing, cyanosis or edema Results Results Labs: Short CBC 09/13/24 Range/Units 06:24 WBC 14.6 H (4.8-10.8) X10*3/uL Hgb 17.3 (14.0-18.0) g/dl Hct 49.3 (42.0-52.0) % Plt Count 183 (160-400) X10*3/uL BMP 09/13/24 06:24 Sodium 137 Potassium 3.8 Chloride 106 Carbon Dioxide 22 BUN 17 H Creatinine 1.01 Calcium 9.1 Liver Function 09/13/24 Range/Units 06:24 Total Bilirubin 0.7 (0.0-1.0) mg/dL Direct Bilirubin 0.2 (0.0-0.5) mg/dL AST 40 H (5-37) U/L ALT 63 H (0-40) U/L Alkaline Phosphatase 92 (39-117) U/L Albumin 4.8 (3.5-5.0) g/dL Abdomen CT scan report/results: image reviewed CT scan - pelvis: image reviewed Assessment and Plan (1) Acute appendicitis: Qualifiers: Acute appendicitis type: unspecified acute appendicitis type Qualified Code(s): K35.80 - Unspecified acute appendicitis Status: Acute Plan 54-year-old male patient presenting with a 24 hour history of abdominal pain mainly in the right lower quadrant found on workup to have a dilated and inflamed appendix consistent with acute appendicitis. Examination is consistent with tenderness in the right lower quadrant over McBurney's point also suggestive of acute appendicitis. I recommended a laparoscopic or possible open appendectomy. I reviewed the procedure, risks, and alternatives in detail with the assistance of a medical device sales representative. He consents to a laparoscopic or possible open appendectomy. Quality Stroke Does the patient have a stroke diagnosis?: Yes Reason for No Anti-thrombotic by Day Two: Medication refused VTE Prior VTE?: No VTE Risk Level:: Surgical - moderate VTE Device Contraindication: N/A - Device Ordered VTE Drug Contraindication: Treatment Not Indicated Procedures Date of Service Date of Service: 09/13/24
--- NOTE | 2024-09-13 11:30 | P.CONAN_ITS ---
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) Acute prostatitis (Acute) Dysuria (Acute) Prostate cancer (Acute) Nocturia (Acute) Elevated PSA (Acute) Low libido (Acute) Erectile dysfunction (Acute) BPH (benign prostatic hyperplasia) (Acute) Hypogonadism in male (Acute) COVID-19 (Acute) Past Medical History Medical History History of BPH Hyperlipidemia Benign essential HTN Family History Family History Mother Breast cancer Family history of problems with anesthesia: No Surgical History History of Problems with Anesthesia: No Social History Social History Household Members: Spouse Housing: Apartment Do you presently have visiting nurse or other home services: No Alcohol intake: never Comment: at bedside Patient Tobacco Use Status: Never used Tobacco Smoked in Last 30 Days: No Use of substances other than those prescribed or required for medical reasons: No Advance Directives: Yes Advance Directives on File: Yes Advance Directives Date on File: 09/12/23 Do you have a plan to hurt others: No Plan service: No Meds Allergies Allergy/AdvReac Type Severity Reaction Status Date / Time No Known Allergies (No Known Allergy Verified 09/13/24 06:18 Allergies*) Home Medications ?Medication ?Instructions ?Recorded ?Confirmed ?Last Taken ?Type docusate sodium 100 mg capsule 100 mg PO BID 10/25/23 10/25/23 Unknown History escitalopram oxalate 5 mg tablet 5 mg PO DAILY 4 10/25/23 Unknown History losartan 50 mg tablet 50 mg PO DAILY 10/25/2309/27 Unknown History melatonin 3 mg tablet 3 mg PO BEDTIME 10/25/23 Unknown History Exam Height,Weight and Vital Signs: Height 5 ft 11 in Weight 88.451 kg Last Vital Signs Temp 97.6 F 09/13/24 09:34 Pulse 81 09/13/24 09:34 Resp 16 09/13/24 09:34 BP 186/106 H 09/13/24 09:34 Pulse Ox 97 09/13/24 09:34 O2 Del Method Room Air 09/13/24 09:34 Pertinent Lab Results Pertinent Lab Results: Laboratory Tests 09/13/24 06:24 WBC 14.6 H RBC 5.55 Hgb 17.3 Hct 49.3 MCV 88.8 MCH 31.2 MCHC 35.1 RDW 12.3 Plt Count 183 MPV 9.1 L Immature Gran % (Auto) 0.8 H Neut % (Auto) 85.8 H Lymph % (Auto) 7.1 L [place] % (Auto) 5.7 Eos % (Auto) 0.1 Baso % (Auto) 0.5 Lymph # (Auto) 1.0 L [place] # (Auto) 0.8 Eos # (Auto) 0.0 Baso # (Auto) 0.1 Abs Immat Gran (auto) 0.11 H Absolute Neuts (auto) 12.6 H Absolute Nucleated RBC 0.000 Nucleated RBC % (auto) 0.0 Sodium 137 Potassium 3.8 Chloride 106 Carbon Dioxide 22 Anion Gap 13 BUN 17 H Creatinine 1.01 Estim Creat Clear Calc 86.9 Estimated GFR > 60 Random Glucose 141 H Calcium 9.1 Total Bilirubin 0.7 Direct Bilirubin 0.2 AST 40 H ALT 63 H Alkaline Phosphatase 92 Total Protein 8.1 H Albumin 4.8 Lipase 16 Airway Mallampati Class: III TM Dist: >3cm Neck ROM: Full Assessment and Plan Assessment Anesthesia Assessment: Anesthesia Plan Discussed and Chart Reviewed Final Anesthetic Review Family History of Problems with Anesthesia: No History of Problems with Anesthesia: No NPO: Yes ASA Class: III and Emergency Final Preanesthetic Review: No Changes in Pt Med Stat, Meds/Allgs Chart Reviewed, Consent Obtained/Reviewed and Anes Risks/Benef Reviewed Patient Risk: Intermediate Procedure Risk: Low Anesthetic Plan Anesthetic Plan: GA Disposition: Standard PACU
[2024-09-13] MEDS: cefoTEtan disodium 2 GM VIAL IVPUSH (11:48)
--- NOTE | 2024-09-13 13:03 | W.PM.OPN ---
Operative Note Operative Note Date of Service: 09/13/24 Narrative: Preoperative diagnosis: Acute appendicitis Postoperative diagnosis: Same Procedure: Laparoscopic appendectomy Surgeon: Stevie Reynolds MD Supervisor Coil Winding: None Anesthesia: General endotracheal Indications for procedure: 54-year-old male patient presenting with a 24 hour history of abdominal pain radiating into the right lower quadrant. Workup with CT abdomen and pelvis revealed a thickened dilated appendix consistent with acute appendicitis. Operative findings: Markedly inflamed appendix without perforation. Surrounding phlegmon noted surrounding the cecum. Appendix noted to be adherent to the pelvis. Specimen: Appendix Estimated blood loss: 5 mL Complications: None Procedure details: Patient was brought to the OR and placed in a supine position. After administering general anesthesia the patient's abdomen was prepped with ChloraPrep and draped in a sterile fashion. A surgical time-out was called and consent confirmed. Patient received preoperative antibiotics and Venodyne boots were in place. Local anesthesia consisting of 0.5% Sensorcaine with epinephrine was infiltrated in periumbilical region. A 5 mm incision was made below the umbilicus and carried down through subcutaneous tissue. A Veress needle was then inserted while elevating abdominal cavity with towel clips. After a positive drop test the abdomen was insufflated to a pressure of 15 mm of mercury. The Veress needle was removed and a 5 mm trocar inserted. The camera was then inserted in the abdomen explored. A 2nd 5 mm trocars placed in the lower midline. A 12 mm trocar was then placed in the left lower quadrant. The patient was then placed in a Trendelenburg position and rotated to the left. The appendix was identified in the right lower quadrant and brought up using blunt dissecting clamps. The mesentery of the appendix was then divided using the LigaSure. The appendiceal artery was cauterized and divided using the LigaSure. Dissection was continued down to the base of the cecum. An Endo-JOHN stapler with a purple reload was then used to divide the appendix at the base with the cecum. The appendix was then placed in Endo-Catch bag and brought out through the left lower quadrant incision. The abdomen was then irrigated with saline solution and suctioned dry. Wounds were checked for hemostasis. CO2 was then evacuated from the abdominal cavity and all trocars removed. Fascia was closed in the left lower quadrant incision using a [id number] 0 Polysorb suture. Skin was closed at all incisions using a subcuticular 4-0 Polysorb suture. Steri-Strips 2 x 2 gauze and Tegaderm were then applied. The patient tolerated the procedure well. Sponge, instrument, needle counts reported as correct. The patient was transferred to PACU in stable condition.
--- NOTE | 2024-09-13 13:42 | PC.NURSE ---
A&Ox3, drowsy from PACU, no resp distress, vss, no c/o pain at this time, 3 dressing CDI, waiting for [facility] for admission.
--- NOTE | 2024-09-13 14:48 | PHA.MEDREC ---
Addendum entered by Lora Rodriguez [facility] 09/13/24 16:25: [facility] reviewed Addendum entered by Obdulio Schmitz 09/13/24 16:03: Spoke with patients again to confirm what patient is taking at home. She confirmed he takes finasteride, aspirin, HCTZ, and atorvastatin at home. Original Note: Pharmacy Consult ? Medication Reconciliation Pharmacy has completed the medication reconciliation. Spoke with family at bedside through an infection control specialist. She reports patient is only taking losartan 100 mg daily, nothing else. He is not taking HCTZ, baby aspirin, or atorvastatin.
--- NOTE | 2024-09-13 15:33 | PC.NURSE ---
Pt ambulated to the bathroom at this time, void # 1 after surgery, no c/o pain at this time. instructed to use IS.
[2024-09-13] MEDS: oxyCODONE HCl Immed Release 5 MG TABLET PO (21:15)
[2024-09-14 03:18] VITALS: BP 125/68; PULSE 69; RESP 18; TEMP 36.5; O2SAT 96
[2024-09-14 07:48] VITALS: BP 128/73; PULSE 63; RESP 16; TEMP 36.3; O2SAT 95
--- NOTE | 2024-09-14 08:41 | PC.NURSE ---
Patient doing well, medicated for pain this AM, no Resp distress, slight staining on left sided abd dressing. No c/o n/v. Ambulating in the room independently. Using IS.
--- NOTE | 2024-09-14 08:57 | PM.PNGS ---
Subjective Subjective Date of Service: 09/14/24 Interval history: Reports complaints of pain in the LLQ incision, otherwise feels well. Physical Exam Vital Signs: Vital Signs: Last Vital Signs Temp 97.4 F 09/14/24 07:48 Pulse 63 09/14/24 07:48 Resp 16 09/14/24 07:48 BP 128/73 09/14/24 07:48 Pulse Ox 95 09/14/24 07:48 O2 Del Method Room Air 09/14/24 07:48 O2 Flow Rate 3 09/13/24 13:04 BMI result Body Mass Index 28.0 Const: General: no acute distress Nutritional Appearance: well nourished Orientation/consciousness: patient oriented x3 Limitations: no limitations Resp: Effort & Inspection: normal respiratory effort, no audible wheezes and no respiratory distress GI: Other: trochar incisions are clean, dry and intact without redness or discharge. Mild staining in the LLQ incision. No redness or hernia noted. Inspection: Yes normal to inspection Skin: Other: warm, dry and no Neuro: General: patient oriented x3 Extrem: General: Yes no clubbing, cyanosis or edema Objective Data Active Medications Aspirin (Aspirin 81 Mg Tab.Chew) 81 mg PO DAILY [facility] Last Admin: 09/14/24 07:58 Dose: 81 mg Documented By: AMRKY Atorvastatin Calcium (Atorvastatin Calcium 80 Mg Tablet) 80 mg PO DAILY [facility] Last Admin: 09/14/24 07:58 Dose: 80 mg Documented By: MARKY Finasteride (Finasteride 5 Mg Tablet) 5 mg PO DAILY [facility] Last Admin: 09/14/24 07:58 Dose: 5 mg Documented By: MARKY Hydrochlorothiazide (Hydrochlorothiazide 25 Mg Tablet) 25 mg PO DAILY [facility]; Protocol Last Admin: 09/14/24 07:58 Dose: 25 mg Documented By: MARKY Hydromorphone HCl (Hydromorphone Hcl 0.5 Mg/0.5 Ml Syringe) 0.5 mg IVPUSH Q3H PRN; Protocol PRN Reason: Pain, Severe (Pain Scale 7-10) Last Admin: 09/14/24 07:18 Dose: 0.5 mg Documented By: MARKY Acetaminophen (Ofirmev) 1,000 mg in 100 mls @ 400 mls/hr IV Q6H PRN PRN Reason: Pain, Mild (Pain Scale 1-3) Losartan Potassium (Losartan Potassium 50 Mg Tablet) 100 mg PO DAILY RICHA; Protocol Last Admin: 09/14/24 07:57 Dose: 100 mg Documented By: MARKY Naloxone HCl (Naloxone Hcl 0.4 Mg/Ml Vial) 0.04 mg IVPUSH Q5M PRN PRN Reason: Excessive sedation or RR < 8 Ondansetron HCl (Ondansetron Hcl 4 Mg/2 Ml Vial) 4 mg IVPUSH QID PRN PRN Reason: Nausea Oxycodone HCl (Oxycodone Hcl Immed Release 5 Mg Tablet) 5 mg PO Q6H PRN PRN Reason: Pain, Moderate(Pain Scale 4-6) Last Admin: 09/13/24 21:15 Dose: 5 mg Documented By: ROGELIO Zolpidem Tartrate (Zolpidem Tartrate 5 Mg Tablet) 5 mg PO BEDTIME PRN PRN Reason: Insomnia Labs 09/13/24 06:24 09/13/24 06:24 Procedures Date of Service Date of Service: 09/14/24 Progress Note: A&P Assessment and plan (1) Acute appendicitis: Status: Acute Plan 54 year old male patient presenting yesterday with complaints of abdominal pain in the right lower quadrant found to have acute appendicitis. He underwent an uneventful laparoscopic appendectomy on 09/13/2024. On POD #1 he reports some incisional pain especially in the LLQ. He is tolerating his diet without nausea or vomiting. Wounds are clean and intact. He will be discharged to home today with follow up in the office in one week. 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 He should not lift > 10 pounds for 2 weeks. Time Spent With Patient Time: Total time managing care of this patient today ____ minutes. Quality Stroke Does the patient have a stroke diagnosis?: Yes Reason for No Anti-thrombotic by Day Two: Medication refused VTE Prior VTE?: No VTE Risk Level:: Surgical - moderate VTE Device Contraindication: N/A - Device Ordered VTE Drug Contraindication: Treatment Not Indicated
--- NOTE | 2024-09-14 09:18 | PM.DS ---
DS: Providers Provider Date of Service: 09/14/24 Date of admission: 09/13/24 12:56 Date of discharge: 09/14/24 Primary care physician: Michelle Yoon MD Admitting clinician: Stevie Reynolds Discharging clinician: Stevie Reynolds DS: Diagnosis Discharge Diagnosis (1) Acute appendicitis: Start date: 09/13/24 Status: Acute DS: Summary Hospital Course Hospital Course: Krish Schaefer is a 54 year old male presenting with a history of TIA vs CVA, HTN with complaints of abdominal pain, nausea and vomiting x 15 times. The pain began yesterday evening and was located mainly in the periumbilical region but now is felt mostly in the right lower quadrant. He presented to the ED and was noted to have diffuse abdominal pain. WBC elevated to 14. CT abdomen and pelvis significant for an enlarged appendix with multiple fecaliths. He denies any previous abdominal surgeries. He is admitted to the surgical service for management of acute appendicitis. He was taken to the OR on 09/13/2024 for a laparoscopic or possible open appendectomy. Operative findings were consistent with acute appendicitis without perforation or abscess. There was phlegmon around the appendix. He tolerated the appendectomy well with the expected level of bleeding. Postoperatively, he reports some incisional pain but overall he remained hemodynamically stable. He tolerated po without nausea or vomiting. He will be discharged to home today with follow up in the office in one week. 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 He should not lift > 10 pounds for 2 weeks. Status at Discharge Functional status at discharge: independent ambulation Overall status at discharge: patient is back to baseline Time Attestation Discharge Coordination Time (in mins): 25 minutes Quality: Safe Use of Opioids Does Pt have an Active Cancer Diagnosis on the Problem List?: No Quality: Stroke Does the patient have a stroke diagnosis?: No Reason for No Statin at DC: N/A - Med Ordered Physical Exam Vital Signs: Vital Signs: Last Vital Signs Temp 97.4 F 09/14/24 07:48 Pulse 63 09/14/24 07:48 Resp 16 09/14/24 07:48 BP 128/73 09/14/24 07:48 Pulse Ox 95 09/14/24 07:48 O2 Del Method Room Air 09/14/24 07:48 O2 Flow Rate 3 09/13/24 13:04 BMI result Body Mass Index 28.0 Const: General: no acute distress Nutritional Appearance: well nourished Orientation/consciousness: patient oriented x3 Limitations: no limitations Resp: Effort & Inspection: normal respiratory effort, no audible wheezes and no respiratory distress GI: Other: trochar incisions are clean, dry and intact without redness or discharge. Mild staining in the LLQ incision. No redness or hernia noted. Inspection: Yes normal to inspection Skin: Other: warm, dry and no Neuro: General: patient oriented x3 Extrem: General: Yes no clubbing, cyanosis or edema DS: Data Data Completed and Pending Pending studies at discharge: Pending at discharge 09/13/24 12:35 Surgical [PTH] Routine Discharge Plan Discharge Anticipated Discharge Date/Time: 09/14/24 08:53 Patient Disposition: Home, Self-Care Discharge Diagnosis: Acute appendicitis Referrals: Michelle Yoon MD [Primary Care Provider, Urology] - 1 Week Stevie Reynolds MD [Physician, General Surgery] - 1 Week Discharge Medications: New oxycodone 5 mg tablet 5 mg PO Q6H PRN (Reason: pain (scale score 7-10)) Qty: 15 0RF Rx Instructions: Partial Fill upon patient request. Continued losartan 100 mg tablet 100 mg PO QAM atorvastatin 80 mg tablet 80 mg PO DAILY aspirin 81 mg tablet,chewable 1 tab PO DAILY hydrochlorothiazide 25 mg tablet 25 mg PO DAILY finasteride 5 mg tablet 5 mg PO DAILY Discharge Orders: Discharge Order (Routine); Ordered 09/14/24 Ordered By: Stevie Reynolds Diet: Advance to usual diet Activity on Discharge: No heavy lifting Stand Alone Forms: Patient Portal Discharge page, Work/School Release Print Language: Croatian Activity Restrictions/Additional Instructions: No lifting > 10 pounds for 2 weeks No driving for one week Ice to the incision x 24 hours After 24 hours, use warm compress or heating pad on low as needed Take Tylenol Extra-strength 1-2 tabs every 6 hours as needed Oxycodone every 6-8 hours as needed for pain Colace 100 mg every day as needed for constipation Remove dressing in 3 days Follow up in office in one week (call office at [phone] for appointment). Care Plan Goals: Return to normal activity and diet after recovery Health Concerns: Abdominal pain in right lower abdomen Plan of Treatment: Laparoscopic appendectomy on 09/13/2024 Assessment: Acute appendicitis Patient Instructions: How to Use an Incentive Spirometer (GEN), Laparoscopic Appendectomy (GEN)
[2024-09-14 10:06] VITALS: BP 115/60; PULSE 67; RESP 16; TEMP 36.2; O2SAT 96
--- NOTE | 2024-09-14 10:58 | MHC.CM.PN ---
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
== END 2024-09-14 10:15 | disposition home or self-care (01) | DRG 234 ==
LOC: HO.ED 10:16 → HO.SSS 10:22 → HO.S3 13:09
PROVIDERS: Admitting Provider Surgery; Emergency Provider Emergency Medicine; PCP Urology; Visit Provider Surgery
PROC: 0DTJ4ZZ Resection of Appendix, Percutaneous Endoscopic Approach (ICD-10-PCS; CPT 44970; principal; 2024-09-13 11:00)
DX: K35.80 Unspecified acute appendicitis (principal); Z79.82 Long term (current) use of aspirin; Z79.899 Other long term (current) drug therapy
CPT/HCPCS: 36415; 74177; 80053; 80076; 83690; 85025; 88304; 93005; 99285; J0131; J1100; J1171; J2003; J2250; J2270; J2405; J2704; J2765; J3010; Q9967

== ENCOUNTER → 2024-09-13 06:25 | Outpatient (BNV) | payer OTHER, SELFPAY | PROVIDERS: Admitting Provider Surgery; Emergency Provider Emergency Medicine; PCP Urology; Visit Provider Internal Medicine | DX: R10.13 Epigastric pain (principal) | CPT/HCPCS: 93010 ==

== ENCOUNTER → 2024-09-13 08:10 | Outpatient (BNV) | payer OTHER, SELFPAY | PROVIDERS: PCP Urology; Visit Provider Radiology Diagnostic Radiology | DX: K35.80 Unspecified acute appendicitis (principal) | CPT/HCPCS: 74177 ==

== ENCOUNTER → 2024-09-13 10:14 | Outpatient (BNV) | payer OTHER, SELFPAY | PROVIDERS: Emergency Provider Emergency Medicine; PCP Urology; Visit Provider Surgery | DX: K35.80 Unspecified acute appendicitis (principal) | CPT/HCPCS: 44970; 99024; 99222; 99499 ==

== ENCOUNTER 2024-09-16 11:20 | Emergency (ER) | payer OTHER, SELFPAY ==
[2024-09-16 11:45] VITALS: BP 152/83; PULSE 67; RESP 16; TEMP 36.8; O2SAT 97; BMI 26.9
--- NOTE | 2024-09-16 11:55 | ED.GENADULT ---
HPI - General Adult General Chief complaint: Wound/Laceration Stated complaint: post hernia swelling and ozzing Time Seen by Provider: 09/16/24 12:38 Related Data Home Medications ?Medication ?Instructions ?Recorded ?Confirmed aspirin 81 mg chewable tablet 1 tab PO DAILY 09/13/24 09/13/24 atorvastatin 80 mg tablet 80 mg PO DAILY 09/13/24 09/13/24 finasteride 5 mg tablet 5 mg PO DAILY 09/13/24 09/13/24 hydrochlorothiazide 25 mg tablet 25 mg PO DAILY 09/13/24 09/13/24 losartan 100 mg tablet 100 mg PO QAM 09/13/24 09/13/24 Previous Rx's ?Medication ?Instructions ?Recorded oxycodone 5 mg tablet 5 mg PO Q6H PRN pain (scale score 09/14/24 7-10) #15 tabs oxycodone 5 mg tablet 5 mg PO Q6H PRN pain #7 tabs 09/16/24 Allergies Allergy/AdvReac Type Severity Reaction Status Date / Time No Known Allergies (No Known Allergy Verified 09/16/24 11:53 Allergies*) [facility] Past Medical History Medical History History of BPH Hyperlipidemia Benign essential HTN Family History Family History Mother Breast cancer Social History Social History Household Members: Family Housing: House Do you presently have visiting nurse or other home services: No Unable to assess alcohol history related to: Unknown Alcohol intake: never Comment: at bedside Patient Tobacco Use Status: Never used Tobacco Smoked in Last 30 Days: No Use of substances other than those prescribed or required for medical reasons: Unknown Advance Directives: Yes Advance Directives on File: Yes Advance Directives Date on File: 09/12/23 service: No Physical Exam ED Vital Signs: Vital Signs - 24 hr 09/16/24 11:45 09/16/24 13:01 Temperature 98.2 F 98 F Pulse Rate 67 69 Respiratory Rate 16 16 Blood Pressure 152/83 H 122/72 Pulse Oximetry 97 100 Oxygen Delivery Method Room Air Room Air BMI result Body Mass Index 26.9 Course Course Course Narrative: RME: 54 yold male presents to the ED for evaluation of post surgery wound. Patient had surgery this past sunday and presented to the ED to have wound checked and dressing changes. incision area no discharte or redness. Discharge Plan Discharge Clinical Impression: Visit for wound check Patient Disposition: Home, Self-Care Prescriptions: New oxycodone 5 mg tablet 5 mg PO Q6H PRN (Reason: pain) Qty: 7 0RF Rx Instructions: partial filing upon pt request; Partial Fill upon patient request. No Action losartan 100 mg tablet 100 mg PO QAM atorvastatin 80 mg tablet 80 mg PO DAILY aspirin 81 mg tablet,chewable 1 tab PO DAILY hydrochlorothiazide 25 mg tablet 25 mg PO DAILY finasteride 5 mg tablet 5 mg PO DAILY oxycodone 5 mg tablet 5 mg PO Q6H PRN (Reason: pain (scale score 7-10)) Qty: 15 0RF Rx Instructions: Partial Fill upon patient request. Interventions: ED Discharge Assessment Last Done: 09/16/24 13:01 Discharge Date/Time: 09/16/24 13:02 Print Language: Turkish
--- NOTE | 2024-09-16 12:46 | ED_ITS ---
HPI - Wound/Laceration General Chief Complaint: Wound/Laceration Stated Complaint: post hernia swelling and ozzing Time Seen by Provider: 09/16/24 12:38 Source: patient Mode of arrival: ambulatory Limitations: no limitations History of Present Illness HPI narrative: This is 54 years old male post op day 2 laparoscopic appendectomy done by Dr. Reynolds he comes to the emergency department for wound check and dressing change. Onset (ago): day(s) (2) Location: abdomen Related Data Home Medications ?Medication ?Instructions ?Recorded ?Confirmed aspirin 81 mg chewable tablet 1 tab PO DAILY 09/13/24 09/13/24 atorvastatin 80 mg tablet 80 mg PO DAILY 09/13/2408/26 finasteride 5 mg tablet 5 mg PO DAILY 09/13/2409/13 hydrochlorothiazide 25 mg tablet 25 mg PO DAILY 09/13/24 losartan 100 mg tablet 100 mg PO QAM 09/13/2409/13 Previous Rx's ?Medication ?Instructions ?Recorded oxycodone 5 mg tablet 5 mg PO Q6H PRN pain (scale score 09/14/24 7-10) #15 tabs oxycodone 5 mg tablet 5 mg PO Q6H PRN pain #7 tabs 09/16/24 Allergies Allergy/AdvReac Type Severity Reaction Status Date / Time No Known Allergies (No Known Allergy Verified 09/16/24 11:53 Allergies*) Review of Systems 2 Constitutional: Constitutional: Reports no additional constitutional complaints Eyes: Eyes: Reports no additional eye complaints Cardiovascular: Cardiovascular: Reports no additional cardiovascular complaints [facility] Past Medical History Attestation statement: The following information was validated with the patient. Medical History History of BPH Hyperlipidemia Benign essential HTN Family History Family History Mother Breast cancer Social History Social History Household Members: Family Housing: House Do you presently have visiting nurse or other home services: No Alcohol intake: never Comment: at bedside Patient Tobacco Use Status: Never used Tobacco Advance Directives: Yes Advance Directives on File: Yes Advance Directives Date on File: 09/12/23 service: No Physical Exam 2 Exam: Exam: Patient looks well is not toxic-appearing comfortable Vital Signs: Vital Signs: Last Vital Signs Temp 98.2 F 09/16/24 11:45 Pulse 67 09/16/24 11:45 Resp 16 09/16/24 11:45 BP 152/83 H 09/16/24 11:45 Pulse Ox 97 09/16/24 11:45 O2 Del Method Room Air 09/16/24 11:45 BMI result Body Mass Index 26.9 He is afebrile normotensive Const: General: cooperative Nutritional Appearance: well nourished O rientation/consciousness: oriented to person and patient oriented x3 HEENT: Head: Yes normal to inspection General nose exam: Normal external nose present Face and sinus: Yes normal facial exam Mouth: Normal oral and palatal mucosa present Neck: Neck: Yes normal visual inspection Resp: Effort & Inspection: normal respiratory effort Auscultation: clear to auscultation bilaterally Cardio: Jugular venous distension: no JVD Rate: regular rate Rhythm: r egular rhythm GI: Other: Abdomen is soft nontender and wound looks well to me no evidence of redness hematoma see picture Inspection: Yes normal to inspection Palpation (GI): Soft to palpation, not firm and nontender Auscultation: normal bowel sounds Neuro: General: oriented to person and patient oriented x3 Course Reevaluation(s) Reevaluation #1: Case was discussed with Dr. Reynolds picture of the wound with Center via tiger text okay to discharge the patient home Time: 12:57 Medical Decision Making Medical Decision Making MDM Narrative: Basically the patient came for wound check wound looks well I send tiger test picture to Dr. Reynolds of the Wound okay to discharge the patient he has an appointment coming up with Dr. Reynolds Differential Diagnosis Differential Diagnoses: The differential diagnosis associated with the presentation includes Wound infection/erythema Admission/Observation Consideration of admission/observation: Escalation of care including admission/observation considered Consult Healthcare Provider Management of the patient was discussed with: Bundling Machine Operator Dr Guzman Discharge Plan Discharge Clinical Impression: Visit for wound check Patient Disposition: Home, Self-Care Prescriptions: New oxycodone 5 mg tablet 5 mg PO Q6H PRN (Reason: pain) Qty: 7 0RF Rx Instructions: partial filing upon pt request; Partial Fill upon patient request. No Action losartan 100 mg tablet 100 mg PO QAM atorvastatin 80 mg tablet 80 mg PO DAILY aspirin 81 mg tablet,chewable 1 tab PO DAILY hydrochlorothiazide 25 mg tablet 25 mg PO DAILY finasteride 5 mg tablet 5 mg PO DAILY oxycodone 5 mg tablet 5 mg PO Q6H PRN (Reason: pain (scale score 7-10)) Qty: 15 0RF Rx Instructions: Partial Fill upon patient request. Print Language: Pakistani
[2024-09-16 13:01] VITALS: BP 122/72; PULSE 69; RESP 16; TEMP 36.6; O2SAT 100
--- OUTSIDE RECORDS SUMMARY | 2024-09-16 13:35 | XMS_ITS | Encounter Summary ---
Author Organization [employer] Address [address] [facility] [address] [place] [address] Care Team Providers Care Twisting Frame Fixer Name Role Phone True Mullen MD Primary Care Prov ider Reason for Visit * Reason Onset Date Comments Hospital Follow-up 09/20/2023 Encounter Details Date Type Department Care Team ([facility] st Contact Info) Description 09/20/2023 Telephone [facility] MEDICINE [address] [place] [phone] True Mullen MD [address] [place] [phone] Hospital Follow-up Social History Tobacco Use Types [...] 09/20/2023 8:55 AM EDT Salty Tucker at [facility] calling to schedule a F appt manual writer [facility] and was told has been transferred numerous times and has not received a call back patient will be discharged on 09/30 please call Garrett at [phone] documented in this encounter Plan of Treatment Upcoming Encounters Date Type Department Care Team (Late st Contact Info) Description 09/22/2024 9:00 AM EDT Office Visit [facility] OPTOMETRY [address] [place] [address] Brian, Farideh, OD [address] [place] [address] 10/03/2024 9:30 AM EDT Office Visit [facility] CHC MED & PEDS [address] [place] [address] True Mullen MD [address] [place], [place] [phone] documented as of this encounter Visit Diagnoses Not on filedocumented in this encounter Care Teams Twisting Frame Fixer Relationship Specialty Start Date End Date True Mullen MD [address] [place], [place] [phone] PCP - General Internal Medicine 07/27/19 documented as of this encounter
--- OUTSIDE RECORDS SUMMARY | 2024-09-16 13:35 | XMS_ITS | Clinical Summary ---
Author Organization [address] [facility] Address [address] [place] [address] Phone Care Team Providers Care Belly Dump Driver Name Role Phone Unavailable Primary Care Provider [...] Panel) 12/06/2023 Colorectal Cancer Screening: Colonoscopy 12/06/2023 HIV Screening 12/06/2023 Hepatitis C Screening 12/06/2023 Social Influencers of Health Screening 12/06/2023 Depression Screening 02/27/2024 Influenza Vaccine (#1) 2024 HIB Vaccines Aged [...] Documents on File Type Date Recorded Patient Residential Sales Expl 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
== END 2024-09-16 13:02 | disposition home or self-care (01) ==
PROVIDERS: Emergency Provider Emergency Medicine; PCP Internal Medicine
DX: Z48.01 Encounter for change or removal of surgical wound dressing (principal); I10 Essential (primary) hypertension; E78.5 Hyperlipidemia, unspecified; Z79.82 Long term (current) use of aspirin; Z79.02 Long term (current) use of antithrombotics/antiplatelets; Z79.899 Other long term (current) drug therapy
CPT/HCPCS: 99283; 99284

== ENCOUNTER 2024-09-25 10:19 | Outpatient (AMB) | payer OTHER, SELFPAY ==
--- NOTE | 2024-09-25 10:30 | MHC.OFFVIS ---
Vital Signs 09/25/24 10:37 Height 5 ft 11 in Weight 195 lb 6 oz BMI 27.2 BP 156/97 H Blood Pressure Location Lt brachial Position Sitting Pulse 60 Intake Visit Reasons: s/p appy Intake Note: Patient is seen in office for post op assessment post aparoscopic appendectomy. Patient c/o: admits to some pain and bruising Surgery: 09/13/24 Manager Revenue Required: Yes Manager Revenue Language: Supervisor Small Appliance Assembly Services: Manager Revenue Present Manager Revenue Name: Kristine ELMORE Information Interpreted: non-clinical & clinical Ssds Mk 2 Advanced Operator: Ssds Mk 2 Advanced Operator Present Accompanied by: Family/Other Allergies No Known Allergies (No Known Allergies*) Allergy (Verified 09/25/24 10:37) HPI Comments Details: 54-year-old male patient returning following a laparoscopic appendectomy performed on 09/13/2024. He has some soreness in the periumbilical region but generally feels well. He denies any nausea, vomiting, fever or chills. His appetite is normal as well. [facility] Medical History Acute appendicitis History of BPH Hyperlipidemia Benign essential HTN Surgical History History of laparoscopic appendectomy (09/13/24) Family History Mother Breast cancer Social History Household Members: Family Housing: House Do you presently have visiting nurse or other home services: No Unable to assess alcohol history related to: Unknown Alcohol intake: never Comment: at bedside Patient Tobacco Use Status: Never used Tobacco Advance Directives Date on File: 09/12/23 service: No Physical Exam Vital Signs: Last Vital Signs Pulse 60 09/25/24 10:37 BP 156/97 H 09/25/24 10:37 BMI result Body Mass Index 27.2 Resp Effort & Inspection: normal respiratory effort GI Other: Soft and nondistended, well-healed trocar incisions with small amount of ecchymosis surrounding the wounds. No evidence of hernia or infection. Extrem Other: No edema Assessment & Plan Assessment & Plan (1) Acute appendicitis: Code(s): K35.80 - Unspecified acute appendicitis Category: Medical Qualifiers: Acute appendicitis type: unspecified acute appendicitis type Qualified Code(s): K35.80 - Unspecified acute appendicitis Plan 54-year-old male patient status post laparoscopic appendectomy for acute appendicitis. He tolerated the procedure well in his wounds are healing nicely. He should continue to avoid lifting greater than 10 lb for a total of 2 weeks following the surgery after which he may resume normal activity. He should follow up as needed. Coding Level of Care Code Global (98724) Diagnoses Acute appendicitis K35.80 Acute appendicitis type: unspecified acute appendicitis type
[2024-09-25 10:37] VITALS: BP 156/97; PULSE 60; BMI 27.2
--- OUTSIDE RECORDS SUMMARY | 2024-09-25 11:02 | XMS_ITS | Encounter Summary ---
Author Organization [employer] Address [address] [facility] 7t [place] [address] Care Team Providers Care Bonsai Culturist Name Role Phone True Mullen MD Primary Care Prov ider Reason for Visit * Reason Onset Date Comments Hospital Follow-up 09/20/2023 Encounter Details Date Type Department Care Team ([facility] st Contact Info) Description 09/20/2023 Telephone [facility] MEDICINE [address] [place] [phone] True Mullen MD [address] [place] [phone] Hospital Follow-up Social History Tobacco Use Types [...] 09/20/2023 8:55 AM EDT Salty Tucker at [facility] calling to schedule a F appt leader writer [facility] and was told has been transferred numerous times and has not received a call back patient will be discharged on 09/30 please call Garrett at [phone] documented in this encounter Plan of Treatment Upcoming Encounters Date Type Department Care Team (Late st Contact Info) Description 10/03/2024 9:30 AM EDT Office Visit [facility] CHC MED & PEDS [address] [place] [address] True Mullen MD [address] [place], [place] [phone] 03/25/2025 9:00 AM EST Office Visit [facility] OPTOMETRY [address] [place] [address] Farideh Torres, OD [address] [place] [address] documented as of this encounter Visit Diagnoses Not on filedocumented in this encounter Care Teams Bonsai Culturist Relationship Specialty Start Date End Date True Mullen MD [address] [place] [address] PCP - General Internal Medicine 07/27/19 documented as of this encounter
--- OUTSIDE RECORDS SUMMARY | 2024-09-25 11:02 | XMS_ITS | Clinical Summary ---
Author Organization 175 [facility] Address [address] [place] [address] Phone Care Team Providers Care Recyclable Materials Sorter Name Role Phone Unavailable Primary Care Provider [...] Documents on File Type Date Recorded Patient Group Product Manager Expl 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
== END 2024-09-25 10:51 | disposition home or self-care (01) ==
LOC: HO.HGS 10:19
PROVIDERS: PCP Urology; Visit Provider Surgery
DX: K35.80 Unspecified acute appendicitis (principal)
CPT/HCPCS: 99024

== ENCOUNTER 2024-10-02 13:17 | Outpatient (REF) | payer OTHER, SELFPAY ==
--- OUTSIDE RECORDS SUMMARY | 2024-10-02 13:20 | XMS_ITS | Clinical Summary ---
Author Organization 175 [facility] Address [address] [place] [address] Phone Care Team Providers Care Brick Paving Checker Name Role Phone Unavailable Primary Care Provider [...] Documents on File Type Date Recorded Patient Soil Specialist Expl 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
[2024-10-02 14:22] LABS: Prostate Specific Antigen 5.32 ng/mL (<0.05-4.0)
== END 2024-10-02 13:18 | disposition home or self-care (01) ==
LOC: HO.LAB 13:17
PROVIDERS: PCP Internal Medicine; Visit Provider Urology
DX: C61 Malignant neoplasm of prostate (principal)
CPT/HCPCS: 36415; 84153

== ENCOUNTER 2024-10-14 09:09 | Outpatient (AMB) | payer OTHER, SELFPAY ==
--- NOTE | 2024-10-14 09:10 | A.OFFVIS_ITS ---
Intake Visit Reasons: 4M follow up/ PSA Intake Note: Patient is present for 4M,/PSA Urology Medication:FINASTERIDE Antibiotic Allergy:NONE Blood Thinner:ASPIRIN Labs done : 10/02/24 PSA 5.32 Transportation Manager Required: No Accompanied by: Self / Same As Patient Allergies No Known Allergies (No Known Allergies*) Allergy (Verified 10/14/24 09:11) HPI Comments Details: Krish is a pleasant Armenian-speaking male. He is a patient Dr. Cuevas. He seen for the following urologic conditions - prostate cancer Armenian translation provided in office by qualified medical investigator Slight rise in PSA Six-month follow-up PSA with repeat prostate MRI PSA 08/18 3.7, 08/19 4.9, 04/22 3.9, 10/20 5.3 Prostate cancer - 08/18 low volume, grade group 2 Diagnosed for elevated PSA - 4.1 Volume at Diagnosis - 30gm pT1c Hershey score: 7 (3+4) (right apex medial) Tumor quantitation: Number cores positive:1 Total number of cores:12 % of tissue involved:5 % Periprostatic fat inv.: Not identified Seminal vesicle inv.: Not identified Perineural inv.: Not identified Family history father positive Staging : 10/18 - MRI - 25 g prostate, no clear evidence of detected disease. Prolaris - 09/18 - genetics confirm active surveillance primary therapy - cell cycle score - CCS 3.6 PFSH Medical History Acute appendicitis History of BPH Hyperlipidemia Benign essential HTN Surgical History History of laparoscopic appendectomy (09/13/24) Family History Mother Breast cancer Social History Household Members: Family Housing: House Do you presently have visiting nurse or other home services: No Unable to assess alcohol history related to: Unknown Alcohol intake: never Comment: at bedside Patient Tobacco Use Status: Never used Tobacco Advance Directives Date on File: 09/12/23 service: No Review of Systems Const All systems reviewed & are unremarkable except as noted in HPI and below Reports no additional complaints Resp Reports no additional complaints GI Reports no additional complaints Reports as per HPI Musc Reports no additional complaints Physical Exam Telemedicine evaluation Appropriate responses Regular breathing rate and rhythm HEENT Head: Yes normal to inspection Ears: hearing grossly normal bilaterally Eyes General: appearance normal, both eyes and all related structures Neck Neck: Yes normal visual inspection Chest Chest palpation & inspection: normal inspection of the chest Resp Effort & Inspection: normal respiratory effort and able to speak in complete sentences Telehealth Telehealth Location of provider rendering services: practice address Location of patient: address on file Patient Identification confirmed using: Name, : Yes Telehealth method: voice only Patient verbally consented to treatment: Yes Patient verbally consented to billing insurance company: Yes Patient informed of any privacy concerns related to visit: Yes Assessment & Plan Assessment & Plan (1) Elevated PSA: Code(s): R97.20 - Elevated prostate specific antigen [PSA] Category: Medical (2) Prostate cancer: Code(s): C61 - Malignant neoplasm of prostate Category: Medical Plan Continue finasteride Six-month follow-up prostate MRI and PSA Orders: Orders Prostate Specific Antigen 6 Months C61 - Malignant neoplasm of prostate MR Prostate wo/w con 6 Months C61 - Malignant neoplasm of prostate Medications: Changed From finasteride 5 mg PO DAILY C61 - Malignant neoplasm of prostate To finasteride 5 mg PO DAILY 90 tabs 1RF 90 days C61 - Malignant neoplasm of prostate Patient Instructions: This note is constructed using voice recognition software. While every effort has been made to ensure accuracy fur finisher seamstress errors may have been included. Imaging studies, laboratory and physical exam results were discussed and reviewed in detail. No major barriers to patient understanding were identified. An opportunity to ask questions regarding the treatment plan was provided. All questions were answered. The patient expressed understanding and agreement with the above treatment plan. The patient is aware they should contact our office by phone for worsening of their current condition or the appearance of new urologic symptoms. Compliance is encouraged with any medications and followup testing that is ordered. It is a privilege to participate in the urologic care of your patient. If you have any questions or concerns regarding treatment for the above conditions, or other urologic issues, please do not hesitate to contact me. The office telephone contact is [phone]. Sincerely, Dr Severiano Montoya MD, [facility] - Urology Compassionate Specialist Care for the Genitourinary System Coding Level of Care Code Tele Est Pt Level 3 (69156) Complex EM visit Add On G2211 Diagnoses Elevated PSA R97.20 Prostate cancer C61
--- OUTSIDE RECORDS SUMMARY | 2024-10-14 10:05 | XMS_ITS | Encounter Summary ---
Author Organization [employer] Address [address] [facility] [address] [place] [address] Care Team Providers Care Talent Director Name Role Phone True Mullen MD Primary Care Prov ider Reason for Visit * Reason Onset Date Comments Hospital Follow-up 09/20/2023 Encounter Details Date Type Department Care Team ([facility] st Contact Info) Description 09/20/2023 Telephone [facility] MEDICINE [address] [place] [phone] True Mullen MD [address] [place] [phone] Hospital Follow-up Social History Tobacco Use Types [...] 09/20/2023 8:55 AM EDT Salty Tucker at [facility] calling to schedule a F appt jingle writer [facility] and was told has been transferred numerous times and has not received a call back patient will be discharged on 09/30 please call Garertt at [phone] documented in this encounter Plan of Treatment Upcoming Encounters Date Type Department Care Team (Late st Contact Info) Description 03/25/2025 9:00 AM EST Office Visit [facility] OPTOMETRY [address] [place] [address] Farideh Torres, OD [address] [place] [address] documented as of this encounter Visit Diagnoses Not on filedocumented in this encounter Care Teams Talent Director Relationship Specialty Start Date End Date True Mullen MD [address] [place] [address] PCP - General Internal Medicine 07/27/19 documented as of this encounter
--- OUTSIDE RECORDS SUMMARY | 2024-10-14 10:05 | XMS_ITS | Clinical Summary ---
Author Organization 175 [facility] Address [address] [place] [address] Phone Care Team Providers Care Coal Feeder Operator Name Role Phone Unavailable Primary Care Provider [...] Documents on File Type Date Recorded Patient Hand Lens Polisher Expl 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
== END 2024-10-14 09:37 | disposition home or self-care (01) ==
LOC: HO.HUSH 09:09
PROVIDERS: PCP Internal Medicine; Visit Provider Urology
DX: R97.20 Elevated prostate specific antigen [PSA] (principal); C61 Malignant neoplasm of prostate
CPT/HCPCS: 99213